=== PATIENT | male | born 1940 | race Hispanic/Latino ===

== ENCOUNTER 2016-09-23 15:17 | Inpatient (IN) | payer MEDICARE ==
[2016-09-23] MEDS ORDERED: NACL 0.9% 1000 ML 1,000 ML IV ONE (16:08)
[2016-09-23 16:47] LABS: Hematocrit 33.8 % (35.5-45.6); Hemoglobin 10.8 gm/dl (11.8-15.2); Mean Corpuscular HGB Conc 32 % (32-34); Mean Corpuscular Hemoglobin 27 pg (28-32); Mean Corpuscular Volume 84 fl (84-94); Platelet Count 339 K/mm3 (140-440); Red Blood Count 4.04 M/mm3 (3.65-5.03); Red Cell Distribution Width 16.9 % (13.2-15.2); White Blood Count 17.6 K/mm3 (4.5-11.0)
[2016-09-23 16:56] LABS: INR 1.29 (0.87-1.13)
[2016-09-23 16:57] LABS: Partial Thromboplastin Time 31.3 Sec. (24.2-36.6)
[2016-09-23 17:03] LABS: Alanine Aminotransferase 11 units/L (7-56); Albumin 3.1 g/dL (3.9-5); Alkaline Phosphatase 68 units/L (35-129); Anion Gap 20 mmol/L; BUN/Creatinine Ratio 18.18; Bilirubin,Total 0.3 mg/dL (0.1-1.2); Blood Urea Nitrogen 20 mg/dL (9-20); Calcium 8.5 mg/dL (8.4-10.2); Carbon Dioxide 21 mmol/L (22-30); Chloride 93.2 mmol/L (98-107); Glucose 118 mg/dL (75-100); Lipase 26 units/L (13-60); Potassium 3.4 mmol/L (3.6-5.0); Sodium 131 mmol/L (137-145); Total Protein 6.3 g/dL (6.3-8.2)
[2016-09-23] MEDS ORDERED: NACL ONE (17:34)
[2016-09-23 17:36] LABS: Anisocytosis 1+; Basophils % (Manual) 0 % (0.0-1.8); Blastocytes % (Manual) 0 %; Diff Status Complete; Eosinophils % (Manual) 0 % (0.0-4.3); Platelet Estimate Consistent w Auto; Poikilocytosis 1+
[2016-09-23] MEDS ORDERED: ZOFRAN IV ONE (19:00)
--- NOTE | 2016-09-23 19:03 | Cat Scan Report ---
FINAL REPORT PROCEDURE: CT ABDOMEN PELVIS W CON TECHNIQUE: Computerized axial tomography of the abdomen and pelvis was performed after the IV injection of iodinated nonionic contrast. HISTORY: abdominal pain COMPARISON: No prior studies are available for comparison. FINDINGS: Visualized lower thorax: Layering left pleural effusion. Left lung base atelectasis or infiltrate. Liver: Normal size and attenuation. Spleen: Normal size and attenuation. Gallbladder and biliary system: Possible cholelithiasis. Pancreas: Normal. Adrenals: Mild left adrenal hyperplasia. Kidneys: There are numerous bilateral rounded renal lesions, likely cysts. Largest in the right kidney measures up to 3.8 centimeters. Largest in the left kidney measures up to 5.2 centimeters. There is layering high density within 1 of the left kidney midpole cysts. No hydronephrosis bilaterally. Within the left kidney upper pole there is a nonobstructing 16 millimeter calculus. There is a punctate 1-2 millimeter calculus in the right kidney midpole. GI tract: There is acute inflammation involving the junction of the sigmoid colon and distal left colon, compatible with acute diverticulitis. There is also diffuse abnormal wall thickening of the entire colon, concerning for underlying diffuse colitis. The appendix is visualized and does not appear inflamed. No abscess is seen. Sutures are noted in the transverse colon. Lymph nodes and mesentery: No significant abnormality. Vasculature: Atherosclerotic calcification. Bladder: Diffuse urinary bladder wall thickening. Reproductive organs: Normal. Peritoneum: Small amount of free intraperitoneal air is seen in the anterior abdomen. Musculoskeletal structures: There has been posterior fusion from L3 through S1. Diffuse multilevel degenerative changes of the thoracolumbar spine. Spinal stimulating device is in place. There has been right hip arthroplasty Other: None. IMPRESSION: Small amount of free intraperitoneal air suggests bowel perforation. There is acute inflammation of the distal left colon/proximal sigmoid colon, which may be related to acute diverticulitis. There is also diffuse underlying colitis, with significant abnormal wall thickening of the entire colon, uncertain etiology. Findings were discussed with Dr. Leonard at 5:55 p.m. central standard time on 09/23/2016.
--- NOTE | 2016-09-23 19:06 | Emergency Department Report ---
HPI - General Chief Complaint: GI Bleed Time Seen by Provider: 09/23/16 19:04 - HPI HPI: The patient is a 76-year-old male with a history of CABG 2 months ago, segmental colectomy 2 months ago for repair of perforated transverse colon injured during mediastinal chest tube placement, and whom presents for evaluation of abdominal pain and diarrhea. The patient reports constant abdominal pain for the past 2 days, cramping in quality, generalized, moderate in severity, exacerbated with vomiting and defecation. He also reports 2 days of recurrent loose foul-smelling dark stools, and constant nausea and nonbilious , nonbloody emesis. The patient denies fever, chest pain, dyspnea, hemoptysis, hematemesis, bright blood in the stool, dysuria, hematuria, flank pain, inability to pass flatus. ED Past Medical Hx - Past Medical History Previous Medical History?: Yes Hx Hypertension: Yes (30yrs ago) Hx Heart Attack/AMI: No Hx Congestive Heart Failure: No Hx Diabetes: Yes (pill control) Hx GERD: Yes - Surgical History Past Surgical History?: Yes Hx Coronary Stent: No Additional Surgical History: CABG 08/2016 [facility], [place]. Bowel surgery 2017 - Social History Smoking Status: Former Smoker Substance Use Type: None - Medications Home Medications: Home Medications Medication Instructions Recorded Confirmed Last Taken Type Aspirin [Adult Low Dose Aspirin EC] 81 mg PO DAILY 07/20/16 07/20/16 07/20/16 History Carvedilol [Coreg] 25 mg PO BID 07/20/16 07/20/16 07/20/16 History FLUoxetine HCL [FLUoxetine] 40 mg PO DAILY 07/20/16 07/20/16 07/20/16 History Fenofibrate [Lofibra] 160 mg PO QDAY 07/20/16 07/20/16 07/20/16 History Lisinopril [Zestril TAB] 2.5 mg PO QDAY 07/20/16 07/20/16 07/20/16 06:30 History Nitroglycerin [Nitrostat] 0.4 mg SL Q5M PRN 07/20/16 07/20/16 07/18/16 History amLODIPine [Norvasc] 10 mg PO DAILY 07/20/16 07/20/16 07/20/16 History glipiZIDE [glipiZIDE ER] 5 mg PO QAM 07/20/16 07/20/16 07/19/16 History ED Review of Systems ROS: Stated complaint: SEPSIS Other details as noted in HPI Constitutional: denies: fever ENT: denies: throat or neck pain Respiratory: denies: cough, shortness of breath Cardiovascular: denies: chest pain Endocrine: denies unexplained weight loss or gain Gastrointestinal: reports abdominal pain, nausea Genitourinary: denies: dysuria Musculoskeletal: denies: leg swelling Skin: denies: rash Neurological: denies: headache Hematological/Lymphatic: denies: easy bleeding or easy bruising Psych: denies sadness or hopelessness Physical Exam - Physical Exam Vital Signs: Vital Signs 09/23/16 09/23/16 09/23/16 15:40 15:46 16:00 Temperature 98.4 F Pulse Rate 94 H 94 H 92 H Respiratory 24 21 19 Rate Blood Pressure 116/59 116/59 Blood Pressure 116/59 [Right] O2 Sat by Pulse 100 100 Oximetry 09/23/16 09/23/16 09/23/16 16:11 16:30 17:00 Temperature Pulse Rate 94 H 96 H Respiratory 24 25 H 25 H Rate Blood Pressure 106/65 106/65 Blood Pressure [Right] O2 Sat by Pulse 100 95 94 Oximetry 09/23/16 17:44 Temperature Pulse Rate 93 H Respiratory 22 Rate Blood Pressure Blood Pressure [Right] O2 Sat by Pulse 95 Oximetry Physical Exam: General: well-nourished, well-developed, no acute distress Head: Normocephalic, atraumatic Eyes: normal sclera ENT: Mucous membranes are pink and moist Neck: trachea midline, neck supple, No neck stiffness, no cervical adenopathy Respiratory: Breath sounds equal bilaterally, no wheezing, rales, or rhonchi Cardio: S1 and S2 present, no murmurs, rubs, gallops, capillary refill is brisk Abdomen: Normoactive bowel sounds, soft abdomen, generalized tenderness to palpation present, no rigidity, no guarding or rebound tenderness Musc: No pitting edema Skin: No rash Neuro: no facial drooping, normal speech Psych: Normal affect ED Course Vital Signs 09/23/16 09/23/16 09/23/16 15:40 15:46 16:00 Temperature 98.4 F Pulse Rate 94 H 94 H 92 H Respiratory 24 21 19 Rate Blood Pressure 116/59 116/59 Blood Pressure 116/59 [Right] O2 Sat by Pulse 100 100 Oximetry 09/23/16 09/23/16 09/23/16 16:11 16:30 17:00 Temperature Pulse Rate 94 H 96 H Respiratory 24 25 H 25 H Rate Blood Pressure 106/65 106/65 Blood Pressure [Right] O2 Sat by Pulse 100 95 94 Oximetry 09/23/16 17:44 Temperature Pulse Rate 93 H Respiratory 22 Rate Blood Pressure Blood Pressure [Right] O2 Sat by Pulse 95 Oximetry ED Medical Decision Making - Lab Data Result diagrams: 09/23/16 16:21 09/23/16 16:21 - Medical Decision Making The patient was seen and examined by myself. The patient is placed on a cardiac/vascular sonographer and continuous pulse ox. On initial evaluation, the patient was found to be in no distress. Medical records of outlying lab tests revealed positive Clostridium difficile stool test, resulting earlier today. Evaluation orders were placed. The patient is given IV fentanyl for his pain, IV Zofran for nausea, and 1 L normal saline fluid bolus. The patient is given rectal Tylenol for his elevated temperature. Lab results revealed leukocytosis, WBC 17 , and otherwise labs were grossly not concerning, including normal lactic acid level of 1.6. CAT scan the abdomen and pelvis with IV contrast reveals acute inflammation of the distal left: Just proximal sigmoid colon suggestive of acute diverticulitis , and diffuse underlying colitis with significant wall thickening of the entire colon. There is also a small amount of free intraperitoneal air suggestive of bowel perforation. The patient is administered Flagyl and levofloxacin. Medical records from [facility] are obtained and reviewed. Medical records revealed previous surgical history [address] Silva, the general surgeon catalytic converter operator helper was contacted. CAT scan and lab findings were discussed with the general surgeon and he agreed to evaluate the patient. The on -call hospitalist service was contacted. They agreed to admit the patient for further treatment and close monitoring. The ED admit order was placed. The patient was admitted in guarded condition. Critical care attestation.: If time is entered above; I have spent that time in minutes in the direct care of this critically ill patient, excluding procedure time. ED Disposition Clinical Impression: Bowel perforation, C. difficile colitis, Abdominal pain, acute, generalized Sepsis Qualifiers: Sepsis type: sepsis due to unspecified organism Qualified Code(s): A41.9 - Sepsis, unspecified organism Disposition: OP ADMITTED IP TO THIS HOSP Is pt being admited?: Yes Does the pt Need Aspirin: Yes Condition: Serious Time of Disposition: 19:06
--- NOTE | 2016-09-23 19:18 | Admit Criteria Form ---
Admission Criteria Documentation: SEPSIS and OTHER FEBRILE ILLNESS, W/O FOCAL INFECTION Clinical Indications for Admission to Inpatient Care ( Place 'X' for any and all applicable criteria): Admission is indicated for ANY ONE of the following (1)(2)(3)(4): [ ] I. Bacteremia [X ]II. Suspected or identified specific infection requiring hospitalization (eg, meningitis, endocarditis) [ ]III. Hemodynamic instability [ ]IV. Altered mental status [ ]V. Failure or unavailability of outpatient antimicrobial treatment [ ]. Hypoxemia [ ]VII. Seizures [ ]VIII. High-risk febrile neutropenia [ ]IX. Need for parenteral antibiotic in patient who is likely to abuse vascular access device (eg, injection drug user) [A](7) [ ]X. Temperature greater than 104.9 degrees F (40.5 degrees C) (oral) [X ]XI. Inpatient admission required rather than observation care because of ANY ONE of the following: [ X]1) Specific infection identified that is too severe for outpatient treatment or observation care trial [ ]2) Metabolic disorder (eg, hypoglycemia, hyperglycemia, metabolic acidosis) that is severe or persistent [ ]3) Temperature greater than 103.1 degrees F (39.5 degrees C) ( oral) that is not responsive to observation care treatment [ ]4) IV fluid to replace significant ongoing (eg, for over 24 hours) losses (> 3 L/m2 per day) [ ]5) Supplemental oxygen or respiratory treatments for over 24 hours that is performable only in acute inpatient setting [ ]6) Parenteral nutrition regimen need that must be implemented on inpatient basis [ ]7) Strict or protective (eg, laminar flow) isolation [X ]8) Other condition, treatment or monitoring requiring inpatient admission Extended stay beyond goal length of stay may be needed for(1)(3) [ ]a) Sepsis or septic shock(22) [ ]b) Positive blood cultures [ ]c) Insufficient oral intake [ ]d) High-risk febrile neutropenia(29)(30) [ ]e) Continued fever and clinical instability [ ]f) Clinically active comorbid illness (e.g,heart failure, renal failure , diabetes) The original [facility] [employer] content created by Randi Strickland has been revised. The portions of the content which have been revised are identified through the use of italic text or in bold, and Randi Stroudines has neither reviewed nor approved the modified material. All other unmodified content is copyright [facility]. Please see references footnoted in the original [facility] edition 2016 Admission Criteria Met: Yes
[2016-09-23] MEDS ORDERED: FLAGYL 500 MG/100 ML 500 MG/100 ML BAG IV SCH (20:00)
[2016-09-23] MEDS ORDERED: LEVAQUIN 750MG/150ML 750 MG/150 ML BAG IV ONE (20:02)
--- NOTE | 2016-09-23 22:18 | History and Physical Report ---
History of Present Illness Date of examination: 09/23/16 Date of admission: 09/23/16 Chief complaint: Positive for C. difficile History of present illness: This is a 76 y/o male from [facility] with h/o CAD s/p CABG on July 2016, partial colectomy following CABG on July 2016 presented with diarrhea for about a week and positive C. difficile. Patient states that he was admitted to [facility] for cardiac bypass surgery on July last year. Following the bypass surgery he required chest tube placement for mediastinitis, his hospitalization also got complicated with intra-abdominal infection and bowel obstruction which required partial colectomy. He was then sent to [facility] for subacute rehabilitation. For last few days he developed diarrhea and a culture for C. difficile was sent out which came back positive. Patient was sent to ER today for further evaluation and management. He had a CT scan of abdomen and pelvis in the ER which showed diffuse colitis and possible bowel perforation with free intra-abdominal air. General surgeon was consulted from the ER and he is getting admitted for further evaluation and management. He received a dose of Levaquin and Flagyl in the ER and also getting hydrated with IV fluid. Patient had a bowel movement with loose watery stool in the ER, he has been placed on contact isolation. Past medical History: h/o coronary artery disease status post CABG, hypertension , diabetes mellitus type 2 and hyperlipidemia. Past surgical History: s/p status post CABG in 2015, partial colectomy in 2016, chest tube placement, right hip replacement. Social History: Lives with family, denies any smoking, drinking and elicit drug abuse. Family History: Significant for heart disease in father and brother. Review of System: Constitutional: no fever, + chills, no weight loss Ears, eyes, nose, mouth and throat: no nasal congestion, no nasal discharge, no sinus pressure, no vision change, no red eye. Neck: No neck pain or rigidity. Cardiovascular: No chest pain, no orthopnea, no palpitations, no leg swelling Respiratory: No shortness of breath, no cough, no congestion, no wheezing Gastrointestinal: Diffuse dull abdominal pain, positive for diarrhea no nausea, no vomiting Genitourinary : no dysuria, no hematuria Musculoskeletal: no joint swelling or muscle ache Integumentary: no rash, no pruritis Neurological: no parathesias, no numbness, no tingling Endocrine: no cold or heat intolerance, no polyuria or polydipsia Hematologic/Lymphatic: no easy bruising, no easy bleeding, no gland swelling Allergic/Immunologic: no urticaria, no angioedema. Medications and Allergies Allergies Allergy/AdvReac Type Severity Reaction Status Date / Time Penicillins Allergy Mild REDNESS, Verified 07/20/16 08:16 WARM FEELING,SWELLING morphine AdvReac Intermediate VERY Verified 07/20/16 08:16 JITTERY, TWITCHING, JUMPING Home Medications Medication Instructions Recorded Confirmed Last Taken Type Aspirin [Adult Low Dose Aspirin EC] 81 mg PO DAILY 07/20/16 09/24/16 1 Day Ago History Carvedilol [Coreg] 25 mg PO BID 07/20/16 09/24/16 1 Day Ago History FLUoxetine HCL [FLUoxetine] 40 mg PO DAILY 07/20/16 09/24/16 1 Day Ago History Fenofibrate [Lofibra] 160 mg PO QDAY 07/20/16 09/24/16 1 Day Ago History Lisinopril [Zestril TAB] 2.5 mg PO QDAY 07/20/16 09/24/16 1 Day Ago History Nitroglycerin [Nitrostat] 0.4 mg SL Q5M PRN 07/20/16 09/24/16 09/15/16 08:00 History amLODIPine [Norvasc] 10 mg PO DAILY 07/20/16 09/24/16 1 Day Ago History glipiZIDE [glipiZIDE ER] 5 mg PO QAM 07/20/16 09/24/16 1 Day Ago History Active Meds: Active Medications Metronidazole (Flagyl 500 Mg/100 Ml) 500 mg in 100 mls @ 200 mls/hr IV ONCE ASUNCION Exam - Physical Exam Narrative exam: GENERAL: This is well-developed well-nourished white male lying on bed appeared to be in no discomfort. HEENT: Normocephalic. Atraumatic. Extraocular motions are intact. No conjunctival congestion or icterus. Patient has moist mucous membranes. External auditory canal and nares patent bilaterally. NECK: Supple. Trachea midline. No JVD, thyromagaly or lymphadenopathy. CHEST/LUNGS: Clear to auscultated bilaterally. There is no respiratory distress noted, breathing nonlabored. No wheezes crackles or rhonchi. Well- healed Surgical sternal wound with dressing without any discharge or erythema. HEART/CARDIOVASCULAR: Regular in rate and rhythm. PMI at the apex. There is no gallop rub or murmur. ABDOMEN: Abdomen is soft, nontender. Patient has bowel sounds. There is no abdominal distention. No organomagaly or rigidity. Midline unhealed surgical wound with significant needed 3 mind for recurrent discharge covered with dressing. SKIN: There is no rash, no erythrema. There is no diaphoresis. Warm and dry. NEUROLOGY: The patient is awake, alert, and oriented. The patient is cooperative. The patient has normal speech. No focal motor deficit. MUSCULOSKELETAL: No joint effusion or tenderness. Muscle strength equal bilaterally. No muscle wasting. EXTRIMITY: No edema, cyanosis or clubbing. PSYCH: No depression or anxiety noted. Cooperative. - Constitutional Vitals: Temp Pulse Resp BP Pulse Ox 98.5 F 98 H 22 102/58 94 09/23/16 22:00 09/23/16 22:00 09/23/16 22:00 09/23/16 22:00 09/23/16 22:00 Results - Labs CBC & Chem 7: 09/24/16 02:32 09/24/16 02:32 Labs: Laboratory Last Values WBC 17.6 K/mm3 (4.5-11.0) H 09/23/16 16:21 RBC 4.04 M/mm3 (3.65-5.03) 09/23/16 16:21 Hgb 10.8 gm/dl (11.8-15.2) L 09/23/16 16:21 Hct 33.8 % (35.5-45.6) L 09/23/16 16:21 MCV 84 fl (84-94) 09/23/16 16:21 MCH 27 pg (28-32) L 09/23/16 16:21 MCHC 32 % (32-34) 09/23/16 16:21 RDW 16.9 % (13.2-15.2) H 09/23/16 16:21 Plt Count 339 K/mm3 (140-440) 09/23/16 16:21 Add Manual Diff Complete 09/23/16 16:21 Total Counted 100 09/23/16 16:21 Seg Neuts % (Manual) 81.0 % (40.0-70.0) H 09/23/16 16:21 Band Neutrophils % 3.0 % 09/23/16 16:21 Lymphocytes % (Manual) 5.0 % (13.4-35.0) L 09/23/16 16:21 Reactive Lymphs % (Man) 0 % 09/23/16 16:21 Monocytes % (Manual) 11.0 % (0.0-7.3) H 09/23/16 16:21 Eosinophils % (Manual) 0 % (0.0-4.3) 09/23/16 16:21 Basophils % (Manual) 0 % (0.0-1.8) 09/23/16 16:21 Metamyelocytes % 0 % 09/23/16 16:21 Myelocytes % 0 % 09/23/16 16:21 Promyelocytes % 0 % 09/23/16 16:21 Blast Cells % 0 % 09/23/16 16:21 Nucleated RBC % Not Reportable 09/23/16 16:21 Seg Neutrophils # Man 14.3 K/mm3 (1.8-7.7) H 09/23/16 16:21 Band Neutrophils # 0.5 K/mm3 09/23/16 16:21 Lymphocytes # (Manual) 0.9 K/mm3 (1.2-5.4) L 09/23/16 16:21 Abs React Lymphs (Man) 0.0 K/mm3 09/23/16 16:21 Monocytes # (Manual) 1.9 K/mm3 (0.0-0.8) H 09/23/16 16:21 Eosinophils # (Manual) 0.0 K/mm3 (0.0-0.4) 09/23/16 16:21 Basophils # (Manual) 0.0 K/mm3 (0.0-0.1) 09/23/16 16:21 Metamyelocytes # 0.0 K/mm3 09/23/16 16:21 Myelocytes # 0.0 K/mm3 09/23/16 16:21 Promyelocytes # 0.0 K/mm3 09/23/16 16:21 Blast Cells # 0.0 K/mm3 09/23/16 16:21 WBC Morphology Not Reportable 09/23/16 16:21 Hypersegmented Neuts Not Reportable 09/23/16 16:21 Hyposegmented Neuts Not Reportable 09/23/16 16:21 Hypogranular Neuts Not Reportable 09/23/16 16:21 Smudge Cells Not Reportable 09/23/16 16:21 Toxic Granulation Not Reportable 09/23/16 16:21 Toxic Vacuolation Not Reportable 09/23/16 16:21 Dohle Bodies Not Reportable 09/23/16 16:21 Pelger-Huet Anomaly Not Reportable 09/23/16 16:21 Haleigh Rods Not Reportable 09/23/16 16:21 Platelet Estimate Consistent w auto 09/23/16 16:21 Clumped Platelets Not Reportable 09/23/16 16:21 Plt Clumps, EDTA Not Reportable 09/23/16 16:21 Large Platelets Not Reportable 09/23/16 16:21 Giant Platelets Not Reportable 09/23/16 16:21 Platelet Satelliting Not Reportable 09/23/16 16:21 Plt Morphology Comment Not Reportable 09/23/16 16:21 RBC Morphology Not Reportable 09/23/16 16:21 Dimorphic RBCs Not Reportable 09/23/16 16:21 Polychromasia Not Reportable 09/23/16 16:21 Hypochromasia Not Reportable 09/23/16 16:21 Poikilocytosis 1+ 09/23/16 16:21 Anisocytosis 1+ 09/23/16 16:21 Microcytosis Not Reportable 09/23/16 16:21 Macrocytosis Not Reportable 09/23/16 16:21 Spherocytes Not Reportable 09/23/16 16:21 Pappenheimer Bodies Not Reportable 09/23/16 16:21 Sickle Cells Not Reportable 09/23/16 16:21 Target Cells Not Reportable 09/23/16 16:21 Tear Drop Cells Not Reportable 09/23/16 16:21 Ovalocytes Not Reportable 09/23/16 16:21 Helmet Cells Not Reportable 09/23/16 16:21 Basurto[place] Bodies Not Reportable 09/23/16 16:21 [place] Rings Not Reportable 09/23/16 16:21 Pedro Cells Not Reportable 09/23/16 16:21 Bite Cells Not Reportable 09/23/16 16:21 Crenated Cell Not Reportable 09/23/16 16:21 Elliptocytes Not Reportable 09/23/16 16:21 Acanthocytes (Spur) Not Reportable 09/23/16 16:21 Rouleaux Not Reportable 09/23/16 16:21 Hemoglobin C Crystals Not Reportable 09/23/16 16:21 Schistocytes Not Reportable 09/23/16 16:21 Malaria parasites Not Reportable 09/23/16 16:21 Tk Bodies Not Reportable 09/23/16 16:21 Hem Pathologist Commnt No 09/23/16 16:21 PT 16.0 Sec. (12.2-14.9) H 09/23/16 16:21 INR 1.29 (0.87-1.13) H 09/23/16 16:21 APTT 31.3 Sec. (24.2-36.6) 09/23/16 16:21 Sodium 131 mmol/L (137-145) L 09/23/16 16:21 Potassium 3.4 mmol/L (3.6-5.0) L 09/23/16 16:21 Chloride 93.2 mmol/L (98-107) L 09/23/16 16:21 Carbon Dioxide 21 mmol/L (22-30) L 09/23/16 16:21 Anion Gap 20 mmol/L 09/23/16 16:21 BUN 20 mg/dL (9-20) 09/23/16 16:21 Creatinine 1.1 mg/dL (0.8-1.5) 09/23/16 16:21 Estimated GFR > 60 ml/min 09/23/16 16:21 BUN/Creatinine Ratio 18.18 % 09/23/16 16:21 Glucose 118 mg/dL (75-100) H 09/23/16 16:21 Lactic Acid 1.6 mmol/L (0.7-2.0) 09/23/16 19:44 Calcium 8.5 mg/dL (8.4-10.2) 09/23/16 16:21 Total Bilirubin 0.3 mg/dL (0.1-1.2) 09/23/16 16:21 AST 19 units/L (5-40) 09/23/16 16:21 ALT 11 units/L (7-56) 09/23/16 16:21 Alkaline Phosphatase 68 units/L (35-129) 09/23/16 16:21 Total Protein 6.3 g/dL (6.3-8.2) 09/23/16 16:21 Albumin 3.1 g/dL (3.9-5) L 09/23/16 16:21 Albumin/Globulin Ratio 1.0 % 09/23/16 16:21 Lipase 26 units/L (13-60) 09/23/16 16:21 Blood Type O POSITIVE 09/23/16 16:21 Antibody Screen Negative 09/23/16 16:21 - Imaging and Cardiology CT scan - abdomen: report reviewed (Small amount of free intraperitoneal air suggesting bowel perforation, acute inflammation of the distal left colon/ proximal sigmoid colon, with diffuse underlying colitis with significant abnormal wall thickening of the entire colon.) Assessment and Plan Assessment and plan: Sepsis with C. difficile colitis C. difficile colitis Possible bowel perforation Infected abdominal wound Coronary artery disease status post CABG Recent history of partial colectomy Recent history of chest tube placement Hypertension, benign essential Diabetes mellitus type II on oral hypoglycemic medications Hyperlipidemia Mild hyponatremia and hypokalemia Plan: Admit to telemetry Place on IV Flagyl and IV fluid hydration Obtain blood culture stool culture Keep nothing by mouth for now Gen. surgery consulted from the ER follow up their recommendation Protonix IV, IV morphine and Zofran Continue supportive care, Consult wound care for abdominal wound Place on Accu-Chek and Sliding scale of insulin coverage Abdomen x-ray tomorrow morning Replace electrolytes as needed DVT prophylaxis Consider consulting GI if no improvement of symptom It took me about 47 minutes for initial care of this patient including history and physical, reviewing initial lab results and ER documents, placing admission orders, bedside counseling and coordination of care. Advance Directives: Yes VTE prophylaxis?: Mechanical Plan of care discussed with patient/family: Yes
[2016-09-23] MEDS ORDERED: TYLENOL PR ONE (22:20)
[2016-09-23] MEDS ORDERED: ZOFRAN IV PRN (22:22)
[2016-09-23] MEDS ORDERED: MILK OF MAGNESIA PO PRN (22:22)
[2016-09-23] MEDS ORDERED: D50W (25GM) IV PRN (22:22)
[2016-09-23] MEDS ORDERED: DULCOLAX PR PRN (22:22)
[2016-09-23] MEDS ORDERED: APRESOLINE IV PRN (22:38)
[2016-09-23] MEDS ORDERED: NITROSTAT SL PRN (22:39)
[2016-09-24] MEDS: NACL 0.9% 1000 ML 1,000 ML IV SCH (01:15)
[2016-09-24] MEDS ORDERED: SUBLIMAZE IV ONE (01:16)
[2016-09-24] MEDS ORDERED: NACL 0.9% 1000 ML 1,000 ML IV ONE (01:22)
[2016-09-24] MEDS: KCL 10MEQ/100ML 10 MEQ/100 ML BAG IV SCH ×2 (02:22→03:18)
[2016-09-24 02:56] LABS: Basophils % (Auto) 0.2 % (0.0-1.8); Eosinophils % (Auto) 0.1 % (0.0-4.3); Hematocrit 33.1 % (35.5-45.6); Hemoglobin 10.5 gm/dl (11.8-15.2); Mean Corpuscular HGB Conc 32 % (32-34); Mean Corpuscular Hemoglobin 27 pg (28-32); Mean Corpuscular Volume 84 fl (84-94); Platelet Count 340 K/mm3 (140-440); Red Blood Count 3.96 M/mm3 (3.65-5.03); Red Cell Distribution Width 16.5 % (13.2-15.2); White Blood Count 17.9 K/mm3 (4.5-11.0)
[2016-09-24 03:06] LABS: INR 1.45 (0.87-1.13)
[2016-09-24 03:15] LABS: Anion Gap 21 mmol/L; Blood Urea Nitrogen 19 mg/dL (9-20); Carbon Dioxide 18 mmol/L (22-30); Chloride 95.2 mmol/L (98-107); Glucose 88 mg/dL (75-100); Potassium 3.5 mmol/L (3.6-5.0); Sodium 131 mmol/L (137-145)
[2016-09-24 03:18] LABS: Partial Thromboplastin Time 32.9 Sec. (24.2-36.6)
[2016-09-24] MEDS: FLAGYL 500 MG/100 ML 500 MG/100 ML BAG IV SCH ×3 (06:22→23:08)
[2016-09-24] MEDS ORDERED: NON-FORMULARY (Fluoxetine Hcl [Fluoxetine] 40 MG) PO SCH (10:00)
[2016-09-24] MEDS: PROzac PO SCH (12:24)
[2016-09-24] MEDS: HALFPRIN EC PO SCH (12:24)
--- NOTE | 2016-09-24 19:52 | Progress Note ---
Assessment and Plan Assessment and plan: This is a 76 y/o male from [facility] with h/o CAD s/p CABG on July 2016, partial colectomy following CABG on July 2016 presented with diarrhea for about a week and positive C. difficile. Patient states that he was admitted to [facility] for cardiac bypass surgery on July last year. Following the bypass surgery he required chest tube placement for mediastinitis, his hospitalization also got complicated with intra-abdominal infection and bowel obstruction which required partial colectomy. He was then sent to [facility] for subacute rehabilitation. For last few days he developed diarrhea and a culture for C. difficile was sent out which came back positive. Patient was sent to ER today for further evaluation and management. He had a CT scan of abdomen and pelvis in the ER which showed diffuse colitis and possible bowel perforation with free intra-abdominal air. General surgeon was consulted from the ER and he is getting admitted for further evaluation and management. He received a dose of Levaquin and Flagyl in the ER and also getting hydrated with IV fluid. Patient had a bowel movement with loose watery stool in the ER, he has been placed on contact isolation. Sepsis with C. difficile colitis C. difficile colitis Possible bowel perforation Infected abdominal wound Coronary artery disease status post CABG Recent history of partial colectomy Recent history of chest tube placement S/P partial colectomy S/P Retension sutures Hypertension, benign essential Diabetes mellitus type II on oral hypoglycemic medications Hyperlipidemia Mild hyponatremia and hypokalemia Plan: Discussed with Surgery- May need total colectomy if no improvement Conuslt GI Place on IV Flagyl , IV Vancomycin and IV fluid hydration Obtain blood culture stool culture Keep nothing by mouth for now-Ok For ice Gen. surgery Discussed with son in detail Protonix IV, IV morphine and Zofran Continue supportive care, Consult wound care for abdominal wound Place on Accu-Chek and Sliding scale of insulin coverage Abdomen x-ray tomorrow morning Replace electrolytes as needed DVT prophylaxis Consider consulting ID in am if no improvement The high probability of a clinically significant, sudden or life threatening deterioration of the [gi] system(s) required my full and direct attention, intervention and personal management. The aggregate critical care time was [45] minutes. This time is in addition to time spent performing reported procedures but includes the following: [x] Data Review and interpretation [x] Patient assessment and monitoring of vital signs [x] Documentation [x] Medication orders and management History Interval history: Follow-up colitis, sepsis Patient seen and examined this morning in no acute distress continues with diarrhea. No fever. Mild abdominal pain. Thristy Denies any chest pain, nausea, vomiting No fever noted blood pressure controlled No adverse events reported to me by nursing staff Hospitalist Physical - Physical exam Narrative exam: VITAL SIGNS: Reviewed. GENERAL: The patient appeared well nourished and normally developed. Vital signs as documented. HEAD: No signs of head trauma. EYES: Pupils are equal. Extraocular motions intact. EARS: Hearing grossly intact. MOUTH: Oropharynx is normal. NECK: No adenopathy, no JVD. CHEST: Chest with clear breath sounds bilaterally. No wheezes, rales, or rhonchi. CARDIAC: Regular rate and rhythm. S1 and S2, without murmurs, gallops, or rubs. VASCULAR: No Edema. Peripheral pulses normal and equal in all extremities. ABDOMEN: Soft, non tender except for surgical site. Rentention sutures still in place. No sign of distention. No rebound or guarding, and no masses palpated. Bowel Sounds hypoactive MUSCULOSKELETAL: Good range of motion of all major joints. Extremities without clubbing, cyanosis or edema. NEUROLOGIC EXAM: Alert and oriented x 3. No focal sensory or strength deficits. Speech normal. Follows commands. PSYCHIATRIC: Mood normal. SKIN: Large retension sutures, abdomen and chest . - Constitutional Vitals: Temp Pulse Resp BP Pulse Ox 98.5 F 97 H 20 106/56 93 09/24/16 16:30 09/24/16 16:30 09/24/16 16:30 09/24/16 16:30 09/24/16 16:30 Results - Labs CBC & Chem 7: 09/24/16 02:32 09/24/16 02:32 Labs: Laboratory Last Values WBC 17.9 K/mm3 (4.5-11.0) H 09/24/16 02:32 RBC 3.96 M/mm3 (3.65-5.03) 09/24/16 02:32 Hgb 10.5 gm/dl (11.8-15.2) L 09/24/16 02:32 Hct 33.1 % (35.5-45.6) L 09/24/16 02:32 MCV 84 fl (84-94) 09/24/16 02:32 MCH 27 pg (28-32) L 09/24/16 02:32 MCHC 32 % (32-34) 09/24/16 02:32 RDW 16.5 % (13.2-15.2) H 09/24/16 02:32 Plt Count 340 K/mm3 (140-440) 09/24/16 02:32 Lymph % (Auto) 6.2 % (13.4-35.0) L 09/24/16 02:32 [place] % (Auto) 11.0 % (0.0-7.3) H 09/24/16 02:32 Eos % (Auto) 0.1 % (0.0-4.3) 09/24/16 02:32 Baso % (Auto) 0.2 % (0.0-1.8) 09/24/16 02:32 Lymph # 1.1 K/mm3 (1.2-5.4) L 09/24/16 02:32 [place] # 2.0 K/mm3 (0.0-0.8) H 09/24/16 02:32 Eos # 0.0 K/mm3 (0.0-0.4) 09/24/16 02:32 Baso # 0.0 K/mm3 (0.0-0.1) 09/24/16 02:32 Add Manual Diff Complete 09/23/16 16:21 Total Counted 100 09/23/16 16:21 Seg Neutrophils % 82.5 % (40.0-70.0) H 09/24/16 02:32 Seg Neuts % (Manual) 81.0 % (40.0-70.0) H 09/23/16 16:21 Band Neutrophils % 3.0 % 09/23/16 16:21 Lymphocytes % (Manual) 5.0 % (13.4-35.0) L 09/23/16 16:21 Reactive Lymphs % (Man) 0 % 09/23/16 16:21 Monocytes % (Manual) 11.0 % (0.0-7.3) H 09/23/16 16:21 Eosinophils % (Manual) 0 % (0.0-4.3) 09/23/16 16:21 Basophils % (Manual) 0 % (0.0-1.8) 09/23/16 16:21 Metamyelocytes % 0 % 09/23/16 16:21 Myelocytes % 0 % 09/23/16 16:21 Promyelocytes % 0 % 09/23/16 16:21 Blast Cells % 0 % 09/23/16 16:21 Nucleated RBC % Not Reportable 09/23/16 16:21 Seg Neutrophils # 14.8 K/mm3 (1.8-7.7) H 09/24/16 02:32 Seg Neutrophils # Man 14.3 K/mm3 (1.8-7.7) H 09/23/16 16:21 Band Neutrophils # 0.5 K/mm3 09/23/16 16:21 Lymphocytes # (Manual) 0.9 K/mm3 (1.2-5.4) L 09/23/16 16:21 Abs React Lymphs (Man) 0.0 K/mm3 09/23/16 16:21 Monocytes # (Manual) 1.9 K/mm3 (0.0-0.8) H 09/23/16 16:21 Eosinophils # (Manual) 0.0 K/mm3 (0.0-0.4) 09/23/16 16:21 Basophils # (Manual) 0.0 K/mm3 (0.0-0.1) 09/23/16 16:21 Metamyelocytes # 0.0 K/mm3 09/23/16 16:21 Myelocytes # 0.0 K/mm3 09/23/16 16:21 Promyelocytes # 0.0 K/mm3 09/23/16 16:21 Blast Cells # 0.0 K/mm3 09/23/16 16:21 WBC Morphology Not Reportable 09/23/16 16:21 Hypersegmented Neuts Not Reportable 09/23/16 16:21 Hyposegmented Neuts Not Reportable 09/23/16 16:21 Hypogranular Neuts Not Reportable 09/23/16 16:21 Smudge Cells Not Reportable 09/23/16 16:21 Toxic Granulation Not Reportable 09/23/16 16:21 Toxic Vacuolation Not Reportable 09/23/16 16:21 Dohle Bodies Not Reportable 09/23/16 16:21 Pelger-Huet Anomaly Not Reportable 09/23/16 16:21 Haleigh Rods Not Reportable 09/23/16 16:21 Platelet Estimate Consistent w auto 09/23/16 16:21 Clumped Platelets Not Reportable 09/23/16 16:21 Plt Clumps, EDTA Not Reportable 09/23/16 16:21 Large Platelets Not Reportable 09/23/16 16:21 Giant Platelets Not Reportable 09/23/16 16:21 Platelet Satelliting Not Reportable 09/23/16 16:21 Plt Morphology Comment Not Reportable 09/23/16 16:21 RBC Morphology Not Reportable 09/23/16 16:21 Dimorphic RBCs Not Reportable 09/23/16 16:21 Polychromasia Not Reportable 09/23/16 16:21 Hypochromasia Not Reportable 09/23/16 16:21 Poikilocytosis 1+ 09/23/16 16:21 Anisocytosis 1+ 09/23/16 16:21 Microcytosis Not Reportable 09/23/16 16:21 Macrocytosis Not Reportable 09/23/16 16:21 Spherocytes Not Reportable 09/23/16 16:21 Pappenheimer Bodies Not Reportable 09/23/16 16:21 Sickle Cells Not Reportable 09/23/16 16:21 Target Cells Not Reportable 09/23/16 16:21 Tear Drop Cells Not Reportable 09/23/16 16:21 Ovalocytes Not Reportable 09/23/16 16:21 Helmet Cells Not Reportable 09/23/16 16:21 Basurto-De Witt Bodies Not Reportable 09/23/16 16:21 [place] Rings Not Reportable 09/23/16 16:21 Pedro Cells Not Reportable 09/23/16 16:21 Bite Cells Not Reportable 09/23/16 16:21 Crenated Cell Not Reportable 09/23/16 16:21 Elliptocytes Not Reportable 09/23/16 16:21 Acanthocytes (Spur) Not Reportable 09/23/16 16:21 Rouleaux Not Reportable 09/23/16 16:21 Hemoglobin C Crystals Not Reportable 09/23/16 16:21 Schistocytes Not Reportable 09/23/16 16:21 Malaria parasites Not Reportable 09/23/16 16:21 Tk Bodies Not Reportable 09/23/16 16:21 Hem Pathologist Commnt No 09/23/16 16:21 PT 17.6 Sec. (12.2-14.9) H 09/24/16 02:32 INR 1.45 (0.87-1.13) H 09/24/16 02:32 APTT 32.9 Sec. (24.2-36.6) 09/24/16 02:32 Sodium 131 mmol/L (137-145) L 09/24/16 02:32 Potassium 3.5 mmol/L (3.6-5.0) L 09/24/16 02:32 Chloride 95.2 mmol/L (98-107) L 09/24/16 02:32 Carbon Dioxide 18 mmol/L (22-30) L 09/24/16 02:32 Anion Gap 21 mmol/L 09/24/16 02:32 BUN 19 mg/dL (9-20) 09/24/16 02:32 Creatinine 1.0 mg/dL (0.8-1.5) 09/24/16 02:32 Estimated GFR > 60 ml/min 09/24/16 02:32 BUN/Creatinine Ratio 19.00 % 09/24/16 02:32 Glucose 88 mg/dL (75-100) 09/24/16 02:32 Lactic Acid 1.6 mmol/L (0.7-2.0) 09/23/16 19:44 Calcium 8.0 mg/dL (8.4-10.2) L 09/24/16 02:32 Total Bilirubin 0.3 mg/dL (0.1-1.2) 09/23/16 16:21 AST 19 units/L (5-40) 09/23/16 16:21 ALT 11 units/L (7-56) 09/23/16 16:21 Alkaline Phosphatase 68 units/L (35-129) 09/23/16 16:21 NT-Pro-B Natriuret Pep 1718 pg/mL (0-900) H 09/24/16 02:32 Total Protein 6.3 g/dL (6.3-8.2) 09/23/16 16:21 Albumin 3.1 g/dL (3.9-5) L 09/23/16 16:21 Albumin/Globulin Ratio 1.0 % 09/23/16 16:21 Lipase 26 units/L (13-60) 09/23/16 16:21 Blood Type O POSITIVE 09/23/16 16:21 Antibody Screen Negative 09/23/16 16:21 - Imaging and Cardiology CT scan - abdomen: image reviewed (Diffused colitis)
[2016-09-24] MEDS ORDERED: VANCOMYCIN VIAL IV ONE (20:05)
[2016-09-24] MEDS ORDERED: VANCOMYCIN PHARMACY TO DOSE IV SCH (21:00)
[2016-09-24] MEDS: VANCOMYCIN VIAL 1,250 MG in NACL 0.9% 250ML 250 ML IV SCH (21:34)
--- NOTE | 2016-09-25 04:35 | Consultation ---
HISTORY OF PRESENT ILLNESS: This man was seen last night. He is a 76-year-old man. He is a known case of diabetes mellitus and hypertension. Apparently, he had aortocoronary bypass done about 6 weeks ago, where he had a quadruple bypass according to son, from whom I took almost all the history and physical most of the history. Apparently, he had a complication during the operation where there was perforation of the transverse colon while putting the chest tube and this from what he told me this required exploratory laparotomy and they took a segment of his colon. He told me it is about 1 inch. The patient did well until about 6 days ago, and he started to have some abdominal pain, right over the area of his wound and he started having severe diarrhea. He denied any bleeding per rectum at one point. So because of the above, the patient was thus admitted for further evaluation. He was found to have a 17,000 white count. PAST SURGICAL HISTORY: Other than the above, he has a history of right femur and right hip surgery about 20-year ago. ALLERGIES: Allergic reactions to PENICILLIN and to MORPHINE apparently. He was evaluated by our ER physician and CBC at that point showed a white count of 17.6, hemoglobin was 10.8, the platelets were 339,000. The INR is 1.29 and this morning it was 1.45. The potassium was 3.4, 3.5 and sodium was 131. The creatinine is 1.1 and today is 1.0, total bilirubin is normal. Albumin is 3.1. PHYSICAL EXAMINATION: GENERAL: Showed a thin, slim, elderly man who is in no distress. He told me I have pain in the wound area. He had a mid sternotomy and he had upper mid abdominal incision with retention sutures. The patient's examination did not show anything specific, he is an elderly man. HEAD AND NECK: Negative. Neck is supple. CHEST: Showed some decreased breath sounds on the left side. HEART: Sounds normal to me. ABDOMEN: Moderately protuberant and soft; however, with diffuse tenderness mainly around the midline incision with retention sutures there. There is some evidence of a leak of some purulent material from the upper aspect of his wound. There was a bandage there. GENITALIA: Showed normal male genitalia. EXTREMITIES: Showed no significant edema. IMPRESSION AND PLAN: Abdominal pain status post 4 aortocoronary bypass, status post perforation of the transverse colon requiring ? partial resection, this is about 6 weeks ago. His white count of 17,000. I read his CT scan with our doctor, Dr. Casas ____ and showed diffuse severe edema involving the entire colon from the sigmoid down to the cecal area. There is 2 or 3 blebs of free air, just by the wall, each is about 5 to 8 mm. I do not know if this is from the operating room or the operation or not. The patient does not look that sick to me and we will try to get hold of his surgeon and call for Dr. Puga. I took most of the history from his son. He is going to try to call Dr. Puga and see what we need to do and see if we would accept transferring the patient to his ____ [facility] in [facility]. I talked to Dr. Peterson, his experimental physicist, and going to have his Gastroenterology involved. I do not believe at the present time, this needs any surgical intervention. Of course, we need to keep him under observation. JOB# [id number] JESICA/RAMESH
--- NOTE | 2016-09-25 04:54 | Consultation ---
REFERRING PHYSICIAN: Ruiz Peterson MD INDICATION: 1. C. diff. 2. Abdominal pain. HISTORY OF PRESENT ILLNESS: The patient is a 76-year-old white male with history of coronary artery disease, status post CABG and history of status post partial colectomy now being seen for diarrhea. The patient reports that he was at [place] and status post cardiac bypass in end of July. The patient reportedly had complications and subsequently had to have a partial colectomy and now has ostomy. The patient was at [facility]. The patient developed diarrhea and was sent to the Emergency Room when he was found to be C. diff positive. The patient subsequently had a CT scan which shows some diffuse colitis and possible bowel perforation with some free intraperitoneal air. The patient subsequently was admitted to Internal Medicine Service and GI consulted. The patient reports that he is moving his bowels. He reports actually since he has been admitted and put on IV antibiotics, his bowel movements have improved from just being liquid to now pasty and less frequent. Denies any rectal bleeding. Denies any other specific complaints. PAST MEDICAL HISTORY: 1. Coronary artery disease, status post CABG. 2. Hypertension. 3. Diabetes. 4. High cholesterol. PAST SURGICAL HISTORY: 1. Status post CABG. 2. Status post partial colectomy with ostomy. 3. Chest tube. 4. Right hip replacement. MEDICATIONS: See chart. ALLERGIES: No known drug allergies. SOCIAL HISTORY: Denies alcohol or tobacco. FAMILY HISTORY: Negative for colon cancer. REVIEW OF SYSTEMS: GENERAL: Reports mild weakness. HEENT: No visual complaints or tinnitus. PULMONARY: Denies shortness of breath. CARDIOVASCULAR: No chest pain. GASTROINTESTINAL: Reports loose stools. All points of 13-point review of systems otherwise negative. PHYSICAL EXAMINATION: VITAL SIGNS: Temperature of 98.2, pulse 97, respirations 20, blood pressure 130/70. GENERAL: Fairly nourished white male in no acute distress. HEENT: Pupils equal, round, reactive to light and accommodation. Extraocular movements intact. PULMONARY: Clear. CARDIOVASCULAR: Regular rate and rhythm. Normal S1, S2. ABDOMEN: Bandage intact. No guarding, no rebound. SKIN: No obvious rashes. LABORATORY DATA: Pertinent for white count of 17.9, hemoglobin and hematocrit of 10.5 and 33.1, platelet count of 340. Chem-7: Sodium of 131, potassium 3.5, chloride 95, CO2 18, BUN and creatinine of 19 and 1. LFTs within normal limits. INR of 1.45 with a PT of 17.6 and PTT of 32.9. CT scan shows small amount of free intraperitoneal air suggestive of bowel perforation. There was acute inflammation of the distal left colon, proximal sigmoid colon related to possible diverticulitis. ASSESSMENT AND PLAN: A 76-year-old male with multiple medical problems, status post coronary artery bypass graft, who reported subsequently developed bowel complications requiring an ostomy, now presents after having multiple rounds of antibiotics, now with C. diff and loose stool which seems to be improving. The patient's CT scan showed a small amount of free intraperitoneal air raising a possibility of bowel perforation. The patient's exam overall from an abdomen standpoint is benign. He himself reports that his bowel movements are actually started to improve since he has been admitted. Management is noted below. PLAN: 1. Continue Flagyl and Levaquin as ordered. 2. We will review CT scan. 3. Consider vancomycin if necessary based on progress. 4. Follow labs. 5. Await Surgery input regarding free air seen on CT scan. 6. No plans for endoscopic evaluation at this time. 7. Further recommendation based on progress. We will follow. JOB# [id number] [facility]/RAMESH PNATOJA
[2016-09-25] MEDS: FLAGYL 500 MG/100 ML 500 MG/100 ML BAG IV SCH ×3 (06:19→21:55)
[2016-09-25] MEDS: NACL 0.9% 1000 ML 1,000 ML IV SCH (06:20)
[2016-09-25 07:25] LABS: Hematocrit 33.1 % (35.5-45.6); Hemoglobin 10.6 gm/dl (11.8-15.2); Mean Corpuscular HGB Conc 32 % (32-34); Mean Corpuscular Hemoglobin 27 pg (28-32); Mean Corpuscular Volume 84 fl (84-94); Platelet Count 400 K/mm3 (140-440); Red Blood Count 3.96 M/mm3 (3.65-5.03); Red Cell Distribution Width 16.9 % (13.2-15.2)
[2016-09-25 07:33] LABS: White Blood Count 23.5 K/mm3 (4.5-11.0)
[2016-09-25 07:34] LABS: INR 1.4 (0.87-1.13)
[2016-09-25 07:50] LABS: Alanine Aminotransferase 11 units/L (7-56); Albumin 2.5 g/dL (3.9-5); Albumin/Globulin Ratio 0.9 %; Alkaline Phosphatase 74 units/L (35-129); Anion Gap 24 mmol/L; Bilirubin,Total 0.4 mg/dL (0.1-1.2); Blood Urea Nitrogen 18 mg/dL (9-20); Calcium 8.2 mg/dL (8.4-10.2); Carbon Dioxide 16 mmol/L (22-30); Chloride 101.2 mmol/L (98-107); Glucose 82 mg/dL (75-100); Potassium 3.3 mmol/L (3.6-5.0); Sodium 138 mmol/L (137-145); Total Protein 5.4 g/dL (6.3-8.2)
--- NOTE | 2016-09-25 09:13 | XRay Report ---
Single view abdomen: History: Postop. Findings: 2 cm radiopaque density overlying left kidney probably a calculus. No significant bowel distention. Suspected wall thickening . Impression: No significant bowel distention.
--- NOTE | 2016-09-25 09:48 | Gastroenterology Progress Note ---
Assessment and Plan 1. C diff Colitis 2. S/p CABG and partial colectomy with ostomy 2/2 perforation? at [place] 6 weeks ago -Patient is currently on Flagyl. Levaquin has been discontinued. -WBC trending up, need to consider adding PO vancomycin for Cdiff ( currently on IV Vancomycin) -Patient reports he is having less BM today -Will defer to surgery for management of abnormal CT scan with small amount of extraluminal air per CT. KUB this AM shows wall thickening of the colon. -Defer to surgery for diet. Subjective Date of service: 09/25/16 Interval history: Patient reports he is having less stool, consistency remains pasty. He is having some nausea. Objective - Constitutional Vitals: Temp Pulse Resp BP Pulse Ox 97.8 F 106 H 18 110/57 97 09/25/16 08:29 09/25/16 08:29 09/25/16 08:29 09/25/16 08:29 09/25/16 08:29 General appearance: no acute distress - EENT Eyes: EOM intact ENT: hearing intact - Cardiovascular Rhythm: regular - Gastrointestinal General gastrointestinal: Present: soft, non-tender, non-distended, normal bowel sounds - Integumentary Integumentary: Present: pale - Neurologic Neurological: alert and oriented x3 - Psychiatric Psychiatric: cooperative - Labs CBC & Chem 7: 09/25/16 06:46 09/25/16 06:46 Labs: Laboratory Results - last 24 hr 09/25/16 09/25/16 09/25/16 06:46 06:46 06:46 WBC 23.5 H RBC 3.96 Hgb 10.6 L Hct 33.1 L MCV 84 MCH 27 L MCHC 32 RDW 16.9 H Plt Count 400 PT 17.1 H INR 1.40 H Sodium 138 D Carbon Dioxide 16 L BUN 18 Creatinine 0.9 Estimated GFR > 60 BUN/Creatinine Ratio 20.00 Glucose 82 Calcium 8.2 L Total Bilirubin 0.4 AST 18 ALT 11 Alkaline Phosphatase 74 Total Protein 5.4 L Albumin 2.5 L Albumin/Globulin Ratio 0.9
--- NOTE | 2016-09-25 11:24 | Consultation ---
History of Present Illness Consult date: 09/25/16 History of present illness: 76 year old male presenting with diarrhea for about a week and positive C.diff. Patient is s/p CABG 07/2016 at [place] complicated by bowel perforation secondary to chest tube placement. He underwent an exlap and colectomy 2 days after his bypass. Post op course was also complicated by wound dehiscence requiring another exlap. Surgery is entertaining another possible GI surgery. Patient denies chest pain or shortness of breath. Past History Past Medical History: CAD, hypertension Past Surgical History: CABG, Other (colectomy) Social history: no significant social history Medications and Allergies Allergies Allergy/AdvReac Type Severity Reaction Status Date / Time Penicillins Allergy Mild REDNESS, Verified 07/20/16 08:16 WARM FEELING,SWELLING morphine AdvReac Intermediate VERY Verified 07/20/16 08:16 JITTERY, TWITCHING, JUMPING Home Medications Medication Instructions Recorded Confirmed Last Taken Type Aspirin [Adult Low Dose Aspirin EC] 81 mg PO DAILY 07/20/16 09/24/16 1 Day Ago History Carvedilol [Coreg] 25 mg PO BID 07/20/16 09/24/16 1 Day Ago History FLUoxetine HCL [FLUoxetine] 40 mg PO DAILY 07/20/16 09/24/16 1 Day Ago History Fenofibrate [Lofibra] 160 mg PO QDAY 07/20/16 09/24/16 1 Day Ago History Lisinopril [Zestril TAB] 2.5 mg PO QDAY 07/20/16 09/24/16 1 Day Ago History Nitroglycerin [Nitrostat] 0.4 mg SL Q5M PRN 07/20/16 09/24/16 09/15/16 08:00 History amLODIPine [Norvasc] 10 mg PO DAILY 07/20/16 09/24/16 1 Day Ago History glipiZIDE [glipiZIDE ER] 5 mg PO QAM 07/20/16 09/24/16 1 Day Ago History Active Meds: Active Medications Acetaminophen (Tylenol) 650 mg PO Q4H PRN PRN Reason: Pain MILD(1-3)/Fever >100.5/WONG Aspirin (Halfprin Ec) 81 mg PO DAILY ASUNCION Last Admin: 09/24/16 12:24 Dose: Not Given Bisacodyl (Dulcolax) 10 mg DE QDAY PRN PRN Reason: Constipation unrelieved by MOM Dextrose (D50w (25gm)) 50 ml IV PRN PRN PRN Reason: Hypoglycemia Fluoxetine HCl (Prozac) 40 mg PO QDAY [facility] Last Admin: 09/24/16 12:24 Dose: Not Given Hydralazine HCl (Apresoline) 5 mg IV Q30MIN PRN PRN Reason: Hypertension Metronidazole (Flagyl 500 Mg/100 Ml) 500 mg in 100 mls @ 200 mls/hr IV Q8HR [facility] Last Admin: 09/25/16 06:19 Dose: 200 mls/hr Sodium Chloride (Nacl 0.9% 1000 Ml) 1,000 mls @ 75 mls/hr IV DIRECT [facility] Last Admin: 09/25/16 06:20 Dose: 75 mls/hr Vancomycin HCl 1,250 mg/ (Sodium Chloride) 250 mls @ 166.667 mls/hr IV Q12H [facility] Last Admin: 09/24/16 21:34 Dose: 166.667 mls/hr Magnesium Hydroxide (Milk Of Magnesia) 30 ml PO Q4H PRN PRN Reason: Constipation Nitroglycerin (Nitrostat) 0.4 mg SL Q5M PRN PRN Reason: Chest Pain Ondansetron HCl (Zofran) 4 mg IV Q8H PRN PRN Reason: N/V unrelieved by Reglan Vancomycin HCl (Vancomycin Pharmacy To Dose) 1 each IV PKCONSULT [facility] PRN Reason: Protocol Review of Systems All systems: negative Physical Examination Vital Signs Temp Pulse Resp BP Pulse Ox 98.4 F 94 H 24 116/59 100 09/23/16 15:40 09/23/16 15:40 09/23/16 15:40 09/23/16 15:40 09/23/16 15:40 General appearance: no acute distress HEENT: Positive: Pallor Neck: Positive: neck supple Cardiac: Positive: Reg Rate and Rhythm Lungs: Positive: Normal Exam Neuro: Positive: Grossly Intact Abdomen: Positive: Decreased Bowel Sounds Extremities: Absent: edema Results 09/25/16 06:46 09/25/16 06:46 Cardiac Enzymes 09/25/16 Range/Units 06:46 AST 18 (5-40) units/L Coagulation 09/25/16 Range/Units 06:46 PT 17.1 H (12.2-14.9) Sec. INR 1.40 H (0.87-1.13) CBC 09/25/16 Range/Units 06:46 WBC 23.5 H (4.5-11.0) K/mm3 RBC 3.96 (3.65-5.03) M/mm3 Hgb 10.6 L (11.8-15.2) gm/dl Hct 33.1 L (35.5-45.6) % Plt Count 400 (140-440) K/mm3 Comprehensive Metabolic Panel 09/25/16 Range/Units 06:46 Sodium 138 D (137-145) mmol/L Carbon Dioxide 16 L (22-30) mmol/L BUN 18 (9-20) mg/dL Creatinine 0.9 (0.8-1.5) mg/dL Glucose 82 (75-100) mg/dL Calcium 8.2 L (8.4-10.2) mg/dL AST 18 (5-40) units/L ALT 11 (7-56) units/L Alkaline Phosphatase 74 (35-129) units/L Total Protein 5.4 L (6.3-8.2) g/dL Albumin 2.5 L (3.9-5) g/dL Assessment and Plan CAD s/p CABG x 4 07/2016 Post op LVEF is normal Post-operative afib s/p cardioversion Colon perforation due to chest tube placement s/p colectomy, mediastinal washing and redo exlap for wound dehiscence Clostridium difficile colitis with diarrhea and leukocytosis Systemic Hypertension Recommendations: Stable cardiac pike May proceed with ex-lap if needed from a cardiac standpoint Start scheduled IV lopressor 2.5 mg every 6 hours for arrhythmia prevention Monitor and correct electrolytes Consider TPN or PPN No further cardiac intervention
[2016-09-25] MEDS: HALFPRIN EC PO SCH (11:38)
[2016-09-25] MEDS: PROzac PO SCH (11:38)
[2016-09-25] MEDS: VANCOMYCIN VIAL 1,250 MG in NACL 0.9% 250ML 250 ML IV SCH (12:00)
[2016-09-25] MEDS: LOPRESSOR IV SCH ×2 (12:39→19:36)
--- NOTE | 2016-09-25 15:10 | Consultation ---
History of Present Illness - Reason for Consult Consult date: 09/25/16 Severe C. difficile infection Requesting physician: MARZENA HOGAN - History of Present Illness Willian Layne is a 76-year-old male with type 2 diabetes mellitus, hypertension, hyperlipidemia and coronary artery disease who had a CABG done at [facility] on 07/22/2016 was complicated by colon perforation with the chest tube insertion with resultant intra-abdominal sepsis and subsequent exploratory laparotomies X 2 who ultimately was discharged to [facility] on 08/28/16. He was doing reasonably well until 09/19/16 when he developed nausea, vomiting and severe , watery diarrhea and a C. difficile toxin assay was positive. He was admitted to [facility] on 09/23 with persistent diarrhea and crampy abdominal pain. Currently he is feeling "much better" with decreased in the number of bowel movements as well as some "thickening" of them. He has not had any subjective fever or chills. He has had no further nausea nor vomiting. Other than global weakness he is feeling better and has no other specific complaints. Past medical history is as stated above. Approximately a year ago he had a right hip replacement that was complicated by a femur fracture that required surgery and then subsequently he fell at home and fractured his right leg. [facility] records are reviewed in detail. Review of systems General: See HPI HEENT: no odynophagia, no dysphagia, no oral lesions, no vision changes CV: no chest pain, no palpitations Chest: no dyspnea, no cough GI: See HPI : no change in urinary frequency, no dysuria, no hematuria Skin: no rashes; Ext: No muscle or joint pain , No edema Neuro: no headaches, no numbness/tingling, no tremors. Generalized weakness but no focal weaknesses. Endocrine: No history of diabetes. Psych: no anxiety, no depression Infectious diseases: No HIV risk factors, No history of STDs, No significant travel or animal contact history. Past History Past Medical History: CAD, hypertension Past Surgical History: CABG, Other (colectomy) Social history: no significant social history Medications and Allergies Allergies Allergy/AdvReac Type Severity Reaction Status Date / Time Penicillins Allergy Mild REDNESS, Verified 07/20/16 08:16 WARM FEELING,SWELLING morphine AdvReac Intermediate VERY Verified 07/20/16 08:16 JITTERY, TWITCHING, JUMPING Home Medications Medication Instructions Recorded Confirmed Last Taken Type Aspirin [Adult Low Dose Aspirin EC] 81 mg PO DAILY 07/20/16 09/24/16 1 Day Ago History Carvedilol [Coreg] 25 mg PO BID 07/20/16 09/24/16 1 Day Ago History FLUoxetine HCL [FLUoxetine] 40 mg PO DAILY 07/20/16 09/24/16 1 Day Ago History Fenofibrate [Lofibra] 160 mg PO QDAY 07/20/16 09/24/16 1 Day Ago History Lisinopril [Zestril TAB] 2.5 mg PO QDAY 07/20/16 09/24/16 1 Day Ago History Nitroglycerin [Nitrostat] 0.4 mg SL Q5M PRN 07/20/16 09/24/16 09/15/16 08:00 History amLODIPine [Norvasc] 10 mg PO DAILY 07/20/16 09/24/16 1 Day Ago History glipiZIDE [glipiZIDE ER] 5 mg PO QAM 07/20/16 09/24/16 1 Day Ago History Active Meds: Active Medications Acetaminophen (Tylenol) 650 mg PO Q4H PRN PRN Reason: Pain MILD(1-3)/Fever >100.5/WONG Aspirin (Halfprin Ec) 81 mg PO DAILY [facility] Last Admin: 09/25/16 11:38 Dose: Not Given Bisacodyl (Dulcolax) 10 mg SD QDAY PRN PRN Reason: Constipation unrelieved by MOM Dextrose (D50w (25gm)) 50 ml IV PRN PRN PRN Reason: Hypoglycemia Fluoxetine HCl (Prozac) 40 mg PO QDAY [facility] Last Admin: 09/25/16 11:38 Dose: Not Given Hydralazine HCl (Apresoline) 5 mg IV Q30MIN PRN PRN Reason: Hypertension Metronidazole (Flagyl 500 Mg/100 Ml) 500 mg in 100 mls @ 200 mls/hr IV Q8HR [facility] Last Admin: 09/25/16 06:19 Dose: 200 mls/hr Sodium Chloride (Nacl 0.9% 1000 Ml) 1,000 mls @ 75 mls/hr IV DIRECT [facility] Last Admin: 09/25/16 06:20 Dose: 75 mls/hr Vancomycin HCl 1,250 mg/ (Sodium Chloride) 250 mls @ 166.667 mls/hr IV Q12H [facility] Last Admin: 09/25/16 12:00 Dose: 166.667 mls/hr Magnesium Hydroxide (Milk Of Magnesia) 30 ml PO Q4H PRN PRN Reason: Constipation Metoprolol Tartrate (Lopressor) 2.5 mg IV Q6HR [facility] Last Admin: 09/25/16 12:39 Dose: 2.5 mg Nitroglycerin (Nitrostat) 0.4 mg SL Q5M PRN PRN Reason: Chest Pain Ondansetron HCl (Zofran) 4 mg IV Q8H PRN PRN Reason: N/V unrelieved by Reglan Vancomycin HCl (Vancomycin Pharmacy To Dose) 1 each IV PKCONSULT ASUNCION PRN Reason: Protocol Physical Examination - Physical Exam Narrative exam: GENERAL: Well-developed, well-nourished appearing male who is alert and in no acute distress. He looks somewhat chronically ill but not acutely so. HEAD: Normocephalic. No lesions seen. EYES: Pupils are equal reactive to light and accommodation. There is no scleral icterus. Optic fundi are not examined. EARS: Normal external ears. THROAT: Oropharynx is normal with no evidence of oral candidiasis or pharyngitis. NECK: Supple. No enlargement of the thyroid gland. No significant cervical lymphadenopathy. No jugular venous distention at 30. LUNGS: Clear with no adventitious sounds. CHEST: Healed sternotomy scar with mild erythema but no increased warmth nor tenderness. The sternum is stable. HEART: Regular rate. S1 and S2 are normal. There are no murmurs, gallops, clicks or rubs heard. ABDOMEN: Soft, only minimally distended and nontender. Liver and spleen are not palpably enlarged or tender. No palpable masses. Bowel sounds are normoactive. Midline abdominal wound with mild erythema around the retention sutures that are still in place with some serous drainage but no signs of overt infection. EXTREMITIES: No rash, peripheral lymphadenopathy, clubbing or edema. Well- healed surgical scar over the right hip from previous replacements with no signs of infection. : Normal external male. NEUROLOGIC: No focal findings. - Constitutional Vitals: Vital Signs Temp Pulse Resp BP Pulse Ox 98.5 F 104 H 20 125/75 94 09/25/16 11:40 09/25/16 12:39 09/25/16 11:40 09/25/16 12:39 09/25/16 11:40 Temperature -Last 24 Hours Temperature 98.5 F Temperature 97.8 F Temperature 98.2 F Temperature 98.2 F Temperature 97.5 F Temperature 98.5 F Results - Labs CBC & Chem 7: 09/25/16 06:46 09/25/16 06:46 Labs: Abnormal lab results Microbiology 09/23/16 19:51 Peripheral/Venous Blood Culture - Preliminary NO GROWTH AFTER 24 HOURS 09/23/16 19:50 Peripheral/Venous Blood Culture - Preliminary NO GROWTH AFTER 24 HOURS C. difficile toxin assay sent from the rehabilitation facility was positive. Imagin/8: CT abdomen/pelvis: Small amount of free intraperitoneal air suggesting bowel perforation. Acute inflammation of the distal left colon/proximal sigmoid colon as well as diffuse underlying colitis with significant abnormal wall thickening of the entire colon. Assessment and Plan Current antibiotics: Flagyl 500 mg IV q8h 09/23 --> Vancomycin 1250 mg IV q12h 09/23 --> Previous antibiotics: Records show that he was discharged to the rehabilitation facility on ertapenem and micafungin but when they were stopped is unclear ASSESSMENT: Willian Layne is a 76-year-old male with type 2 diabetes mellitus, hypertension, hyperlipidemia and coronary artery disease who had a CABG done at [facility] on 07/22/2016 was complicated by colon perforation with the chest tube insertion with resultant intra-abdominal sepsis and subsequent exploratory laparotomies X 2 who ultimately was discharged to [facility] on 08/28/16. He was doing reasonably well until 09/19/16 when he developed nausea, vomiting and severe , watery diarrhea and a C. difficile toxin assay was positive. Problem list: 1. Severe C. diff. infection -Severe diarrhea and crampy abdominal pain -Extensive colitis seen on CT scan -Significant leukocytosis -Seems to be somewhat clinically improved 2. Coronary artery disease -Status post CABG 4 07/22/2016 3. Status post colon perforation -Status post exploratory laparotomy and subsegmental colectomy 07/27/2016 -Status post intra-abdominal sepsis 4. History of paroxysmal atrial fibrillation -Status post cardioversion at [facility] -Currently in normal sinus rhythm. 5. Leukocytosis -Secondary to #[address] scan showing small amount of free air -Rule out secondary to previous surgery -Patient clinically does not appear to have an acute bowel at this point. 7. Type 2 diabetes mellitus PLAN: 1. Continue IV Flagyl 2. Will stop IV vancomycin which is not effective versus C. difficile and start PO vancomycin 3. Continued close clinical observation 4. Follow WBC 5. Glycemic control as per the hospitalist service 6. C. difficile isolation precautions Discussed at length with patient's family and answered multiple questions. Thank you for this consultation. We will follow with you. Richard Hwang MD [facility] Office: [phone]
--- NOTE | 2016-09-25 15:40 | Progress Note ---
Subjective Narrative: lloks and feels much better today although wbc 23,abd soft and bengin still loose BMs no bleeding KUB wnl will reasses withCT and gastrograffinn ,talked to son and sister .will cont obs ,HH OK Objective Vital Signs - 12hr 09/25/16 09/25/16 09/25/16 05:51 08:29 10:00 Temperature 98.2 F 97.8 F Pulse Rate Pulse Rate [ 106 H Left Radial] Pulse Rate [ 107 H Right] Respiratory 20 18 Rate Blood Pressure Blood Pressure 110/57 [Left Arm] Blood Pressure 144/75 [Right Arm] O2 Sat by Pulse 91 97 95 Oximetry 09/25/16 09/25/16 11:40 12:39 Temperature 98.5 F Pulse Rate 104 H Pulse Rate [ 104 H Left Radial] Pulse Rate [ Right] Respiratory 20 Rate Blood Pressure 125/75 Blood Pressure 125/75 [Left Arm] Blood Pressure [Right Arm] O2 Sat by Pulse 94 Oximetry - Labs 09/25/16 06:46 09/25/16 06:46 Diabetes panel 09/25/16 Range/Units 06:46 Sodium 138 D (137-145) mmol/L Carbon Dioxide 16 L (22-30) mmol/L BUN 18 (9-20) mg/dL Creatinine 0.9 (0.8-1.5) mg/dL Glucose 82 (75-100) mg/dL Calcium 8.2 L (8.4-10.2) mg/dL AST 18 (5-40) units/L ALT 11 (7-56) units/L Alkaline Phosphatase 74 (35-129) units/L Total Protein 5.4 L (6.3-8.2) g/dL Albumin 2.5 L (3.9-5) g/dL Calcium panel 09/25/16 Range/Units 06:46 Calcium 8.2 L (8.4-10.2) mg/dL Albumin 2.5 L (3.9-5) g/dL Pituitary panel 09/25/16 Range/Units 06:46 Sodium 138 D (137-145) mmol/L Carbon Dioxide 16 L (22-30) mmol/L BUN 18 (9-20) mg/dL Creatinine 0.9 (0.8-1.5) mg/dL Glucose 82 (75-100) mg/dL Calcium 8.2 L (8.4-10.2) mg/dL Adrenal panel 09/25/16 Range/Units 06:46 Sodium 138 D (137-145) mmol/L Carbon Dioxide 16 L (22-30) mmol/L BUN 18 (9-20) mg/dL Creatinine 0.9 (0.8-1.5) mg/dL Glucose 82 (75-100) mg/dL Calcium 8.2 L (8.4-10.2) mg/dL Total Bilirubin 0.4 (0.1-1.2) mg/dL AST 18 (5-40) units/L ALT 11 (7-56) units/L Alkaline Phosphatase 74 (35-129) units/L Total Protein 5.4 L (6.3-8.2) g/dL Albumin 2.5 L (3.9-5) g/dL
--- NOTE | 2016-09-25 17:17 | Progress Note ---
Assessment and Plan Assessment and plan: This is a 76 y/o male from [facility] with h/o CAD s/p CABG on July 2016, partial colectomy following CABG on July 2016 presented with diarrhea for about a week and positive C. difficile. Patient states that he was admitted to [facility] [place] for cardiac bypass surgery on July last year. Following the bypass surgery he required chest tube placement for mediastinitis, his hospitalization also got complicated with intra-abdominal infection and bowel obstruction which required partial colectomy. He was then sent to [facility] for subacute rehabilitation. For last few days he developed diarrhea and a culture for C. difficile was sent out which came back positive. Patient was sent to ER today for further evaluation and management. He had a CT scan of abdomen and pelvis in the ER which showed diffuse colitis and possible bowel perforation with free intra-abdominal air. General surgeon was consulted from the ER and he is getting admitted for further evaluation and management. He received a dose of Levaquin and Flagyl in the ER and also getting hydrated with IV fluid. Patient had a bowel movement with loose watery stool in the ER, he has been placed on contact isolation. Sepsis with C. difficile colitis C. difficile colitis Possible bowel perforation Infected abdominal wound Coronary artery disease status post CABG Recent history of partial colectomy Recent history of chest tube placement S/P partial colectomy SECONDARY TO COLON PERFORATION 07/27/16 S/P Retension sutures Hypertension, benign essential Diabetes mellitus type II on oral hypoglycemic medications Hyperlipidemia Mild hyponatremia and hypokalemia Plan: Discussed with Surgery- May need total colectomy if no improvement as CT on admission concerning for free air ID, Cardiology and GI input appreciated Place on IV Flagyl ,change to Po Vancomycin and IV fluid hydration Obtain blood culture stool culture Keep nothing by mouth for now-Ok For ice Gen. surgery Discussed with son in detail- POSSIBLE SURGERY TODAY BASED ON CT ABDOMEN FINDING Protonix IV, IV morphine and Zofran Continue supportive care, Consult wound care for abdominal wound Place on Accu-Chek and Sliding scale of insulin coverage Replace electrolytes as needed DVT prophylaxis l History Interval history: Follow-up colitis, sepsis Patient seen and examined this morning in no acute distress continues with diarrhea. No fever. Denies any chest pain, nausea, vomiting No fever noted blood pressure controlled No adverse events reported to me by nursing staff Hospitalist Physical - Physical exam Narrative exam: VITAL SIGNS: Reviewed. GENERAL: The patient appeared well nourished and normally developed. Vital signs as documented. HEAD: No signs of head trauma. EYES: Pupils are equal. Extraocular motions intact. EARS: Hearing grossly intact. MOUTH: Oropharynx is normal. NECK: No adenopathy, no JVD. CHEST: Chest with clear breath sounds bilaterally. No wheezes, rales, or rhonchi. CARDIAC: Regular rate and rhythm. S1 and S2, without murmurs, gallops, or rubs. VASCULAR: No Edema. Peripheral pulses normal and equal in all extremities. ABDOMEN: Soft, non tender except for surgical site. Rentention sutures still in place. No sign of distention. No rebound or guarding, and no masses palpated. Bowel Sounds hypoactive MUSCULOSKELETAL: Good range of motion of all major joints. Extremities without clubbing, cyanosis or edema. NEUROLOGIC EXAM: Alert and oriented x 3. No focal sensory or strength deficits. Speech normal. Follows commands. PSYCHIATRIC: Mood normal. SKIN: Large retension sutures, abdomen and chest . - Constitutional Vitals: Temp Pulse Resp BP Pulse Ox 98.5 F 104 H 20 125/75 94 09/25/16 11:40 09/25/16 12:39 09/25/16 11:40 09/25/16 12:39 09/25/16 11:40 General appearance: Present: no acute distress Results - Labs CBC & Chem 7: 09/25/16 06:46 09/25/16 06:46 Labs: Laboratory Last Values WBC 23.5 K/mm3 (4.5-11.0) H 09/25/16 06:46 RBC 3.96 M/mm3 (3.65-5.03) 09/25/16 06:46 Hgb 10.6 gm/dl (11.8-15.2) L 09/25/16 06:46 Hct 33.1 % (35.5-45.6) L 09/25/16 06:46 MCV 84 fl (84-94) 09/25/16 06:46 MCH 27 pg (28-32) L 09/25/16 06:46 MCHC 32 % (32-34) 09/25/16 06:46 RDW 16.9 % (13.2-15.2) H 09/25/16 06:46 Plt Count 400 K/mm3 (140-440) 09/25/16 06:46 Lymph % (Auto) 6.2 % (13.4-35.0) L 09/24/16 02:32 Barnes % (Auto) 11.0 % (0.0-7.3) H 09/24/16 02:32 Eos % (Auto) 0.1 % (0.0-4.3) 09/24/16 02:32 Baso % (Auto) 0.2 % (0.0-1.8) 09/24/16 02:32 Lymph # 1.1 K/mm3 (1.2-5.4) L 09/24/16 02:32 Barnes # 2.0 K/mm3 (0.0-0.8) H 09/24/16 02:32 Eos # 0.0 K/mm3 (0.0-0.4) 09/24/16 02:32 Baso # 0.0 K/mm3 (0.0-0.1) 09/24/16 02:32 Add Manual Diff Complete 09/23/16 16:21 Total Counted 100 09/23/16 16:21 Seg Neutrophils % 82.5 % (40.0-70.0) H 09/24/16 02:32 Seg Neuts % (Manual) 81.0 % (40.0-70.0) H 09/23/16 16:21 Band Neutrophils % 3.0 % 09/23/16 16:21 Lymphocytes % (Manual) 5.0 % (13.4-35.0) L 09/23/16 16:21 Reactive Lymphs % (Man) 0 % 09/23/16 16:21 Monocytes % (Manual) 11.0 % (0.0-7.3) H 09/23/16 16:21 Eosinophils % (Manual) 0 % (0.0-4.3) 09/23/16 16:21 Basophils % (Manual) 0 % (0.0-1.8) 09/23/16 16:21 Metamyelocytes % 0 % 09/23/16 16:21 Myelocytes % 0 % 09/23/16 16:21 Promyelocytes % 0 % 09/23/16 16:21 Blast Cells % 0 % 09/23/16 16:21 Nucleated RBC % Not Reportable 09/23/16 16:21 Seg Neutrophils # 14.8 K/mm3 (1.8-7.7) H 09/24/16 02:32 Seg Neutrophils # Man 14.3 K/mm3 (1.8-7.7) H 09/23/16 16:21 Band Neutrophils # 0.5 K/mm3 09/23/16 16:21 Lymphocytes # (Manual) 0.9 K/mm3 (1.2-5.4) L 09/23/16 16:21 Abs React Lymphs (Man) 0.0 K/mm3 09/23/16 16:21 Monocytes # (Manual) 1.9 K/mm3 (0.0-0.8) H 09/23/16 16:21 Eosinophils # (Manual) 0.0 K/mm3 (0.0-0.4) 09/23/16 16:21 Basophils # (Manual) 0.0 K/mm3 (0.0-0.1) 09/23/16 16:21 Metamyelocytes # 0.0 K/mm3 09/23/16 16:21 Myelocytes # 0.0 K/mm3 09/23/16 16:21 Promyelocytes # 0.0 K/mm3 09/23/16 16:21 Blast Cells # 0.0 K/mm3 09/23/16 16:21 WBC Morphology Not Reportable 09/23/16 16:21 Hypersegmented Neuts Not Reportable 09/23/16 16:21 Hyposegmented Neuts Not Reportable 09/23/16 16:21 Hypogranular Neuts Not Reportable 09/23/16 16:21 Smudge Cells Not Reportable 09/23/16 16:21 Toxic Granulation Not Reportable 09/23/16 16:21 Toxic Vacuolation Not Reportable 09/23/16 16:21 Dohle Bodies Not Reportable 09/23/16 16:21 Pelger-Huet Anomaly Not Reportable 09/23/16 16:21 Haleigh Rods Not Reportable 09/23/16 16:21 Platelet Estimate Consistent w auto 09/23/16 16:21 Clumped Platelets Not Reportable 09/23/16 16:21 Plt Clumps, EDTA Not Reportable 09/23/16 16:21 Large Platelets Not Reportable 09/23/16 16:21 Giant Platelets Not Reportable 09/23/16 16:21 Platelet Satelliting Not Reportable 09/23/16 16:21 Plt Morphology Comment Not Reportable 09/23/16 16:21 RBC Morphology Not Reportable 09/23/16 16:21 Dimorphic RBCs Not Reportable 09/23/16 16:21 Polychromasia Not Reportable 09/23/16 16:21 Hypochromasia Not Reportable 09/23/16 16:21 Poikilocytosis 1+ 09/23/16 16:21 Anisocytosis 1+ 09/23/16 16:21 Microcytosis Not Reportable 09/23/16 16:21 Macrocytosis Not Reportable 09/23/16 16:21 Spherocytes Not Reportable 09/23/16 16:21 Pappenheimer Bodies Not Reportable 09/23/16 16:21 Sickle Cells Not Reportable 09/23/16 16:21 Target Cells Not Reportable 09/23/16 16:21 Tear Drop Cells Not Reportable 09/23/16 16:21 Ovalocytes Not Reportable 09/23/16 16:21 Helmet Cells Not Reportable 09/23/16 16:21 Basurto-Mcgovern Bodies Not Reportable 09/23/16 16:21 Widen Rings Not Reportable 09/23/16 16:21 Pedro Cells Not Reportable 09/23/16 16:21 Bite Cells Not Reportable 09/23/16 16:21 Crenated Cell Not Reportable 09/23/16 16:21 Elliptocytes Not Reportable 09/23/16 16:21 Acanthocytes (Spur) Not Reportable 09/23/16 16:21 Rouleaux Not Reportable 09/23/16 16:21 Hemoglobin C Crystals Not Reportable 09/23/16 16:21 Schistocytes Not Reportable 09/23/16 16:21 Malaria parasites Not Reportable 09/23/16 16:21 Tk Bodies Not Reportable 09/23/16 16:21 Hem Pathologist Commnt No 09/23/16 16:21 PT 17.1 Sec. (12.2-14.9) H 09/25/16 06:46 INR 1.40 (0.87-1.13) H 09/25/16 06:46 APTT 32.9 Sec. (24.2-36.6) 09/24/16 02:32 Sodium 138 mmol/L (137-145) D 09/25/16 06:46 Potassium 3.5 mmol/L (3.6-5.0) L 09/24/16 02:32 Chloride 95.2 mmol/L (98-107) L 09/24/16 02:32 Carbon Dioxide 16 mmol/L (22-30) L 09/25/16 06:46 Anion Gap 21 mmol/L 09/24/16 02:32 BUN 18 mg/dL (9-20) 09/25/16 06:46 Creatinine 0.9 mg/dL (0.8-1.5) 09/25/16 06:46 Estimated GFR > 60 ml/min 09/25/16 06:46 BUN/Creatinine Ratio 20.00 % 09/25/16 06:46 Glucose 82 mg/dL (75-100) 09/25/16 06:46 Lactic Acid 1.6 mmol/L (0.7-2.0) 09/23/16 19:44 Calcium 8.2 mg/dL (8.4-10.2) L 09/25/16 06:46 Total Bilirubin 0.4 mg/dL (0.1-1.2) 09/25/16 06:46 AST 18 units/L (5-40) 09/25/16 06:46 ALT 11 units/L (7-56) 09/25/16 06:46 Alkaline Phosphatase 74 units/L (35-129) 09/25/16 06:46 NT-Pro-B Natriuret Pep 1718 pg/mL (0-900) H 09/24/16 02:32 Total Protein 5.4 g/dL (6.3-8.2) L 09/25/16 06:46 Albumin 2.5 g/dL (3.9-5) L 09/25/16 06:46 Albumin/Globulin Ratio 0.9 % 09/25/16 06:46 Lipase 26 units/L (13-60) 09/23/16 16:21 Blood Type O POSITIVE 09/23/16 16:21 Antibody Screen Negative 09/23/16 16:21 - Imaging and Cardiology CT scan - abdomen: pending
--- NOTE | 2016-09-25 17:30 | Cat Scan Report ---
FINAL REPORT EXAM: CT ABDOMEN PELVIS WO CON HISTORY: colitis? TECHNIQUE: CT of the abdomen and pelvis without contrast PRIORS: None. FINDINGS: Atelectasis and small bilateral pleural effusions are noted in the visualized portion of the lung bases there is now small amount of ascites present throughout the abdomen and pelvis increased since the prior study. No focal abnormality seen within the liver parenchyma on nonenhanced images Spleen is normal in size Adrenal glands are unremarkable Low-density foci of both kidneys again noted compatible with cysts. One of these within the left kidney demonstrates a layered appearance unchanged prior exam could reflect small amount of blood or [id number] within the cyst. There is increasing colonic bowel wall thickening and edema since prior exam. Again noted is more focal pericolonic inflammatory change at the junction the sigmoid and distal colon which could reflect superimposed acute diverticulitis No free air observed on the current study. No evidence for small bowel distention. IMPRESSION: Marked colonic bowel wall thickening consistent with colitis increasing prior study. Findings suspicious for superimposed acute diverticulitis at the distal descending proximal sigmoid colon Increasing amount of ascites throughout the abdomen Small bilateral pleural effusions with left lower lobe subsegmental atelectasis increasing prior study. Additional incidental findings as noted above
[2016-09-26] MEDS: LOPRESSOR IV SCH ×4 (01:26→17:43)
[2016-09-26] MEDS: VANCOMYCIN PO SCH ×5 (01:47→17:42)
[2016-09-26] MEDS: FLAGYL 500 MG/100 ML 500 MG/100 ML BAG IV SCH ×3 (05:50→22:57)
--- NOTE | 2016-09-26 09:00 | Progress Note ---
Subjective Date of service: 09/26/16 Interval history: CAD s/p CABG x 4 07/2016 Post op LVEF is normal Post-operative afib s/p cardioversion Colon perforation due to chest tube placement s/p colectomy, mediastinal washing and redo exlap for wound dehiscence Clostridium difficile colitis with diarrhea and leukocytosis Systemic Hypertension Stable cardiac issues, no changes Objective Vital Signs Temp Pulse Pulse Resp BP BP Pulse Ox 09/26/16 06:42 102 H 09/26/16 04:00 98.1 F 99 H 18 120/58 97 09/26/16 01:26 101 H 09/26/16 00:00 98.4 F 107 H 18 140/79 97 09/25/16 22:56 93 09/25/16 20:40 103 H 09/25/16 20:00 98.2 F 102 H 18 110/55 93 09/25/16 19:36 103 H 09/25/16 16:30 98.5 F 104 H 18 112/68 09/25/16 12:39 104 H 125/75 09/25/16 12:00 107 H 09/25/16 11:40 98.5 F 104 H 20 125/75 94 09/25/16 10:00 96 - Physical Examination General: No Apparent Distress HEENT: Positive: Pallor Neck: Positive: neck supple Cardiac: Positive: Reg Rate and Rhythm. Negative: S3 Lungs: Positive: Normal Exam Neuro: Positive: Grossly Intact Abdomen: Positive: Decreased Bowel Sounds Extremities: Absent: edema
[2016-09-26] MEDS: PROzac PO SCH (10:00)
[2016-09-26] MEDS: HALFPRIN EC PO SCH (10:00)
--- NOTE | 2016-09-26 12:02 | Progress Note ---
Assessment and Plan Current antibiotics: Flagyl 500 mg IV q8h 09/23 --> Vancomycin 1250 mg IV q12h 09/23 --> Previous antibiotics: Records show that he was discharged to the rehabilitation facility on ertapenem and micafungin but when they were stopped is unclear ASSESSMENT: Willian Layne is a 76-year-old male with type 2 diabetes mellitus, hypertension, hyperlipidemia and coronary artery disease who had a CABG done at [facility] on 07/22/2016 was complicated by colon perforation with the chest tube insertion with resultant intra-abdominal sepsis and subsequent exploratory laparotomies X 2 who ultimately was discharged to [facility] on 08/28/16. He was doing reasonably well until 09/19/16 when he developed nausea, vomiting and severe , watery diarrhea and a C. difficile toxin assay was positive. Problem list: 1. Severe C. diff. infection -Severe diarrhea and crampy abdominal pain -Extensive colitis seen on CT scan -Significant leukocytosis -Seems to be somewhat clinically improved 2. Coronary artery disease -Status post CABG 4 07/22/2016 3. Status post colon perforation -Status post exploratory laparotomy and subsegmental colectomy 07/27/2016 -Status post intra-abdominal sepsis 4. History of paroxysmal atrial fibrillation -Status post cardioversion at [facility] -Currently in normal sinus rhythm. 5. Leukocytosis -Secondary to #[address] scan without air noted and conclusion by radiologist -Rule out secondary to previous surgery -Patient clinically does not appear to have an acute bowel at this point. - Repeat CT scan-marked colonic bowel thickening consistent with colitis; no air noted on dictation 7. Type 2 diabetes mellitus PLAN: 1. Continue IV Flagyl 2. Continue by mouth vancomycin versus C. difficile 3. Continued close clinical observation 4. Follow WBC 5. Glycemic control as per the hospitalist service 6. C. difficile isolation precautions Discussed at length with patient's family and answered multiple questions. Subjective Date of service: 09/26/16 Principal diagnosis: Severe C. diff. infection Interval history: Patient lying in bed in no distress. Family called on the phone and lengthy discussion held about ongoing care and "pseudomembranous colitis". Family report Dr. Silva called and discussed with the family that surgery would be needed to gastroenterology will be called to assist in care. Patient did give me permission to discuss with the family the findings on the chart. Patient's initial distress Objective - Exam Narrative Exam: GENERAL: Well-developed, well-nourished appearing male who is alert and in no acute distress. He looks somewhat chronically ill but not acutely so. HEAD: Normocephalic. No lesions seen. EYES: Pupils are equal reactive to light and accommodation. There is no scleral icterus. Optic fundi are not examined. EARS: Normal external ears without any drainage THROAT: Oropharynx is normal with no evidence of oral candidiasis or pharyngitis. NECK: Supple. No enlargement of the thyroid gland. No significant cervical lymphadenopathy. No jugular venous distention at 30. LUNGS: Clear with no adventitious sounds. CHEST: Healed sternotomy scar with mild erythema but no increased warmth nor tenderness. HEART: Regular rate. S1 and S2 are normal. There are no murmurs, gallops, clicks or rubs heard. ABDOMEN: Soft, only minimally distended and nontender. Liver and spleen are not palpably enlarged or tender. No palpable masses. Bowel sounds are normoactive. Midline abdominal wound with mild erythema around the retention sutures that are still in place with some serous drainage but no signs of overt infection. EXTREMITIES: No rash, peripheral lymphadenopathy, clubbing or edema. Well- healed surgical scar over the right hip from previous replacements with no signs of infection. NEUROLOGIC: No focal findings. - Constitutional Vitals: Vital Signs Temp Pulse Resp BP Pulse Ox 98.0 F 101 H 20 114/72 91 09/26/16 08:00 09/26/16 08:00 09/26/16 08:00 09/26/16 08:00 09/26/16 08:00 Temperature -Last 24 Hours Temperature 98.0 F Temperature 98.1 F Temperature 98.4 F Temperature 98.2 F Temperature 98.5 F - Labs CBC & Chem 7: 09/25/16 06:46 09/25/16 06:46
--- NOTE | 2016-09-26 14:06 | Progress Note ---
Subjective Narrative: Alert responsive , abd soft benign with fluid wave had a fluidy BM will start with Cl liquids today ,confered With Dr Hutchinson . Objective Vital Signs - 12hr 09/26/16 09/26/16 09/26/16 04:00 06:42 08:00 Temperature 98.1 F 98.0 F Pulse Rate 102 H 100 H Pulse Rate [ 99 H 101 H Left Radial] Respiratory 18 20 Rate Respiratory Rate [denies] Blood Pressure 120/58 114/72 [Left Arm] O2 Sat by Pulse 97 91 Oximetry 09/26/16 10:00 Temperature Pulse Rate Pulse Rate [ Left Radial] Respiratory Rate Respiratory 20 Rate [denies] Blood Pressure [Left Arm] O2 Sat by Pulse 93 Oximetry - Labs 09/25/16 06:46 09/25/16 06:46
--- NOTE | 2016-09-26 14:12 | Progress Note ---
Assessment and Plan 1. C diff colitis - clinically stable. Continue abx. 2. Free air in abd - repeat CT shows no extravasation of contrast. Pt clinically doing well. Per Surgery. 3. Ascites - likely effusion due to infection. If worsens, may need diagnostic paracentesis. Subjective Date of service: 09/26/16 Principal diagnosis: Severe C. diff. infection Interval history: Pt feels well. No abd pain. Thirsty. Objective - Constitutional Vitals: Vital Signs - 12hr 09/26/16 09/26/16 09/26/16 04:00 06:42 08:00 Temperature 98.1 F 98.0 F Pulse Rate 102 H 100 H Pulse Rate [ 99 H 101 H Left Radial] Respiratory 18 20 Rate Respiratory Rate [denies] Blood Pressure 120/58 114/72 [Left Arm] O2 Sat by Pulse 97 91 Oximetry 09/26/16 10:00 Temperature Pulse Rate Pulse Rate [ Left Radial] Respiratory Rate Respiratory 20 Rate [denies] Blood Pressure [Left Arm] O2 Sat by Pulse 93 Oximetry General appearance: Present: no acute distress - EENT Eyes: PERRL, EOM intact ENT: hearing intact - Respiratory Respiratory effort: normal - Gastrointestinal General gastrointestinal: Present: soft, non-tender, normal bowel sounds, other (Midline incision, healing, with small area, approx 1 cm, with small amt purulent drainage) - Labs CBC & Chem 7: 09/25/16 06:46 09/25/16 06:46
--- NOTE | 2016-09-26 16:39 | Progress Note ---
Assessment and Plan Assessment and plan: This is a 76 y/o male from [facility] with h/o CAD s/p CABG on July 2016, partial colectomy following CABG on July 2016 presented with diarrhea for about a week and positive C. difficile. Patient states that he was admitted to [facility] for cardiac bypass surgery on July last year. Following the bypass surgery he required chest tube placement for mediastinitis, his hospitalization also got complicated with intra-abdominal infection and bowel obstruction which required partial colectomy. He was then sent to [facility] for subacute rehabilitation. For last few days he developed diarrhea and a culture for C. difficile was sent out which came back positive. Patient was sent to ER today for further evaluation and management. He had a CT scan of abdomen and pelvis in the ER which showed diffuse colitis and possible bowel perforation with free intra-abdominal air. General surgeon was consulted from the ER and he is getting admitted for further evaluation and management. He received a dose of Levaquin and Flagyl in the ER and also getting hydrated with IV fluid. Patient had a bowel movement with loose watery stool in the ER, he has been placed on contact isolation. Sepsis with C. difficile colitis C. difficile colitis Possible bowel perforation Leukocytosis- secondary to C.diff colitis Infected abdominal wound Coronary artery disease status post CABG Recent history of partial colectomy Recent history of chest tube placement S/P partial colectomy SECONDARY TO COLON PERFORATION 07/27/16 S/P Retension sutures Hypertension, benign essential Diabetes mellitus type II on oral hypoglycemic medications Hyperlipidemia Mild hyponatremia and hypokalemia Plan: patient improving clinically, no indication for surgery at this time. Repeat CT abdomen does not redemonstrate any free air ID, Cardiology and GI input appreciated Place on IV Flagyl ,change to Po Vancomycin and IV fluid hydration Obtain blood culture stool culture Clear liquids today Repeat abdomenal study prior to discharge to ensure no need for paracentesis Gen. surgery Discussed with son in detail- POSSIBLE SURGERY TODAY BASED ON CT ABDOMEN FINDING Protonix IV, IV morphine and Zofran Continue supportive care, Consult wound care for abdominal wound Place on Accu-Chek and Sliding scale of insulin coverage Replace electrolytes as needed Discussed with GI and Surgery DVT prophylaxis History Interval history: Follow-up colitis, sepsis Patient seen and examined this morning in no acute distress continues with diarrhea. No fever. NO Abdominal pain. Denies any chest pain, nausea, vomiting No fever noted blood pressure controlled No adverse events reported to me by nursing staff Hospitalist Physical - Physical exam Narrative exam: VITAL SIGNS: Reviewed. GENERAL: The patient appeared well nourished and normally developed. Vital signs as documented. HEAD: No signs of head trauma. EYES: Pupils are equal. Extraocular motions intact. EARS: Hearing grossly intact. MOUTH: Oropharynx is normal. NECK: No adenopathy, no JVD. CHEST: Chest with clear breath sounds bilaterally. No wheezes, rales, or rhonchi. CARDIAC: Regular rate and rhythm. S1 and S2, without murmurs, gallops, or rubs. VASCULAR: No Edema. Peripheral pulses normal and equal in all extremities. ABDOMEN: Soft, non tender except for surgical site. Retention sutures still in place. positive fluid wave. and no masses palpated. Bowel Sounds hypoactive MUSCULOSKELETAL: Good range of motion of all major joints. Extremities without clubbing, cyanosis or edema. NEUROLOGIC EXAM: Alert and oriented x 3. No focal sensory or strength deficits. Speech normal. Follows commands. PSYCHIATRIC: Mood normal. SKIN: Large retention sutures, abdomen and chest . - Constitutional Vitals: Temp Pulse Resp BP Pulse Ox 98.0 F 100 H 20 112/70 93 09/26/16 08:00 09/26/16 15:04 09/26/16 10:00 09/26/16 15:04 09/26/16 10:00 General appearance: Present: no acute distress Results - Labs CBC & Chem 7: 09/25/16 06:46 09/25/16 06:46 Labs: Laboratory Last Values WBC 23.5 K/mm3 (4.5-11.0) H 09/25/16 06:46 RBC 3.96 M/mm3 (3.65-5.03) 09/25/16 06:46 Hgb 10.6 gm/dl (11.8-15.2) L 09/25/16 06:46 Hct 33.1 % (35.5-45.6) L 09/25/16 06:46 MCV 84 fl (84-94) 09/25/16 06:46 MCH 27 pg (28-32) L 09/25/16 06:46 MCHC 32 % (32-34) 09/25/16 06:46 RDW 16.9 % (13.2-15.2) H 09/25/16 06:46 Plt Count 400 K/mm3 (140-440) 09/25/16 06:46 Lymph % (Auto) 6.2 % (13.4-35.0) L 09/24/16 02:32 [place] % (Auto) 11.0 % (0.0-7.3) H 09/24/16 02:32 Eos % (Auto) 0.1 % (0.0-4.3) 09/24/16 02:32 Baso % (Auto) 0.2 % (0.0-1.8) 09/24/16 02:32 Lymph # 1.1 K/mm3 (1.2-5.4) L 09/24/16 02:32 [place] # 2.0 K/mm3 (0.0-0.8) H 09/24/16 02:32 Eos # 0.0 K/mm3 (0.0-0.4) 09/24/16 02:32 Baso # 0.0 K/mm3 (0.0-0.1) 09/24/16 02:32 Add Manual Diff Complete 09/23/16 16:21 Total Counted 100 09/23/16 16:21 Seg Neutrophils % 82.5 % (40.0-70.0) H 09/24/16 02:32 Seg Neuts % (Manual) 81.0 % (40.0-70.0) H 09/23/16 16:21 Band Neutrophils % 3.0 % 09/23/16 16:21 Lymphocytes % (Manual) 5.0 % (13.4-35.0) L 09/23/16 16:21 Reactive Lymphs % (Man) 0 % 09/23/16 16:21 Monocytes % (Manual) 11.0 % (0.0-7.3) H 09/23/16 16:21 Eosinophils % (Manual) 0 % (0.0-4.3) 09/23/16 16:21 Basophils % (Manual) 0 % (0.0-1.8) 09/23/16 16:21 Metamyelocytes % 0 % 09/23/16 16:21 Myelocytes % 0 % 09/23/16 16:21 Promyelocytes % 0 % 09/23/16 16:21 Blast Cells % 0 % 09/23/16 16:21 Nucleated RBC % Not Reportable 09/23/16 16:21 Seg Neutrophils # 14.8 K/mm3 (1.8-7.7) H 09/24/16 02:32 Seg Neutrophils # Man 14.3 K/mm3 (1.8-7.7) H 09/23/16 16:21 Band Neutrophils # 0.5 K/mm3 09/23/16 16:21 Lymphocytes # (Manual) 0.9 K/mm3 (1.2-5.4) L 09/23/16 16:21 Abs React Lymphs (Man) 0.0 K/mm3 09/23/16 16:21 Monocytes # (Manual) 1.9 K/mm3 (0.0-0.8) H 09/23/16 16:21 Eosinophils # (Manual) 0.0 K/mm3 (0.0-0.4) 09/23/16 16:21 Basophils # (Manual) 0.0 K/mm3 (0.0-0.1) 09/23/16 16:21 Metamyelocytes # 0.0 K/mm3 09/23/16 16:21 Myelocytes # 0.0 K/mm3 09/23/16 16:21 Promyelocytes # 0.0 K/mm3 09/23/16 16:21 Blast Cells # 0.0 K/mm3 09/23/16 16:21 WBC Morphology Not Reportable 09/23/16 16:21 Hypersegmented Neuts Not Reportable 09/23/16 16:21 Hyposegmented Neuts Not Reportable 09/23/16 16:21 Hypogranular Neuts Not Reportable 09/23/16 16:21 Smudge Cells Not Reportable 09/23/16 16:21 Toxic Granulation Not Reportable 09/23/16 16:21 Toxic Vacuolation Not Reportable 09/23/16 16:21 Dohle Bodies Not Reportable 09/23/16 16:21 Pelger-Huet Anomaly Not Reportable 09/23/16 16:21 Haleigh Rods Not Reportable 09/23/16 16:21 Platelet Estimate Consistent w auto 09/23/16 16:21 Clumped Platelets Not Reportable 09/23/16 16:21 Plt Clumps, EDTA Not Reportable 09/23/16 16:21 Large Platelets Not Reportable 09/23/16 16:21 Giant Platelets Not Reportable 09/23/16 16:21 Platelet Satelliting Not Reportable 09/23/16 16:21 Plt Morphology Comment Not Reportable 09/23/16 16:21 RBC Morphology Not Reportable 09/23/16 16:21 Dimorphic RBCs Not Reportable 09/23/16 16:21 Polychromasia Not Reportable 09/23/16 16:21 Hypochromasia Not Reportable 09/23/16 16:21 Poikilocytosis 1+ 09/23/16 16:21 Anisocytosis 1+ 09/23/16 16:21 Microcytosis Not Reportable 09/23/16 16:21 Macrocytosis Not Reportable 09/23/16 16:21 Spherocytes Not Reportable 09/23/16 16:21 Pappenheimer Bodies Not Reportable 09/23/16 16:21 Sickle Cells Not Reportable 09/23/16 16:21 Target Cells Not Reportable 09/23/16 16:21 Tear Drop Cells Not Reportable 09/23/16 16:21 Ovalocytes Not Reportable 09/23/16 16:21 Helmet Cells Not Reportable 09/23/16 16:21 [place] Bodies Not Reportable 09/23/16 16:21 [place] Rings Not Reportable 09/23/16 16:21 [place] Cells Not Reportable 09/23/16 16:21 Bite Cells Not Reportable 09/23/16 16:21 Crenated Cell Not Reportable 09/23/16 16:21 Elliptocytes Not Reportable 09/23/16 16:21 Acanthocytes (Spur) Not Reportable 09/23/16 16:21 Rouleaux Not Reportable 09/23/16 16:21 Hemoglobin C Crystals Not Reportable 09/23/16 16:21 Schistocytes Not Reportable 09/23/16 16:21 Malaria parasites Not Reportable 09/23/16 16:21 Tk Bodies Not Reportable 09/23/16 16:21 Hem Pathologist Commnt No 09/23/16 16:21 PT 17.1 Sec. (12.2-14.9) H 09/25/16 06:46 INR 1.40 (0.87-1.13) H 09/25/16 06:46 APTT 32.9 Sec. (24.2-36.6) 09/24/16 02:32 Sodium 138 mmol/L (137-145) D 09/25/16 06:46 Potassium 3.5 mmol/L (3.6-5.0) L 09/24/16 02:32 Chloride 95.2 mmol/L (98-107) L 09/24/16 02:32 Carbon Dioxide 16 mmol/L (22-30) L 09/25/16 06:46 Anion Gap 21 mmol/L 09/24/16 02:32 BUN 18 mg/dL (9-20) 09/25/16 06:46 Creatinine 0.9 mg/dL (0.8-1.5) 09/25/16 06:46 Estimated GFR > 60 ml/min 09/25/16 06:46 BUN/Creatinine Ratio 20.00 % 09/25/16 06:46 Glucose 82 mg/dL (75-100) 09/25/16 06:46 Lactic Acid 1.6 mmol/L (0.7-2.0) 09/23/16 19:44 Calcium 8.2 mg/dL (8.4-10.2) L 09/25/16 06:46 Total Bilirubin 0.4 mg/dL (0.1-1.2) 09/25/16 06:46 AST 18 units/L (5-40) 09/25/16 06:46 ALT 11 units/L (7-56) 09/25/16 06:46 Alkaline Phosphatase 74 units/L (35-129) 09/25/16 06:46 NT-Pro-B Natriuret Pep 1718 pg/mL (0-900) H 09/24/16 02:32 Total Protein 5.4 g/dL (6.3-8.2) L 09/25/16 06:46 Albumin 2.5 g/dL (3.9-5) L 09/25/16 06:46 Albumin/Globulin Ratio 0.9 % 09/25/16 06:46 Lipase 26 units/L (13-60) 09/23/16 16:21 Blood Type O POSITIVE 09/23/16 16:21 Antibody Screen Negative 09/23/16 16:21 - Imaging and Cardiology Abdominal x-ray: image reviewed (no free air)
[2016-09-26] MEDS: LASIX IV SCH (17:42)
[2016-09-27] MEDS: LOPRESSOR IV SCH ×4 (01:09→22:32)
[2016-09-27] MEDS: VANCOMYCIN PO SCH ×5 (01:11→22:32)
[2016-09-27] MEDS: NACL 0.9% 1000 ML 1,000 ML with SODIUM BICARBONATE 50 MEQ IV SCH ×2 (04:35→18:02)
[2016-09-27] MEDS: FLAGYL 500 MG/100 ML 500 MG/100 ML BAG IV SCH ×3 (06:19→22:30)
[2016-09-27] MEDS: LASIX IV SCH ×2 (06:20→17:52)
[2016-09-27 07:05] LABS: Hematocrit 33.7 % (35.5-45.6); Hemoglobin 10.8 gm/dl (11.8-15.2); Mean Corpuscular HGB Conc 32 % (32-34); Mean Corpuscular Hemoglobin 27 pg (28-32); Mean Corpuscular Volume 83 fl (84-94); Platelet Count 417 K/mm3 (140-440); Red Blood Count 4.04 M/mm3 (3.65-5.03); Red Cell Distribution Width 17.4 % (13.2-15.2); White Blood Count 14.6 K/mm3 (4.5-11.0)
[2016-09-27 07:15] LABS: Anion Gap 19 mmol/L; Blood Urea Nitrogen 12 mg/dL (9-20); Calcium 7.9 mg/dL (8.4-10.2); Carbon Dioxide 21 mmol/L (22-30); Chloride 99.7 mmol/L (98-107); Glucose 114 mg/dL (75-100); Sodium 137 mmol/L (137-145)
[2016-09-27 07:19] LABS: Potassium 2.7 mmol/L (3.6-5.0)
--- NOTE | 2016-09-27 09:18 | Progress Note ---
Subjective Date of service: 09/27/16 Principal diagnosis: Severe C. diff. infection Interval history: No orthopnea, no chest pain CAD s/p CABG x 4 07/2016 Post op LVEF is normal Post-operative afib s/p cardioversion Colon perforation due to chest tube placement s/p colectomy, mediastinal washing and redo exlap for wound dehiscence Clostridium difficile colitis with diarrhea and leukocytosis Systemic Hypertension Stable cardiac issues, no changes Objective Vital Signs Temp Pulse Pulse Resp Resp BP BP 09/27/16 06:20 103 H 129/78 09/27/16 05:29 98.3 F 103 H 20 129/78 09/27/16 01:34 97.3 F L 98 H 20 128/68 09/27/16 01:09 98 H 128/68 09/26/16 22:00 18 09/26/16 20:29 98.3 F 105 H 18 121/76 09/26/16 19:38 09/26/16 17:43 98 H 110/78 09/26/16 16:15 97.3 F L 103 H 20 125/74 09/26/16 13:00 100 H 112/70 09/26/16 10:00 20 20 Pulse Ox 09/27/16 06:20 09/27/16 05:29 94 09/27/16 01:34 94 09/27/16 01:09 09/26/16 22:00 09/26/16 20:29 92 09/26/16 19:38 93 09/26/16 17:43 09/26/16 16:15 94 09/26/16 13:00 09/26/16 10:00 98 - Physical Examination General: No Apparent Distress HEENT: Positive: Pallor Neck: Positive: neck supple Cardiac: Positive: Reg Rate and Rhythm, S1/S2. Negative: S3 Lungs: Negative: Rhonchi Neuro: Positive: Grossly Intact Abdomen: Positive: Decreased Bowel Sounds Extremities: Absent: edema - Labs and Meds CBC 09/27/16 Range/Units 06:00 WBC 14.6 H (4.5-11.0) K/mm3 RBC 4.04 (3.65-5.03) M/mm3 Hgb 10.8 L (11.8-15.2) gm/dl Hct 33.7 L (35.5-45.6) % Plt Count 417 (140-440) K/mm3 Comprehensive Metabolic Panel 09/27/16 Range/Units 06:00 Sodium 137 (137-145) mmol/L Potassium 2.7 L* (3.6-5.0) mmol/L Chloride 99.7 (98-107) mmol/L Carbon Dioxide 21 L (22-30) mmol/L BUN 12 (9-20) mg/dL Creatinine 0.6 L (0.8-1.5) mg/dL Glucose 114 H (75-100) mg/dL Calcium 7.9 L (8.4-10.2) mg/dL
--- NOTE | 2016-09-27 10:14 | Progress Note ---
Assessment and Plan Assessment and plan: This is a 76 y/o male from [facility] with h/o CAD s/p CABG on July 2016, partial colectomy following CABG on July 2016 presented with diarrhea for about a week and positive C. difficile. Patient states that he was admitted to [facility], [place] for cardiac bypass surgery on July last year. Following the bypass surgery he required chest tube placement for mediastinitis, his hospitalization also got complicated with intra-abdominal infection and bowel obstruction which required partial colectomy. He was then sent to [facility] for subacute rehabilitation. For last few days he developed diarrhea and a culture for C. difficile was sent out which came back positive. Patient was sent to ER today for further evaluation and management. He had a CT scan of abdomen and pelvis in the ER which showed diffuse colitis and possible bowel perforation with free intra-abdominal air. General surgeon was consulted from the ER and he is getting admitted for further evaluation and management. He received a dose of Levaquin and Flagyl in the ER and also getting hydrated with IV fluid. Patient had a bowel movement with loose watery stool in the ER, he has been placed on contact isolation. Sepsis with C. difficile colitis Hypokalemia C. difficile colitis Possible bowel perforation Leukocytosis- secondary to C.diff colitis Infected abdominal wound Coronary artery disease status post CABG Recent history of partial colectomy Recent history of chest tube placement S/P partial colectomy SECONDARY TO COLON PERFORATION 07/27/16 S/P Retension sutures Hypertension, benign essential Diabetes mellitus type II on oral hypoglycemic medications Hyperlipidemia Mild hyponatremia and hypokalemia Plan: patient improving clinically, no indication for surgery at this time. Repeat CT abdomen does not redemonstrate any free air Replace K ID, Cardiology and GI input appreciated Place on IV Flagyl ,change to Po Vancomycin and IV fluid hydration Obtain blood culture stool culture Patient tolerates and diet were advanced as tolerated gently. Anticipate discharge in 24-48 hours if continues to improve stool becomes formed. Repeat abdomenal study prior to discharge to ensure no need for paracentesis Gen. surgery Discussed with son in detail- POSSIBLE SURGERY TODAY BASED ON CT ABDOMEN FINDING Protonix IV, IV morphine and Zofran Continue supportive care, Consult wound care for abdominal wound Place on Accu-Chek and Sliding scale of insulin coverage Replace electrolytes as needed Discussed with GI and Surgery DVT prophylaxis History Interval history: Follow-up colitis, sepsis Patient seen and examined this morning in no acute distress continues with diarrhea although not as watery "like mashed potatoes". No fever. NO Abdominal pain. Denies any chest pain, nausea, vomiting No fever noted blood pressure controlled No adverse events reported to me by nursing staff Hospitalist Physical - Physical exam Narrative exam: VITAL SIGNS: Reviewed. GENERAL: The patient appeared well nourished and normally developed. Vital signs as documented. HEAD: No signs of head trauma. EYES: Pupils are equal. Extraocular motions intact. EARS: Hearing grossly intact. MOUTH: Oropharynx is normal. NECK: No adenopathy, no JVD. CHEST: Chest with clear breath sounds bilaterally. No wheezes, rales, or rhonchi. CARDIAC: Regular rate and rhythm. S1 and S2, without murmurs, gallops, or rubs. VASCULAR: No Edema. Peripheral pulses normal and equal in all extremities. ABDOMEN: Soft, non tender except for surgical site. Retention sutures still in place. positive fluid wave. and no masses palpated. Bowel Sounds hypoactive MUSCULOSKELETAL: Good range of motion of all major joints. Extremities without clubbing, cyanosis or edema. NEUROLOGIC EXAM: Alert and oriented x 3. No focal sensory or strength deficits. Speech normal. Follows commands. PSYCHIATRIC: Mood normal. SKIN: Large retention sutures, abdomen and chest . - Constitutional Vitals: Temp Pulse Resp BP Pulse Ox 98.3 F 103 H 20 129/78 94 09/27/16 05:29 09/27/16 06:20 09/27/16 05:29 09/27/16 06:20 09/27/16 05:29 General appearance: Present: no acute distress Results - Labs CBC & Chem 7: 09/27/16 06:00 09/27/16 06:00 Labs: Laboratory Last Values WBC 14.6 K/mm3 (4.5-11.0) H 09/27/16 06:00 RBC 4.04 M/mm3 (3.65-5.03) 09/27/16 06:00 Hgb 10.8 gm/dl (11.8-15.2) L 09/27/16 06:00 Hct 33.7 % (35.5-45.6) L 09/27/16 06:00 MCV 83 fl (84-94) L 09/27/16 06:00 MCH 27 pg (28-32) L 09/27/16 06:00 MCHC 32 % (32-34) 09/27/16 06:00 RDW 17.4 % (13.2-15.2) H 09/27/16 06:00 Plt Count 417 K/mm3 (140-440) 09/27/16 06:00 Lymph % (Auto) 6.2 % (13.4-35.0) L 09/24/16 02:32 [place] % (Auto) 11.0 % (0.0-7.3) H 09/24/16 02:32 Eos % (Auto) 0.1 % (0.0-4.3) 09/24/16 02:32 Baso % (Auto) 0.2 % (0.0-1.8) 09/24/16 02:32 Lymph # 1.1 K/mm3 (1.2-5.4) L 09/24/16 02:32 [place] # 2.0 K/mm3 (0.0-0.8) H 09/24/16 02:32 Eos # 0.0 K/mm3 (0.0-0.4) 09/24/16 02:32 Baso # 0.0 K/mm3 (0.0-0.1) 09/24/16 02:32 Add Manual Diff Complete 09/23/16 16:21 Total Counted 100 09/23/16 16:21 Seg Neutrophils % 82.5 % (40.0-70.0) H 09/24/16 02:32 Seg Neuts % (Manual) 81.0 % (40.0-70.0) H 09/23/16 16:21 Band Neutrophils % 3.0 % 09/23/16 16:21 Lymphocytes % (Manual) 5.0 % (13.4-35.0) L 09/23/16 16:21 Reactive Lymphs % (Man) 0 % 09/23/16 16:21 Monocytes % (Manual) 11.0 % (0.0-7.3) H 09/23/16 16:21 Eosinophils % (Manual) 0 % (0.0-4.3) 09/23/16 16:21 Basophils % (Manual) 0 % (0.0-1.8) 09/23/16 16:21 Metamyelocytes % 0 % 09/23/16 16:21 Myelocytes % 0 % 09/23/16 16:21 Promyelocytes % 0 % 09/23/16 16:21 Blast Cells % 0 % 09/23/16 16:21 Nucleated RBC % Not Reportable 09/23/16 16:21 Seg Neutrophils # 14.8 K/mm3 (1.8-7.7) H 09/24/16 02:32 Seg Neutrophils # Man 14.3 K/mm3 (1.8-7.7) H 09/23/16 16:21 Band Neutrophils # 0.5 K/mm3 09/23/16 16:21 Lymphocytes # (Manual) 0.9 K/mm3 (1.2-5.4) L 09/23/16 16:21 Abs React Lymphs (Man) 0.0 K/mm3 09/23/16 16:21 Monocytes # (Manual) 1.9 K/mm3 (0.0-0.8) H 09/23/16 16:21 Eosinophils # (Manual) 0.0 K/mm3 (0.0-0.4) 09/23/16 16:21 Basophils # (Manual) 0.0 K/mm3 (0.0-0.1) 09/23/16 16:21 Metamyelocytes # 0.0 K/mm3 09/23/16 16:21 Myelocytes # 0.0 K/mm3 09/23/16 16:21 Promyelocytes # 0.0 K/mm3 09/23/16 16:21 Blast Cells # 0.0 K/mm3 09/23/16 16:21 WBC Morphology Not Reportable 09/23/16 16:21 Hypersegmented Neuts Not Reportable 09/23/16 16:21 Hyposegmented Neuts Not Reportable 09/23/16 16:21 Hypogranular Neuts Not Reportable 09/23/16 16:21 Smudge Cells Not Reportable 09/23/16 16:21 Toxic Granulation Not Reportable 09/23/16 16:21 Toxic Vacuolation Not Reportable 09/23/16 16:21 Dohle Bodies Not Reportable 09/23/16 16:21 Pelger-Huet Anomaly Not Reportable 09/23/16 16:21 Haleigh Rods Not Reportable 09/23/16 16:21 Platelet Estimate Consistent w auto 09/23/16 16:21 Clumped Platelets Not Reportable 09/23/16 16:21 Plt Clumps, EDTA Not Reportable 09/23/16 16:21 Large Platelets Not Reportable 09/23/16 16:21 Giant Platelets Not Reportable 09/23/16 16:21 Platelet Satelliting Not Reportable 09/23/16 16:21 Plt Morphology Comment Not Reportable 09/23/16 16:21 RBC Morphology Not Reportable 09/23/16 16:21 Dimorphic RBCs Not Reportable 09/23/16 16:21 Polychromasia Not Reportable 09/23/16 16:21 Hypochromasia Not Reportable 09/23/16 16:21 Poikilocytosis 1+ 09/23/16 16:21 Anisocytosis 1+ 09/23/16 16:21 Microcytosis Not Reportable 09/23/16 16:21 Macrocytosis Not Reportable 09/23/16 16:21 Spherocytes Not Reportable 09/23/16 16:21 Pappenheimer Bodies Not Reportable 09/23/16 16:21 Sickle Cells Not Reportable 09/23/16 16:21 Target Cells Not Reportable 09/23/16 16:21 Tear Drop Cells Not Reportable 09/23/16 16:21 Ovalocytes Not Reportable 09/23/16 16:21 Helmet Cells Not Reportable 09/23/16 16:21 Basurto-Landen Bodies Not Reportable 09/23/16 16:21 [place] Rings Not Reportable 09/23/16 16:21 Pedro Cells Not Reportable 09/23/16 16:21 Bite Cells Not Reportable 09/23/16 16:21 Crenated Cell Not Reportable 09/23/16 16:21 Elliptocytes Not Reportable 09/23/16 16:21 Acanthocytes (Spur) Not Reportable 09/23/16 16:21 Rouleaux Not Reportable 09/23/16 16:21 Hemoglobin C Crystals Not Reportable 09/23/16 16:21 Schistocytes Not Reportable 09/23/16 16:21 Malaria parasites Not Reportable 09/23/16 16:21 Tk Bodies Not Reportable 09/23/16 16:21 Hem Pathologist Commnt No 09/23/16 16:21 PT 17.1 Sec. (12.2-14.9) H 09/25/16 06:46 INR 1.40 (0.87-1.13) H 09/25/16 06:46 APTT 32.9 Sec. (24.2-36.6) 09/24/16 02:32 Sodium 137 mmol/L (137-145) 09/27/16 06:00 Potassium 2.7 mmol/L (3.6-5.0) L* 09/27/16 06:00 Chloride 99.7 mmol/L (98-107) 09/27/16 06:00 Carbon Dioxide 21 mmol/L (22-30) L 09/27/16 06:00 Anion Gap 19 mmol/L 09/27/16 06:00 BUN 12 mg/dL (9-20) 09/27/16 06:00 Creatinine 0.6 mg/dL (0.8-1.5) L 09/27/16 06:00 Estimated GFR > 60 ml/min 09/27/16 06:00 BUN/Creatinine Ratio 20.00 % 09/27/16 06:00 Glucose 114 mg/dL (75-100) H 09/27/16 06:00 POC Glucose 125 (70-105) H 09/27/16 07:03 Lactic Acid 1.6 mmol/L (0.7-2.0) 09/23/16 19:44 Calcium 7.9 mg/dL (8.4-10.2) L 09/27/16 06:00 Total Bilirubin 0.4 mg/dL (0.1-1.2) 09/25/16 06:46 AST 18 units/L (5-40) 09/25/16 06:46 ALT 11 units/L (7-56) 09/25/16 06:46 Alkaline Phosphatase 74 units/L (35-129) 09/25/16 06:46 NT-Pro-B Natriuret Pep 1718 pg/mL (0-900) H 09/24/16 02:32 Total Protein 5.4 g/dL (6.3-8.2) L 09/25/16 06:46 Albumin 2.5 g/dL (3.9-5) L 09/25/16 06:46 Albumin/Globulin Ratio 0.9 % 09/25/16 06:46 Lipase 26 units/L (13-60) 02/08/17 16:21 Blood Type O POSITIVE 09/23/16 16:21 Antibody Screen Negative 09/23/16 16:21
[2016-09-27] MEDS: HALFPRIN EC PO SCH (10:37)
[2016-09-27] MEDS: TYLENOL PO PRN (10:37)
[2016-09-27] MEDS: PROzac PO SCH (10:38)
[2016-09-27] MEDS: KCL 10MEQ/100ML 10 MEQ/100 ML BAG IV SCH ×4 (11:49→17:40)
--- NOTE | 2016-09-27 12:38 | Progress Note ---
Assessment and Plan Current antibiotics: Flagyl 500 mg IV q8h 09/23 --> Vancomycin 1250 mg IV q12h 09/23 --> Previous antibiotics: Records show that he was discharged to the rehabilitation facility on ertapenem and micafungin but when they were stopped is unclear ASSESSMENT: Willian Layne is a 76-year-old male with type 2 diabetes mellitus, hypertension, hyperlipidemia and coronary artery disease who had a CABG done at [facility] on 07/22/2016 was complicated by colon perforation with the chest tube insertion with resultant intra-abdominal sepsis and subsequent exploratory laparotomies X 2 who ultimately was discharged to [facility] on 08/28/16. He was doing reasonably well until 09/19/16 when he developed nausea, vomiting and severe , watery diarrhea and a C. difficile toxin assay was positive. Problem list: 1. Severe C. diff. infection -Severe diarrhea and crampy abdominal pain -Extensive colitis seen on CT scan -Significant leukocytosis -Seems to be somewhat clinically improved 2. Coronary artery disease -Status post CABG 4 07/22/2016 3. Status post colon perforation -Status post exploratory laparotomy and subsegmental colectomy 07/27/2016 -Status post intra-abdominal sepsis 4. History of paroxysmal atrial fibrillation -Status post cardioversion at [facility] -Currently in normal sinus rhythm. 5. Leukocytosis -Secondary to #[address] scan without air noted and conclusion by radiologist -Rule out secondary to previous surgery -Patient clinically does not appear to have an acute bowel at this point. - Repeat CT scan-marked colonic bowel thickening consistent with colitis; no air noted on dictation 7. Type 2 diabetes mellitus PLAN: 1. Continue IV Flagyl 2. Continue by mouth vancomycin versus C. difficile 3. Continued close clinical observation 4. Follow WBC 5. Glycemic control as per the hospitalist service 6. C. difficile isolation precautions Subjective Date of service: 09/27/16 Principal diagnosis: Severe C. diff. infection Interval history: Denies abdominal pain, nausea or vomiting. Stools "mushy" but better formed and less frequent. Objective - Exam Narrative Exam: GENERAL: Well-developed, well-nourished appearing male who is alert and in no acute distress. He looks somewhat chronically ill but not acutely so. HEAD: Normocephalic. No lesions seen. EYES: Pupils are equal reactive to light and accommodation. There is no scleral icterus. Optic fundi are not examined. EARS: Normal external ears without any drainage THROAT: Oropharynx is normal with no evidence of oral candidiasis or pharyngitis. NECK: Supple. No enlargement of the thyroid gland. No significant cervical lymphadenopathy. No jugular venous distention at 30. LUNGS: Clear with no adventitious sounds. CHEST: Healed sternotomy scar with mild erythema but no increased warmth nor tenderness. HEART: Regular rate. S1 and S2 are normal. There are no murmurs, gallops, clicks or rubs heard. ABDOMEN: Soft, only minimally distended and nontender. Liver and spleen are not palpably enlarged or tender. No palpable masses. Bowel sounds are normoactive. Midline abdominal wound without redness or discharge. EXTREMITIES: No rash, peripheral lymphadenopathy, clubbing or edema. Well- healed surgical scar over the right hip from previous replacements with no signs of infection. NEUROLOGIC: No focal findings. - Constitutional Vitals: Vital Signs Temp Pulse Resp BP Pulse Ox 97.6 F 100 H 20 145/79 93 09/27/16 08:35 09/27/16 08:35 09/27/16 08:35 09/27/16 08:35 09/27/16 08:35 Temperature -Last 24 Hours Temperature 97.6 F Temperature 98.3 F Temperature 97.3 F Temperature 98.3 F Temperature 97.3 F - Labs CBC & Chem 7: 09/27/16 06:00 09/27/16 06:00 Labs: Abnormal lab results 09/26/16 09/27/16 09/27/16 Range/Units 20:57 06:00 06:00 WBC 14.6 H (4.5-11.0) K/mm3 Hgb 10.8 L (11.8-15.2) gm/dl Hct 33.7 L (35.5-45.6) % MCV 83 L (84-94) fl MCH 27 L (28-32) pg RDW 17.4 H (13.2-15.2) % Potassium 2.7 L* (3.6-5.0) mmol/L Carbon Dioxide 21 L (22-30) mmol/L Creatinine 0.6 L (0.8-1.5) mg/dL Glucose 114 H (75-100) mg/dL POC Glucose 156 H (70-105) Calcium 7.9 L (8.4-10.2) mg/dL 09/27/16 Range/Units 07:03 WBC (4.5-11.0) K/mm3 Hgb (11.8-15.2) gm/dl Hct (35.5-45.6) % MCV (84-94) fl MCH (28-32) pg RDW (13.2-15.2) % Potassium (3.6-5.0) mmol/L Carbon Dioxide (22-30) mmol/L Creatinine (0.8-1.5) mg/dL Glucose (75-100) mg/dL POC Glucose 125 H (70-105) Calcium (8.4-10.2) mg/dL
--- NOTE | 2016-09-27 14:41 | Progress Note ---
Assessment and Plan 1. C diff colitis - Improving. Continue abx. 2. Free air in abd - repeat CT shows no extravasation of contrast. Pt clinically doing well. Ashley diet. WBC much improved. Advance diet as per Surgery. 3. Ascites - likely effusion due to infection. If pt clinically worsens, may need diagnostic paracentesis. Subjective Date of service: 09/27/16 Principal diagnosis: Severe C. diff. infection Interval history: Pt feels well. No abd pain. Ashley clears. Had 3 mushy BMs today, much improved. Objective - Constitutional Vitals: Vital Signs - 12hr 09/27/16 09/27/16 09/27/16 05:29 06:20 08:35 Temperature 98.3 F 97.6 F Pulse Rate 103 H Pulse Rate [ 103 H 100 H Left Radial] Respiratory 20 20 Rate Blood Pressure 129/78 Blood Pressure 129/78 145/79 [Left Arm] O2 Sat by Pulse 94 93 Oximetry General appearance: Present: no acute distress - EENT Eyes: PERRL, EOM intact ENT: hearing intact - Respiratory Respiratory effort: normal - Gastrointestinal General gastrointestinal: Present: soft, non-tender - Labs CBC & Chem 7: 09/27/16 06:00 09/27/16 06:00 Labs: Abnormal lab results 09/26/16 09/27/16 09/27/16 Range/Units 20:57 06:00 06:00 WBC 14.6 H (4.5-11.0) K/mm3 Hgb 10.8 L (11.8-15.2) gm/dl Hct 33.7 L (35.5-45.6) % MCV 83 L (84-94) fl MCH 27 L (28-32) pg RDW 17.4 H (13.2-15.2) % Potassium 2.7 L* (3.6-5.0) mmol/L Carbon Dioxide 21 L (22-30) mmol/L Creatinine 0.6 L (0.8-1.5) mg/dL Glucose 114 H (75-100) mg/dL POC Glucose 156 H (70-105) Calcium 7.9 L (8.4-10.2) mg/dL 09/27/16 09/27/16 Range/Units 07:03 12:17 WBC (4.5-11.0) K/mm3 Hgb (11.8-15.2) gm/dl Hct (35.5-45.6) % MCV (84-94) fl MCH (28-32) pg RDW (13.2-15.2) % Potassium (3.6-5.0) mmol/L Carbon Dioxide (22-30) mmol/L Creatinine (0.8-1.5) mg/dL Glucose (75-100) mg/dL POC Glucose 125 H 164 H (70-105) Calcium (8.4-10.2) mg/dL
--- NOTE | 2016-09-27 15:27 | Progress Note ---
Subjective Patient Reports: Positive: feels better, pain is less, flatus, bowel movement Narrative: looks and feels much better abd soft still loose stool WBC 14 noted Low K , replenished , will check Km in AM , Objective Vital Signs - 12hr 09/27/16 09/27/16 09/27/16 05:29 06:20 08:35 Temperature 98.3 F 97.6 F Pulse Rate 103 H Pulse Rate [ 103 H 100 H Left Radial] Respiratory 20 20 Rate Blood Pressure 129/78 Blood Pressure 129/78 145/79 [Left Arm] O2 Sat by Pulse 94 93 Oximetry - Labs 09/27/16 06:00 09/27/16 06:00 Diabetes panel 09/27/16 Range/Units 06:00 Sodium 137 (137-145) mmol/L Potassium 2.7 L* (3.6-5.0) mmol/L Chloride 99.7 (98-107) mmol/L Carbon Dioxide 21 L (22-30) mmol/L BUN 12 (9-20) mg/dL Creatinine 0.6 L (0.8-1.5) mg/dL Glucose 114 H (75-100) mg/dL Calcium 7.9 L (8.4-10.2) mg/dL Calcium panel 09/27/16 Range/Units 06:00 Calcium 7.9 L (8.4-10.2) mg/dL Pituitary panel 09/27/16 Range/Units 06:00 Sodium 137 (137-145) mmol/L Potassium 2.7 L* (3.6-5.0) mmol/L Chloride 99.7 (98-107) mmol/L Carbon Dioxide 21 L (22-30) mmol/L BUN 12 (9-20) mg/dL Creatinine 0.6 L (0.8-1.5) mg/dL Glucose 114 H (75-100) mg/dL Calcium 7.9 L (8.4-10.2) mg/dL Adrenal panel 09/27/16 Range/Units 06:00 Sodium 137 (137-145) mmol/L Potassium 2.7 L* (3.6-5.0) mmol/L Chloride 99.7 (98-107) mmol/L Carbon Dioxide 21 L (22-30) mmol/L BUN 12 (9-20) mg/dL Creatinine 0.6 L (0.8-1.5) mg/dL Glucose 114 H (75-100) mg/dL Calcium 7.9 L (8.4-10.2) mg/dL
[2016-09-28] MEDS: VANCOMYCIN PO SCH ×5 (00:52→23:56)
[2016-09-28] MEDS: LOPRESSOR IV SCH ×5 (00:53→23:55)
[2016-09-28] MEDS: FLAGYL 500 MG/100 ML 500 MG/100 ML BAG IV SCH ×3 (02:08→19:59)
[2016-09-28] MEDS: LASIX IV SCH ×2 (06:21→17:31)
--- NOTE | 2016-09-28 10:38 | Gastroenterology Progress Note ---
Assessment and Plan 1) C. diff colitis-improving -Cont abx as per ID 2) Hx of colon perf s/p partial colectomy -Would healing well -Advance diet as per surgery No further inpatient GI w/u needed at this time. Please re-call with any questions. Thank you! Subjective Date of service: 09/28/16 Principal diagnosis: Severe C. diff. infection Interval history: Pt seen/examined. Stools still soft and becoming more formed. No abdominal pain, vomiting,. Tolerating diet. No fevers/chills. Objective - Constitutional Vitals: Temp Pulse Resp BP Pulse Ox 98.1 F 92 H 18 123/81 96 09/28/16 08:09 09/28/16 08:09 09/28/16 08:09 09/28/16 08:09 09/28/16 08:09 General appearance: no acute distress - Neck Neck: supple - Respiratory Respiratory: bilateral: CTA - Cardiovascular Rhythm: regular Heart Sounds: Present: S1 & S2 - Extremities Extremities: No edema - Gastrointestinal General gastrointestinal: Present: soft, non-tender, non-distended, other ( midline scar, still healing but appears w/o signs of infection) - Neurologic Neurological: alert and oriented x3 - Psychiatric Psychiatric: appropriate mood/affect - Labs CBC & Chem 7: 09/27/16 06:00 09/27/16 06:00 Labs: Laboratory Results - last 24 hr 09/27/16 09/27/16 09/28/16 12:17 16:08 00:19 POC Glucose 164 H 149 H 139 H 09/28/16 06:42 POC Glucose 113 H
--- NOTE | 2016-09-28 11:31 | Progress Note ---
Assessment and Plan Clostridium difficile colitis with diarrhea and leukocytosis CAD s/p CABG x 4 07/2016 Post op LVEF is normal Post-operative afib s/p cardioversion Colon perforation due to chest tube placement s/p colectomy, mediastinal washing and redo exlap for wound dehiscence Systemic Hypertension Conservative cardiac management. Subjective Date of service: 09/28/16 Principal diagnosis: Severe C. diff. infection Interval history: No cardiac events overnight. Objective Vital Signs Temp Pulse Pulse Resp BP BP Pulse Ox 09/28/16 08:09 98.1 F 92 H 18 123/81 96 09/28/16 06:21 94 H 141/85 09/28/16 05:00 97.8 F 94 H 20 141/85 100 09/28/16 01:00 97.8 F 99 H 21 146/85 97 09/28/16 00:53 99 H 146/85 09/27/16 22:00 20 09/27/16 21:00 98.4 F 94 H 20 127/78 97 09/27/16 20:00 97 H 09/27/16 17:50 76 09/27/16 16:40 98.2 F 94 H 20 133/78 96 - Physical Examination General: No Apparent Distress HEENT: Positive: Pallor Neck: Positive: neck supple Cardiac: Positive: Reg Rate and Rhythm Neuro: Positive: Grossly Intact Abdomen: Positive: Decreased Bowel Sounds Extremities: Absent: edema
--- NOTE | 2016-09-28 13:01 | Progress Note ---
Assessment and Plan Current antibiotics: Flagyl 500 mg IV q8h 09/23 --> Vancomycin 1250 mg IV q12h 09/23 --> Previous antibiotics: Records show that he was discharged to the rehabilitation facility on ertapenem and micafungin but when they were stopped is unclear ASSESSMENT: Willian Layne is a 76-year-old male with type 2 diabetes mellitus, hypertension, hyperlipidemia and coronary artery disease who had a CABG done at [facility] on 07/22/2016 was complicated by colon perforation with the chest tube insertion with resultant intra-abdominal sepsis and subsequent exploratory laparotomies X 2 who ultimately was discharged to [facility] on 08/28/16. He was doing reasonably well until 09/19/16 when he developed nausea, vomiting and severe , watery diarrhea and a C. difficile toxin assay was positive. Problem list: 1. Severe C. diff. infection -Severe diarrhea and crampy abdominal pain -Extensive colitis seen on CT scan -Significant leukocytosis -Clinically improved 2. Coronary artery disease -Status post CABG 4 07/22/2016 3. Status post colon perforation -Status post exploratory laparotomy and subsegmental colectomy 07/27/2016 -Status post intra-abdominal sepsis 4. History of paroxysmal atrial fibrillation -Status post cardioversion at [facility] -Currently in normal sinus rhythm. 5. Leukocytosis -Secondary to #1 -Improving 6. CT scan showing small amount of free air -Rule out secondary to previous surgery -Patient clinically does not appear to have an acute bowel at this point. 7. Type 2 diabetes mellitus PLAN: 1. Continue IV Flagyl and PO vancomycin 2. Continued close clinical observation 3. Consider PT evaluation 4. Follow WBC 5. Glycemic control as per the hospitalist service 6. C. difficile isolation precautions Richard Hwang MD [facility] Office: [phone] Subjective Date of service: 09/28/16 Principal diagnosis: Severe C. diff. infection Interval history: Continues to feel better. Less bowel movements and consistency of "mush" persists. No cramping. No subjective fevers, nausea or vomiting. Still weak. Objective - Exam Narrative Exam: GENERAL: Well-developed, well-nourished appearing male who is alert and in no acute distress. He looks somewhat chronically ill but not acutely so. HEAD: Normocephalic. No lesions seen. EYES: Pupils are equal reactive to light and accommodation. There is no scleral icterus. Optic fundi are not examined. EARS: Normal external ears. THROAT: Oropharynx is normal with no evidence of oral candidiasis or pharyngitis. NECK: Supple. No enlargement of the thyroid gland. No significant cervical lymphadenopathy. No jugular venous distention at 30. LUNGS: Clear with no adventitious sounds. CHEST: Healed sternotomy scar with mild erythema but no increased warmth nor tenderness. The sternum is stable. HEART: Regular rate. S1 and S2 are normal. There are no murmurs, gallops, clicks or rubs heard. ABDOMEN: Soft, only minimally distended and nontender. Liver and spleen are not palpably enlarged or tender. No palpable masses. Bowel sounds are normoactive. Midline abdominal wound with mild erythema around the retention sutures that are still in place with some serous drainage but no signs of overt infection. EXTREMITIES: No rash, peripheral lymphadenopathy, clubbing or edema. Well- healed surgical scar over the right hip from previous replacements with no signs of infection. : Not examined today NEUROLOGIC: No focal findings. - Constitutional Vitals: Vital Signs Temp Pulse Resp BP Pulse Ox 97.9 F 93 H 18 120/75 96 09/28/16 12:03 09/28/16 12:03 09/28/16 12:03 09/28/16 12:03 09/28/16 12:03 Temperature -Last 24 Hours Temperature 97.9 F Temperature 98.1 F Temperature 97.8 F Temperature 97.8 F Temperature 98.4 F Temperature 98.2 F - Labs CBC & Chem 7: 09/27/16 06:00 09/27/16 06:00 Labs: Abnormal lab results Microbiology 09/23/16 19:51 Peripheral/Venous Blood Culture - Preliminary NO GROWTH AFTER 24 HOURS 09/23/16 19:50 Peripheral/Venous Blood Culture - Preliminary NO GROWTH AFTER 24 HOURS C. difficile toxin assay sent from the rehabilitation facility was positive. Imagin/8: CT abdomen/pelvis: Small amount of free intraperitoneal air suggesting bowel perforation. Acute inflammation of the distal left colon/proximal sigmoid colon as well as diffuse underlying colitis with significant abnormal wall thickening of the entire colon.
[2016-09-28] MEDS: PROzac PO SCH (13:49)
[2016-09-28] MEDS: HALFPRIN EC PO SCH (13:49)
[2016-09-28] MEDS ORDERED: FLUSH HEPARIN IV ONE (14:18)
--- NOTE | 2016-09-28 14:28 | Progress Note ---
Subjective Patient Reports: Positive: feels better, pain is less, flatus, diarrhea Narrative: doing OK still loose stool , to have TPN ,abd soft , will keep on cl liq in the meean time . Objective Vital Signs - 12hr 09/28/16 09/28/16 09/28/16 05:00 06:21 08:09 Temperature 97.8 F 98.1 F Pulse Rate 94 H Pulse Rate [ 94 H 92 H Left Radial] Respiratory 20 18 Rate Blood Pressure 141/85 Blood Pressure 141/85 123/81 [Left Arm] O2 Sat by Pulse 100 96 Oximetry 09/28/16 09/28/16 12:03 13:48 Temperature 97.9 F Pulse Rate 78 Pulse Rate [ 93 H Left Radial] Respiratory 18 Rate Blood Pressure Blood Pressure 120/75 [Left Arm] O2 Sat by Pulse 96 Oximetry - Labs 09/27/16 06:00 09/27/16 06:00
--- NOTE | 2016-09-28 16:31 | Progress Note ---
Assessment and Plan Assessment and plan: This is a 76 y/o male from [facility] with h/o CAD s/p CABG on July 2016, partial colectomy following CABG on July 2016 presented with diarrhea for about a week and positive C. difficile. Patient states that he was admitted to [facility] for cardiac bypass surgery on July last year. Following the bypass surgery he required chest tube placement for mediastinitis, his hospitalization also got complicated with intra-abdominal infection and bowel obstruction which required partial colectomy. He was then sent to [facility] for subacute rehabilitation. For last few days he developed diarrhea and a culture for C. difficile was sent out which came back positive. Patient was sent to ER today for further evaluation and management. He had a CT scan of abdomen and pelvis in the ER which showed diffuse colitis and possible bowel perforation with free intra-abdominal air. General surgeon was consulted from the ER and he is getting admitted for further evaluation and management. He received a dose of Levaquin and Flagyl in the ER and also getting hydrated with IV fluid. Patient had a bowel movement with loose watery stool in the ER, he has been placed on contact isolation. Records show that he was discharged to the rehabilitation facility on ertapenem and micafungin but when they were stopped is unclear Sepsis with C. difficile colitis Hypokalemia C. difficile colitis Possible bowel perforation Leukocytosis- secondary to C.diff colitis Infected abdominal wound Coronary artery disease status post CABG Recent history of partial colectomy Recent history of chest tube placement S/P partial colectomy SECONDARY TO COLON PERFORATION 07/27/16 S/P Retension sutures Hypertension, benign essential Diabetes mellitus type II on oral hypoglycemic medications Hyperlipidemia Mild hyponatremia and hypokalemia Plan: patient improving clinically, no indication for surgery at this time. Repeat CT abdomen does not redemonstrate any free air Replace K-awaiting repeat lab ID, Cardiology and GI input appreciated Place on IV Flagyl ,change to Po Vancomycin and IV fluid hydration Patient tolerates and diet were advanced as tolerated gently. Repeat abdomenal study prior to discharge to ensure no need for paracentesis Still at risk for ischemic colitis Protonix IV, IV morphine and Zofran Continue supportive care, wound care for abdominal wound Replace electrolytes as needed Discussed with GI and Surgery DVT prophylaxis History Interval history: Follow-up colitis, sepsis Patient seen and examined this morning in no acute distress resting comfortably still with loose stool . No fever. NO Abdominal pain. Denies any chest pain, nausea, vomiting No fever noted blood pressure controlled No adverse events reported to me by nursing staff Hospitalist Physical - Physical exam Narrative exam: VITAL SIGNS: Reviewed. GENERAL: The patient appeared well nourished and normally developed. Vital signs as documented. HEAD: No signs of head trauma. EYES: Pupils are equal. Extraocular motions intact. EARS: Hearing grossly intact. MOUTH: Oropharynx is normal. NECK: No adenopathy, no JVD. CHEST: Chest with clear breath sounds bilaterally. No wheezes, rales, or rhonchi. CARDIAC: Regular rate and rhythm. S1 and S2, without murmurs, gallops, or rubs. VASCULAR: No Edema. Peripheral pulses normal and equal in all extremities. ABDOMEN: Soft, non tender except for surgical site. Retention sutures still in place. positive fluid wave. and no masses palpated. Bowel Sounds hypoactive MUSCULOSKELETAL: Good range of motion of all major joints. Extremities without clubbing, cyanosis or edema. NEUROLOGIC EXAM: Alert and oriented x 3. No focal sensory or strength deficits. Speech normal. Follows commands. PSYCHIATRIC: Mood normal. SKIN: Large retention sutures, abdomen and chest . - Constitutional Vitals: Temp Pulse Resp BP Pulse Ox 98.1 F 92 H 18 124/73 93 09/28/16 16:17 09/28/16 16:17 09/28/16 16:17 09/28/16 16:17 09/28/16 16:17 General appearance: Present: no acute distress Results - Labs CBC & Chem 7: 09/27/16 06:00 09/27/16 06:00 Labs: Laboratory Last Values WBC 14.6 K/mm3 (4.5-11.0) H 09/27/16 06:00 RBC 4.04 M/mm3 (3.65-5.03) 09/27/16 06:00 Hgb 10.8 gm/dl (11.8-15.2) L 09/27/16 06:00 Hct 33.7 % (35.5-45.6) L 09/27/16 06:00 MCV 83 fl (84-94) L 09/27/16 06:00 MCH 27 pg (28-32) L 09/27/16 06:00 MCHC 32 % (32-34) 09/27/16 06:00 RDW 17.4 % (13.2-15.2) H 09/27/16 06:00 Plt Count 417 K/mm3 (140-440) 09/27/16 06:00 Lymph % (Auto) 6.2 % (13.4-35.0) L 09/24/16 02:32 [place] % (Auto) 11.0 % (0.0-7.3) H 09/24/16 02:32 Eos % (Auto) 0.1 % (0.0-4.3) 09/24/16 02:32 Baso % (Auto) 0.2 % (0.0-1.8) 09/24/16 02:32 Lymph # 1.1 K/mm3 (1.2-5.4) L 09/24/16 02:32 [place] # 2.0 K/mm3 (0.0-0.8) H 09/24/16 02:32 Eos # 0.0 K/mm3 (0.0-0.4) 09/24/16 02:32 Baso # 0.0 K/mm3 (0.0-0.1) 09/24/16 02:32 Add Manual Diff Complete 09/23/16 16:21 Total Counted 100 09/23/16 16:21 Seg Neutrophils % 82.5 % (40.0-70.0) H 09/24/16 02:32 Seg Neuts % (Manual) 81.0 % (40.0-70.0) H 09/23/16 16:21 Band Neutrophils % 3.0 % 09/23/16 16:21 Lymphocytes % (Manual) 5.0 % (13.4-35.0) L 09/23/16 16:21 Reactive Lymphs % (Man) 0 % 09/23/16 16:21 Monocytes % (Manual) 11.0 % (0.0-7.3) H 09/23/16 16:21 Eosinophils % (Manual) 0 % (0.0-4.3) 09/23/16 16:21 Basophils % (Manual) 0 % (0.0-1.8) 09/23/16 16:21 Metamyelocytes % 0 % 09/23/16 16:21 Myelocytes % 0 % 09/23/16 16:21 Promyelocytes % 0 % 09/23/16 16:21 Blast Cells % 0 % 09/23/16 16:21 Nucleated RBC % Not Reportable 09/23/16 16:21 Seg Neutrophils # 14.8 K/mm3 (1.8-7.7) H 09/24/16 02:32 Seg Neutrophils # Man 14.3 K/mm3 (1.8-7.7) H 09/23/16 16:21 Band Neutrophils # 0.5 K/mm3 09/23/16 16:21 Lymphocytes # (Manual) 0.9 K/mm3 (1.2-5.4) L 09/23/16 16:21 Abs React Lymphs (Man) 0.0 K/mm3 09/23/16 16:21 Monocytes # (Manual) 1.9 K/mm3 (0.0-0.8) H 09/23/16 16:21 Eosinophils # (Manual) 0.0 K/mm3 (0.0-0.4) 09/23/16 16:21 Basophils # (Manual) 0.0 K/mm3 (0.0-0.1) 09/23/16 16:21 Metamyelocytes # 0.0 K/mm3 09/23/16 16:21 Myelocytes # 0.0 K/mm3 09/23/16 16:21 Promyelocytes # 0.0 K/mm3 09/23/16 16:21 Blast Cells # 0.0 K/mm3 09/23/16 16:21 WBC Morphology Not Reportable 09/23/16 16:21 Hypersegmented Neuts Not Reportable 09/23/16 16:21 Hyposegmented Neuts Not Reportable 09/23/16 16:21 Hypogranular Neuts Not Reportable 09/23/16 16:21 Smudge Cells Not Reportable 09/23/16 16:21 Toxic Granulation Not Reportable 09/23/16 16:21 Toxic Vacuolation Not Reportable 09/23/16 16:21 Dohle Bodies Not Reportable 09/23/16 16:21 Pelger-Huet Anomaly Not Reportable 09/23/16 16:21 Haleigh Rods Not Reportable 09/23/16 16:21 Platelet Estimate Consistent w auto 09/23/16 16:21 Clumped Platelets Not Reportable 09/23/16 16:21 Plt Clumps, EDTA Not Reportable 09/23/16 16:21 Large Platelets Not Reportable 09/23/16 16:21 Giant Platelets Not Reportable 09/23/16 16:21 Platelet Satelliting Not Reportable 09/23/16 16:21 Plt Morphology Comment Not Reportable 09/23/16 16:21 RBC Morphology Not Reportable 09/23/16 16:21 Dimorphic RBCs Not Reportable 09/23/16 16:21 Polychromasia Not Reportable 09/23/16 16:21 Hypochromasia Not Reportable 09/23/16 16:21 Poikilocytosis 1+ 09/23/16 16:21 Anisocytosis 1+ 09/23/16 16:21 Microcytosis Not Reportable 09/23/16 16:21 Macrocytosis Not Reportable 09/23/16 16:21 Spherocytes Not Reportable 09/23/16 16:21 Pappenheimer Bodies Not Reportable 09/23/16 16:21 Sickle Cells Not Reportable 09/23/16 16:21 Target Cells Not Reportable 09/23/16 16:21 Tear Drop Cells Not Reportable 09/23/16 16:21 Ovalocytes Not Reportable 09/23/16 16:21 Helmet Cells Not Reportable 09/23/16 16:21 Basurto-Clark'S Point Bodies Not Reportable 09/23/16 16:21 [place] Rings Not Reportable 09/23/16 16:21 Pedro Cells Not Reportable 09/23/16 16:21 Bite Cells Not Reportable 09/23/16 16:21 Crenated Cell Not Reportable 09/23/16 16:21 Elliptocytes Not Reportable 09/23/16 16:21 Acanthocytes (Spur) Not Reportable 09/23/16 16:21 Rouleaux Not Reportable 09/23/16 16:21 Hemoglobin C Crystals Not Reportable 09/23/16 16:21 Schistocytes Not Reportable 09/23/16 16:21 Malaria parasites Not Reportable 09/23/16 16:21 Tk Bodies Not Reportable 09/23/16 16:21 Hem Pathologist Commnt No 09/23/16 16:21 PT 17.1 Sec. (12.2-14.9) H 09/25/16 06:46 INR 1.40 (0.87-1.13) H 09/25/16 06:46 APTT 32.9 Sec. (24.2-36.6) 09/24/16 02:32 Sodium 137 mmol/L (137-145) 09/27/16 06:00 Potassium 2.7 mmol/L (3.6-5.0) L* 09/27/16 06:00 Chloride 99.7 mmol/L (98-107) 09/27/16 06:00 Carbon Dioxide 21 mmol/L (22-30) L 09/27/16 06:00 Anion Gap 19 mmol/L 09/27/16 06:00 BUN 12 mg/dL (9-20) 09/27/16 06:00 Creatinine 0.6 mg/dL (0.8-1.5) L 09/27/16 06:00 Estimated GFR > 60 ml/min 09/27/16 06:00 BUN/Creatinine Ratio 20.00 % 09/27/16 06:00 Glucose 114 mg/dL (75-100) H 09/27/16 06:00 POC Glucose 113 (70-105) H 09/28/16 06:42 Lactic Acid 1.6 mmol/L (0.7-2.0) 09/23/16 19:44 Calcium 7.9 mg/dL (8.4-10.2) L 09/27/16 06:00 Total Bilirubin 0.4 mg/dL (0.1-1.2) 09/25/16 06:46 AST 18 units/L (5-40) 09/25/16 06:46 ALT 11 units/L (7-56) 09/25/16 06:46 Alkaline Phosphatase 74 units/L (35-129) 09/25/16 06:46 NT-Pro-B Natriuret Pep 1718 pg/mL (0-900) H 09/24/16 02:32 Total Protein 5.4 g/dL (6.3-8.2) L 09/25/16 06:46 Albumin 2.5 g/dL (3.9-5) L 09/25/16 06:46 Albumin/Globulin Ratio 0.9 % 09/25/16 06:46 Lipase 26 units/L (13-60) 09/23/16 16:21 Blood Type O POSITIVE 09/23/16 16:21 Antibody Screen Negative 09/23/16 16:21
[2016-09-28 16:57] LABS: Blood Urea Nitrogen 7 mg/dL (9-20); Calcium 7.3 mg/dL (8.4-10.2); Carbon Dioxide 28 mmol/L (22-30); Chloride 97.1 mmol/L (98-107); Glucose 158 mg/dL (75-100); Sodium 137 mmol/L (137-145)
[2016-09-28 17:01] LABS: Anion Gap 15 mmol/L
[2016-09-28] MEDS ORDERED: CLINIMIX IV SCH (20:00)
[2016-09-29] MEDS: FLAGYL 500 MG/100 ML 500 MG/100 ML BAG IV SCH ×3 (02:33→18:37)
[2016-09-29] MEDS: VANCOMYCIN PO SCH ×3 (06:45→18:28)
[2016-09-29] MEDS: LASIX IV SCH ×2 (06:46→18:26)
[2016-09-29] MEDS: LOPRESSOR IV SCH ×3 (06:46→18:31)
[2016-09-29 06:48] LABS: Hematocrit 38.4 % (35.5-45.6); Hemoglobin 12.3 gm/dl (11.8-15.2); Mean Corpuscular HGB Conc 32 % (32-34); Mean Corpuscular Hemoglobin 27 pg (28-32); Mean Corpuscular Volume 83 fl (84-94); Platelet Count 428 K/mm3 (140-440); Red Blood Count 4.63 M/mm3 (3.65-5.03); Red Cell Distribution Width 17.5 % (13.2-15.2); White Blood Count 11.7 K/mm3 (4.5-11.0)
[2016-09-29 07:00] LABS: BUN/Creatinine Ratio 8.75; Blood Urea Nitrogen 7 mg/dL (9-20); Calcium 7.4 mg/dL (8.4-10.2); Carbon Dioxide 29 mmol/L (22-30); Glucose 156 mg/dL (75-100); Magnesium 1.2 mg/dL (1.7-2.3); Phosphorous 2.5 mg/dL (2.5-4.5)
[2016-09-29 07:01] LABS: Anion Gap 16 mmol/L; Chloride 94.1 mmol/L (98-107); Sodium 136 mmol/L (137-145)
[2016-09-29 07:04] LABS: Potassium 2.8 mmol/L (3.6-5.0)
--- NOTE | 2016-09-29 10:40 | Progress Note ---
Assessment and Plan Current antibiotics: Flagyl 500 mg IV q8h 09/23 --> Vancomycin 1250 mg IV q12h 09/23 --> Previous antibiotics: Records show that he was discharged to the rehabilitation facility on ertapenem and micafungin but when they were stopped is unclear ASSESSMENT: Willian Layne is a 76-year-old male with type 2 diabetes mellitus, hypertension, hyperlipidemia and coronary artery disease who had a CABG done at [facility] on 07/22/2016 was complicated by colon perforation with the chest tube insertion with resultant intra-abdominal sepsis and subsequent exploratory laparotomies X 2 who ultimately was discharged to [facility] on 08/28/16. He was doing reasonably well until 09/19/16 when he developed nausea, vomiting and severe , watery diarrhea and a C. difficile toxin assay was positive. Problem list: 1. Severe C. diff. infection -Severe diarrhea and crampy abdominal pain -Extensive colitis seen on CT scan -Significant leukocytosis -Clinically improved 2. Coronary artery disease -Status post CABG 4 07/22/2016 3. Status post colon perforation -Status post exploratory laparotomy and subsegmental colectomy 07/27/2016 -Status post intra-abdominal sepsis 4. History of paroxysmal atrial fibrillation -Status post cardioversion at [facility] -Currently in normal sinus rhythm. 5. Leukocytosis -Secondary to #1 -Improving 6. CT scan showing small amount of free air -Rule out secondary to previous surgery -Patient clinically does not appear to have an acute bowel at this point. 7. Type 2 diabetes mellitus 8. Hypokalemia PLAN: 1. Continue IV Flagyl and PO vancomycin 2. Continued close clinical observation 3. Consider PT evaluation 4. Follow WBC 5. Glycemic control as per the hospitalist service 6. C. difficile isolation precautions 7. Correction of hypokalemia as per the hospitalist service Richard Hwang MD [facility] Office: [phone] Subjective Date of service: 09/29/16 Principal diagnosis: Severe C. diff. infection Interval history: Continues to feel better. Less bowel movements and consistency of "mush" persists. No cramping. No subjective fevers, nausea or vomiting. Still weak. Has had 2 episodes of "heaving while having a bowel movement follow by a sneeze. " Objective - Exam Narrative Exam: GENERAL: Well-developed, well-nourished appearing male who is alert and in no acute distress. He looks somewhat chronically ill but not acutely so. HEAD: Normocephalic. No lesions seen. EYES: Pupils are equal reactive to light and accommodation. There is no scleral icterus. Optic fundi are not examined. EARS: Normal external ears. THROAT: Oropharynx is normal with no evidence of oral candidiasis or pharyngitis. NECK: Supple. No enlargement of the thyroid gland. No significant cervical lymphadenopathy. No jugular venous distention at 30. LUNGS: Clear with no adventitious sounds. CHEST: Healed sternotomy scar with mild erythema but no increased warmth nor tenderness. The sternum is stable. HEART: Regular rate. S1 and S2 are normal. There are no murmurs, gallops, clicks or rubs heard. ABDOMEN: Soft, only moderately distended and remains nontender. Liver and spleen are not palpably enlarged or tender. No palpable masses. Bowel sounds are normoactive. Midline abdominal wound with mild erythema around the retention sutures that are still in place with some serous drainage but no signs of overt infection. EXTREMITIES: No rash, peripheral lymphadenopathy, clubbing or edema. Well- healed surgical scar over the right hip from previous replacements with no signs of infection. : Not examined today NEUROLOGIC: No focal findings. - Constitutional Vitals: Vital Signs Temp Pulse Resp BP Pulse Ox 97.3 F L 98 H 18 125/79 95 09/29/16 09:27 09/29/16 09:27 09/29/16 09:27 09/29/16 09:27 09/29/16 09:27 Temperature -Last 24 Hours Temperature 97.3 F Temperature 98.1 F Temperature 98.1 F Temperature 98.3 F Temperature 98.1 F Temperature 97.9 F - Labs CBC & Chem 7: 09/29/16 06:15 09/29/16 06:15 Labs: Abnormal lab results Microbiology 09/23/16 19:51 Peripheral/Venous Blood Culture - Preliminary NO GROWTH AFTER 24 HOURS 09/23/16 19:50 Peripheral/Venous Blood Culture - Preliminary NO GROWTH AFTER 24 HOURS C. difficile toxin assay sent from the rehabilitation facility was positive. Imagin/8: CT abdomen/pelvis: Small amount of free intraperitoneal air suggesting bowel perforation. Acute inflammation of the distal left colon/proximal sigmoid colon as well as diffuse underlying colitis with significant abnormal wall thickening of the entire colon.
[2016-09-29] MEDS ORDERED: MAGNESIUM SULFATE IV ONE (10:45)
[2016-09-29] MEDS: PROTONIX PO SCH (11:00)
[2016-09-29] MEDS: HALFPRIN EC PO SCH (11:00)
[2016-09-29] MEDS: PROzac PO SCH (11:00)
[2016-09-29] MEDS ORDERED: K-DUR PO NR (11:30)
[2016-09-29] MEDS ORDERED: MAGNESIUM SULFATE 1 GM in NACL 0.9% 50 ML IV ONE (12:00)
--- NOTE | 2016-09-29 12:06 | Progress Note ---
Assessment and Plan Clostridium difficile colitis with diarrhea and leukocytosis CAD s/p CABG x 4 07/2016 Post op LVEF is normal Post-surgical bypass afib s/p cardioversion Post-surgical bypass Colon perforation due to chest tube placement s/p colectomy , mediastinal washing and redo exlap for wound dehiscence Systemic Hypertension Conservative cardiac management. Subjective Date of service: 09/29/16 Principal diagnosis: Severe C. diff. infection Interval history: No cardiac events overnight. Objective Vital Signs Temp Pulse Pulse Pulse Resp BP BP 09/29/16 09:27 97.3 F L 98 H 18 125/79 09/29/16 06:46 96 H 126/79 09/29/16 04:00 98.1 F 91 H 18 119/81 09/29/16 00:00 98.1 F 92 H 18 138/79 09/28/16 23:55 92 H 138/79 09/28/16 22:00 88 09/28/16 20:00 98.3 F 88 90 18 108/64 09/28/16 17:29 92 H 124/73 09/28/16 16:17 98.1 F 92 H 18 09/28/16 13:48 78 BP Pulse Ox 09/29/16 09:27 95 09/29/16 06:46 09/29/16 04:00 97 09/29/16 00:00 98 09/28/16 23:55 09/28/16 22:00 09/28/16 20:00 97 09/28/16 17:29 09/28/16 16:17 124/73 93 09/28/16 13:48 - Physical Examination General: No Apparent Distress HEENT: Positive: Pallor Neck: Positive: neck supple Cardiac: Positive: Reg Rate and Rhythm Extremities: Absent: edema - Labs and Meds CBC 09/29/16 Range/Units 06:15 WBC 11.7 H (4.5-11.0) K/mm3 RBC 4.63 (3.65-5.03) M/mm3 Hgb 12.3 (11.8-15.2) gm/dl Hct 38.4 (35.5-45.6) % Plt Count 428 (140-440) K/mm3 Comprehensive Metabolic Panel 09/28/16 09/29/16 Range/Units 16:24 06:15 Sodium 137 136 L (137-145) mmol/L Potassium 3.0 L 2.8 L* (3.6-5.0) mmol/L Chloride 97.1 L 94.1 L (98-107) mmol/L Carbon Dioxide 28 D 29 (22-30) mmol/L BUN 7 L 7 L (9-20) mg/dL Creatinine 0.7 L 0.8 (0.8-1.5) mg/dL Glucose 158 H 156 H (75-100) mg/dL Calcium 7.3 L 7.4 L (8.4-10.2) mg/dL
[2016-09-29] MEDS: KCL 10MEQ/100ML 10 MEQ/100 ML BAG IV SCH ×4 (13:55→17:10)
--- NOTE | 2016-09-29 15:00 | Progress Note ---
Subjective Narrative: progressive improvement diarrhea less , talked to RN . TPN today K still low , Objective Vital Signs - 12hr 09/29/16 09/29/16 09/29/16 04:00 06:46 09:27 Temperature 98.1 F 97.3 F L Pulse Rate 96 H Pulse Rate [ 91 H Left Radial] Pulse Rate [ 98 H Right] Respiratory 18 18 Rate Blood Pressure 126/79 Blood Pressure 119/81 125/79 [Left Arm] O2 Sat by Pulse 97 95 Oximetry 09/29/16 09/29/16 13:22 14:02 Temperature 98.2 F Pulse Rate 94 H Pulse Rate [ Left Radial] Pulse Rate [ 94 H Right] Respiratory 18 Rate Blood Pressure 130/77 Blood Pressure 130/77 [Left Arm] O2 Sat by Pulse 97 Oximetry - Labs 09/29/16 06:15 09/29/16 06:15 Diabetes panel 09/28/16 09/29/16 Range/Units 16:24 06:15 Sodium 137 136 L (137-145) mmol/L Potassium 3.0 L 2.8 L* (3.6-5.0) mmol/L Chloride 97.1 L 94.1 L (98-107) mmol/L Carbon Dioxide 28 D 29 (22-30) mmol/L BUN 7 L 7 L (9-20) mg/dL Creatinine 0.7 L 0.8 (0.8-1.5) mg/dL Glucose 158 H 156 H (75-100) mg/dL Calcium 7.3 L 7.4 L (8.4-10.2) mg/dL Calcium panel 09/28/16 09/29/16 Range/Units 16:24 06:15 Calcium 7.3 L 7.4 L (8.4-10.2) mg/dL Phosphorus 2.5 (2.5-4.5) mg/dL Pituitary panel 09/28/16 09/29/16 Range/Units 16:24 06:15 Sodium 137 136 L (137-145) mmol/L Potassium 3.0 L 2.8 L* (3.6-5.0) mmol/L Chloride 97.1 L 94.1 L (98-107) mmol/L Carbon Dioxide 28 D 29 (22-30) mmol/L BUN 7 L 7 L (9-20) mg/dL Creatinine 0.7 L 0.8 (0.8-1.5) mg/dL Glucose 158 H 156 H (75-100) mg/dL Calcium 7.3 L 7.4 L (8.4-10.2) mg/dL Adrenal panel 09/28/16 09/29/16 Range/Units 16:24 06:15 Sodium 137 136 L (137-145) mmol/L Potassium 3.0 L 2.8 L* (3.6-5.0) mmol/L Chloride 97.1 L 94.1 L (98-107) mmol/L Carbon Dioxide 28 D 29 (22-30) mmol/L BUN 7 L 7 L (9-20) mg/dL Creatinine 0.7 L 0.8 (0.8-1.5) mg/dL Glucose 158 H 156 H (75-100) mg/dL Calcium 7.3 L 7.4 L (8.4-10.2) mg/dL
[2016-09-29] MEDS ORDERED: KCL 50 MEQ in NACL 0.45% 500 ML IV ONE (17:30)
[2016-09-29] MEDS ORDERED: TPN ADULT IV SCH (20:00)
[2016-09-29] MEDS ORDERED: INTRALIPID 20% 250 ML IV SCH (20:00)
--- NOTE | 2016-09-29 22:02 | Progress Note ---
Assessment and Plan Assessment and plan: This is a 76 y/o male from [facility] with h/o CAD s/p CABG on July 2016, partial colectomy following CABG on July 2016 presented with diarrhea for about a week and positive C. difficile. Patient states that he was admitted to [facility] for cardiac bypass surgery on July last year. Following the bypass surgery he required chest tube placement for mediastinitis, his hospitalization also got complicated with intra-abdominal infection and bowel obstruction which required partial colectomy. He was then sent to [facility] for subacute rehabilitation. For last few days he developed diarrhea and a culture for C. difficile was sent out which came back positive. Patient was sent to ER today for further evaluation and management. He had a CT scan of abdomen and pelvis in the ER which showed diffuse colitis and possible bowel perforation with free intra-abdominal air. General surgeon was consulted from the ER and he is getting admitted for further evaluation and management. He received a dose of Levaquin and Flagyl in the ER and also getting hydrated with IV fluid. Patient had a bowel movement with loose watery stool in the ER, he has been placed on contact isolation. Records show that he was discharged to the rehabilitation facility on ertapenem and micafungin but when they were stopped is unclear Sepsis with C. difficile colitis Hypokalemia Hypomagnesemia C. difficile colitis Possible bowel perforation Leukocytosis- secondary to C.diff colitis Infected abdominal wound Coronary artery disease status post CABG Recent history of partial colectomy Recent history of chest tube placement S/P partial colectomy SECONDARY TO COLON PERFORATION 07/27/16 S/P Retension sutures Hypertension, benign essential Diabetes mellitus type II on oral hypoglycemic medications Hyperlipidemia Mild hyponatremia and hypokalemia Plan: patient improving clinically, no indication for surgery at this time. Repeat CT abdomen does not redemonstrate any free air Replace K-awaiting repeat lab Also replace magnesium TPN started ID, Cardiology and GI input appreciated Place on IV Flagyl ,change to Po Vancomycin and IV fluid hydration Patient tolerates and diet were advanced as tolerated gently. Repeat abdominal study prior to discharge to ensure no need for paracentesis Still at risk for ischemic colitis Protonix IV, IV morphine and Zofran Continue supportive care, wound care for abdominal wound Replace electrolytes as needed DVT prophylaxis History Interval history: Follow-up colitis, sepsis Patient seen and examined this morning in no acute distress resting comfortably but still with loose stool although reports decreased frequency . No fever. NO Abdominal pain. Denies any chest pain, nausea, vomiting No fever noted blood pressure controlled No adverse events reported to me by nursing staff Hospitalist Physical - Physical exam Narrative exam: VITAL SIGNS: Reviewed. GENERAL: The patient appeared well nourished and normally developed. Vital signs as documented. HEAD: No signs of head trauma. EYES: Pupils are equal. Extraocular motions intact. EARS: Hearing grossly intact. MOUTH: Oropharynx is normal. NECK: No adenopathy, no JVD. CHEST: Chest with clear breath sounds bilaterally. No wheezes, rales, or rhonchi. CARDIAC: Regular rate and rhythm. S1 and S2, without murmurs, gallops, or rubs. VASCULAR: No Edema. Peripheral pulses normal and equal in all extremities. ABDOMEN: Soft, non tender except for surgical site. Retention sutures still in place. positive fluid wave. and no masses palpated. Bowel Sounds hypoactive MUSCULOSKELETAL: Good range of motion of all major joints. Extremities without clubbing, cyanosis or edema. NEUROLOGIC EXAM: Alert and oriented x 3. No focal sensory or strength deficits. Speech normal. Follows commands. PSYCHIATRIC: Mood normal. SKIN: Large retention sutures, abdomen and chest . - Constitutional Vitals: Temp Pulse Resp BP Pulse Ox 98.1 F 87 18 123/78 95 09/29/16 17:36 09/29/16 18:31 09/29/16 17:36 09/29/16 18:31 09/29/16 17:36 General appearance: Present: no acute distress Results - Labs CBC & Chem 7: 09/29/16 06:15 09/30/16 07:43 Labs: Laboratory Last Values WBC 11.7 K/mm3 (4.5-11.0) H 09/29/16 06:15 RBC 4.63 M/mm3 (3.65-5.03) 09/29/16 06:15 Hgb 12.3 gm/dl (11.8-15.2) 09/29/16 06:15 Hct 38.4 % (35.5-45.6) 09/29/16 06:15 MCV 83 fl (84-94) L 09/29/16 06:15 MCH 27 pg (28-32) L 09/29/16 06:15 MCHC 32 % (32-34) 09/29/16 06:15 RDW 17.5 % (13.2-15.2) H 09/29/16 06:15 Plt Count 428 K/mm3 (140-440) 09/29/16 06:15 Lymph % (Auto) 6.2 % (13.4-35.0) L 09/24/16 02:32 [place] % (Auto) 11.0 % (0.0-7.3) H 09/24/16 02:32 Eos % (Auto) 0.1 % (0.0-4.3) 09/24/16 02:32 Baso % (Auto) 0.2 % (0.0-1.8) 09/24/16 02:32 Lymph # 1.1 K/mm3 (1.2-5.4) L 09/24/16 02:32 [place] # 2.0 K/mm3 (0.0-0.8) H 09/24/16 02:32 Eos # 0.0 K/mm3 (0.0-0.4) 09/24/16 02:32 Baso # 0.0 K/mm3 (0.0-0.1) 09/24/16 02:32 Add Manual Diff Complete 09/23/16 16:21 Total Counted 100 09/23/16 16:21 Seg Neutrophils % 82.5 % (40.0-70.0) H 09/24/16 02:32 Seg Neuts % (Manual) 81.0 % (40.0-70.0) H 09/23/16 16:21 Band Neutrophils % 3.0 % 09/23/16 16:21 Lymphocytes % (Manual) 5.0 % (13.4-35.0) L 09/23/16 16:21 Reactive Lymphs % (Man) 0 % 09/23/16 16:21 Monocytes % (Manual) 11.0 % (0.0-7.3) H 09/23/16 16:21 Eosinophils % (Manual) 0 % (0.0-4.3) 09/23/16 16:21 Basophils % (Manual) 0 % (0.0-1.8) 09/23/16 16:21 Metamyelocytes % 0 % 09/23/16 16:21 Myelocytes % 0 % 09/23/16 16:21 Promyelocytes % 0 % 09/23/16 16:21 Blast Cells % 0 % 09/23/16 16:21 Nucleated RBC % Not Reportable 09/23/16 16:21 Seg Neutrophils # 14.8 K/mm3 (1.8-7.7) H 09/24/16 02:32 Seg Neutrophils # Man 14.3 K/mm3 (1.8-7.7) H 09/23/16 16:21 Band Neutrophils # 0.5 K/mm3 09/23/16 16:21 Lymphocytes # (Manual) 0.9 K/mm3 (1.2-5.4) L 09/23/16 16:21 Abs React Lymphs (Man) 0.0 K/mm3 09/23/16 16:21 Monocytes # (Manual) 1.9 K/mm3 (0.0-0.8) H 09/23/16 16:21 Eosinophils # (Manual) 0.0 K/mm3 (0.0-0.4) 09/23/16 16:21 Basophils # (Manual) 0.0 K/mm3 (0.0-0.1) 09/23/16 16:21 Metamyelocytes # 0.0 K/mm3 09/23/16 16:21 Myelocytes # 0.0 K/mm3 09/23/16 16:21 Promyelocytes # 0.0 K/mm3 09/23/16 16:21 Blast Cells # 0.0 K/mm3 09/23/16 16:21 WBC Morphology Not Reportable 09/23/16 16:21 Hypersegmented Neuts Not Reportable 09/23/16 16:21 Hyposegmented Neuts Not Reportable 09/23/16 16:21 Hypogranular Neuts Not Reportable 09/23/16 16:21 Smudge Cells Not Reportable 09/23/16 16:21 Toxic Granulation Not Reportable 09/23/16 16:21 Toxic Vacuolation Not Reportable 09/23/16 16:21 Dohle Bodies Not Reportable 09/23/16 16:21 Pelger-Huet Anomaly Not Reportable 09/23/16 16:21 Haleigh Rods Not Reportable 09/23/16 16:21 Platelet Estimate Consistent w auto 09/23/16 16:21 Clumped Platelets Not Reportable 09/23/16 16:21 Plt Clumps, EDTA Not Reportable 09/23/16 16:21 Large Platelets Not Reportable 09/23/16 16:21 Giant Platelets Not Reportable 09/23/16 16:21 Platelet Satelliting Not Reportable 09/23/16 16:21 Plt Morphology Comment Not Reportable 09/23/16 16:21 RBC Morphology Not Reportable 09/23/16 16:21 Dimorphic RBCs Not Reportable 09/23/16 16:21 Polychromasia Not Reportable 09/23/16 16:21 Hypochromasia Not Reportable 09/23/16 16:21 Poikilocytosis 1+ 09/23/16 16:21 Anisocytosis 1+ 09/23/16 16:21 Microcytosis Not Reportable 09/23/16 16:21 Macrocytosis Not Reportable 09/23/16 16:21 Spherocytes Not Reportable 09/23/16 16:21 Pappenheimer Bodies Not Reportable 09/23/16 16:21 Sickle Cells Not Reportable 09/23/16 16:21 Target Cells Not Reportable 09/23/16 16:21 Tear Drop Cells Not Reportable 09/23/16 16:21 Ovalocytes Not Reportable 09/23/16 16:21 Helmet Cells Not Reportable 09/23/16 16:21 Basurto-[employer] [place] Bodies Not Reportable 09/23/16 16:21 [place] Rings Not Reportable 09/23/16 16:21 [place] Cells Not Reportable 09/23/16 16:21 Bite Cells Not Reportable 09/23/16 16:21 Crenated Cell Not Reportable 09/23/16 16:21 Elliptocytes Not Reportable 09/23/16 16:21 Acanthocytes (Spur) Not Reportable 09/23/16 16:21 Rouleaux Not Reportable 09/23/16 16:21 Hemoglobin C Crystals Not Reportable 09/23/16 16:21 Schistocytes Not Reportable 09/23/16 16:21 Malaria parasites Not Reportable 09/23/16 16:21 Tk Bodies Not Reportable 09/23/16 16:21 Hem Pathologist Commnt No 09/23/16 16:21 PT 17.1 Sec. (12.2-14.9) H 09/25/16 06:46 INR 1.40 (0.87-1.13) H 09/25/16 06:46 APTT 32.9 Sec. (24.2-36.6) 09/24/16 02:32 Sodium 136 mmol/L (137-145) L 09/29/16 06:15 Potassium 2.8 mmol/L (3.6-5.0) L* 09/29/16 06:15 Chloride 94.1 mmol/L (98-107) L 09/29/16 06:15 Carbon Dioxide 29 mmol/L (22-30) 09/29/16 06:15 Anion Gap 16 mmol/L 09/29/16 06:15 BUN 7 mg/dL (9-20) L 09/29/16 06:15 Creatinine 0.8 mg/dL (0.8-1.5) 09/29/16 06:15 Estimated GFR > 60 ml/min 09/29/16 06:15 BUN/Creatinine Ratio 8.75 % 09/29/16 06:15 Glucose 156 mg/dL (75-100) H 09/29/16 06:15 POC Glucose 162 (70-105) H 09/29/16 07:45 Lactic Acid 1.6 mmol/L (0.7-2.0) 09/23/16 19:44 Calcium 7.4 mg/dL (8.4-10.2) L 09/29/16 06:15 Phosphorus 2.5 mg/dL (2.5-4.5) 09/29/16 06:15 Magnesium 1.2 mg/dL (1.7-2.3) L 09/29/16 06:15 Total Bilirubin 0.4 mg/dL (0.1-1.2) 09/25/16 06:46 AST 18 units/L (5-40) 09/25/16 06:46 ALT 11 units/L (7-56) 09/25/16 06:46 Alkaline Phosphatase 74 units/L (35-129) 09/25/16 06:46 NT-Pro-B Natriuret Pep 1718 pg/mL (0-900) H 09/24/16 02:32 Total Protein 5.4 g/dL (6.3-8.2) L 09/25/16 06:46 Albumin 2.5 g/dL (3.9-5) L 02/10/17 06:46 Albumin/Globulin Ratio 0.9 % 09/25/16 06:46 Lipase 26 units/L (13-60) 09/23/16 16:21 Blood Type O POSITIVE 09/23/16 16:21 Antibody Screen Negative 09/23/16 16:21
[2016-09-30] MEDS: LOPRESSOR IV SCH ×4 (00:02→17:31)
[2016-09-30] MEDS: VANCOMYCIN PO SCH ×5 (00:07→23:59)
[2016-09-30] MEDS: FLAGYL 500 MG/100 ML 500 MG/100 ML BAG IV SCH ×3 (01:39→17:32)
[2016-09-30] MEDS: LASIX IV SCH ×2 (05:51→17:33)
[2016-09-30 08:39] LABS: Anion Gap 15 mmol/L; BUN/Creatinine Ratio 18.33; Blood Urea Nitrogen 11 mg/dL (9-20); Calcium 7.5 mg/dL (8.4-10.2); Carbon Dioxide 29 mmol/L (22-30); Chloride 94.3 mmol/L (98-107); Glucose 159 mg/dL (75-100); Magnesium 1.5 mg/dL (1.7-2.3); Phosphorous 2.2 mg/dL (2.5-4.5); Sodium 135 mmol/L (137-145); Triglycerides 562 mg/dL (2-149)
[2016-09-30 08:51] LABS: Potassium 2.7 mmol/L (3.6-5.0)
[2016-09-30] MEDS ORDERED: MAGNESIUM SULFATE IV ONE (10:16)
--- NOTE | 2016-09-30 10:20 | Progress Note ---
Assessment and Plan Assessment and plan: This is a 76 y/o male from [facility] with h/o CAD s/p CABG on July 2016, partial colectomy following CABG on July 2016 presented with diarrhea for about a week and positive C. difficile. Patient states that he was admitted to [facility] for cardiac bypass surgery on July last year. Following the bypass surgery he required chest tube placement for mediastinitis, his hospitalization also got complicated with intra-abdominal infection and bowel obstruction which required partial colectomy. He was then sent to [facility] for subacute rehabilitation. For last few days he developed diarrhea and a culture for C. difficile was sent out which came back positive. Patient was sent to ER today for further evaluation and management. He had a CT scan of abdomen and pelvis in the ER which showed diffuse colitis and possible bowel perforation with free intra-abdominal air. General surgeon was consulted from the ER and he is getting admitted for further evaluation and management. He received a dose of Levaquin and Flagyl in the ER and also getting hydrated with IV fluid. Patient had a bowel movement with loose watery stool in the ER, he has been placed on contact isolation. Records show that he was discharged to the rehabilitation facility on ertapenem and micafungin but when they were stopped is unclear Sepsis with C. difficile colitis Refractory Hypokalemia Hypomagnesemia C. difficile colitis Possible bowel perforation Leukocytosis- secondary to C.diff colitis Infected abdominal wound Coronary artery disease status post CABG Recent history of partial colectomy Recent history of chest tube placement S/P partial colectomy SECONDARY TO COLON PERFORATION 07/27/16 S/P Retension sutures Hypertension, benign essential Diabetes mellitus type II on oral hypoglycemic medications Hyperlipidemia Mild hyponatremia and hypokalemia Plan: patient improving clinically, no indication for surgery at this time. Repeat CT abdomen does not redemonstrate any free air We'll give 40 mEq of potassium chloride IV and 40 by mouth and will give 2 g of magnesium replacement Continue TPN ID, Cardiology and GI input appreciated Place on IV Flagyl ,change to Po Vancomycin and IV fluid hydration Patient tolerates and diet were advanced as tolerated gently. Repeat abdominal study prior to discharge to ensure no need for paracentesis Still at risk for ischemic colitis Protonix IV, IV morphine and Zofran Continue supportive care, wound care for abdominal wound Replace electrolytes as needed DVT prophylaxis History Interval history: Follow-up colitis, sepsis Patient seen and examined this morning in no acute distress resting comfortably but still with loose stool although reports decreased frequency . No fever. NO Abdominal pain. Denies any chest pain, nausea, vomiting No fever noted blood pressure controlled Per Nursing staff 2 bowel movements last night otherwise no adverse events reported to me by nursing staff Hospitalist Physical - Physical exam Narrative exam: VITAL SIGNS: Reviewed. GENERAL: The patient appeared well nourished and normally developed. Vital signs as documented. HEAD: No signs of head trauma. EYES: Pupils are equal. Extraocular motions intact. EARS: Hearing grossly intact. MOUTH: Oropharynx is normal. NECK: No adenopathy, no JVD. CHEST: Chest with clear breath sounds bilaterally. No wheezes, rales, or rhonchi. CARDIAC: Regular rate and rhythm. S1 and S2, without murmurs, gallops, or rubs. VASCULAR: No Edema. Peripheral pulses normal and equal in all extremities. ABDOMEN: Soft, non tender except for surgical site. Retention sutures still in place. positive fluid wave. and no masses palpated. Bowel Sounds hypoactive MUSCULOSKELETAL: Good range of motion of all major joints. Extremities without clubbing, cyanosis or edema. NEUROLOGIC EXAM: Alert and oriented x 3. No focal sensory or strength deficits. Speech normal. Follows commands. PSYCHIATRIC: Mood normal. SKIN: Large retention sutures, abdomen and chest . - Constitutional Vitals: Temp Pulse Resp BP Pulse Ox 97.6 F 92 H 18 128/80 96 09/30/16 08:00 09/30/16 08:00 09/30/16 08:00 09/30/16 08:00 09/30/16 08:00 General appearance: Present: no acute distress Results - Labs CBC & Chem 7: 09/29/16 06:15 09/30/16 07:43 Labs: Laboratory Last Values WBC 11.7 K/mm3 (4.5-11.0) H 09/29/16 06:15 RBC 4.63 M/mm3 (3.65-5.03) 09/29/16 06:15 Hgb 12.3 gm/dl (11.8-15.2) 09/29/16 06:15 Hct 38.4 % (35.5-45.6) 09/29/16 06:15 MCV 83 fl (84-94) L 09/29/16 06:15 MCH 27 pg (28-32) L 09/29/16 06:15 MCHC 32 % (32-34) 09/29/16 06:15 RDW 17.5 % (13.2-15.2) H 09/29/16 06:15 Plt Count 428 K/mm3 (140-440) 09/29/16 06:15 Lymph % (Auto) 6.2 % (13.4-35.0) L 09/24/16 02:32 [place] % (Auto) 11.0 % (0.0-7.3) H 09/24/16 02:32 Eos % (Auto) 0.1 % (0.0-4.3) 09/24/16 02:32 Baso % (Auto) 0.2 % (0.0-1.8) 09/24/16 02:32 Lymph # 1.1 K/mm3 (1.2-5.4) L 09/24/16 02:32 [place] # 2.0 K/mm3 (0.0-0.8) H 09/24/16 02:32 Eos # 0.0 K/mm3 (0.0-0.4) 09/24/16 02:32 Baso # 0.0 K/mm3 (0.0-0.1) 09/24/16 02:32 Add Manual Diff Complete 09/23/16 16:21 Total Counted 100 09/23/16 16:21 Seg Neutrophils % 82.5 % (40.0-70.0) H 09/24/16 02:32 Seg Neuts % (Manual) 81.0 % (40.0-70.0) H 09/23/16 16:21 Band Neutrophils % 3.0 % 09/23/16 16:21 Lymphocytes % (Manual) 5.0 % (13.4-35.0) L 09/23/16 16:21 Reactive Lymphs % (Man) 0 % 09/23/16 16:21 Monocytes % (Manual) 11.0 % (0.0-7.3) H 09/23/16 16:21 Eosinophils % (Manual) 0 % (0.0-4.3) 09/23/16 16:21 Basophils % (Manual) 0 % (0.0-1.8) 09/23/16 16:21 Metamyelocytes % 0 % 09/23/16 16:21 Myelocytes % 0 % 09/23/16 16:21 Promyelocytes % 0 % 09/23/16 16:21 Blast Cells % 0 % 09/23/16 16:21 Nucleated RBC % Not Reportable 09/23/16 16:21 Seg Neutrophils # 14.8 K/mm3 (1.8-7.7) H 09/24/16 02:32 Seg Neutrophils # Man 14.3 K/mm3 (1.8-7.7) H 09/23/16 16:21 Band Neutrophils # 0.5 K/mm3 09/23/16 16:21 Lymphocytes # (Manual) 0.9 K/mm3 (1.2-5.4) L 09/23/16 16:21 Abs React Lymphs (Man) 0.0 K/mm3 09/23/16 16:21 Monocytes # (Manual) 1.9 K/mm3 (0.0-0.8) H 09/23/16 16:21 Eosinophils # (Manual) 0.0 K/mm3 (0.0-0.4) 09/23/16 16:21 Basophils # (Manual) 0.0 K/mm3 (0.0-0.1) 09/23/16 16:21 Metamyelocytes # 0.0 K/mm3 09/23/16 16:21 Myelocytes # 0.0 K/mm3 09/23/16 16:21 Promyelocytes # 0.0 K/mm3 09/23/16 16:21 Blast Cells # 0.0 K/mm3 09/23/16 16:21 WBC Morphology Not Reportable 09/23/16 16:21 Hypersegmented Neuts Not Reportable 09/23/16 16:21 Hyposegmented Neuts Not Reportable 09/23/16 16:21 Hypogranular Neuts Not Reportable 09/23/16 16:21 Smudge Cells Not Reportable 09/23/16 16:21 Toxic Granulation Not Reportable 09/23/16 16:21 Toxic Vacuolation Not Reportable 09/23/16 16:21 Dohle Bodies Not Reportable 09/23/16 16:21 Pelger-Huet Anomaly Not Reportable 09/23/16 16:21 Haleigh Rods Not Reportable 09/23/16 16:21 Platelet Estimate Consistent w auto 09/23/16 16:21 Clumped Platelets Not Reportable 09/23/16 16:21 Plt Clumps, EDTA Not Reportable 09/23/16 16:21 Large Platelets Not Reportable 09/23/16 16:21 Giant Platelets Not Reportable 09/23/16 16:21 Platelet Satelliting Not Reportable 09/23/16 16:21 Plt Morphology Comment Not Reportable 09/23/16 16:21 RBC Morphology Not Reportable 09/23/16 16:21 Dimorphic RBCs Not Reportable 09/23/16 16:21 Polychromasia Not Reportable 09/23/16 16:21 Hypochromasia Not Reportable 09/23/16 16:21 Poikilocytosis 1+ 09/23/16 16:21 Anisocytosis 1+ 09/23/16 16:21 Microcytosis Not Reportable 09/23/16 16:21 Macrocytosis Not Reportable 09/23/16 16:21 Spherocytes Not Reportable 09/23/16 16:21 Pappenheimer Bodies Not Reportable 09/23/16 16:21 Sickle Cells Not Reportable 09/23/16 16:21 Target Cells Not Reportable 09/23/16 16:21 Tear Drop Cells Not Reportable 09/23/16 16:21 Ovalocytes Not Reportable 09/23/16 16:21 Helmet Cells Not Reportable 09/23/16 16:21 Basurto-[place] Bodies Not Reportable 09/23/16 16:21 [place] Rings Not Reportable 09/23/16 16:21 [place] Cells Not Reportable 09/23/16 16:21 Bite Cells Not Reportable 09/23/16 16:21 Crenated Cell Not Reportable 09/23/16 16:21 Elliptocytes Not Reportable 09/23/16 16:21 Acanthocytes (Spur) Not Reportable 09/23/16 16:21 Rouleaux Not Reportable 09/23/16 16:21 Hemoglobin C Crystals Not Reportable 09/23/16 16:21 Schistocytes Not Reportable 09/23/16 16:21 Malaria parasites Not Reportable 09/23/16 16:21 Tk Bodies Not Reportable 09/23/16 16:21 Hem Pathologist Commnt No 09/23/16 16:21 PT 17.1 Sec. (12.2-14.9) H 09/25/16 06:46 INR 1.40 (0.87-1.13) H 09/25/16 06:46 APTT 32.9 Sec. (24.2-36.6) 09/24/16 02:32 Sodium 135 mmol/L (137-145) L 09/30/16 07:43 Potassium 2.7 mmol/L (3.6-5.0) L* 09/30/16 07:43 Chloride 94.3 mmol/L (98-107) L 09/30/16 07:43 Carbon Dioxide 29 mmol/L (22-30) 09/30/16 07:43 Anion Gap 15 mmol/L 09/30/16 07:43 BUN 11 mg/dL (9-20) 09/30/16 07:43 Creatinine 0.6 mg/dL (0.8-1.5) L 09/30/16 07:43 Estimated GFR > 60 ml/min 09/30/16 07:43 BUN/Creatinine Ratio 18.33 % 09/30/16 07:43 Glucose 159 mg/dL (75-100) H 09/30/16 07:43 POC Glucose 170 (70-105) H 09/30/16 00:19 Lactic Acid 1.6 mmol/L (0.7-2.0) 09/23/16 19:44 Calcium 7.5 mg/dL (8.4-10.2) L 09/30/16 07:43 Phosphorus 2.2 mg/dL (2.5-4.5) L 09/30/16 07:43 Magnesium 1.5 mg/dL (1.7-2.3) L 09/30/16 07:43 Total Bilirubin 0.4 mg/dL (0.1-1.2) 09/25/16 06:46 AST 18 units/L (5-40) 09/25/16 06:46 ALT 11 units/L (7-56) 09/25/16 06:46 Alkaline Phosphatase 74 units/L (35-129) 09/25/16 06:46 NT-Pro-B Natriuret Pep 1718 pg/mL (0-900) H 09/24/16 02:32 Total Protein 5.4 g/dL (6.3-8.2) L 09/25/16 06:46 Albumin 2.5 g/dL (3.9-5) L 09/25/16 06:46 Albumin/Globulin Ratio 0.9 % 09/25/16 06:46 Triglycerides 562 mg/dL (2-149) H 09/30/16 07:43 Lipase 26 units/L (13-60) 09/23/16 16:21 Blood Type O POSITIVE 09/23/16 16:21 Antibody Screen Negative 09/23/16 16:21
[2016-09-30] MEDS: HALFPRIN EC PO SCH (10:35)
[2016-09-30] MEDS: PROTONIX PO SCH (10:35)
[2016-09-30] MEDS: PROzac PO SCH (10:36)
[2016-09-30] MEDS ORDERED: MAGNESIUM SULFATE 2GM/50ML 2 GM/50 ML BAG IV ONE (11:00)
[2016-09-30] MEDS ORDERED: K-DUR PO ONE (11:00)
--- NOTE | 2016-09-30 11:25 | Progress Note ---
Assessment and Plan Clostridium difficile colitis with diarrhea and leukocytosis CAD s/p CABG x 4 07/2016 Post op LVEF is normal Post-surgical bypass afib s/p cardioversion Post-surgical bypass Colon perforation due to chest tube placement s/p colectomy , mediastinal washing and redo exlap for wound dehiscence Systemic Hypertension Conservative cardiac management. Subjective Date of service: 09/30/16 Principal diagnosis: Severe C. diff. infection Interval history: No cardiac events overnight. Objective Vital Signs Temp Pulse Pulse Pulse Pulse Resp BP 09/30/16 08:00 97.6 F 92 H 18 09/30/16 05:51 87 123/80 09/30/16 04:45 98.2 F 94 H 20 09/30/16 00:10 97.7 F 85 20 09/30/16 00:02 89 126/59 09/29/16 22:14 97.9 F 88 20 09/29/16 20:00 70 09/29/16 18:31 87 123/78 09/29/16 17:36 98.1 F 87 18 09/29/16 14:02 94 H 130/77 09/29/16 13:22 98.2 F 94 H 18 BP Pulse Ox 09/30/16 08:00 128/80 96 09/30/16 05:51 09/30/16 04:45 123/80 93 09/30/16 00:10 123/76 95 09/30/16 00:02 09/29/16 22:14 123/59 98 09/29/16 20:00 09/29/16 18:31 09/29/16 17:36 123/78 95 09/29/16 14:02 09/29/16 13:22 130/77 97 - Physical Examination General: No Apparent Distress HEENT: Positive: Pallor Neck: Positive: neck supple Cardiac: Positive: Reg Rate and Rhythm Neuro: Positive: Grossly Intact Extremities: Absent: edema - Labs and Meds Lipids 09/30/16 Range/Units 07:43 Triglycerides 562 H (2-149) mg/dL Comprehensive Metabolic Panel 09/30/16 Range/Units 07:43 Sodium 135 L (137-145) mmol/L Potassium 2.7 L* (3.6-5.0) mmol/L Chloride 94.3 L (98-107) mmol/L Carbon Dioxide 29 (22-30) mmol/L BUN 11 (9-20) mg/dL Creatinine 0.6 L (0.8-1.5) mg/dL Glucose 159 H (75-100) mg/dL Calcium 7.5 L (8.4-10.2) mg/dL
[2016-09-30] MEDS ORDERED: KCL 10MEQ/100ML 10 MEQ/100 ML BAG IV SCH (11:30)
[2016-09-30] MEDS ORDERED: KCL IV ONE (13:00)
[2016-09-30] MEDS ORDERED: D5 IV ONE (13:00)
[2016-09-30] MEDS ORDERED: [UNRECOGNIZED DRUG - OTHER] IV ONE (13:00)
--- NOTE | 2016-09-30 13:23 | Progress Note ---
Assessment and Plan Current antibiotics: Flagyl 500 mg IV q8h 09/23 --> Vancomycin 1250 mg IV q12h 09/23 --> Previous antibiotics: Records show that he was discharged to the rehabilitation facility on ertapenem and micafungin but when they were stopped is unclear ASSESSMENT: Willian Layne is a 76-year-old male with type 2 diabetes mellitus, hypertension, hyperlipidemia and coronary artery disease who had a CABG done at [facility] on 07/22/2016 was complicated by colon perforation with the chest tube insertion with resultant intra-abdominal sepsis and subsequent exploratory laparotomies X 2 who ultimately was discharged to [facility] on 08/28/16. He was doing reasonably well until 09/19/16 when he developed nausea, vomiting and severe , watery diarrhea and a C. difficile toxin assay was positive. Problem list: 1. Severe C. diff. infection -Severe diarrhea and crampy abdominal pain -Extensive colitis seen on CT scan -Significant leukocytosis -Clinically improved 2. Coronary artery disease -Status post CABG 4 07/22/2016 3. Status post colon perforation -Status post exploratory laparotomy and subsegmental colectomy 07/27/2016 -Status post intra-abdominal sepsis 4. History of paroxysmal atrial fibrillation -Status post cardioversion at [facility] -Currently in normal sinus rhythm. 5. Leukocytosis -Secondary to #1 -Improving 6. CT scan showing small amount of free air -Rule out secondary to previous surgery -Patient clinically does not appear to have an acute bowel at this point. 7. Type 2 diabetes mellitus 8. Hypokalemia PLAN: 1. Continue IV Flagyl and PO vancomycin. If he continues to improved should be able to stop the IV flagyl soon. 2. Continued close clinical observation 3. Consider PT evaluation 4. Follow WBC 5. Glycemic control as per the hospitalist service 6. C. difficile isolation precautions 7. Correction of hypokalemia as per the hospitalist service Richard Hwang MD [facility] Office: [phone] Subjective Date of service: 09/30/16 Principal diagnosis: Severe C. diff. infection Interval history: No new complaints except "hungry" and would like diet advanced. Still with small bowel movements that he describes as "mushy." Has not been out of bed. Objective - Exam Narrative Exam: GENERAL: Well-developed, well-nourished appearing male who is alert and in no acute distress. He looks somewhat chronically ill but not acutely so. HEAD: Normocephalic. No lesions seen. EYES: Pupils are equal reactive to light and accommodation. There is no scleral icterus. Optic fundi are not examined. EARS: Normal external ears. THROAT: Oropharynx is normal with no evidence of oral candidiasis or pharyngitis. NECK: Supple. No enlargement of the thyroid gland. No significant cervical lymphadenopathy. No jugular venous distention at 30. LUNGS: Clear with no adventitious sounds. CHEST: Healed sternotomy scar with mild erythema but no increased warmth nor tenderness. The sternum is stable. HEART: Regular rate. S1 and S2 are normal. There are no murmurs, gallops, clicks or rubs heard. ABDOMEN: Soft, nondistended and nontender. Liver and spleen are not palpably enlarged or tender. No palpable masses. Bowel sounds are normoactive. Midline abdominal wound with mild erythema around the retention sutures that are still in place with some serous drainage but no signs of overt infection. EXTREMITIES: No rash, peripheral lymphadenopathy, clubbing or edema. Well- healed surgical scar over the right hip from previous replacements with no signs of infection. : Not examined today NEUROLOGIC: No focal findings. - Constitutional Vitals: Vital Signs Temp Pulse Resp BP Pulse Ox 97.6 F 92 H 18 128/80 96 09/30/16 08:00 09/30/16 08:00 09/30/16 08:00 09/30/16 08:00 09/30/16 08:00 Temperature -Last 24 Hours Temperature 97.6 F Temperature 98.2 F Temperature 97.7 F Temperature 97.9 F Temperature 98.1 F Temperature 98.2 F - Labs CBC & Chem 7: 09/29/16 06:15 09/30/16 07:43 Labs: Abnormal lab results Microbiology 09/23/16 19:51 Peripheral/Venous Blood Culture - Preliminary NO GROWTH AFTER 24 HOURS 09/23/16 19:50 Peripheral/Venous Blood Culture - Preliminary NO GROWTH AFTER 24 HOURS C. difficile toxin assay sent from the rehabilitation facility was positive. Imagin/8: CT abdomen/pelvis: Small amount of free intraperitoneal air suggesting bowel perforation. Acute inflammation of the distal left colon/proximal sigmoid colon as well as diffuse underlying colitis with significant abnormal wall thickening of the entire colon.
--- NOTE | 2016-09-30 15:44 | Progress Note ---
Subjective Patient Reports: Positive: feels better, bowel movement Narrative: Feels much better hungry m BMs more formed cbc OK still Low K replenished IV and via TPN , will start PO in AM ? Objective Vital Signs - 12hr 09/30/16 09/30/16 09/30/16 04:45 05:51 08:00 Temperature 98.2 F 97.6 F Pulse Rate 87 Pulse Rate [ 92 H Apical] Pulse Rate [ 94 H Left Radial] Respiratory 20 18 Rate Blood Pressure 123/80 Blood Pressure 123/80 128/80 [Left Arm] O2 Sat by Pulse 93 96 Oximetry 09/30/16 12:00 Temperature 98.0 F Pulse Rate Pulse Rate [ 75 Apical] Pulse Rate [ Left Radial] Respiratory 18 Rate Blood Pressure Blood Pressure 124/84 [Left Arm] O2 Sat by Pulse 95 Oximetry - Labs 09/29/16 06:15 09/30/16 07:43 Diabetes panel 09/30/16 Range/Units 07:43 Sodium 135 L (137-145) mmol/L Potassium 2.7 L* (3.6-5.0) mmol/L Chloride 94.3 L (98-107) mmol/L Carbon Dioxide 29 (22-30) mmol/L BUN 11 (9-20) mg/dL Creatinine 0.6 L (0.8-1.5) mg/dL Glucose 159 H (75-100) mg/dL Calcium 7.5 L (8.4-10.2) mg/dL Triglycerides 562 H (2-149) mg/dL Calcium panel 09/30/16 Range/Units 07:43 Calcium 7.5 L (8.4-10.2) mg/dL Phosphorus 2.2 L (2.5-4.5) mg/dL Pituitary panel 09/30/16 Range/Units 07:43 Sodium 135 L (137-145) mmol/L Potassium 2.7 L* (3.6-5.0) mmol/L Chloride 94.3 L (98-107) mmol/L Carbon Dioxide 29 (22-30) mmol/L BUN 11 (9-20) mg/dL Creatinine 0.6 L (0.8-1.5) mg/dL Glucose 159 H (75-100) mg/dL Calcium 7.5 L (8.4-10.2) mg/dL Adrenal panel 02/15/17 Range/Units 07:43 Sodium 135 L (137-145) mmol/L Potassium 2.7 L* (3.6-5.0) mmol/L Chloride 94.3 L (98-107) mmol/L Carbon Dioxide 29 (22-30) mmol/L BUN 11 (9-20) mg/dL Creatinine 0.6 L (0.8-1.5) mg/dL Glucose 159 H (75-100) mg/dL Calcium 7.5 L (8.4-10.2) mg/dL
[2016-09-30] MEDS ORDERED: TPN ADULT IV SCH (20:00)
[2016-10-01] MEDS: FLAGYL 500 MG/100 ML 500 MG/100 ML BAG IV SCH ×3 (01:26→17:19)
[2016-10-01] MEDS: VANCOMYCIN PO SCH ×4 (05:26→23:36)
[2016-10-01] MEDS: LASIX IV SCH ×2 (05:26→17:19)
[2016-10-01] MEDS: LOPRESSOR IV SCH ×5 (05:36→23:35)
[2016-10-01 06:13] LABS: Hematocrit 34.8 % (35.5-45.6); Hemoglobin 11.3 gm/dl (11.8-15.2); Mean Corpuscular HGB Conc 32 % (32-34); Mean Corpuscular Hemoglobin 27 pg (28-32); Mean Corpuscular Volume 83 fl (84-94); Platelet Count 349 K/mm3 (140-440); Red Blood Count 4.18 M/mm3 (3.65-5.03); Red Cell Distribution Width 17.1 % (13.2-15.2); White Blood Count 9.6 K/mm3 (4.5-11.0)
[2016-10-01 06:35] LABS: Anion Gap 17 mmol/L; BUN/Creatinine Ratio 23.33; Blood Urea Nitrogen 14 mg/dL (9-20); Calcium 7.7 mg/dL (8.4-10.2); Carbon Dioxide 28 mmol/L (22-30); Chloride 97.1 mmol/L (98-107); Glucose 159 mg/dL (75-100); Magnesium 2.1 mg/dL (1.7-2.3); Phosphorous 3.1 mg/dL (2.5-4.5); Potassium 3.8 mmol/L (3.6-5.0); Sodium 138 mmol/L (137-145)
--- NOTE | 2016-10-01 08:34 | Progress Note ---
Assessment and Plan - Patient Problems (1) Hypertension Current Visit: Yes Status: Acute Qualifiers: Hypertension type: H Plan to address problem: Blood pressure well controlled today. Continue IV hydralazine and metoprolol (2) Diabetes mellitus Current Visit: Yes Status: Acute Qualifiers: Diabetes mellitus type: D Diabetes mellitus complication status: D Diabetes mellitus complication detail: D Diabetic retinopathy severity: D Proliferative retinopathy type: P Diabetes mellitus macular edema: D Diabetes mellitus skilled nursing insulin use: D Laterality: L Chronic kidney disease stage: C Plan to address problem: Continue current management per dietary (3) Hyperlipidemia Current Visit: Yes Status: Acute Qualifiers: Hyperlipidemia type: H (4) Bowel perforation Current Visit: Yes Status: Acute Plan to address problem: Patient is status post partial colectomy after colon perforation. Management per surgery (5) C. difficile colitis Current Visit: Yes Status: Acute Plan to address problem: Continue IV antibiotics per infectious disease. Continue to follow cultures. Continue to follow fever curve. Patient would like to advance his diet but spoke to him at length that that decision will be made by the surgeon (6) CAD (coronary artery disease) Current Visit: No Status: Acute Qualifiers: Coronary Disease-Associated Artery/Lesion type: C [place] vs. transplanted heart: N Associated angina: A Plan to address problem: No chest pain at this time. Continue to monitor History Interval history: Patient lying in bed denied any complaints this morning. Patient asking if his diet can be advanced Hospitalist Physical - Constitutional Vitals: Temp Pulse Resp BP Pulse Ox 97.6 F 83 20 130/79 97 10/01/16 04:35 10/01/16 05:36 10/01/16 04:35 10/01/16 05:36 10/01/16 04:35 General appearance: Present: no acute distress - EENT Eyes: Present: PERRL, EOM intact ENT: hearing intact, clear oral mucosa - Neck Neck: Present: supple, normal ROM - Respiratory Respiratory effort: normal Respiratory: bilateral: CTA - Cardiovascular Rhythm: regular Heart Sounds: Present: S1 & S2 - Abdominal General gastrointestinal: soft, tender, non-distended, normal bowel sounds Localized gastrointestinal: tender: diffuse - Psychiatric Psychiatric: appropriate mood/affect, intact judgment & insight - Neurologic Neurologic: CNII-XII intact, moves all extremities Results - Labs CBC & Chem 7: 10/01/16 05:50 10/01/16 05:50 Labs: Laboratory Last Values WBC 9.6 K/mm3 (4.5-11.0) 10/01/16 05:50 RBC 4.18 M/mm3 (3.65-5.03) 10/01/16 05:50 Hgb 11.3 gm/dl (11.8-15.2) L 10/01/16 05:50 Hct 34.8 % (35.5-45.6) L 10/01/16 05:50 MCV 83 fl (84-94) L 10/01/16 05:50 MCH 27 pg (28-32) L 10/01/16 05:50 MCHC 32 % (32-34) 10/01/16 05:50 RDW 17.1 % (13.2-15.2) H 10/01/16 05:50 Plt Count 349 K/mm3 (140-440) 10/01/16 05:50 Lymph % (Auto) 6.2 % (13.4-35.0) L 09/24/16 02:32 [place] % (Auto) 11.0 % (0.0-7.3) H 09/24/16 02:32 Eos % (Auto) 0.1 % (0.0-4.3) 09/24/16 02:32 Baso % (Auto) 0.2 % (0.0-1.8) 09/24/16 02:32 Lymph # 1.1 K/mm3 (1.2-5.4) L 09/24/16 02:32 [place] # 2.0 K/mm3 (0.0-0.8) H 09/24/16 02:32 Eos # 0.0 K/mm3 (0.0-0.4) 09/24/16 02:32 Baso # 0.0 K/mm3 (0.0-0.1) 09/24/16 02:32 Add Manual Diff Complete 09/23/16 16:21 Total Counted 100 09/23/16 16:21 Seg Neutrophils % 82.5 % (40.0-70.0) H 09/24/16 02:32 Seg Neuts % (Manual) 81.0 % (40.0-70.0) H 09/23/16 16:21 Band Neutrophils % 3.0 % 09/23/16 16:21 Lymphocytes % (Manual) 5.0 % (13.4-35.0) L 09/23/16 16:21 Reactive Lymphs % (Man) 0 % 09/23/16 16:21 Monocytes % (Manual) 11.0 % (0.0-7.3) H 09/23/16 16:21 Eosinophils % (Manual) 0 % (0.0-4.3) 09/23/16 16:21 Basophils % (Manual) 0 % (0.0-1.8) 09/23/16 16:21 Metamyelocytes % 0 % 09/23/16 16:21 Myelocytes % 0 % 09/23/16 16:21 Promyelocytes % 0 % 09/23/16 16:21 Blast Cells % 0 % 09/23/16 16:21 Nucleated RBC % Not Reportable 09/23/16 16:21 Seg Neutrophils # 14.8 K/mm3 (1.8-7.7) H 09/24/16 02:32 Seg Neutrophils # Man 14.3 K/mm3 (1.8-7.7) H 09/23/16 16:21 Band Neutrophils # 0.5 K/mm3 09/23/16 16:21 Lymphocytes # (Manual) 0.9 K/mm3 (1.2-5.4) L 09/23/16 16:21 Abs React Lymphs (Man) 0.0 K/mm3 09/23/16 16:21 Monocytes # (Manual) 1.9 K/mm3 (0.0-0.8) H 09/23/16 16:21 Eosinophils # (Manual) 0.0 K/mm3 (0.0-0.4) 09/23/16 16:21 Basophils # (Manual) 0.0 K/mm3 (0.0-0.1) 09/23/16 16:21 Metamyelocytes # 0.0 K/mm3 09/23/16 16:21 Myelocytes # 0.0 K/mm3 09/23/16 16:21 Promyelocytes # 0.0 K/mm3 09/23/16 16:21 Blast Cells # 0.0 K/mm3 09/23/16 16:21 WBC Morphology Not Reportable 09/23/16 16:21 Hypersegmented Neuts Not Reportable 09/23/16 16:21 Hyposegmented Neuts Not Reportable 09/23/16 16:21 Hypogranular Neuts Not Reportable 09/23/16 16:21 Smudge Cells Not Reportable 09/23/16 16:21 Toxic Granulation Not Reportable 09/23/16 16:21 Toxic Vacuolation Not Reportable 09/23/16 16:21 Dohle Bodies Not Reportable 09/23/16 16:21 Pelger-Huet Anomaly Not Reportable 09/23/16 16:21 Haleigh Rods Not Reportable 09/23/16 16:21 Platelet Estimate Consistent w auto 09/23/16 16:21 Clumped Platelets Not Reportable 09/23/16 16:21 Plt Clumps, EDTA Not Reportable 09/23/16 16:21 Large Platelets Not Reportable 09/23/16 16:21 Giant Platelets Not Reportable 09/23/16 16:21 Platelet Satelliting Not Reportable 09/23/16 16:21 Plt Morphology Comment Not Reportable 09/23/16 16:21 RBC Morphology Not Reportable 09/23/16 16:21 Dimorphic RBCs Not Reportable 09/23/16 16:21 Polychromasia Not Reportable 09/23/16 16:21 Hypochromasia Not Reportable 09/23/16 16:21 Poikilocytosis 1+ 09/23/16 16:21 Anisocytosis 1+ 09/23/16 16:21 Microcytosis Not Reportable 09/23/16 16:21 Macrocytosis Not Reportable 09/23/16 16:21 Spherocytes Not Reportable 09/23/16 16:21 Pappenheimer Bodies Not Reportable 09/23/16 16:21 Sickle Cells Not Reportable 09/23/16 16:21 Target Cells Not Reportable 09/23/16 16:21 Tear Drop Cells Not Reportable 09/23/16 16:21 Ovalocytes Not Reportable 09/23/16 16:21 Helmet Cells Not Reportable 09/23/16 16:21 Basurto-Spade Bodies Not Reportable 09/23/16 16:21 [place] Rings Not Reportable 09/23/16 16:21 Pedro Cells Not Reportable 09/23/16 16:21 Bite Cells Not Reportable 09/23/16 16:21 Crenated Cell Not Reportable 09/23/16 16:21 Elliptocytes Not Reportable 09/23/16 16:21 Acanthocytes (Spur) Not Reportable 09/23/16 16:21 Rouleaux Not Reportable 09/23/16 16:21 Hemoglobin C Crystals Not Reportable 09/23/16 16:21 Schistocytes Not Reportable 09/23/16 16:21 Malaria parasites Not Reportable 09/23/16 16:21 Tk Bodies Not Reportable 09/23/16 16:21 Hem Pathologist Commnt No 09/23/16 16:21 PT 17.1 Sec. (12.2-14.9) H 09/25/16 06:46 INR 1.40 (0.87-1.13) H 09/25/16 06:46 APTT 32.9 Sec. (24.2-36.6) 09/24/16 02:32 Sodium 138 mmol/L (137-145) 10/01/16 05:50 Potassium 3.8 mmol/L (3.6-5.0) D 10/01/16 05:50 Chloride 97.1 mmol/L (98-107) L 10/01/16 05:50 Carbon Dioxide 28 mmol/L (22-30) 10/01/16 05:50 Anion Gap 17 mmol/L 10/01/16 05:50 BUN 14 mg/dL (9-20) 10/01/16 05:50 Creatinine 0.6 mg/dL (0.8-1.5) L 10/01/16 05:50 Estimated GFR > 60 ml/min 10/01/16 05:50 BUN/Creatinine Ratio 23.33 % 10/01/16 05:50 Glucose 159 mg/dL (75-100) H 10/01/16 05:50 POC Glucose 174 (70-105) H 10/01/16 05:51 Lactic Acid 1.6 mmol/L (0.7-2.0) 09/23/16 19:44 Calcium 7.7 mg/dL (8.4-10.2) L 10/01/16 05:50 Phosphorus 3.1 mg/dL (2.5-4.5) D 10/01/16 05:50 Magnesium 2.1 mg/dL (1.7-2.3) 10/01/16 05:50 Total Bilirubin 0.4 mg/dL (0.1-1.2) 09/25/16 06:46 AST 18 units/L (5-40) 09/25/16 06:46 ALT 11 units/L (7-56) 09/25/16 06:46 Alkaline Phosphatase 74 units/L (35-129) 09/25/16 06:46 NT-Pro-B Natriuret Pep 1718 pg/mL (0-900) H 09/24/16 02:32 Total Protein 5.4 g/dL (6.3-8.2) L 09/25/16 06:46 Albumin 2.5 g/dL (3.9-5) L 09/25/16 06:46 Albumin/Globulin Ratio 0.9 % 09/25/16 06:46 Triglycerides 562 mg/dL (2-149) H 09/30/16 07:43 Lipase 26 units/L (13-60) 09/23/16 16:21 Blood Type O POSITIVE 09/23/16 16:21 Antibody Screen Negative 09/23/16 16:21
[2016-10-01] MEDS: HALFPRIN EC PO SCH (09:56)
[2016-10-01] MEDS: PROzac PO SCH (09:56)
[2016-10-01] MEDS: PROTONIX PO SCH (09:56)
--- NOTE | 2016-10-01 12:28 | Progress Note ---
Assessment and Plan Current antibiotics: Flagyl 500 mg IV q8h 09/23 --> Vancomycin 1250 mg IV q12h 09/23 --> Previous antibiotics: Records show that he was discharged to the rehabilitation facility on ertapenem and micafungin but when they were stopped is unclear ASSESSMENT: Willian Layne is a 76-year-old male with type 2 diabetes mellitus, hypertension, hyperlipidemia and coronary artery disease who had a CABG done at [facility] on 07/22/2016 was complicated by colon perforation with the chest tube insertion with resultant intra-abdominal sepsis and subsequent exploratory laparotomies X 2 who ultimately was discharged to [facility] on 08/28/16. He was doing reasonably well until 09/19/16 when he developed nausea, vomiting and severe , watery diarrhea and a C. difficile toxin assay was positive. Problem list: 1. Severe C. diff. infection -Severe diarrhea and crampy abdominal pain -Extensive colitis seen on CT scan -Significant leukocytosis -Clinically improved 2. Coronary artery disease -Status post CABG 4 07/22/2016 3. Status post colon perforation -Status post exploratory laparotomy and subsegmental colectomy 07/27/2016 -Status post intra-abdominal sepsis 4. History of paroxysmal atrial fibrillation -Status post cardioversion at [facility] -Currently in normal sinus rhythm. 5. Leukocytosis -Secondary to #1 -Resolved 6. CT scan showing small amount of free air -Rule out secondary to previous surgery -Patient clinically does not appear to have an acute bowel at this point. 7. Type 2 diabetes mellitus 8. Hypokalemia PLAN: 1. Continue IV Flagyl and PO vancomycin. If he continues to improved should be able to stop the IV flagyl soon. 2. Continued close clinical observation 3. Consider PT evaluation 4. Follow WBC 5. Glycemic control as per the hospitalist service 6. C. difficile isolation precautions 7. Correction of hypokalemia as per the hospitalist service Richard Hwang MD [facility] Office: [phone] Subjective Date of service: 10/01/16 Principal diagnosis: Severe C. diff. infection Interval history: No new complaints except "hungry" and would like diet advanced. Still with small bowel movements that he describes as "mushy." Has not been out of bed. Objective - Exam Narrative Exam: GENERAL: Well-developed, well-nourished appearing male who is alert and in no acute distress. He looks somewhat chronically ill but not acutely so. HEAD: Normocephalic. No lesions seen. EYES: Pupils are equal reactive to light and accommodation. There is no scleral icterus. Optic fundi are not examined. EARS: Normal external ears. THROAT: Oropharynx is normal with no evidence of oral candidiasis or pharyngitis. NECK: Supple. No enlargement of the thyroid gland. No significant cervical lymphadenopathy. No jugular venous distention at 30. LUNGS: Clear with no adventitious sounds. CHEST: Healed sternotomy scar with mild erythema but no increased warmth nor tenderness. The sternum is stable. HEART: Regular rate. S1 and S2 are normal. There are no murmurs, gallops, clicks or rubs heard. ABDOMEN: Soft, nondistended and nontender. Liver and spleen are not palpably enlarged or tender. No palpable masses. Bowel sounds are normoactive. Midline abdominal wound with mild erythema around the retention sutures that are still in place with some serous drainage but no signs of overt infection. EXTREMITIES: No rash, peripheral lymphadenopathy, clubbing or edema. Well- healed surgical scar over the right hip from previous replacements with no signs of infection. : Not examined today NEUROLOGIC: No focal findings. - Constitutional Vitals: Vital Signs Temp Pulse Resp BP Pulse Ox 98.2 F 75 22 138/78 96 10/01/16 09:40 10/01/16 10:27 10/01/16 09:40 10/01/16 09:40 10/01/16 09:40 Temperature -Last 24 Hours Temperature 98.2 F Temperature 97.6 F Temperature 98.3 F Temperature 98.1 F Temperature 98 F - Labs CBC & Chem 7: 10/01/16 05:50 10/01/16 05:50 Labs: Abnormal lab results Microbiology 09/23/16 19:51 Peripheral/Venous Blood Culture - Preliminary NO GROWTH AFTER 24 HOURS 09/23/16 19:50 Peripheral/Venous Blood Culture - Preliminary NO GROWTH AFTER 24 HOURS C. difficile toxin assay sent from the rehabilitation facility was positive. Imagin/8: CT abdomen/pelvis: Small amount of free intraperitoneal air suggesting bowel perforation. Acute inflammation of the distal left colon/proximal sigmoid colon as well as diffuse underlying colitis with significant abnormal wall thickening of the entire colon.
--- NOTE | 2016-10-01 12:53 | Progress Note ---
Subjective Patient Reports: Positive: feels better, flatus, bowel movement Narrative: Doing much better tolerating PO well . abd flat and soft , will remove ret sutures , home any time from a surgical point view . Objective Vital Signs - 12hr 10/01/16 10/01/16 10/01/16 01:12 04:35 05:36 Temperature 98.3 F 97.6 F Pulse Rate 83 Pulse Rate [ 73 Apical] Pulse Rate [ 83 Left Radial] Respiratory 20 20 Rate Blood Pressure 130/79 Blood Pressure 116/72 130/79 [Left Arm] O2 Sat by Pulse 92 97 Oximetry 10/01/16 10/01/16 09:40 10:27 Temperature 98.2 F Pulse Rate 75 Pulse Rate [ Apical] Pulse Rate [ 83 Left Radial] Respiratory 22 Rate Blood Pressure Blood Pressure 138/78 [Left Arm] O2 Sat by Pulse 96 Oximetry - Labs 10/01/16 05:50 10/01/16 05:50 Diabetes panel 10/01/16 Range/Units 05:50 Sodium 138 (137-145) mmol/L Potassium 3.8 D (3.6-5.0) mmol/L Chloride 97.1 L (98-107) mmol/L Carbon Dioxide 28 (22-30) mmol/L BUN 14 (9-20) mg/dL Creatinine 0.6 L (0.8-1.5) mg/dL Glucose 159 H (75-100) mg/dL Calcium 7.7 L (8.4-10.2) mg/dL Calcium panel 10/01/16 Range/Units 05:50 Calcium 7.7 L (8.4-10.2) mg/dL Phosphorus 3.1 D (2.5-4.5) mg/dL Pituitary panel 10/01/16 Range/Units 05:50 Sodium 138 (137-145) mmol/L Potassium 3.8 D (3.6-5.0) mmol/L Chloride 97.1 L (98-107) mmol/L Carbon Dioxide 28 (22-30) mmol/L BUN 14 (9-20) mg/dL Creatinine 0.6 L (0.8-1.5) mg/dL Glucose 159 H (75-100) mg/dL Calcium 7.7 L (8.4-10.2) mg/dL Adrenal panel 10/01/16 Range/Units 05:50 Sodium 138 (137-145) mmol/L Potassium 3.8 D (3.6-5.0) mmol/L Chloride 97.1 L (98-107) mmol/L Carbon Dioxide 28 (22-30) mmol/L BUN 14 (9-20) mg/dL Creatinine 0.6 L (0.8-1.5) mg/dL Glucose 159 H (75-100) mg/dL Calcium 7.7 L (8.4-10.2) mg/dL
[2016-10-01] MEDS: TYLENOL PO PRN (23:36)
[2016-10-02] MEDS: FLAGYL 500 MG/100 ML 500 MG/100 ML BAG IV SCH ×2 (01:12→11:59)
[2016-10-02] MEDS: ALUM-MAG HYDROX-SIMETH 200-200-20MG/5ML PO PRN ×2 (01:13→05:12)
[2016-10-02] MEDS: VANCOMYCIN PO SCH ×3 (05:12→19:42)
[2016-10-02] MEDS: LASIX IV SCH ×2 (05:12→19:40)
[2016-10-02] MEDS: LOPRESSOR IV SCH ×3 (05:13→19:46)
[2016-10-02 07:49] LABS: Basophils % (Auto) 0.2 % (0.0-1.8); Eosinophils % (Auto) 0.2 % (0.0-4.3); Hematocrit 39.4 % (35.5-45.6); Hemoglobin 12.5 gm/dl (11.8-15.2); Mean Corpuscular HGB Conc 32 % (32-34); Mean Corpuscular Hemoglobin 26 pg (28-32); Mean Corpuscular Volume 83 fl (84-94); Platelet Count 423 K/mm3 (140-440); Red Blood Count 4.75 M/mm3 (3.65-5.03); Red Cell Distribution Width 17.7 % (13.2-15.2); White Blood Count 17.4 K/mm3 (4.5-11.0)
[2016-10-02 08:05] LABS: Alanine Aminotransferase 8 units/L (7-56); Albumin 2.7 g/dL (3.9-5); Albumin/Globulin Ratio 0.9 %; Alkaline Phosphatase 97 units/L (35-129); Anion Gap 17 mmol/L; BUN/Creatinine Ratio 27.14; Bilirubin,Total 0.4 mg/dL (0.1-1.2); Blood Urea Nitrogen 19 mg/dL (9-20); Calcium 8.2 mg/dL (8.4-10.2); Carbon Dioxide 28 mmol/L (22-30); Chloride 94.1 mmol/L (98-107); Glucose 165 mg/dL (75-100); Potassium 3.8 mmol/L (3.6-5.0); Sodium 135 mmol/L (137-145); Total Protein 5.8 g/dL (6.3-8.2)
[2016-10-02] MEDS: PROzac PO SCH (11:52)
[2016-10-02] MEDS: PROTONIX PO SCH (11:52)
[2016-10-02] MEDS: HALFPRIN EC PO SCH (11:52)
--- NOTE | 2016-10-02 13:07 | Progress Note ---
Assessment and Plan Current antibiotics: Flagyl 500 mg IV q8h 09/23 --> Vancomycin 1250 mg IV q12h 09/23 --> Previous antibiotics: Records show that he was discharged to the rehabilitation facility on ertapenem and micafungin but when they were stopped is unclear ASSESSMENT: Willian Layne is a 76-year-old male with type 2 diabetes mellitus, hypertension, hyperlipidemia and coronary artery disease who had a CABG done at [facility] on 07/22/2016 was complicated by colon perforation with the chest tube insertion with resultant intra-abdominal sepsis and subsequent exploratory laparotomies X 2 who ultimately was discharged to [facility] on 08/28/16. He was doing reasonably well until 09/19/16 when he developed nausea, vomiting and severe , watery diarrhea and a C. difficile toxin assay was positive. Problem list: 1. Severe C. diff. infection -Severe diarrhea and crampy abdominal pain -Extensive colitis seen on CT scan -Significant leukocytosis -Clinically improved 2. Coronary artery disease -Status post CABG 4 07/22/2016 3. Status post colon perforation -Status post exploratory laparotomy and subsegmental colectomy 07/27/2016 -Status post intra-abdominal sepsis 4. History of paroxysmal atrial fibrillation -Status post cardioversion at [facility] -Currently in normal sinus rhythm. 5. Leukocytosis -Secondary to #1 -Slightly back up again today 6. CT scan showing small amount of free air -Rule out secondary to previous surgery -Patient clinically does not appear to have an acute bowel at this point. 7. Type 2 diabetes mellitus 8. Hypokalemia -Corrected PLAN: 1. Continue PO vancomycin. 2. Stop the IV Flagyl soon. 3. Would make sure he is tolerating a diet well before transferring back to rehab 4. Consider PT evaluation 5. Continue to follow WBC 6. Glycemic control as per the hospitalist service 7. C. difficile isolation precautions Richard Hwang MD [facility] Office: [phone] Subjective Date of service: 10/02/16 Principal diagnosis: Severe C. diff. infection Interval history: Had "bad day" yetserrday after "eating too much dinner" which was followed by "severe" epigastric abdominal pain which "wasn't relieved by anything." Is better now but really hasn't tries to eat much today. Otherwise still with some "mushy" bowel movements but diarrhea has not recurred. Still has not been out of bed. Objective - Exam Narrative Exam: GENERAL: Well-developed, well-nourished appearing male who is alert and in no acute distress. He looks somewhat chronically ill but not acutely so. HEAD: Normocephalic. No lesions seen. EYES: Pupils are equal reactive to light and accommodation. There is no scleral icterus. Optic fundi are not examined. EARS: Normal external ears. THROAT: Oropharynx is normal with no evidence of oral candidiasis or pharyngitis. NECK: Supple. No enlargement of the thyroid gland. No significant cervical lymphadenopathy. No jugular venous distention at 30. LUNGS: Clear with no adventitious sounds. CHEST: Healed sternotomy scar with mild erythema but no increased warmth nor tenderness. The sternum is stable. HEART: Regular rate. S1 and S2 are normal. There are no murmurs, gallops, clicks or rubs heard. ABDOMEN: Soft, nondistended and nontender. Liver and spleen are not palpably enlarged or tender. No palpable masses. Bowel sounds are normoactive. Midline abdominal wound with mild erythema around the retention sutures that are still in place with some serous drainage but no signs of overt infection. EXTREMITIES: No rash, peripheral lymphadenopathy, clubbing or edema. Well- healed surgical scar over the right hip from previous replacements with no signs of infection. : Not examined today NEUROLOGIC: No focal findings. - Constitutional Vitals: Vital Signs Temp Pulse Resp BP Pulse Ox 97.6 F 98 H 20 130/76 98 10/02/16 08:15 10/02/16 11:53 10/02/16 08:15 10/02/16 11:53 10/02/16 08:15 Temperature -Last 24 Hours Temperature 97.6 F Temperature 97.6 F Temperature 97.8 F Temperature 97.2 F Temperature 98.1 F - Labs CBC & Chem 7: 10/02/16 06:37 10/02/16 06:37 Labs: Abnormal lab results Microbiology 09/23/16 19:51 Peripheral/Venous Blood Culture - Preliminary NO GROWTH 09/23/16 19:50 Peripheral/Venous Blood Culture - Preliminary NO GROWTH C. difficile toxin assay sent from the rehabilitation facility was positive. Imagin/8: CT abdomen/pelvis: Small amount of free intraperitoneal air suggesting bowel perforation. Acute inflammation of the distal left colon/proximal sigmoid colon as well as diffuse underlying colitis with significant abnormal wall thickening of the entire colon.
--- NOTE | 2016-10-02 15:38 | Progress Note ---
Subjective Patient Reports: Positive: feels better, tolerating a regular diet, flatus, bowel movement Narrative: doing OK still soft stool will cont same . will check KUB un AM .K OK Objective Vital Signs - 12hr 10/02/16 10/02/16 10/02/16 05:13 05:55 08:15 Temperature 97.6 F 97.6 F Pulse Rate 98 H Pulse Rate [ 99 H 98 H Apical] Respiratory 20 20 Rate Blood Pressure 164/92 Blood Pressure 164/93 130/76 [Left Arm] O2 Sat by Pulse 95 98 Oximetry 10/02/16 11:53 Temperature Pulse Rate 98 H Pulse Rate [ Apical] Respiratory Rate Blood Pressure 130/76 Blood Pressure [Left Arm] O2 Sat by Pulse Oximetry - Labs 10/02/16 06:37 10/02/16 06:37 Diabetes panel 10/02/16 Range/Units 06:37 Sodium 135 L (137-145) mmol/L Potassium 3.8 (3.6-5.0) mmol/L Chloride 94.1 L (98-107) mmol/L Carbon Dioxide 28 (22-30) mmol/L BUN 19 (9-20) mg/dL Creatinine 0.7 L (0.8-1.5) mg/dL Glucose 165 H (75-100) mg/dL Calcium 8.2 L (8.4-10.2) mg/dL AST 23 (5-40) units/L ALT 8 (7-56) units/L Alkaline Phosphatase 97 (35-129) units/L Total Protein 5.8 L (6.3-8.2) g/dL Albumin 2.7 L (3.9-5) g/dL Calcium panel 10/02/16 Range/Units 06:37 Calcium 8.2 L (8.4-10.2) mg/dL Albumin 2.7 L (3.9-5) g/dL Pituitary panel 10/02/16 Range/Units 06:37 Sodium 135 L (137-145) mmol/L Potassium 3.8 (3.6-5.0) mmol/L Chloride 94.1 L (98-107) mmol/L Carbon Dioxide 28 (22-30) mmol/L BUN 19 (9-20) mg/dL Creatinine 0.7 L (0.8-1.5) mg/dL Glucose 165 H (75-100) mg/dL Calcium 8.2 L (8.4-10.2) mg/dL Adrenal panel 10/02/16 Range/Units 06:37 Sodium 135 L (137-145) mmol/L Potassium 3.8 (3.6-5.0) mmol/L Chloride 94.1 L (98-107) mmol/L Carbon Dioxide 28 (22-30) mmol/L BUN 19 (9-20) mg/dL Creatinine 0.7 L (0.8-1.5) mg/dL Glucose 165 H (75-100) mg/dL Calcium 8.2 L (8.4-10.2) mg/dL Total Bilirubin 0.4 (0.1-1.2) mg/dL AST 23 (5-40) units/L ALT 8 (7-56) units/L Alkaline Phosphatase 97 (35-129) units/L Total Protein 5.8 L (6.3-8.2) g/dL Albumin 2.7 L (3.9-5) g/dL
--- NOTE | 2016-10-02 23:53 | Progress Note ---
Assessment and Plan 1. Sepsis with C. difficile colitis: Resolving. Patient has no more diarrhea. No fever. ID following 2. Possible bowel perforation: Stable. Patient had regular bowel movements. Tolerating his meals. 3. Infected abdominal wound: We'll continue local wound care. 4. Coronary artery disease status post CABG : Controlled aspirin and beta linda statins 5. Recent history of partial colectomy: Synthroid resolved. 6. S/P partial colectomy secondary to colon perforation on 07/27/16 7. S/P Retension sutures: Monitor closely 8.Hypertension: benign essential. Controlled. 9. Diabetes mellitus: Sliding-scale insulin. Consistent carbohydrates diet when patient, commence his consistent, hydrated diet. 11. DVT prophylaxis: Lovenox and GI with Protonix. Spent 25 minutes in direct patient care. Medical records and discussing management plan with the patient Subjective Date of service: 10/02/16 Principal diagnosis: colitis with sepsis Interval history: No new complaints, no overnight events. Objective - Constitutional Vitals: Vital Signs - 12hr 10/02/16 10/02/16 10/02/16 11:53 13:00 17:45 Temperature 97.6 F Pulse Rate 98 H Pulse Rate [ 94 H Apical] Pulse Rate [ From Monitor] Respiratory 18 20 Rate Blood Pressure 130/76 Blood Pressure 139/74 [Left Arm] O2 Sat by Pulse 96 95 Oximetry 10/02/16 10/02/16 19:46 20:10 Temperature 98.6 F Pulse Rate 97 H Pulse Rate [ Apical] Pulse Rate [ 71 From Monitor] Respiratory 22 Rate Blood Pressure 122/76 Blood Pressure 104/67 [Left Arm] O2 Sat by Pulse 94 Oximetry General appearance: Present: no acute distress, well-nourished - EENT Eyes: PERRL, EOM intact ENT: hearing intact, clear oral mucosa Ears: bilateral: normal - Neck Neck: supple, normal ROM - Respiratory Respiratory effort: normal Respiratory: bilateral: CTA - Cardiovascular Rhythm: regular Heart Sounds: Present: S1 & S2. Absent: gallop, rub Extremities: pulses intact, No edema, normal color, Full ROM - Gastrointestinal General gastrointestinal: Present: soft, non-tender, non-distended, normal bowel sounds - Integumentary Integumentary: clear, warm, dry - Musculoskeletal Musculoskeletal: 1, strength equal bilaterally - Neurologic Neurologic: moves all extremities - Psychiatric Psychiatric: memory intact, appropriate mood/affect, intact judgment & insight - Labs CBC & Chem 7: 10/02/16 06:37 10/02/16 06:37 Labs: Abnormal lab results 10/01/16 10/02/16 10/02/16 Range/Units 23:48 00:05 05:32 WBC (4.5-11.0) K/mm3 MCV (84-94) fl MCH (28-32) pg RDW (13.2-15.2) % Lymph % (Auto) (13.4-35.0) % Gallia % (Auto) (0.0-7.3) % Gallia # (0.0-0.8) K/mm3 Seg Neutrophils % (40.0-70.0) % Seg Neutrophils # (1.8-7.7) K/mm3 Sodium (137-145) mmol/L Chloride (98-107) mmol/L Creatinine (0.8-1.5) mg/dL Glucose (75-100) mg/dL POC Glucose 162 H 171 H 148 H (70-105) Calcium (8.4-10.2) mg/dL Total Protein (6.3-8.2) g/dL Albumin (3.9-5) g/dL 10/02/16 10/02/16 10/02/16 Range/Units 06:37 06:37 16:11 WBC 17.4 H (4.5-11.0) K/mm3 MCV 83 L (84-94) fl MCH 26 L (28-32) pg RDW 17.7 H (13.2-15.2) % Lymph % (Auto) 7.6 L (13.4-35.0) % Gallia % (Auto) 7.6 H (0.0-7.3) % Gallia # 1.3 H (0.0-0.8) K/mm3 Seg Neutrophils % 84.4 H (40.0-70.0) % Seg Neutrophils # 14.7 H (1.8-7.7) K/mm3 Sodium 135 L (137-145) mmol/L Chloride 94.1 L (98-107) mmol/L Creatinine 0.7 L (0.8-1.5) mg/dL Glucose 165 H (75-100) mg/dL POC Glucose 142 H (70-105) Calcium 8.2 L (8.4-10.2) mg/dL Total Protein 5.8 L (6.3-8.2) g/dL Albumin 2.7 L (3.9-5) g/dL 10/02/16 10/02/16 Range/Units 19:39 21:22 WBC (4.5-11.0) K/mm3 MCV (84-94) fl MCH (28-32) pg RDW (13.2-15.2) % Lymph % (Auto) (13.4-35.0) % Gallia % (Auto) (0.0-7.3) % Gallia # (0.0-0.8) K/mm3 Seg Neutrophils % (40.0-70.0) % Seg Neutrophils # (1.8-7.7) K/mm3 Sodium (137-145) mmol/L Chloride (98-107) mmol/L Creatinine (0.8-1.5) mg/dL Glucose (75-100) mg/dL POC Glucose 117 H 128 H (70-105) Calcium (8.4-10.2) mg/dL Total Protein (6.3-8.2) g/dL Albumin (3.9-5) g/dL
[2016-10-03] MEDS: LOPRESSOR IV SCH ×5 (01:02→22:17)
[2016-10-03] MEDS: VANCOMYCIN PO SCH ×5 (01:02→22:18)
[2016-10-03] MEDS: LASIX IV SCH ×2 (06:14→17:50)
--- NOTE | 2016-10-03 09:48 | XRay Report ---
Single view abdomen: Findings: No bowel distention or wall thickening. Minimal air in small bowel and large bowel. No radiopaque calculus or abnormal calcification. Impression: No acute abdominal findings.
[2016-10-03] MEDS: HALFPRIN EC PO SCH (11:30)
[2016-10-03] MEDS: PROTONIX PO SCH (11:30)
[2016-10-03] MEDS: PROzac PO SCH (11:31)
--- NOTE | 2016-10-03 12:07 | Progress Note ---
Assessment and Plan Current antibiotics: Flagyl 500 mg IV q8h 09/23 --> Vancomycin 1250 mg IV q12h 09/23 --> Previous antibiotics: Records show that he was discharged to the rehabilitation facility on ertapenem and micafungin but when they were stopped is unclear ASSESSMENT: Willian Layne is a 76-year-old male with type 2 diabetes mellitus, hypertension, hyperlipidemia and coronary artery disease who had a CABG done at [facility] on 07/22/2016 was complicated by colon perforation with the chest tube insertion with resultant intra-abdominal sepsis and subsequent exploratory laparotomies X 2 who ultimately was discharged to [facility] on 08/28/16. He was doing reasonably well until 09/19/16 when he developed nausea, vomiting and severe , watery diarrhea and a C. difficile toxin assay was positive. Problem list: 1. Severe C. diff. infection -Severe diarrhea and crampy abdominal pain -Extensive colitis seen on CT scan -Significant leukocytosis -Clinically improved 2. Coronary artery disease -Status post CABG 4 07/22/2016 3. Status post colon perforation -Status post exploratory laparotomy and subsegmental colectomy 07/27/2016 -Status post intra-abdominal sepsis 4. History of paroxysmal atrial fibrillation -Status post cardioversion at [facility] -Currently in normal sinus rhythm. 5. Leukocytosis -Secondary to #1 -Slightly back up again today 6. CT scan showing small amount of free air -Rule out secondary to previous surgery -Patient clinically does not appear to have an acute bowel at this point. 7. Type 2 diabetes mellitus 8. Hypokalemia -Corrected PLAN: 1. Continue PO vancomycin. 2. Stop the IV Flagyl soon. 3. Would make sure he is tolerating a diet well before transferring back to rehab 4. Consider PT evaluation 5. Continue to follow WBC 6. Glycemic control as per the hospitalist service 7. C. difficile isolation precautions Richard Hwang MD [facility] Office: [phone] Subjective Date of service: 10/03/16 Principal diagnosis: colitis with sepsis Interval history: Patient is awake and interactive patient is in no apparent distress. Patient reports still having issues with bowel movements and epigastric pain when he is eating. Otherwise patient states he is feeling much better. Patient states he has not seen PT or been out of bed and is concerned about discharge to a rehabilitation center with him being immobile during this hospitalization. On 10/02/2015: Had "bad day" yetserrday after "eating too much dinner" which was followed by "severe" epigastric abdominal pain which "wasn't relieved by anything." Is better now but really hasn't tries to eat much today. Otherwise still with some "mushy" bowel movements but diarrhea has not recurred. Still has not been out of bed. Review of systems: Patient denies chest pain chest pressure. Patient denies nausea or vomiting. Ongoing GI discomfort and constipation and diarrhea continues Objective - Exam Narrative Exam: GENERAL: Well-developed, well-nourished appearing male who is alert and in no acute distress. He looks somewhat chronically ill but not acutely so. HEAD: Normocephalic. No lesions seen. EYES: Pupils are equal reactive to light and accommodation. There is no scleral icterus. Optic fundi are not examined. EARS: Normal external ears without external drainage. THROAT: Oropharynx is normal with no evidence of oral candidiasis or pharyngitis. NECK: Supple. No enlargement of the thyroid gland. No significant cervical lymphadenopathy. No jugular venous distention at 30. LUNGS: Clear with no adventitious sounds. CHEST: Healed sternotomy scar with mild erythema but no increased warmth nor tenderness. The sternum is stable. HEART: Regular rate. S1 and S2 are normal. There are no murmurs, gallops, clicks or rubs heard. ABDOMEN: Soft, nondistended and nontender. Liver and spleen are not palpably enlarged or tender. No palpable masses. Bowel sounds are normoactive. Midline abdominal wound with mild erythema all sutures are now out. There is no evidence of any drainage from the incision line EXTREMITIES: No rash, peripheral lymphadenopathy, clubbing or edema. Well- healed surgical scar over the right hip from previous replacements with no signs of infection. : Not examined today NEUROLOGIC: No focal findings. - Constitutional Vitals: Vital Signs Temp Pulse Resp BP Pulse Ox 97.5 F L 90 18 111/76 97 10/03/16 09:30 10/03/16 11:31 10/03/16 09:30 10/03/16 11:31 10/03/16 09:30 Temperature -Last 24 Hours Temperature 97.5 F Temperature 97.8 F Temperature 97.9 F Temperature 98.6 F Temperature 97.6 F - Labs CBC & Chem 7: 10/02/16 06:37 10/02/16 06:37 Labs: Abnormal lab results Microbiology 09/23/16 19:51 Peripheral/Venous Blood Culture - Preliminary NO GROWTH 09/23/16 19:50 Peripheral/Venous Blood Culture - Preliminary NO GROWTH C. difficile toxin assay sent from the rehabilitation facility was positive. Imagin/8: CT abdomen/pelvis: Small amount of free intraperitoneal air suggesting bowel perforation. Acute inflammation of the distal left colon/proximal sigmoid colon as well as diffuse underlying colitis with significant abnormal wall thickening of the entire colon.
--- NOTE | 2016-10-03 16:16 | Progress Note ---
Assessment and Plan 1. s/p Sepsis with C. difficile colitis: Resolving. Patient has no more diarrhea. No fever. ID following 2. Possible bowel perforation: Stable. Patient had regular bowel movements. Tolerating his meals. 3. Infected abdominal wound: We'll continue local wound care. 4. Coronary artery disease status post CABG : Controlled aspirin and beta linda statins 5. Recent history of partial colectomy: Synthroid resolved. 6. S/P partial colectomy secondary to colon perforation on 07/27/16 7. S/P Retension sutures: Monitor closely 8. Hypertension: benign essential. Controlled. 9. Diabetes mellitus: Sliding-scale insulin. Consistent carbohydrates diet when patient, commence his consistent, hydrated diet. 11. DVT prophylaxis: Lovenox and GI with Protonix. 12. Discussed with Surgeon, Dr. Silva. Advised and continue with antidiarrhea Spent 25 minutes in direct patient care. Medical records and discussing management plan with the patient Subjective Date of service: 10/03/16 Principal diagnosis: colitis with sepsis Interval history: No new complaint. No fever. Diarrhea is improved Objective - Constitutional Vitals: Vital Signs - 12hr 10/03/16 10/03/16 10/03/16 04:25 09:30 11:31 Temperature 97.8 F 97.5 F L Pulse Rate 90 Pulse Rate [ 95 H 90 Left Radial] Respiratory 20 18 Rate Blood Pressure 111/76 Blood Pressure 110/71 111/76 [Left Arm] O2 Sat by Pulse 96 97 Oximetry General appearance: Present: no acute distress, well-nourished - EENT Eyes: PERRL, EOM intact ENT: hearing intact, clear oral mucosa Ears: bilateral: normal - Neck Neck: supple, masses or JVD - Respiratory Respiratory effort: normal Respiratory: bilateral: CTA - Cardiovascular Rhythm: regular Heart Sounds: Present: S1 & S2. Absent: gallop, rub Extremities: pulses intact, No edema, normal color, Full ROM - Gastrointestinal General gastrointestinal: Present: soft, non-tender, non-distended, normal bowel sounds - Integumentary Integumentary: clear, warm, dry - Musculoskeletal Musculoskeletal: 1, strength equal bilaterally - Neurologic Neurologic: moves all extremities - Psychiatric Psychiatric: memory intact, appropriate mood/affect, intact judgment & insight - Labs CBC & Chem 7: 10/02/16 06:37 10/02/16 06:37 Labs: Abnormal lab results 10/02/16 10/02/16 10/02/16 Range/Units 13:05 16:11 19:39 POC Glucose 164 H 142 H 117 H (70-105) 10/02/16 Range/Units 21:22 POC Glucose 128 H (70-105)
[2016-10-03] MEDS: AMARYL PO SCH (22:18)
[2016-10-04] MEDS: LOPRESSOR IV SCH ×4 (00:48→17:35)
[2016-10-04] MEDS: VANCOMYCIN PO SCH ×4 (00:48→17:35)
[2016-10-04] MEDS: LASIX IV SCH ×2 (06:48→17:35)
[2016-10-04] MEDS: PROTONIX PO SCH (10:54)
[2016-10-04] MEDS: PROzac PO SCH (10:54)
[2016-10-04] MEDS: AMARYL PO SCH ×2 (10:54→21:30)
[2016-10-04] MEDS: HALFPRIN EC PO SCH (10:55)
--- NOTE | 2016-10-04 13:53 | Progress Note ---
Assessment and Plan 1. Sepsis with C. difficile colitis: Resolving. Patient has no more diarrhea. No fever. ID following 2. Possible bowel perforation: Stable. Patient had regular bowel movements. Tolerating his meals. 3. Infected abdominal wound: We'll continue local wound care. 4. Coronary artery disease status post CABG : Controlled aspirin and beta linda statins 5. Recent history of partial colectomy: Synthroid resolved. 6. S/P partial colectomy secondary to colon perforation on 07/27/16 7. S/P Retension sutures: Monitor closely 8.Hypertension: benign essential. Controlled. 9. Diabetes mellitus: Sliding-scale insulin. Consistent carbohydrates diet when patient, commence his consistent, hydrated diet. 11. DVT prophylaxis: Lovenox and GI with Protonix. 12. Discussed with Surgeon, Dr. Silva. Advised and continue with antidiarrhea Spent 25 minutes in direct patient care. Medical records and discussing management plan with the patient Subjective Date of service: 10/04/16 Principal diagnosis: colitis with sepsis Interval history: No new complaint. No fever. Diarrhea is improved Objective - Constitutional Vitals: Vital Signs - 12hr 10/04/16 10/04/16 10/04/16 05:51 06:47 07:50 Temperature 97.6 F 97.9 F Pulse Rate 94 H Pulse Rate [ 94 H From Monitor] Pulse Rate [ 86 Left Radial] Respiratory 19 18 Rate Blood Pressure 126/87 Blood Pressure 126/87 127/82 [Left Arm] O2 Sat by Pulse 97 97 Oximetry 10/04/16 11:02 Temperature Pulse Rate 86 Pulse Rate [ From Monitor] Pulse Rate [ Left Radial] Respiratory Rate Blood Pressure 127/82 Blood Pressure [Left Arm] O2 Sat by Pulse Oximetry General appearance: Present: no acute distress - EENT Eyes: PERRL, EOM intact ENT: hearing intact, clear oral mucosa Ears: bilateral: normal - Neck Neck: supple, normal ROM - Respiratory Respiratory effort: normal Respiratory: bilateral: CTA - Cardiovascular Rhythm: regular Heart Sounds: Present: S1 & S2. Absent: gallop, rub Extremities: pulses intact, No edema, normal color, Full ROM - Gastrointestinal General gastrointestinal: Present: soft, non-tender, non-distended, normal bowel sounds - Integumentary Integumentary: clear, warm, dry - Musculoskeletal Musculoskeletal: 1, strength equal bilaterally - Neurologic Neurologic: moves all extremities - Psychiatric Psychiatric: memory intact, appropriate mood/affect, intact judgment & insight - Labs CBC & Chem 7: 10/02/16 06:37 10/02/16 06:37 Labs: Abnormal lab results 10/03/16 10/03/16 Range/Units 11:55 16:31 POC Glucose 179 H 155 H (70-105)
--- NOTE | 2016-10-04 13:56 | Progress Note ---
Subjective Patient Reports: Positive: feels better, flatus, bowel movement Narrative: doing fine pasty BMs , wound OK abd soft K OK ,talked to Dr Velasco , will see Pt PRN , Objective Vital Signs - 12hr 10/04/16 10/04/16 10/04/16 05:51 06:47 07:50 Temperature 97.6 F 97.9 F Pulse Rate 94 H Pulse Rate [ 94 H From Monitor] Pulse Rate [ 86 Left Radial] Respiratory 19 18 Rate Blood Pressure 126/87 Blood Pressure 126/87 127/82 [Left Arm] O2 Sat by Pulse 97 97 Oximetry 10/04/16 11:02 Temperature Pulse Rate 86 Pulse Rate [ From Monitor] Pulse Rate [ Left Radial] Respiratory Rate Blood Pressure 127/82 Blood Pressure [Left Arm] O2 Sat by Pulse Oximetry - Labs 10/02/16 06:37 10/02/16 06:37
[2016-10-05] MEDS: VANCOMYCIN PO SCH ×4 (00:35→18:48)
[2016-10-05] MEDS: LOPRESSOR IV SCH ×3 (01:24→13:00)
[2016-10-05] MEDS: LASIX IV SCH ×2 (07:50→18:47)
--- NOTE | 2016-10-05 08:23 | Progress Note ---
Assessment and Plan - Patient Problems (1) Hypertension Current Visit: Yes Status: Acute Qualifiers: Hypertension type: H Plan to address problem: Blood pressure well controlled today. Continue IV hydralazine and metoprolol (2) Diabetes mellitus Current Visit: Yes Status: Acute Qualifiers: Diabetes mellitus type: D Diabetes mellitus complication status: D Diabetes mellitus complication detail: D Diabetic retinopathy severity: D Proliferative retinopathy type: P Diabetes mellitus macular edema: D Diabetes mellitus nursing home insulin use: D Laterality: L Chronic kidney disease stage: C Plan to address problem: Continue current management per dietary (3) Hyperlipidemia Current Visit: Yes Status: Acute Qualifiers: Hyperlipidemia type: H (4) Bowel perforation Current Visit: Yes Status: Acute Plan to address problem: Patient is status post partial colectomy after colon perforation. Management per surgery (5) C. difficile colitis Current Visit: Yes Status: Acute Plan to address problem: Continue IV antibiotics per infectious disease. Continue to follow cultures. Continue to follow fever curve. Patient would like to advance his diet but spoke to him at length that that decision will be made by the surgeon (6) CAD (coronary artery disease) Current Visit: No Status: Acute Qualifiers: Coronary Disease-Associated Artery/Lesion type: C [place] vs. transplanted heart: N Associated angina: A Plan to address problem: No chest pain at this time. Continue to monitor History Interval history: Patient lying in bed denied any complaints this morning. Patient asking if his diet can be advanced Hospitalist Physical - Constitutional Vitals: Temp Pulse Resp BP Pulse Ox 98.1 F 93 H 18 146/84 96 10/05/16 08:13 10/05/16 08:13 10/05/16 08:13 10/05/16 08:13 10/05/16 08:13 General appearance: Present: no acute distress - EENT Eyes: Present: PERRL, EOM intact ENT: hearing intact, clear oral mucosa - Neck Neck: Present: supple, normal ROM - Respiratory Respiratory effort: normal Respiratory: bilateral: CTA - Cardiovascular Rhythm: regular Heart Sounds: Present: S1 & S2 - Extremities Extremities: no ischemia, No edema - Abdominal General gastrointestinal: soft, non-tender, non-distended, normal bowel sounds - Psychiatric Psychiatric: appropriate mood/affect, intact judgment & insight - Neurologic Neurologic: CNII-XII intact, moves all extremities Results - Labs CBC & Chem 7: 10/02/16 06:37 10/02/16 06:37 Labs: Laboratory Last Values WBC 17.4 K/mm3 (4.5-11.0) H 10/02/16 06:37 RBC 4.75 M/mm3 (3.65-5.03) 10/02/16 06:37 Hgb 12.5 gm/dl (11.8-15.2) 10/02/16 06:37 Hct 39.4 % (35.5-45.6) 10/02/16 06:37 MCV 83 fl (84-94) L 10/02/16 06:37 MCH 26 pg (28-32) L 10/02/16 06:37 MCHC 32 % (32-34) 10/02/16 06:37 RDW 17.7 % (13.2-15.2) H 10/02/16 06:37 Plt Count 423 K/mm3 (140-440) 10/02/16 06:37 Lymph % (Auto) 7.6 % (13.4-35.0) L 10/02/16 06:37 [place] % (Auto) 7.6 % (0.0-7.3) H 10/02/16 06:37 Eos % (Auto) 0.2 % (0.0-4.3) 10/02/16 06:37 Baso % (Auto) 0.2 % (0.0-1.8) 10/02/16 06:37 Lymph # 1.3 K/mm3 (1.2-5.4) 10/02/16 06:37 [place] # 1.3 K/mm3 (0.0-0.8) H 10/02/16 06:37 Eos # 0.0 K/mm3 (0.0-0.4) 10/02/16 06:37 Baso # 0.0 K/mm3 (0.0-0.1) 10/02/16 06:37 Add Manual Diff Complete 09/23/16 16:21 Total Counted 100 09/23/16 16:21 Seg Neutrophils % 84.4 % (40.0-70.0) H 10/02/16 06:37 Seg Neuts % (Manual) 81.0 % (40.0-70.0) H 09/23/16 16:21 Band Neutrophils % 3.0 % 09/23/16 16:21 Lymphocytes % (Manual) 5.0 % (13.4-35.0) L 09/23/16 16:21 Reactive Lymphs % (Man) 0 % 09/23/16 16:21 Monocytes % (Manual) 11.0 % (0.0-7.3) H 09/23/16 16:21 Eosinophils % (Manual) 0 % (0.0-4.3) 09/23/16 16:21 Basophils % (Manual) 0 % (0.0-1.8) 09/23/16 16:21 Metamyelocytes % 0 % 09/23/16 16:21 Myelocytes % 0 % 09/23/16 16:21 Promyelocytes % 0 % 09/23/16 16:21 Blast Cells % 0 % 09/23/16 16:21 Nucleated RBC % Not Reportable 09/23/16 16:21 Seg Neutrophils # 14.7 K/mm3 (1.8-7.7) H 10/02/16 06:37 Seg Neutrophils # Man 14.3 K/mm3 (1.8-7.7) H 09/23/16 16:21 Band Neutrophils # 0.5 K/mm3 09/23/16 16:21 Lymphocytes # (Manual) 0.9 K/mm3 (1.2-5.4) L 09/23/16 16:21 Abs React Lymphs (Man) 0.0 K/mm3 09/23/16 16:21 Monocytes # (Manual) 1.9 K/mm3 (0.0-0.8) H 09/23/16 16:21 Eosinophils # (Manual) 0.0 K/mm3 (0.0-0.4) 09/23/16 16:21 Basophils # (Manual) 0.0 K/mm3 (0.0-0.1) 09/23/16 16:21 Metamyelocytes # 0.0 K/mm3 09/23/16 16:21 Myelocytes # 0.0 K/mm3 09/23/16 16:21 Promyelocytes # 0.0 K/mm3 09/23/16 16:21 Blast Cells # 0.0 K/mm3 09/23/16 16:21 WBC Morphology Not Reportable 09/23/16 16:21 Hypersegmented Neuts Not Reportable 09/23/16 16:21 Hyposegmented Neuts Not Reportable 09/23/16 16:21 Hypogranular Neuts Not Reportable 09/23/16 16:21 Smudge Cells Not Reportable 09/23/16 16:21 Toxic Granulation Not Reportable 09/23/16 16:21 Toxic Vacuolation Not Reportable 09/23/16 16:21 Dohle Bodies Not Reportable 09/23/16 16:21 Pelger-Huet Anomaly Not Reportable 09/23/16 16:21 Haleigh Rods Not Reportable 09/23/16 16:21 Platelet Estimate Consistent w auto 09/23/16 16:21 Clumped Platelets Not Reportable 09/23/16 16:21 Plt Clumps, EDTA Not Reportable 09/23/16 16:21 Large Platelets Not Reportable 09/23/16 16:21 Giant Platelets Not Reportable 09/23/16 16:21 Platelet Satelliting Not Reportable 09/23/16 16:21 Plt Morphology Comment Not Reportable 09/23/16 16:21 RBC Morphology Not Reportable 09/23/16 16:21 Dimorphic RBCs Not Reportable 09/23/16 16:21 Polychromasia Not Reportable 09/23/16 16:21 Hypochromasia Not Reportable 09/23/16 16:21 Poikilocytosis 1+ 09/23/16 16:21 Anisocytosis 1+ 09/23/16 16:21 Microcytosis Not Reportable 09/23/16 16:21 Macrocytosis Not Reportable 09/23/16 16:21 Spherocytes Not Reportable 09/23/16 16:21 Pappenheimer Bodies Not Reportable 09/23/16 16:21 Sickle Cells Not Reportable 09/23/16 16:21 Target Cells Not Reportable 09/23/16 16:21 Tear Drop Cells Not Reportable 09/23/16 16:21 Ovalocytes Not Reportable 09/23/16 16:21 Helmet Cells Not Reportable 09/23/16 16:21 Basurto-[place] Bodies Not Reportable 09/23/16 16:21 [place] Rings Not Reportable 09/23/16 16:21 [place] Cells Not Reportable 09/23/16 16:21 Bite Cells Not Reportable 09/23/16 16:21 Crenated Cell Not Reportable 09/23/16 16:21 Elliptocytes Not Reportable 09/23/16 16:21 Acanthocytes (Spur) Not Reportable 09/23/16 16:21 Rouleaux Not Reportable 09/23/16 16:21 Hemoglobin C Crystals Not Reportable 09/23/16 16:21 Schistocytes Not Reportable 09/23/16 16:21 Malaria parasites Not Reportable 09/23/16 16:21 Tk Bodies Not Reportable 09/23/16 16:21 Hem Pathologist Commnt No 09/23/16 16:21 PT 17.1 Sec. (12.2-14.9) H 09/25/16 06:46 INR 1.40 (0.87-1.13) H 09/25/16 06:46 APTT 32.9 Sec. (24.2-36.6) 09/24/16 02:32 Sodium 135 mmol/L (137-145) L 10/02/16 06:37 Potassium 3.8 mmol/L (3.6-5.0) 10/02/16 06:37 Chloride 94.1 mmol/L (98-107) L 10/02/16 06:37 Carbon Dioxide 28 mmol/L (22-30) 10/02/16 06:37 Anion Gap 17 mmol/L 10/02/16 06:37 BUN 19 mg/dL (9-20) 10/02/16 06:37 Creatinine 0.7 mg/dL (0.8-1.5) L 10/02/16 06:37 Estimated GFR > 60 ml/min 10/02/16 06:37 BUN/Creatinine Ratio 27.14 % 10/02/16 06:37 Glucose 165 mg/dL (75-100) H 10/02/16 06:37 POC Glucose 65 (70-105) L 10/05/16 05:26 Lactic Acid 1.6 mmol/L (0.7-2.0) 09/23/16 19:44 Calcium 8.2 mg/dL (8.4-10.2) L 10/02/16 06:37 Phosphorus 3.1 mg/dL (2.5-4.5) D 10/01/16 05:50 Magnesium 2.1 mg/dL (1.7-2.3) 10/01/16 05:50 Total Bilirubin 0.4 mg/dL (0.1-1.2) 10/02/16 06:37 AST 23 units/L (5-40) 10/02/16 06:37 ALT 8 units/L (7-56) 10/02/16 06:37 Alkaline Phosphatase 97 units/L (35-129) 10/02/16 06:37 NT-Pro-B Natriuret Pep 1718 pg/mL (0-900) H 09/24/16 02:32 Total Protein 5.8 g/dL (6.3-8.2) L 10/02/16 06:37 Albumin 2.7 g/dL (3.9-5) L 10/02/16 06:37 Albumin/Globulin Ratio 0.9 % 10/02/16 06:37 Triglycerides 562 mg/dL (2-149) H 09/30/16 07:43 Lipase 26 units/L (13-60) 09/23/16 16:21 Blood Type O POSITIVE 09/23/16 16:21 Antibody Screen Negative 09/23/16 16:21
[2016-10-05] MEDS: PROzac PO SCH (10:35)
[2016-10-05] MEDS: PROTONIX PO SCH (10:35)
[2016-10-05] MEDS: HALFPRIN EC PO SCH (10:36)
[2016-10-05] MEDS: AMARYL PO SCH ×2 (10:36→22:07)
--- NOTE | 2016-10-05 10:51 | Progress Note ---
Assessment and Plan Current antibiotics: Vancomycin 1250 mg IV q12h 09/23 --> Previous antibiotics: Flagyl 500 mg IV q8h 09/23-10/02 Records show that he was discharged to the rehabilitation facility on ertapenem and micafungin but when they were stopped is unclear ASSESSMENT: Willian Layne is a 76-year-old male with type 2 diabetes mellitus, hypertension, hyperlipidemia and coronary artery disease who had a CABG done at [facility] on 07/22/2016 was complicated by colon perforation with the chest tube insertion with resultant intra-abdominal sepsis and subsequent exploratory laparotomies X 2 who ultimately was discharged to [facility] on 08/28/16. He was doing reasonably well until 09/19/16 when he developed nausea, vomiting and severe , watery diarrhea and a C. difficile toxin assay was positive. Problem list: 1. Severe C. diff. infection -Severe diarrhea and crampy abdominal pain -Extensive colitis seen on CT scan -Significant leukocytosis -Clinically improved 2. Coronary artery disease -Status post CABG 4 07/22/2016 3. Status post colon perforation -Status post exploratory laparotomy and subsegmental colectomy 07/27/2016 -Status post intra-abdominal sepsis 4. History of paroxysmal atrial fibrillation -Status post cardioversion at [facility] -Currently in normal sinus rhythm. 5. Leukocytosis -Secondary to #1 -Slightly back up again 10/[address] scan showing small amount of free air -Rule out secondary to previous surgery -Patient clinically does not appear to have an acute bowel at this point. 7. Type 2 diabetes mellitus 8. Hypokalemia -Corrected 9. Severe deconditioning PLAN: 1. Continue PO vancomycin. 2. ? evaluate for acute rehab here 3. Recheck WBC 4. Glycemic control as per the hospitalist service 5. Continue C. difficile isolation precautions Richard Hwang MD [facility] Office: [phone] Subjective Date of service: 10/05/16 Principal diagnosis: colitis with sepsis Interval history: Discouraged because he is "so weak." Needed 2 people to get him to a chair. No recurrent diarrhea. Tolerating diet "much better." Review of systems: Patient denies chest pain chest pressure. Patient denies nausea or vomiting. Objective - Exam Narrative Exam: GENERAL: Well-developed, well-nourished appearing male who is alert and in no acute distress. He looks somewhat chronically ill but not acutely so. HEAD: Normocephalic. No lesions seen. EYES: Pupils are equal reactive to light and accommodation. There is no scleral icterus. Optic fundi are not examined. EARS: Normal external ears without external drainage. THROAT: Oropharynx is normal with no evidence of oral candidiasis or pharyngitis. NECK: Supple. No enlargement of the thyroid gland. No significant cervical lymphadenopathy. No jugular venous distention at 30. LUNGS: Clear with no adventitious sounds. CHEST: Healed sternotomy scar with mild erythema but no increased warmth nor tenderness. The sternum is stable. HEART: Regular rate. S1 and S2 are normal. There are no murmurs, gallops, clicks or rubs heard. ABDOMEN: Soft, nondistended and nontender. Liver and spleen are not palpably enlarged or tender. No palpable masses. Bowel sounds are normoactive. Midline abdominal wound with mild erythema all sutures are now out. There is no evidence of any drainage from the incision line EXTREMITIES: No rash, peripheral lymphadenopathy, clubbing or edema. Well- healed surgical scar over the right hip from previous replacements with no signs of infection. : Not examined today NEUROLOGIC: No focal findings. - Constitutional Vitals: Vital Signs Temp Pulse Resp BP Pulse Ox 98.1 F 93 H 18 146/84 96 10/05/16 08:13 10/05/16 08:13 10/05/16 08:13 10/05/16 08:13 10/05/16 08:13 Temperature -Last 24 Hours Temperature 98.1 F Temperature 98 F Temperature 97.9 F Temperature 98 F Temperature 98.4 F - Labs CBC & Chem 7: 10/02/16 06:37 10/02/16 06:37 Labs: Abnormal lab results Microbiology 09/23/16 19:51 Peripheral/Venous Blood Culture - Preliminary NO GROWTH 09/23/16 19:50 Peripheral/Venous Blood Culture - Preliminary NO GROWTH C. difficile toxin assay sent from the rehabilitation facility was positive. Imagin/8: CT abdomen/pelvis: Small amount of free intraperitoneal air suggesting bowel perforation. Acute inflammation of the distal left colon/proximal sigmoid colon as well as diffuse underlying colitis with significant abnormal wall thickening of the entire colon.
--- NOTE | 2016-10-05 18:40 | Progress Note ---
Subjective Patient Reports: Positive: feels better, flatus, bowel movement Narrative: seen this AM afebrile , will check with a KUB and a CBC ,abd soft wound OK , Objective Vital Signs - 12hr 10/05/16 10/05/16 10/05/16 07:47 08:13 12:00 Temperature 98.1 F 98.1 F Pulse Rate 87 Pulse Rate [ 95 H From Monitor] Pulse Rate [ 93 H Left Radial] Respiratory 18 18 Rate Blood Pressure 133/77 Blood Pressure 146/84 118/73 [Left Arm] O2 Sat by Pulse 96 97 Oximetry 10/05/16 13:00 Temperature Pulse Rate 95 H Pulse Rate [ From Monitor] Pulse Rate [ Left Radial] Respiratory Rate Blood Pressure 118/73 Blood Pressure [Left Arm] O2 Sat by Pulse Oximetry - Labs 10/02/16 06:37 10/02/16 06:37
[2016-10-06] MEDS: LOPRESSOR IV SCH ×5 (02:00→17:41)
[2016-10-06] MEDS: VANCOMYCIN PO SCH ×4 (02:01→17:43)
[2016-10-06 05:38] LABS: Basophils % (Auto) 0.6 % (0.0-1.8); Eosinophils % (Auto) 1.1 % (0.0-4.3); Hematocrit 35.3 % (35.5-45.6); Hemoglobin 11.5 gm/dl (11.8-15.2); Mean Corpuscular HGB Conc 33 % (32-34); Mean Corpuscular Hemoglobin 27 pg (28-32); Mean Corpuscular Volume 82 fl (84-94); Platelet Count 418 K/mm3 (140-440); Red Cell Distribution Width 17.4 % (13.2-15.2); White Blood Count 8.3 K/mm3 (4.5-11.0)
[2016-10-06 05:56] LABS: Alanine Aminotransferase 17 units/L (7-56); Albumin 2.9 g/dL (3.9-5); Albumin/Globulin Ratio 0.9 %; Alkaline Phosphatase 485 units/L (35-129); Anion Gap 15 mmol/L; Bilirubin,Total 0.4 mg/dL (0.1-1.2); Blood Urea Nitrogen 16 mg/dL (9-20); Calcium 8.3 mg/dL (8.4-10.2); Carbon Dioxide 29 mmol/L (22-30); Glucose 64 mg/dL (75-100); Potassium 3.4 mmol/L (3.6-5.0); Sodium 139 mmol/L (137-145)
[2016-10-06] MEDS: LASIX IV SCH ×2 (06:02→17:42)
--- NOTE | 2016-10-06 09:39 | XRay Report ---
SUPINE KUB: History: Colitis, abdominal pain. The abdominal gas pattern is unremarkable. No masses or organomegaly is identified and there is no gross evidence of free air or fluid. No significant soft tissue calcifications are noted. Lower lumbar fusion, right hip replacement and pelvic neurostimulator noted. IMPRESSION: Unremarkable abdomen.
[2016-10-06] MEDS: HALFPRIN EC PO SCH (10:21)
[2016-10-06] MEDS: PROzac PO SCH (10:21)
[2016-10-06] MEDS: PROTONIX PO SCH (10:22)
[2016-10-06] MEDS: AMARYL PO SCH ×2 (10:22→22:00)
--- NOTE | 2016-10-06 10:29 | Progress Note ---
Assessment and Plan Current antibiotics: Vancomycin 125 mg po Q6Hr 09/23 --> Previous antibiotics: Flagyl 500 mg IV q8h 09/23-10/02 Records show that he was discharged to the rehabilitation facility on ertapenem and micafungin but when they were stopped is unclear ASSESSMENT: Willian Layne is a 76-year-old male with type 2 diabetes mellitus, hypertension, hyperlipidemia and coronary artery disease who had a CABG done at [facility] on 07/22/2016 was complicated by colon perforation with the chest tube insertion with resultant intra-abdominal sepsis and subsequent exploratory laparotomies X 2 who ultimately was discharged to [facility] on 08/28/16. He was doing reasonably well until 09/19/16 when he developed nausea, vomiting and severe , watery diarrhea and a C. difficile toxin assay was positive. Problem list: 1. Severe C. diff. infection -Severe diarrhea and crampy abdominal pain -Extensive colitis seen on CT scan -Significant leukocytosis - improved. -Clinically improved 2. Coronary artery disease -Status post CABG 4 07/22/2016 3. Status post colon perforation -Status post exploratory laparotomy and subsegmental colectomy 07/27/2016 -Status post intra-abdominal sepsis 4. History of paroxysmal atrial fibrillation -Status post cardioversion at [facility] -Currently in normal sinus rhythm. 5. Leukocytosis -Secondary to #1 -Improved 6. CT scan showing small amount of free air -Rule out secondary to previous surgery -Patient clinically does not appear to have an acute bowel at this point. 7. Type 2 diabetes mellitus 8. Hypokalemia -Corrected 9. Severe deconditioning PLAN: 1. Continue PO vancomycin. Plan slow titration off therapy. 2. Await rehabilitation placement 4. Glycemic control as per the hospitalist service 5. Continue C. difficile isolation precautions Subjective Date of service: 10/06/16 Principal diagnosis: colitis with sepsis Interval history: Describes stool with more form. No abdominal pain. Objective - Exam Narrative Exam: GENERAL: Well-developed, well-nourished appearing male who is alert and in no acute distress. He looks somewhat chronically ill but not acutely so. HEAD: Normocephalic. No lesions seen. EYES: Pupils are equal reactive to light and accommodation. There is no scleral icterus. Optic fundi are not examined. EARS: Normal external ears without any drainage THROAT: Oropharynx is normal with no evidence of oral candidiasis or pharyngitis. NECK: Supple. No enlargement of the thyroid gland. No significant cervical lymphadenopathy. No jugular venous distention at 30. LUNGS: Clear with no adventitious sounds. CHEST: Healed sternotomy scar with mild erythema but no increased warmth nor tenderness. HEART: Regular rate. S1 and S2 are normal. There are no murmurs, gallops, clicks or rubs heard. ABDOMEN: Soft, only minimally distended and nontender. Liver and spleen are not palpably enlarged or tender. No palpable masses. Bowel sounds are normoactive. Midline abdominal wound without redness or discharge. EXTREMITIES: No rash, peripheral lymphadenopathy, clubbing or edema. Well- healed surgical scar over the right hip from previous replacements with no signs of infection. NEUROLOGIC: No focal findings. - Constitutional Vitals: Vital Signs Temp Pulse Resp BP Pulse Ox 98.2 F 88 18 135/79 96 10/06/16 08:05 10/06/16 08:05 10/06/16 08:05 10/06/16 08:05 10/06/16 08:05 Temperature -Last 24 Hours Temperature 98.2 F Temperature 97.9 F Temperature 97.8 F Temperature 97.5 F Temperature 97.9 F Temperature 98.1 F - Labs CBC & Chem 7: 10/06/16 05:07 10/06/16 05:07 Labs: Abnormal lab results 10/05/16 10/05/16 10/06/16 Range/Units 18:03 22:07 05:07 Hgb 11.5 L (11.8-15.2) gm/dl Hct 35.3 L (35.5-45.6) % MCV 82 L (84-94) fl MCH 27 L (28-32) pg RDW 17.4 H (13.2-15.2) % [place] % (Auto) 11.3 H (0.0-7.3) % [place] # 0.9 H (0.0-0.8) K/mm3 Potassium (3.6-5.0) mmol/L Glucose (75-100) mg/dL POC Glucose 169 H 109 H (70-105) Calcium (8.4-10.2) mg/dL Alkaline Phosphatase (35-129) units/L Total Protein (6.3-8.2) g/dL Albumin (3.9-5) g/dL 10/06/16 Range/Units 05:07 Hgb (11.8-15.2) gm/dl Hct (35.5-45.6) % MCV (84-94) fl MCH (28-32) pg RDW (13.2-15.2) % [place] % (Auto) (0.0-7.3) % [place] # (0.0-0.8) K/mm3 Potassium 3.4 L (3.6-5.0) mmol/L Glucose 64 L (75-100) mg/dL POC Glucose (70-105) Calcium 8.3 L (8.4-10.2) mg/dL Alkaline Phosphatase 485 H (35-129) units/L Total Protein 6.0 L (6.3-8.2) g/dL Albumin 2.9 L (3.9-5) g/dL
--- NOTE | 2016-10-06 14:16 | Progress Note ---
Subjective Patient Reports: Positive: no new complaints, feels better, flatus, bowel movement Narrative: seehn Pt today . BMs more formed .awaiting disposition ,N Home ? Objective Vital Signs - 12hr 10/06/16 10/06/16 10/06/16 04:40 06:05 08:05 Temperature 97.9 F 98.2 F Pulse Rate 94 H Pulse Rate [ 90 From Monitor] Pulse Rate [ 88 Left Radial] Respiratory 20 18 Rate Blood Pressure 128/74 Blood Pressure 136/76 135/79 [Left Arm] O2 Sat by Pulse 95 96 Oximetry 10/06/16 10/06/16 11:49 12:30 Temperature 98.1 F Pulse Rate 82 Pulse Rate [ From Monitor] Pulse Rate [ 87 Left Radial] Respiratory 18 Rate Blood Pressure 140/80 Blood Pressure 163/94 [Left Arm] O2 Sat by Pulse 96 Oximetry - Labs 10/06/16 05:07 10/06/16 05:07 Diabetes panel 10/06/16 Range/Units 05:07 Sodium 139 (137-145) mmol/L Potassium 3.4 L (3.6-5.0) mmol/L Chloride 98.0 (98-107) mmol/L Carbon Dioxide 29 (22-30) mmol/L BUN 16 (9-20) mg/dL Creatinine 0.8 (0.8-1.5) mg/dL Glucose 64 L (75-100) mg/dL Calcium 8.3 L (8.4-10.2) mg/dL AST 26 (5-40) units/L ALT 17 (7-56) units/L Alkaline Phosphatase 485 H (35-129) units/L Total Protein 6.0 L (6.3-8.2) g/dL Albumin 2.9 L (3.9-5) g/dL Calcium panel 10/06/16 Range/Units 05:07 Calcium 8.3 L (8.4-10.2) mg/dL Albumin 2.9 L (3.9-5) g/dL Pituitary panel 10/06/16 Range/Units 05:07 Sodium 139 (137-145) mmol/L Potassium 3.4 L (3.6-5.0) mmol/L Chloride 98.0 (98-107) mmol/L Carbon Dioxide 29 (22-30) mmol/L BUN 16 (9-20) mg/dL Creatinine 0.8 (0.8-1.5) mg/dL Glucose 64 L (75-100) mg/dL Calcium 8.3 L (8.4-10.2) mg/dL Adrenal panel 10/06/16 Range/Units 05:07 Sodium 139 (137-145) mmol/L Potassium 3.4 L (3.6-5.0) mmol/L Chloride 98.0 (98-107) mmol/L Carbon Dioxide 29 (22-30) mmol/L BUN 16 (9-20) mg/dL Creatinine 0.8 (0.8-1.5) mg/dL Glucose 64 L (75-100) mg/dL Calcium 8.3 L (8.4-10.2) mg/dL Total Bilirubin 0.4 (0.1-1.2) mg/dL AST 26 (5-40) units/L ALT 17 (7-56) units/L Alkaline Phosphatase 485 H (35-129) units/L Total Protein 6.0 L (6.3-8.2) g/dL Albumin 2.9 L (3.9-5) g/dL
--- NOTE | 2016-10-06 16:11 | Progress Note ---
Assessment and Plan - Patient Problems (1) C. difficile colitis Current Visit: Yes Status: Acute Plan to address problem: Agent is on oral vancomycin He has 1-2 semi-formed bowel movements a day unclear why the patient is still here and not transfer to long-term Staff nurse does not know either. Talked to the mental health case manager. She is unable to give me any answer as the mental health case manager who is in charge of this patient is not here . Will discharge the patient tomorrow after talking to the mental health case manager back to [facility] (2) Diabetes mellitus Current Visit: Yes Status: Acute Qualifiers: Diabetes mellitus type: D Diabetes mellitus complication status: D Diabetes mellitus complication detail: D Diabetic retinopathy severity: D Proliferative retinopathy type: P Diabetes mellitus macular edema: D Diabetes mellitus retirement insulin use: D Laterality: L Chronic kidney disease stage: C Plan to address problem: Continue sliding-scale coverage and Accu-Cheks (3) Hyperlipidemia Current Visit: Yes Status: Acute Qualifiers: Hyperlipidemia type: H Plan to address problem: Continue statin (4) Hypertension Current Visit: Yes Status: Acute Qualifiers: Hypertension type: H Plan to address problem: Well-controlled (5) CAD (coronary artery disease) Current Visit: No Status: Acute Qualifiers: Coronary Disease-Associated Artery/Lesion type: C [place] vs. transplanted heart: N Associated angina: A Plan to address problem: Status post CABG (6) Physical deconditioning Current Visit: Yes Status: Acute Plan to address problem: PT evaluation Subjective Date of service: 10/06/16 Principal diagnosis: colitis with sepsis Interval history: Patient is resting. Not in any distress. No specific complaints. [place] any abdominal pain. States he had one semi-formed stool today currently is on oral vancomycin Objective - Constitutional Vitals: Vital Signs - 12hr 10/06/16 10/06/16 10/06/16 04:40 06:05 08:05 Temperature 97.9 F 98.2 F Pulse Rate 94 H Pulse Rate [ 90 From Monitor] Pulse Rate [ 88 Left Radial] Respiratory 20 18 Rate Blood Pressure 128/74 Blood Pressure 136/76 135/79 [Left Arm] O2 Sat by Pulse 95 96 Oximetry 10/06/16 10/06/16 10/06/16 11:49 12:30 12:45 Temperature 98.1 F Pulse Rate 82 82 Pulse Rate [ From Monitor] Pulse Rate [ 87 Left Radial] Respiratory 18 Rate Blood Pressure 140/80 140/80 Blood Pressure 163/94 [Left Arm] O2 Sat by Pulse 96 Oximetry 10/06/16 15:24 Temperature 98.6 F Pulse Rate Pulse Rate [ From Monitor] Pulse Rate [ 83 Left Radial] Respiratory 18 Rate Blood Pressure Blood Pressure 143/76 [Left Arm] O2 Sat by Pulse 96 Oximetry General appearance: Present: no acute distress - EENT Eyes: PERRL, EOM intact ENT: hearing intact, clear oral mucosa - Neck Neck: supple, normal ROM, no masses or JVD - Respiratory Respiratory effort: normal Respiratory: bilateral: CTA - Cardiovascular Rhythm: regular Heart Sounds: Present: S1 & S2 Extremities: No edema - Gastrointestinal General gastrointestinal: Present: soft, non-tender. Absent: hepatomegaly, splenomegaly - Integumentary Integumentary: clear - Musculoskeletal Musculoskeletal: strength equal bilaterally - Neurologic Neurologic: moves all extremities - Psychiatric Psychiatric: appropriate mood/affect - Labs CBC & Chem 7: 10/06/16 05:07 10/06/16 05:07 Labs: Abnormal lab results 10/05/16 10/05/16 10/06/16 Range/Units 18:03 22:07 05:07 Hgb 11.5 L (11.8-15.2) gm/dl Hct 35.3 L (35.5-45.6) % MCV 82 L (84-94) fl MCH 27 L (28-32) pg RDW 17.4 H (13.2-15.2) % [place] % (Auto) 11.3 H (0.0-7.3) % [place] # 0.9 H (0.0-0.8) K/mm3 Potassium (3.6-5.0) mmol/L Glucose (75-100) mg/dL POC Glucose 169 H 109 H (70-105) Calcium (8.4-10.2) mg/dL Alkaline Phosphatase (35-129) units/L Total Protein (6.3-8.2) g/dL Albumin (3.9-5) g/dL 10/06/16 10/06/16 10/06/16 Range/Units 05:07 08:04 11:42 Hgb (11.8-15.2) gm/dl Hct (35.5-45.6) % MCV (84-94) fl MCH (28-32) pg RDW (13.2-15.2) % [place] % (Auto) (0.0-7.3) % [place] # (0.0-0.8) K/mm3 Potassium 3.4 L (3.6-5.0) mmol/L Glucose 64 L (75-100) mg/dL POC Glucose 66 L 170 H (70-105) Calcium 8.3 L (8.4-10.2) mg/dL Alkaline Phosphatase 485 H (35-129) units/L Total Protein 6.0 L (6.3-8.2) g/dL Albumin 2.9 L (3.9-5) g/dL
[2016-10-07] MEDS: LOPRESSOR IV SCH ×2 (00:48→06:30)
[2016-10-07] MEDS: VANCOMYCIN PO SCH ×2 (00:49→06:31)
[2016-10-07 06:25] VITALS: BP 149/84
[2016-10-07] MEDS: LASIX IV SCH (06:31)
--- NOTE | 2016-10-07 09:48 | Discharge Summary ---
Providers - Providers Date of Admission: 09/23/16 22:22 Date of discharge: 10/07/16 Attending physician: JOYCE BECK 09/24/16 01:59 Consult to Wound/ET Nurse [CONS] Routine Reason For Exam: wound eval 09/24/16 14:14 Consult to Physician [CONS] Routine Consulting Provider: MARCO ANTONIO GONZALEZ Reason For Exam: colitis ?ischemia Place consult to:: gi Notified:: office Phone number called:: [phone] Was contact made?: Yes If yes, spoke with:: joey Time called:: 14:52 09/25/16 08:57 Consult to Physician [CONS] Routine Consulting Provider: KAREY MORIN Reason For Exam: c.diff colitis Place consult to:: DR MORIN Notified:: DR MORIN 09/26/16 13:58 Consult to Dietitian/Nutrition [CONS] Routine Physician Instructions: manage TPN Reason For Exam: Reason for Consult: Malnutrition 10/06/16 17:27 Occupational Therapy Evaluate and Treat [CONS] Urgent Comment: Reason For Exam: ADLs Physical Therapy Evaluation and Treat [CONS] Urgent Comment: Reason For Exam: Ambulation Primary care physician: [employer]ER Hospitalization Reason for admission: C. difficile diarrhea/ colitis Condition: Stable Pertinent studies: CT of abdomen and pelvis X 2 Hospital course: 76-year-old Mr. Layne was admitted through emergency room for management of C. difficile colitis and diarrhea. He was transferred from [facility] after his stool was found to be positive for C. difficile. He has a history of CABG at [facility] ordered by complications of intestinal perforation with surgery but his bowel perforation and eventually was transferred to rehabilitation for PT/OT. During his rehabilitation he developed diarrhea and he was subsequently diagnosed as C. difficile diarrhea. ID consult was obtained and he was started on oral vancomycin. For the past 2 days patient is having semi-formed stools about one or 2 a day. Since yesterday he had 1 bowel movement. He is asymptomatic. Is eating well. His been cleared for discharge by infectious disease and he will be transferred back to [facility] tapering oral vancomycin Disposition: DC/TX SNF [facility] Time spent for discharge: 35 min - Discharge Diagnoses (1) C. difficile colitis Status: Acute Comment: improved (2) Diabetes mellitus Status: Chronic Qualifiers: Diabetes mellitus type: D Diabetes mellitus complication status: D Diabetes mellitus complication detail: D Diabetic retinopathy severity: D Proliferative retinopathy type: P Diabetes mellitus macular edema: D Diabetes mellitus production helper insulin use: D Laterality: L Chronic kidney disease stage: C Comment: Stable (3) Hyperlipidemia Status: Chronic Qualifiers: Hyperlipidemia type: H (4) Hypertension Status: Chronic Qualifiers: Hypertension type: H (5) CAD (coronary artery disease) Status: Chronic Qualifiers: Coronary Disease-Associated Artery/Lesion type: C [place] vs. transplanted heart: N Associated angina: A (6) Physical deconditioning Status: Chronic Core Measure Documentation - Palliative Care Palliative Care/ Comfort Measures: Not Applicable - Core Measures Any of the following diagnoses?: none Exam - Constitutional Vitals: Temp Pulse Resp BP Pulse Ox 97.7 F 87 18 149/84 97 10/07/16 06:24 10/07/16 06:24 10/07/16 06:24 10/07/16 06:24 10/07/16 06:24 General appearance: Present: no acute distress - EENT Eyes: Present: PERRL, EOM intact ENT: hearing intact, clear oral mucosa, no thrush - Neck Neck: Present: supple, normal ROM - Respiratory Respiratory effort: normal Respiratory: bilateral: CTA, diminished, negative: rales, rhonchi - Cardiovascular Rhythm: regular Heart Sounds: Present: S1 & S2 - Extremities Extremities: No edema - Abdominal General gastrointestinal: Present: soft, non-tender. Absent: hepatomegaly, splenomegaly - Rectal Rectal Exam: deferred - Integumentary Integumentary: Present: clear - Musculoskeletal Musculoskeletal: strength equal bilaterally - Neurologic Neurologic: CNII-XII intact, no focal deficits Plan Activity: advance as tolerated, up only with assistance Weight Bearing Status: Weight Bear as Tolerated Diet: low fat, low cholesterol, low salt, diabetic Special Instructions: physical therapy, occupational therapy Follow up with: PRIMARY CARE, [Primary Care Provider] - 3-5 Days Forms: Accompanied Note Prescriptions: Vancomycin 125 mg PO Q12H #30 [email or web address]
[2016-10-07] MEDS: AMARYL PO SCH (09:57)
[2016-10-07] MEDS: PROzac PO SCH (09:57)
[2016-10-07] MEDS: HALFPRIN EC PO SCH (09:57)
[2016-10-07] MEDS: PROTONIX PO SCH (09:57)
--- NOTE | 2016-10-07 10:07 | Progress Note ---
Assessment and Plan Current antibiotics: Vancomycin 125 mg po Q6Hr 09/23 --> Previous antibiotics: Flagyl 500 mg IV q8h 09/23-10/02 Records show that he was discharged to the rehabilitation facility on ertapenem and micafungin but when they were stopped is unclear ASSESSMENT: Willian Layne is a 76-year-old male with type 2 diabetes mellitus, hypertension, hyperlipidemia and coronary artery disease who had a CABG done at [facility] on 07/22/2016 was complicated by colon perforation with the chest tube insertion with resultant intra-abdominal sepsis and subsequent exploratory laparotomies X 2 who ultimately was discharged to [facility] on 08/28/16. He was doing reasonably well until 09/19/16 when he developed nausea, vomiting and severe , watery diarrhea and a C. difficile toxin assay was positive. Problem list: 1. Severe C. diff. infection -Severe diarrhea and crampy abdominal pain -Extensive colitis seen on CT scan -Significant leukocytosis - improved. -Clinically improved 2. Coronary artery disease -Status post CABG 4 07/22/2016 3. Status post colon perforation -Status post exploratory laparotomy and subsegmental colectomy 07/27/2016 -Status post intra-abdominal sepsis 4. History of paroxysmal atrial fibrillation -Status post cardioversion at [facility] -Currently in normal sinus rhythm. 5. Leukocytosis -Secondary to #1 -Improved 6. CT scan showing small amount of free air -Rule out secondary to previous surgery -Patient clinically does not appear to have an acute bowel at this point. 7. Type 2 diabetes mellitus 8. Hypokalemia -Corrected 9. Severe deconditioning PLAN: 1. Continue PO vancomycin. Plan slow titration off therapy as described. 2. Patient for discharge today. 3. Glycemic control as per the hospitalist service 4. Continue C. difficile isolation precautions 5. Nothing else to add. Call again if need be. Thank you. Subjective Date of service: 10/07/16 Principal diagnosis: colitis with sepsis Interval history: Continues with improved diarrhea. Discussed slow titration of oral vancomycin over the next several weeks time. Patient is concerned about his general weakness and not being able to manage at the rehabilitation center. Otherwise discussed with decreasing vancomycin by 1 dose every 2 weeks over the next 6 weeks time ( vancomycin 125 mg by mouth 3 times a day x 2 weeks ; then 125 mg twice a day 2 weeks; then 125 mg daily 2 weeks then stopping. Trying to avoid C. difficile relapse if possible. Objective - Exam Narrative Exam: GENERAL: Well-developed, well-nourished appearing male who is alert and in no acute distress. He looks somewhat chronically ill but not acutely so. HEAD: Normocephalic. No lesions seen. EYES: Pupils are equal reactive to light and accommodation. There is no scleral icterus. Optic fundi are not examined. EARS: Normal external ears without any drainage THROAT: Oropharynx is normal with no evidence of oral candidiasis or pharyngitis. NECK: Supple. No enlargement of the thyroid gland. No significant cervical lymphadenopathy. No jugular venous distention at 30. LUNGS: Clear with no adventitious sounds. CHEST: Healed sternotomy scar with mild erythema but no increased warmth nor tenderness. HEART: Regular rate. S1 and S2 are normal. There are no murmurs, gallops, clicks or rubs heard. ABDOMEN: Soft, only minimally distended and nontender. Liver and spleen are not palpably enlarged or tender. No palpable masses. Bowel sounds are normoactive. Midline abdominal wound without redness or discharge. EXTREMITIES: No rash, peripheral lymphadenopathy, clubbing or edema. Well- healed surgical scar over the right hip from previous replacements with no signs of infection. NEUROLOGIC: No focal findings. - Constitutional Vitals: Vital Signs Temp Pulse Resp BP Pulse Ox 97.7 F 87 18 149/84 97 10/07/16 06:24 10/07/16 06:24 10/07/16 06:24 10/07/16 06:24 10/07/16 06:24 Temperature -Last 24 Hours Temperature 97.7 F Temperature 98.1 F Temperature 98.6 F Temperature 98.6 F Temperature 98.1 F - Labs CBC & Chem 7: 10/06/16 05:07 10/06/16 05:07 Labs: Abnormal lab results 10/06/16 10/06/16 10/06/16 Range/Units 08:04 11:42 21:22 POC Glucose 66 L 170 H 147 H (70-105)
== END 2016-10-07 13:22 | DRG 871 ==
LOC: ED 15:17 → 4A 22:22
PROVIDERS: ADMIT Internal Medicine; ATTEND Internal Medicine
DX: A41.9 Sepsis, unspecified organism (principal); K63.1 Perforation of intestine (nontraumatic); A04.7 Enterocolitis due to Clostridium difficile; R18.8 Other ascites; E87.1 Hypo-osmolality and hyponatremia; T81.30XA Disruption of wound, unspecified, initial encounter; I10 Essential (primary) hypertension; K21.9 Gastro-esophageal reflux disease without esophagitis; I25.10 Atherosclerotic heart disease of native coronary artery without angina pectoris; E78.5 Hyperlipidemia, unspecified; E87.6 Hypokalemia; E11.65 Type 2 diabetes mellitus with hyperglycemia; Y83.9 Surgical procedure, unspecified as the cause of abnormal reaction of the patient, or of later complication, without mention of misadventure at the time of the procedure; I48.0 Paroxysmal atrial fibrillation; E83.42 Hypomagnesemia; Z87.891 Personal history of nicotine dependence; Z79.82 Long term (current) use of aspirin; Z90.49 Acquired absence of other specified parts of digestive tract; Z88.0 Allergy status to penicillin; Z88.6 Allergy status to analgesic agent; Y92.89 Other specified places as the place of occurrence of the external cause; Z95.1 Presence of aortocoronary bypass graft; Z79.4 Long term (current) use of insulin
CPT/HCPCS: 36415; 74000; 74176; 74177; 80048; 80053; 82140; 82962; 83690; 83735; 83880; 84100; 84478; 85007; 85025; 85027; 85610; 85730; 86850; 86900; 86901; 87040; 93005; 93010; 96366; 96374; 96375; G8987-GO; G8988-GO; G8989-GO; J1642; J1940; J1956; J2405; J3010; J3370; J3475; J3480; J7030; J7050; Q9967

== ENCOUNTER 2017-03-14 17:18 | Inpatient (IN) | payer MEDICARE ==
[2017-03-14] MEDS ORDERED: ZOFRAN ONE (17:29)
--- NOTE | 2017-03-14 18:45 | Emergency Department Report ---
ED Altered Mental Status HPI - General Chief Complaint: Altered Mental Status Stated Complaint: AMS Time Seen by Provider: 03/14/17 18:44 Source: EMS Mode of arrival: Stretcher Limitations: No Limitations - History of Present Illness Initial Comments: Patient is a 76-year-old male who presents with lethargy and altered mental status. Further history is unobtainable due to patient's altered mental status. EMS patient was found down by his neighbor. Patient was alert and oriented when he came to the ER yesterday due to his daughter being unresponsive. Patient lives at home by himself - Related Data Home Medications Medication Instructions Recorded Confirmed Last Taken Aspirin [Adult Low Dose Aspirin EC] 81 mg PO DAILY 07/20/16 09/24/16 1 Day Ago Carvedilol [Coreg] 25 mg PO BID 07/20/16 09/24/16 1 Day Ago FLUoxetine HCL [FLUoxetine] 40 mg PO DAILY 07/20/16 09/24/16 1 Day Ago Fenofibrate [Lofibra] 160 mg PO QDAY 07/20/16 09/24/16 1 Day Ago Lisinopril [Zestril TAB] 2.5 mg PO QDAY 07/20/16 09/24/16 1 Day Ago Nitroglycerin [Nitrostat] 0.4 mg SL Q5M PRN 07/20/16 09/24/16 09/15/16 08:00 amLODIPine [Norvasc] 10 mg PO DAILY 07/20/16 09/24/16 1 Day Ago glipiZIDE [glipiZIDE ER] 5 mg PO QAM 07/20/16 09/24/16 1 Day Ago Previous Rx's Medication Instructions Recorded Last Taken Type Pantoprazole [Protonix TAB] 20 mg PO QDAY tablet. 10/07/16 Unknown Rx Vancomycin Po 125 mg PO Q12H #30 oral.wicho 10/07/16 Unknown Rx Allergies Allergy/AdvReac Type Severity Reaction Status Date / Time Penicillins Allergy Mild REDNESS, Verified 07/20/16 08:16 WARM FEELING,SWELLING morphine AdvReac Intermediate VERY Verified 07/20/16 08:16 JITTERY, TWITCHING, JUMPING ED Review of Systems ROS: Stated complaint: AMS Other details as noted in HPI Comment: Unobtainable due to pts medical conditions (altered mental status) ED Past Medical Hx - Past Medical History Hx Hypertension: Yes (30yrs ago) Hx Heart Attack/AMI: No Hx Congestive Heart Failure: No Hx Diabetes: Yes (pill control) Hx GERD: Yes - Surgical History Hx Coronary Stent: No Hx Open Heart Surgery: Yes Additional Surgical History: 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 Bowel surgery 2016 - Social History Smoking Status: Current Some Day Smoker Substance Use Type: None - Medications Home Medications: Home Medications Medication Instructions Recorded Confirmed Last Taken Type Aspirin [Adult Low Dose Aspirin EC] 81 mg PO DAILY 07/20/16 09/24/16 1 Day Ago History Carvedilol [Coreg] 25 mg PO BID 07/20/16 09/24/16 1 Day Ago History FLUoxetine HCL [FLUoxetine] 40 mg PO DAILY 07/20/16 09/24/16 1 Day Ago History Fenofibrate [Lofibra] 160 mg PO QDAY 07/20/16 09/24/16 1 Day Ago History Lisinopril [Zestril TAB] 2.5 mg PO QDAY 07/20/16 09/24/16 1 Day Ago History Nitroglycerin [Nitrostat] 0.4 mg SL Q5M PRN 07/20/16 09/24/16 09/15/16 08:00 History amLODIPine [Norvasc] 10 mg PO DAILY 07/20/16 09/24/16 1 Day Ago History glipiZIDE [glipiZIDE ER] 5 mg PO QAM 07/20/16 09/24/16 1 Day Ago History Pantoprazole [Protonix TAB] 20 mg PO QDAY tablet. 10/07/16 Unknown Rx Vancomycin Po 125 mg PO Q12H #30 oral.liqd 10/07/16 Unknown Rx ED Physical Exam - General Limitations: Altered Mental Status - Head Head exam: Present: atraumatic, normocephalic - Eye Eye exam: Present: normal appearance - ENT ENT exam: Present: normal exam - Neck Neck exam: Present: normal inspection - Respiratory Respiratory exam: Present: normal lung sounds bilaterally - Cardiovascular Cardiovascular Exam: Present: regular rate, normal rhythm - GI/Abdominal GI/Abdominal exam: Present: soft. Absent: guarding, rebound - Extremities Exam Extremities exam: Present: normal inspection, full ROM - Back Exam Back exam: Present: normal inspection - Neurological Exam Neurological exam: Present: altered. Absent: oriented X3 - Psychiatric Psychiatric exam: Present: other (altered mental status) - Skin Skin exam: Present: warm ED Course Vital Signs 03/14/17 03/14/17 03/14/17 17:24 17:30 17:45 Temperature Pulse Rate 51 L 63 60 Respiratory 14 13 11 L Rate Blood Pressure 125/71 124/72 O2 Sat by Pulse 99 99 Oximetry 03/14/17 03/14/17 03/14/17 17:46 18:00 18:15 Temperature 98.6 F Pulse Rate 60 57 L 61 Respiratory 16 10 L 12 Rate Blood Pressure 125/71 124/72 123/82 O2 Sat by Pulse 99 97 97 Oximetry 03/14/17 03/14/17 03/14/17 18:30 18:45 19:00 Temperature Pulse Rate 67 102 H 65 Respiratory 13 19 13 Rate Blood Pressure 123/82 143/104 119/63 O2 Sat by Pulse 96 96 95 Oximetry 03/14/17 03/14/17 03/14/17 19:15 19:30 19:46 Temperature Pulse Rate 60 64 65 Respiratory 11 L 10 L 19 Rate Blood Pressure 113/58 143/104 78/44 O2 Sat by Pulse 98 95 Oximetry 03/14/17 03/14/17 03/14/17 19:52 20:00 20:16 Temperature Pulse Rate 59 L 52 L Respiratory 18 9 L 13 Rate Blood Pressure 111/63 117/66 O2 Sat by Pulse 100 99 Oximetry 03/14/17 03/14/17 03/14/17 20:30 20:46 21:00 Temperature Pulse Rate 52 L 60 63 Respiratory 9 L 12 11 L Rate Blood Pressure 117/66 107/71 107/71 O2 Sat by Pulse 100 98 99 Oximetry 03/14/17 03/14/17 03/14/17 21:15 21:30 21:46 Temperature Pulse Rate 57 L 63 86 Respiratory 11 L 10 L 14 Rate Blood Pressure 107/74 107/71 136/79 O2 Sat by Pulse 100 99 99 Oximetry 03/14/17 03/14/17 03/14/17 22:00 22:15 22:30 Temperature Pulse Rate 69 62 77 Respiratory 15 10 L 25 H Rate Blood Pressure 123/65 127/75 123/65 O2 Sat by Pulse 89 99 86 Oximetry 03/14/17 03/14/17 22:46 23:00 Temperature Pulse Rate 78 83 Respiratory 13 14 Rate Blood Pressure 142/78 151/87 O2 Sat by Pulse 95 97 Oximetry - Reevaluation(s) Reevaluation #1: 03/14/17 23:59 Patient's son in [place] he states that this is not the patient's normal state. He is usually very alert and oriented and can take care of himself. He lives by himself. Patient's son is the power of facility rehab director. - Lab Data Result diagrams: 03/14/17 18:09 03/14/17 18:09 Lab Results 03/14/17 03/14/17 03/14/17 Range/Units 17:35 18:09 18:09 WBC 7.4 (4.5-11.0) K/mm3 RBC 4.85 (3.65-5.03) M/mm3 Hgb 13.5 (11.8-15.2) gm/dl Hct 41.3 (35.5-45.6) % MCV 85 (84-94) fl MCH 28 (28-32) pg MCHC 33 (32-34) % RDW 17.5 H (13.2-15.2) % Plt Count 244 (140-440) K/mm3 Lymph % (Auto) 18.0 (13.4-35.0) % Andrews % (Auto) 7.8 H (0.0-7.3) % Eos % (Auto) 0.5 (0.0-4.3) % Baso % (Auto) 0.8 (0.0-1.8) % Lymph # 1.3 (1.2-5.4) K/mm3 Andrews # 0.6 (0.0-0.8) K/mm3 Eos # 0.0 (0.0-0.4) K/mm3 Baso # 0.1 (0.0-0.1) K/mm3 Seg Neutrophils % 72.9 H (40.0-70.0) % Seg Neutrophils # 5.4 (1.8-7.7) K/mm3 Sodium 139 (137-145) mmol/L Potassium 5.3 H (3.6-5.0) mmol/L Chloride 104.5 (98-107) mmol/L Carbon Dioxide 18 L (22-30) mmol/L Anion Gap 22 mmol/L BUN 60 H (9-20) mg/dL Creatinine 2.0 H (0.8-1.5) mg/dL Estimated GFR 33 ml/min BUN/Creatinine Ratio 30.00 % Glucose 88 (75-100) mg/dL POC Glucose 90 (70-105) Lactic Acid (0.7-2.0) mmol/L Calcium 9.3 (8.4-10.2) mg/dL Magnesium 2.50 H (1.7-2.3) mg/dL Total Bilirubin 0.20 (0.1-1.2) mg/dL AST 20 (5-40) units/L ALT 20 (7-56) units/L Alkaline Phosphatase 55 (35-129) units/L Total Creatine Kinase (55-170) units/L Troponin T (0.00-0.029) ng/mL Total Protein 7.8 (6.3-8.2) g/dL Albumin 4.1 (3.9-5) g/dL Albumin/Globulin Ratio 1.1 % Triglycerides (2-149) mg/dL Cholesterol (50-199) mg/dL LDL Cholesterol Direct (50-130) mg/dL HDL Cholesterol (40-59) mg/dL Cholesterol/HDL Ratio % TSH (0.270-4.200) mlU/mL Urine Color (Yellow) Urine Turbidity (Clear) Urine pH (5.0-7.0) Ur Specific [place] (1.003-1.030) Urine Protein (Negative) mg/dL Urine Glucose (UA) (Negative) mg/dL Urine Ketones (Negative) mg/dL Urine Blood (Negative) Urine Nitrite (Negative) Urine Bilirubin (Negative) Urine Urobilinogen (<2.0) mg/dL Ur Leukocyte Esterase (Negative) Urine WBC (Auto) (0.0-6.0) /HPF Urine RBC (Auto) (0.0-6.0) /HPF Urine Bacteria (Auto) (Negative) /HPF Granular Casts /LPF Urine Mucus /HPF Salicylates (2.8-20.0) mg/dL Urine Opiates Screen Urine Methadone Screen Acetaminophen (10.0-30.0) ug/mL Ur Barbiturates Screen Ur Phencyclidine Scrn Ur Amphetamines Screen U Benzodiazepines Scrn Urine Cocaine Screen U Marijuana (THC) Screen Drugs of Abuse Note Plasma/Serum Alcohol (0-0.07) gm% 07/30/17 07/30/17 07/30/17 Range/Units 18:09 18:09 18:09 WBC (4.5-11.0) K/mm3 RBC (3.65-5.03) M/mm3 Hgb (11.8-15.2) gm/dl Hct (35.5-45.6) % MCV (84-94) fl MCH (28-32) pg MCHC (32-34) % RDW (13.2-15.2) % Plt Count (140-440) K/mm3 Lymph % (Auto) (13.4-35.0) % Andrews % (Auto) (0.0-7.3) % Eos % (Auto) (0.0-4.3) % Baso % (Auto) (0.0-1.8) % Lymph # (1.2-5.4) K/mm3 Andrews # (0.0-0.8) K/mm3 Eos # (0.0-0.4) K/mm3 Baso # (0.0-0.1) K/mm3 Seg Neutrophils % (40.0-70.0) % Seg Neutrophils # (1.8-7.7) K/mm3 Sodium (137-145) mmol/L Potassium (3.6-5.0) mmol/L Chloride (98-107) mmol/L Carbon Dioxide (22-30) mmol/L Anion Gap mmol/L BUN (9-20) mg/dL Creatinine (0.8-1.5) mg/dL Estimated GFR ml/min BUN/Creatinine Ratio % Glucose (75-100) mg/dL POC Glucose (70-105) Lactic Acid 0.80 (0.7-2.0) mmol/L Calcium (8.4-10.2) mg/dL Magnesium (1.7-2.3) mg/dL Total Bilirubin (0.1-1.2) mg/dL AST (5-40) units/L ALT (7-56) units/L Alkaline Phosphatase (35-129) units/L Total Creatine Kinase (55-170) units/L Troponin T (0.00-0.029) ng/mL Total Protein (6.3-8.2) g/dL Albumin (3.9-5) g/dL Albumin/Globulin Ratio % Triglycerides (2-149) mg/dL Cholesterol (50-199) mg/dL LDL Cholesterol Direct (50-130) mg/dL HDL Cholesterol (40-59) mg/dL Cholesterol/HDL Ratio % TSH 1.960 (0.270-4.200) mlU/mL Urine Color (Yellow) Urine Turbidity (Clear) Urine pH (5.0-7.0) Ur Specific [place] (1.003-1.030) Urine Protein (Negative) mg/dL Urine Glucose (UA) (Negative) mg/dL Urine Ketones (Negative) mg/dL Urine Blood (Negative) Urine Nitrite (Negative) Urine Bilirubin (Negative) Urine Urobilinogen (<2.0) mg/dL Ur Leukocyte Esterase (Negative) Urine WBC (Auto) (0.0-6.0) /HPF Urine RBC (Auto) (0.0-6.0) /HPF Urine Bacteria (Auto) (Negative) /HPF Granular Casts /LPF Urine Mucus /HPF Salicylates < 0.3 L (2.8-20.0) mg/dL Urine Opiates Screen Urine Methadone Screen Acetaminophen (10.0-30.0) ug/mL Ur Barbiturates Screen Ur Phencyclidine Scrn Ur Amphetamines Screen U Benzodiazepines Scrn Urine Cocaine Screen U Marijuana (THC) Screen Drugs of Abuse Note Plasma/Serum Alcohol (0-0.07) gm% 03/14/17 03/14/17 03/14/17 Range/Units 18:09 18:09 20:00 WBC (4.5-11.0) K/mm3 RBC (3.65-5.03) M/mm3 Hgb (11.8-15.2) gm/dl Hct (35.5-45.6) % MCV (84-94) fl MCH (28-32) pg MCHC (32-34) % RDW (13.2-15.2) % Plt Count (140-440) K/mm3 Lymph % (Auto) (13.4-35.0) % Andrews % (Auto) (0.0-7.3) % Eos % (Auto) (0.0-4.3) % Baso % (Auto) (0.0-1.8) % Lymph # (1.2-5.4) K/mm3 Andrews # (0.0-0.8) K/mm3 Eos # (0.0-0.4) K/mm3 Baso # (0.0-0.1) K/mm3 Seg Neutrophils % (40.0-70.0) % Seg Neutrophils # (1.8-7.7) K/mm3 Sodium (137-145) mmol/L Potassium (3.6-5.0) mmol/L Chloride (98-107) mmol/L Carbon Dioxide (22-30) mmol/L Anion Gap mmol/L BUN (9-20) mg/dL Creatinine (0.8-1.5) mg/dL Estimated GFR ml/min BUN/Creatinine Ratio % Glucose (75-100) mg/dL POC Glucose (70-105) Lactic Acid (0.7-2.0) mmol/L Calcium (8.4-10.2) mg/dL Magnesium (1.7-2.3) mg/dL Total Bilirubin (0.1-1.2) mg/dL AST (5-40) units/L ALT (7-56) units/L Alkaline Phosphatase (35-129) units/L Total Creatine Kinase (55-170) units/L Troponin T (0.00-0.029) ng/mL Total Protein (6.3-8.2) g/dL Albumin (3.9-5) g/dL Albumin/Globulin Ratio % Triglycerides (2-149) mg/dL Cholesterol (50-199) mg/dL LDL Cholesterol Direct (50-130) mg/dL HDL Cholesterol (40-59) mg/dL Cholesterol/HDL Ratio % TSH (0.270-4.200) mlU/mL Urine Color Yellow (Yellow) Urine Turbidity Clear (Clear) Urine pH 5.0 (5.0-7.0) Ur Specific [place] 1.018 (1.003-1.030) Urine Protein 100 mg/dl (Negative) mg/dL Urine Glucose (UA) Neg (Negative) mg/dL Urine Ketones Neg (Negative) mg/dL Urine Blood Mod (Negative) Urine Nitrite Neg (Negative) Urine Bilirubin Neg (Negative) Urine Urobilinogen < 2.0 (<2.0) mg/dL Ur Leukocyte Esterase Tr (Negative) Urine WBC (Auto) 2.0 (0.0-6.0) /HPF Urine RBC (Auto) 25.0 (0.0-6.0) /HPF Urine Bacteria (Auto) 1+ (Negative) /HPF Granular Casts 84 /LPF Urine Mucus Few /HPF Salicylates (2.8-20.0) mg/dL Urine Opiates Screen Urine Methadone Screen Acetaminophen < 15.0 (10.0-30.0) ug/mL Ur Barbiturates Screen Ur Phencyclidine Scrn Ur Amphetamines Screen U Benzodiazepines Scrn Urine Cocaine Screen U Marijuana (THC) Screen Drugs of Abuse Note Plasma/Serum Alcohol < 0.01 (0-0.07) gm% 03/14/17 03/14/17 03/14/17 Range/Units 20:00 20:43 20:43 WBC (4.5-11.0) K/mm3 RBC (3.65-5.03) M/mm3 Hgb (11.8-15.2) gm/dl Hct (35.5-45.6) % MCV (84-94) fl MCH (28-32) pg MCHC (32-34) % RDW (13.2-15.2) % Plt Count (140-440) K/mm3 Lymph % (Auto) (13.4-35.0) % Andrews % (Auto) (0.0-7.3) % Eos % (Auto) (0.0-4.3) % Baso % (Auto) (0.0-1.8) % Lymph # (1.2-5.4) K/mm3 Andrews # (0.0-0.8) K/mm3 Eos # (0.0-0.4) K/mm3 Baso # (0.0-0.1) K/mm3 Seg Neutrophils % (40.0-70.0) % Seg Neutrophils # (1.8-7.7) K/mm3 Sodium (137-145) mmol/L Potassium (3.6-5.0) mmol/L Chloride (98-107) mmol/L Carbon Dioxide (22-30) mmol/L Anion Gap mmol/L BUN (9-20) mg/dL Creatinine (0.8-1.5) mg/dL Estimated GFR ml/min BUN/Creatinine Ratio % Glucose (75-100) mg/dL POC Glucose (70-105) Lactic Acid 1.20 (0.7-2.0) mmol/L Calcium (8.4-10.2) mg/dL Magnesium (1.7-2.3) mg/dL Total Bilirubin (0.1-1.2) mg/dL AST (5-40) units/L ALT (7-56) units/L Alkaline Phosphatase (35-129) units/L Total Creatine Kinase 102 (55-170) units/L Troponin T (0.00-0.029) ng/mL Total Protein (6.3-8.2) g/dL Albumin (3.9-5) g/dL Albumin/Globulin Ratio % Triglycerides (2-149) mg/dL Cholesterol (50-199) mg/dL LDL Cholesterol Direct (50-130) mg/dL HDL Cholesterol (40-59) mg/dL Cholesterol/HDL Ratio % TSH (0.270-4.200) mlU/mL Urine Color (Yellow) Urine Turbidity (Clear) Urine pH (5.0-7.0) Ur Specific [place] (1.003-1.030) Urine Protein (Negative) mg/dL Urine Glucose (UA) (Negative) mg/dL Urine Ketones (Negative) mg/dL Urine Blood (Negative) Urine Nitrite (Negative) Urine Bilirubin (Negative) Urine Urobilinogen (<2.0) mg/dL Ur Leukocyte Esterase (Negative) Urine WBC (Auto) (0.0-6.0) /HPF Urine RBC (Auto) (0.0-6.0) /HPF Urine Bacteria (Auto) (Negative) /HPF Granular Casts /LPF Urine Mucus /HPF Salicylates (2.8-20.0) mg/dL Urine Opiates Screen Presumptive negative Urine Methadone Screen Presumptive negative Acetaminophen (10.0-30.0) ug/mL Ur Barbiturates Screen Presumptive negative Ur Phencyclidine Scrn Presumptive negative Ur Amphetamines Screen Presumptive negative U Benzodiazepines Scrn Presumptive negative Urine Cocaine Screen Presumptive negative U Marijuana (THC) Screen Presumptive negative Drugs of Abuse Note Disclamer Plasma/Serum Alcohol (0-0.07) gm% 03/14/17 Range/Units 20:43 WBC (4.5-11.0) K/mm3 RBC (3.65-5.03) M/mm3 Hgb (11.8-15.2) gm/dl Hct (35.5-45.6) % MCV (84-94) fl MCH (28-32) pg MCHC (32-34) % RDW (13.2-15.2) % Plt Count (140-440) K/mm3 Lymph % (Auto) (13.4-35.0) % Andrews % (Auto) (0.0-7.3) % Eos % (Auto) (0.0-4.3) % Baso % (Auto) (0.0-1.8) % Lymph # (1.2-5.4) K/mm3 Andrews # (0.0-0.8) K/mm3 Eos # (0.0-0.4) K/mm3 Baso # (0.0-0.1) K/mm3 Seg Neutrophils % (40.0-70.0) % Seg Neutrophils # (1.8-7.7) K/mm3 Sodium (137-145) mmol/L Potassium (3.6-5.0) mmol/L Chloride (98-107) mmol/L Carbon Dioxide (22-30) mmol/L Anion Gap mmol/L BUN (9-20) mg/dL Creatinine (0.8-1.5) mg/dL Estimated GFR ml/min BUN/Creatinine Ratio % Glucose (75-100) mg/dL POC Glucose (70-105) Lactic Acid (0.7-2.0) mmol/L Calcium (8.4-10.2) mg/dL Magnesium (1.7-2.3) mg/dL Total Bilirubin (0.1-1.2) mg/dL AST (5-40) units/L ALT (7-56) units/L Alkaline Phosphatase (35-129) units/L Total Creatine Kinase (55-170) units/L Troponin T 0.062 H (0.00-0.029) ng/mL Total Protein (6.3-8.2) g/dL Albumin (3.9-5) g/dL Albumin/Globulin Ratio % Triglycerides 256 H (2-149) mg/dL Cholesterol 137 (50-199) mg/dL LDL Cholesterol Direct 52 (50-130) mg/dL HDL Cholesterol 34 L (40-59) mg/dL Cholesterol/HDL Ratio 4.02 % TSH (0.270-4.200) mlU/mL Urine Color (Yellow) Urine Turbidity (Clear) Urine pH (5.0-7.0) Ur Specific [place] (1.003-1.030) Urine Protein (Negative) mg/dL Urine Glucose (UA) (Negative) mg/dL Urine Ketones (Negative) mg/dL Urine Blood (Negative) Urine Nitrite (Negative) Urine Bilirubin (Negative) Urine Urobilinogen (<2.0) mg/dL Ur Leukocyte Esterase (Negative) Urine WBC (Auto) (0.0-6.0) /HPF Urine RBC (Auto) (0.0-6.0) /HPF Urine Bacteria (Auto) (Negative) /HPF Granular Casts /LPF Urine Mucus /HPF Salicylates (2.8-20.0) mg/dL Urine Opiates Screen Urine Methadone Screen Acetaminophen (10.0-30.0) ug/mL Ur Barbiturates Screen Ur Phencyclidine Scrn Ur Amphetamines Screen U Benzodiazepines Scrn Urine Cocaine Screen U Marijuana (THC) Screen Drugs of Abuse Note Plasma/Serum Alcohol (0-0.07) gm% 03/15/17 00:02 EKG shows sinus bradycardia with sinus arrhythmia with first-degree AV block left axis deviation and nonspecific interfaith trickle or block and no ST segment elevations or T-wave inversions. - Radiology Data Radiology results: report reviewed, image reviewed Patient's CT head shows no acute intracranial abnormality. Patient's chest x-ray shows no acute cardiopulmonary abnormality. - Medical Decision Making Chief medical diagnosis: altered mental status secondary to CHINTAN Differential medical diagnosis: Non-STEMI, pneumonia, UTI, sepsis, medication effect We'll get CBC, CMP, troponin, EKG, CT head, chest x-ray, UA, acetaminophen level , Patient's labs show acute kidney injury we'll give fluids patient also has elevated troponin will give patient aspirin will admit patient for altered mental status discussed on the patient's son he agrees the plan. Critical care attestation.: If time is entered above; I have spent that time in minutes in the direct care of this critically ill patient, excluding procedure time. ED Disposition Clinical Impression: Elevated troponin, Acute kidney injury Altered mental status Qualifiers: Altered mental status type: unspecified Qualified Code(s): R41.82 - Altered mental status, unspecified Disposition: DC-09 OP ADMIT IP TO THIS HOSP Is pt being admited?: Yes Does the pt Need Aspirin: No (patient received aspirin) Condition: Stable Referrals: PRIMARY CARE, [Primary Care Provider] - 3-5 Days Time of Disposition: 00:08
[2017-03-14 18:47] LABS: Basophils % (Auto) 0.8 % (0.0-1.8); Eosinophils % (Auto) 0.5 % (0.0-4.3); Hematocrit 41.3 % (35.5-45.6); Hemoglobin 13.5 gm/dl (11.8-15.2); Mean Corpuscular HGB Conc 33 % (32-34); Mean Corpuscular Hemoglobin 28 pg (28-32); Mean Corpuscular Volume 85 fl (84-94); Platelet Count 244 K/mm3 (140-440); Red Blood Count 4.85 M/mm3 (3.65-5.03); Red Cell Distribution Width 17.5 % (13.2-15.2); White Blood Count 7.4 K/mm3 (4.5-11.0)
[2017-03-14 18:49] LABS: Albumin 4.1 g/dL (3.9-5); Albumin/Globulin Ratio 1.1 %; Bilirubin,Total 0.2 mg/dL (0.1-1.2); Calcium 9.3 mg/dL (8.4-10.2); Chloride 104.5 mmol/L (98-107); Magnesium 2.5 mg/dL (1.7-2.3); Potassium 5.3 mmol/L (3.6-5.0); Total Protein 7.8 g/dL (6.3-8.2)
[2017-03-14] MEDS ORDERED: ZOFRAN IV ONE (19:15)
--- NOTE | 2017-03-14 19:44 | Cat Scan Report ---
FINAL REPORT PROCEDURE: CT HEAD/BRAIN WO CON TECHNIQUE: Computerized tomography of the head was performed without contrast material. HISTORY: altered mental status COMPARISON: No prior studies are available for comparison. FINDINGS: There are mild age-appropriate involutional changes. The intracranial arteries are symmetric in density. No CT evidence of intracranial mass, hemorrhage, acute territorial infarction, or hydrocephalus. Calvarium is intact. Visualized paranasal sinuses and mastoids are aerated. IMPRESSION: No CT evidence of acute intracranial abnormality
--- NOTE | 2017-03-14 19:45 | XRay Report ---
FINAL REPORT PROCEDURE: XR CHEST 1V AP TECHNIQUE: Chest radiograph anteroposterior view. CPT 41222 HISTORY: altered mental status COMPARISON: No prior studies are available for comparison. FINDINGS: Heart: Normal. Mediastinum/Vessels: Normal contour. Lungs/Pleural space: No infiltrate, effusion, or pneumothorax is seen. Lucency beneath the left hemidiaphragm is likely related to air within the stomach. Bony thorax: No acute osseous abnormality. Life support devices: None. IMPRESSION: No radiographic evidence of acute cardiopulmonary abnormality.
[2017-03-14 20:09] LABS: Urine Drugs of Abuse Note Disclamer
[2017-03-14] MEDS ORDERED: NACL 0.9% 500 ML 500 ML IV ONE (20:11)
[2017-03-14 20:43] LABS: Bacteria,Urine 1+ /HPF (Negative); Bilirubin,Urine NEG (Negative); Blood,Urine MOD (Negative); Granular Casts,Urine 84 /LPF; Ketones,Urine NEG (Negative); Leukocyte Esterase,Urine TR (Negative); Mucus,Urine FEW /HPF; Nitrite,Urine NEG (Negative); Urobilinogen,Urine < 2.0 mg/dL (<2.0)
[2017-03-14] MEDS ORDERED: BABY ASPIRIN PO ONE (21:07)
--- NOTE | 2017-03-14 23:56 | History and Physical Report ---
History of Present Illness Chief complaint: Im sick History of present illness: 76 YO Male with HTN, DM, CAD S/P CABG, Nicotine Dependence presents to ED for evaluation. Pt unable to provide history, but history is taken from ED staff and EMS. Pt lives alone, and was found by his daughter at his home, confused, dishevelled, and smelling of urine. No reports of fever, chills, CP, Palpitations, NVD, Trauma, Falls, productive cough, skin rashes, or recent ill contacts. Pt seen and evaluated in ED and found to have sepsis. Past History Past Medical History: CAD, diabetes, hypertension Past Surgical History: CABG, bowel surgery Social history: , smoking. denies: alcohol abuse, prescription drug abuse, IV drug use Family history: hypertension Medications and Allergies Allergies Allergy/AdvReac Type Severity Reaction Status Date / Time Penicillins Allergy Mild REDNESS, Verified 07/20/16 08:16 WARM FEELING,SWELLING morphine AdvReac Intermediate VERY Verified 07/20/16 08:16 JITTERY, TWITCHING, JUMPING Home Medications Medication Instructions Recorded Confirmed Last Taken Type Aspirin [Adult Low Dose Aspirin EC] 81 mg PO DAILY 07/20/16 03/15/17 03/14/17 History Carvedilol [Coreg] 25 mg PO BID 07/20/16 03/15/17 03/14/17 History FLUoxetine HCL [FLUoxetine] 40 mg PO DAILY 07/20/16 03/15/17 03/14/17 History Fenofibrate [Lofibra] 160 mg PO QDAY 07/20/16 03/15/17 03/14/17 History Lisinopril [Zestril TAB] 2.5 mg PO QDAY 07/20/16 03/15/17 03/14/17 History Nitroglycerin [Nitrostat] 0.4 mg SL Q5M PRN 07/20/16 03/15/17 09/15/16 08:00 History amLODIPine [Norvasc] 10 mg PO DAILY 07/20/16 03/15/17 03/14/17 History glipiZIDE [glipiZIDE ER] 5 mg PO QAM 07/20/16 03/15/17 03/14/17 History Pantoprazole [Protonix TAB] 20 mg PO QDAY tablet. 10/07/16 03/15/17 03/14/17 Rx Review of Systems ROS unobtainable: due to mental status Exam - Constitutional Vitals: Temp Pulse Resp BP Pulse Ox 98.6 F 83 14 151/87 97 03/14/17 17:46 03/14/17 23:00 03/14/17 23:00 03/14/17 23:00 03/14/17 23:00 General appearance: Present: mild distress, disheveled, malodorous - EENT Eyes: Present: PERRL ENT: hearing intact, clear oral mucosa - Neck Neck: Present: supple, normal ROM - Respiratory Respiratory effort: normal Respiratory: bilateral: diminished - Cardiovascular Heart Sounds: Present: S1 & S2. Absent: rub, click - Extremities Extremities: pulses symmetrical, No edema Peripheral Pulses: abnormal (Capillary Refill: 3.5 seconds) - Abdominal General gastrointestinal: Present: soft, non-tender, non-distended, normal bowel sounds, other (3x3 cm lesion mid abdomen with suture protruding from wound ) Male genitourinary: Present: normal - Integumentary Integumentary: Present: clear, dry, clammy, decreased turgor - Musculoskeletal Musculoskeletal: generalized weakness - Psychiatric Psychiatric: no intact judgment & insight, no memory intact - Neurologic Neurologic: no focal deficits, no gait normal Results - Labs CBC & Chem 7: 03/15/17 01:54 03/15/17 01:54 Labs: Abnormal lab results 03/14/17 03/14/17 03/14/17 Range/Units 18:09 18:09 18:09 RDW 17.5 H (13.2-15.2) % [place] % (Auto) 7.8 H (0.0-7.3) % Seg Neutrophils % 72.9 H (40.0-70.0) % Potassium 5.3 H (3.6-5.0) mmol/L Carbon Dioxide 18 L (22-30) mmol/L BUN 60 H (9-20) mg/dL Creatinine 2.0 H (0.8-1.5) mg/dL Magnesium 2.50 H (1.7-2.3) mg/dL Troponin T (0.00-0.029) ng/mL Triglycerides (2-149) mg/dL HDL Cholesterol (40-59) mg/dL Salicylates < 0.3 L (2.8-20.0) mg/dL 03/14/17 Range/Units 20:43 RDW (13.2-15.2) % [place] % (Auto) (0.0-7.3) % Seg Neutrophils % (40.0-70.0) % Potassium (3.6-5.0) mmol/L Carbon Dioxide (22-30) mmol/L BUN (9-20) mg/dL Creatinine (0.8-1.5) mg/dL Magnesium (1.7-2.3) mg/dL Troponin T 0.062 H (0.00-0.029) ng/mL Triglycerides 256 H (2-149) mg/dL HDL Cholesterol 34 L (40-59) mg/dL Salicylates (2.8-20.0) mg/dL Assessment and Plan - Patient Problems (1) Sepsis Current Visit: Yes Status: Acute Qualifiers: Sepsis type: S Plan to address problem: Sepsis protocol: IV abx, ivf, supportive care, blood culture, serial lactate, repeat bmp, supportive care. (2) UTI (urinary tract infection) Current Visit: Yes Status: Acute Qualifiers: Urinary tract infection type: U Hematuria presence: H Indwelling urinary catheter type: I Encounter type: E Plan to address problem: IV abx, supportive care, (3) ARF (acute renal failure) Current Visit: Yes Status: Acute Qualifiers: Acute renal failure type: A Plan to address problem: IVF, monitor uop q shift, (4) Metabolic acidosis Current Visit: Yes Status: Acute Plan to address problem: treat sepsis, ivf, supportive care, repeat bmp (5) Cellulitis of abdominal wall Current Visit: Yes Status: Acute Plan to address problem: IV abx, supportive care, wound consult (6) Encephalopathy Current Visit: Yes Status: Acute Plan to address problem: Toxic encephalopathy: Treat sepsis, ivf, supportive care, fall precautions, (7) DVT prophylaxis Current Visit: Yes Status: Acute
[2017-03-15] MEDS ORDERED: NACL 0.9% 1000 ML IV ONE (01:16)
[2017-03-15] MEDS ORDERED: SODIUM CHLORIDE FLUSH SYRINGE 10 ML IV PRN (01:16)
[2017-03-15] MEDS ORDERED: ZOFRAN IV PRN (01:16)
[2017-03-15] MEDS ORDERED: TYLENOL PO PRN (01:16)
[2017-03-15] MEDS ORDERED: VANCOMYCIN VIAL IV ONE (01:16)
[2017-03-15] MEDS ORDERED: PROVENTIL IH PRN (01:16)
[2017-03-15] MEDS ORDERED: VANCOMYCIN PHARMACY TO DOSE IV SCH (02:00)
[2017-03-15] MEDS ORDERED: VANCOMYCIN 1,750 MG in NACL 0.9% 500 ML 500 ML IV ONE (02:00)
[2017-03-15 02:12] LABS: Basophils % (Auto) 0.7 % (0.0-1.8); Eosinophils % (Auto) 0.4 % (0.0-4.3); Hematocrit 41.5 % (35.5-45.6); Hemoglobin 13.5 gm/dl (11.8-15.2); Mean Corpuscular HGB Conc 33 % (32-34); Mean Corpuscular Hemoglobin 28 pg (28-32); Mean Corpuscular Volume 84 fl (84-94); Platelet Count 213 K/mm3 (140-440); Red Blood Count 4.92 M/mm3 (3.65-5.03); Red Cell Distribution Width 16.9 % (13.2-15.2); White Blood Count 8.6 K/mm3 (4.5-11.0)
[2017-03-15 02:29] LABS: BUN/Creatinine Ratio 34.37; Calcium 9.9 mg/dL (8.4-10.2); Chloride 106.5 mmol/L (98-107); Potassium 5.6 mmol/L (3.6-5.0)
--- NOTE | 2017-03-15 04:18 | Admit Criteria Form ---
Admission Criteria Documentation: MENTAL STATUS CHANGE Clinical Indications for Inpatient Care (Place 'X' for any and all applicable criteria): Ongoing inpatient care may be needed for 1 or more of the following(1)(2)(3)(5)( 6): [ ]I. Suspected serious etiology (eg, medical disorder, [employer]IST event) of altered mental status [ ]II. Danger to self or others not manageable at lower level of care [ ]III. Grave disability (eg, inability to perform self care necessary at lower level of care) [ ]IV. Agitation or inappropriate behavior interfering with care for primary condition (eg, attempting to discontinue lines or drains prematurely, unable to cooperate with respiratory care) [ ]V. Delirium [A] [D][E] as described by 1 or more of the following(26): [ ]a) Delirium due to alcohol or sedative [F] withdrawal [ ]b) Delirium of uncertain etiology that has not responded to appropriate empiric treatment [ ]c) Delirium that prevents performance of a life-sustaining function (eg, feeding or hydrating oneself) [X ]. General contraindications and/or Inappropriate clinical situations for Observational Care in patients with Mental Status Change, when ANY ONE of the following is required: [ X]a) Prediction of prolongation of LOS based on ANY ONE of the following may be considered as a contraindication for observational care 2, 3, 4, 5, 6, 7, 8, 9, 10, 11 [X ]i) Age > 65 yrs. [ ]ii) Patient arriving by ambulance [ ]iii) Patient with high acuity [ ]iv) Patient requiring vital sign monitoring [ ]v) Patient on IV medication [ ]b) Systolic blood pressures greater than or equal to 180mmHg 3, 12 [ X]c) Patient with altered mental status including delirium and other alteration of consciousness, (3) [ ]d) Patient whose discharge disposition will be to a group home home or rehabilitation home should not be managed in Emergency Department Observation Unit. CMS rule requires 3 days hospital stay before such placement.3,13 [ ]e) Patient with failure to thrive due to broad array of etiologies 3,16,17 [ ]f) Inability to ambulate 3,14 Extended stay beyond goal length of stay for the primary condition may be needed until ALL of the following are present(3)(5): [ ]a) Underlying medical etiology of mental status change is absent, or has been established and adequately treated [ ]b) Danger to self or others is absent or manageable at lower level of care. [ ]c) Behavior crisis management, including physical or chemical restraints, is not required or available at lower level of car [ ]d) Substance or alcohol withdrawal is absent or manageable at lower level of care. [ ]e) Behavioral symptoms (eg, agitation, somnolence, inappropriate behavior) are absent, or are manageable at lower level of care. The original [facility] content created by [facility] has been revised. The portions of the content which have been revised are identified through the use of italic text or in bold, and [facility] has neither reviewed nor approved the modified material. All other unmodified content is copyright [facility]. Please see references footnoted in the original [facility] edition 2016 Admission Criteria Met: Yes
[2017-03-15] MEDS ORDERED: NACL 0.9% 1000 ML 1,000 ML IV SCH (10:00)
[2017-03-15] MEDS ORDERED: D5NS 1,000 ML IV SCH (11:00)
--- NOTE | 2017-03-15 11:03 | Progress Note ---
Subjective Date of service: 03/15/17 Interval history: Assessment and plan: Altered mental status: Resolved. Unclear etiology. Likely metabolic secondary to dehydration Patient is awake alert and oriented and he offers no specific complaints Acute kidney injury: Likely prerenal. ATN cannot be ruled out. Slow improvement. hold ACEI. Patient denies any history of renal disease .Continue IV fluids and monitor electrolytes and renal function Apparently CT scan of the abdomen with contrast was ordered. Abdomen looks benign. I would reschedule it for tomorrow as the patient's serum creatinine is elevated Hyperkalemia: R/O ACEI induced versus secondary to acute kidney injury. Continue IV fluids and monitor serum electrolytes. It's borderline high and we will hold administration of Kayexalate at this time. Elevated troponin: This is trending down. Likely secondary to acute kidney injury. Cardiology consult has been requested as the patient has history of CAD and CABG. Patient denies any chest pain or shortness of breath Hypertension: Fair CAD: Status post CABG. Cardiology consult requested as the troponin levels are abnormal although patient denies any chest pain Nonhealing wound in the mid abdomen since CABG in July 2016. Wound care consult on board. Continue Vanco Type 2 diabetes: Well-controlled. Monitor blood sugars with sliding scale coverage Objective - Constitutional Vitals: Vital Signs - 12hr 03/14/17 03/14/17 03/15/17 23:30 23:46 00:26 Temperature Pulse Rate 83 114 H 84 Pulse Rate [ Right Radial] Respiratory 10 L 30 H 12 Rate Blood Pressure 152/74 152/74 152/74 O2 Sat by Pulse 97 95 Oximetry 03/15/17 03/15/17 03/15/17 00:30 00:46 01:00 Temperature Pulse Rate 91 H 74 64 Pulse Rate [ Right Radial] Respiratory 17 13 13 Rate Blood Pressure 133/70 133/70 129/71 O2 Sat by Pulse 97 94 99 Oximetry 03/15/17 03/15/17 03/15/17 01:16 01:30 01:46 Temperature Pulse Rate 59 L 83 77 Pulse Rate [ Right Radial] Respiratory 11 L 16 11 L Rate Blood Pressure 129/71 129/71 133/70 O2 Sat by Pulse 94 99 96 Oximetry 03/15/17 03/15/17 03/15/17 02:25 02:48 03:55 Temperature 98.0 F Pulse Rate 74 72 Pulse Rate [ 68 Right Radial] Respiratory 18 Rate Blood Pressure 121/76 O2 Sat by Pulse 97 97 Oximetry 03/15/17 08:00 Temperature 98.0 F Pulse Rate 94 H Pulse Rate [ Right Radial] Respiratory 18 Rate Blood Pressure 116/72 O2 Sat by Pulse 97 Oximetry General appearance: Present: no acute distress, well-nourished - EENT Eyes: PERRL, EOM intact ENT: hearing intact, clear oral mucosa, no thrush - Neck Neck: supple, normal ROM, no masses or JVD - Respiratory Respiratory: bilateral: CTA - Cardiovascular Rhythm: regular Heart Sounds: Present: S1 & S2 Extremities: No edema - Gastrointestinal General gastrointestinal: Present: soft, non-tender, non-distended, other ( dressing in the mid abdomen. Wound inspected. Open wound with serous discharge. No signs of infection). Absent: hepatomegaly, splenomegaly Rectal Exam: deferred - Integumentary Integumentary: clear - Musculoskeletal Musculoskeletal: strength equal bilaterally - Neurologic Neurologic: CNII-XII intact, no focal deficits - Psychiatric Psychiatric: appropriate mood/affect - Labs CBC & Chem 7: 03/15/17 01:54 03/15/17 01:54 Labs: Abnormal lab results 03/15/17 03/15/17 03/15/17 Range/Units 01:54 01:54 05:20 RDW 16.9 H (13.2-15.2) % [place] % (Auto) 8.0 H (0.0-7.3) % Seg Neutrophils % 77.5 H (40.0-70.0) % Sodium 146 H D (137-145) mmol/L Potassium 5.6 H (3.6-5.0) mmol/L BUN 55 H (9-20) mg/dL Creatinine 1.6 H (0.8-1.5) mg/dL Troponin T 0.038 H D (0.00-0.029) ng/mL 03/15/17 Range/Units 09:01 RDW (13.2-15.2) % [place] % (Auto) (0.0-7.3) % Seg Neutrophils % (40.0-70.0) % Sodium (137-145) mmol/L Potassium (3.6-5.0) mmol/L BUN (9-20) mg/dL Creatinine (0.8-1.5) mg/dL Troponin T 0.035 H (0.00-0.029) ng/mL
--- NOTE | 2017-03-15 13:41 | Consultation ---
History of Present Illness Consult date: 03/15/17 Consult reason: elevated troponin History of present illness: The patient is a 76-year-old man with a history of coronary artery disease, who underwent 4 way coronary artery bypass a year and a half ago. He follows with his day care home provider on a regular basis, has had no recurrent symptoms since his bypass he is admitted to the hospital at this time with altered mental status. The patient lives alone, and is said to have been found by his daughter at home confused and incontinent of urine. The patient states that he was sitting in the chair at home and thought he fell asleep, and came to when the ambulance drivers arrived at his home. Since his arrival to the hospital, he has been awake, alert and oriented 3, no chest pain, no shortness of breath and no palpitations. He denies a history of seizure or prior syncope. Laboratory values in the hospital show elevated BUN of 60 and creatinine of 2.0 , consistent with prerenal azotemia or dehydration. Cardiac enzymes are negative. ECG is normal sinus rhythm with incomplete left bundle branch block. Past History Past Medical History: CAD, diabetes, hypertension Past Surgical History: CABG, bowel surgery Social history: , smoking. denies: alcohol abuse, prescription drug abuse, IV drug use Family history: hypertension Medications and Allergies Allergies Allergy/AdvReac Type Severity Reaction Status Date / Time Penicillins Allergy Mild REDNESS, Verified 07/20/16 08:16 WARM FEELING,SWELLING morphine AdvReac Intermediate VERY Verified 07/20/16 08:16 JITTERY, TWITCHING, JUMPING Home Medications Medication Instructions Recorded Confirmed Last Taken Type Aspirin [Adult Low Dose Aspirin EC] 81 mg PO DAILY 07/20/16 03/15/17 03/14/17 History Carvedilol [Coreg] 25 mg PO BID 07/20/16 03/15/17 03/14/17 History FLUoxetine HCL [FLUoxetine] 40 mg PO DAILY 07/20/16 03/15/17 03/14/17 History Fenofibrate [Lofibra] 160 mg PO QDAY 07/20/16 03/15/17 03/14/17 History Lisinopril [Zestril TAB] 2.5 mg PO QDAY 07/20/16 03/15/17 03/14/17 History Nitroglycerin [Nitrostat] 0.4 mg SL Q5M PRN 07/20/16 03/15/17 09/15/16 08:00 History amLODIPine [Norvasc] 10 mg PO DAILY 07/20/16 03/15/17 03/14/17 History glipiZIDE [glipiZIDE ER] 5 mg PO QAM 07/20/16 03/15/17 03/14/17 History Pantoprazole [Protonix TAB] 20 mg PO QDAY tablet. 10/07/16 03/15/17 03/14/17 Rx Active Meds: Active Medications Acetaminophen (Tylenol) 650 mg PO Q4H PRN PRN Reason: Pain MILD(1-3)/Fever >100.5/WONG Albuterol (Proventil) 2.5 mg IH Q4HRT PRN PRN Reason: Shortness Of Breath Amlodipine Besylate (Norvasc) 5 mg PO DAILY [facility] Aspirin (Halfprin Ec) 81 mg PO DAILY [facility] Carvedilol (Coreg) 25 mg PO BID [facility] Fluoxetine HCl (Prozac) 40 mg PO QDAY [facility] Vancomycin HCl 1,250 mg/ (Sodium Chloride) 275 mls @ 166.667 mls/hr IV Q24H [facility] Dextrose/Sodium Chloride (D5ns) 1,000 mls @ 125 mls/hr IV DIRECT [facility] Miscellaneous Medication (Fenofibrate [Lofibra]) 160 mg PO QDAY [facility] Ondansetron HCl (Zofran) 4 mg IV Q8H PRN PRN Reason: N/V unrelieved by Reglan Sodium Chloride (Sodium Chloride Flush Syringe 10 Ml) 10 ml IV PRN PRN PRN Reason: LINE FLUSH Vancomycin HCl (Vancomycin Pharmacy To Dose) 1 each IV PKCONSULT [facility] PRN Reason: Protocol Review of Systems Cardiovascular: syncope, shortness of breath, no chest pain, no orthopnea, no palpitations, no rapid/irregular heart beat, no edema, no lightheadedness Physical Examination Vital Signs Pulse Resp 51 L 14 03/14/17 17:24 03/14/17 17:24 General appearance: no acute distress HEENT: Positive: PERRL Neck: Positive: neck supple Cardiac: Positive: Reg Rate and Rhythm Lungs: Positive: Decreased Breath Sounds Neuro: Positive: Grossly Intact Abdomen: Positive: Soft Male genitourinary: Positive: deferred Skin: Positive: Clear Extremities: Absent: edema Results 03/15/17 01:54 03/16/17 05:35 CBC 03/15/17 Range/Units 01:54 WBC 8.6 (4.5-11.0) K/mm3 RBC 4.92 (3.65-5.03) M/mm3 Hgb 13.5 (11.8-15.2) gm/dl Hct 41.5 (35.5-45.6) % Plt Count 213 (140-440) K/mm3 Lymph # 1.2 (1.2-5.4) K/mm3 [place] # 0.7 (0.0-0.8) K/mm3 Eos # 0.0 (0.0-0.4) K/mm3 Baso # 0.1 (0.0-0.1) K/mm3 Comprehensive Metabolic Panel 03/15/17 Range/Units 01:54 Sodium 146 H D (137-145) mmol/L Potassium 5.6 H (3.6-5.0) mmol/L Chloride 106.5 (98-107) mmol/L Carbon Dioxide 24 (22-30) mmol/L BUN 55 H (9-20) mg/dL Creatinine 1.6 H (0.8-1.5) mg/dL Glucose 97 (75-100) mg/dL Calcium 9.9 (8.4-10.2) mg/dL EKG interpretations - Telemetry EKG Rhythm: Sinus Rhythm (with incomplete left bundle branch block) Assessment and Plan - Patient Problems (1) Altered mental status Current Visit: Yes Status: Acute Qualifiers: Altered mental status type: unspecified Coma depth: C Coma timing: C Qualified Code(s): R41.82 - Altered mental status, unspecified Plan to address problem: Etiology of the patient's altered mental status is uncertain. Medical service workup is in progress. I recommend neurological assessment of his presenting complaints. (2) CAD (coronary artery disease) Current Visit: No Status: Chronic Qualifiers: Coronary Disease-Associated Artery/Lesion type: C [place] vs. transplanted heart: N Associated angina: A Plan to address problem: Patient has history of coronary disease, 4 way coronary artery bypass surgery year and a half ago. His coronary status is currently asymptomatic. We will get an echocardiogram for left ventricle left function assessment, further cardiac evaluation and recommendations will depend on clinical course.
[2017-03-15] MEDS: COREG PO SCH (21:48)
[2017-03-15] MEDS ORDERED: VANCOMYCIN 1,250 MG in NACL 0.9% 250ML 250 ML IV SCH (22:00)
[2017-03-16] MEDS: VANCOMYCIN 1,250 MG in NACL 0.9% 250ML 250 ML IV SCH (05:52)
[2017-03-16 06:41] LABS: BUN/Creatinine Ratio 35.83; Calcium 8.8 mg/dL (8.4-10.2); Chloride 106.1 mmol/L (98-107); Potassium 4.6 mmol/L (3.6-5.0)
[2017-03-16] MEDS ORDERED: NON-FORMULARY (Fenofibrate [Lofibra] 160 MG) PO SCH (10:00)
[2017-03-16] MEDS: COREG PO SCH ×2 (10:10→21:08)
[2017-03-16] MEDS: HALFPRIN EC PO SCH (10:10)
[2017-03-16] MEDS: NORVASC PO SCH (10:11)
[2017-03-16] MEDS: TRICOR PO SCH (10:12)
[2017-03-16] MEDS: PROzac PO SCH (10:12)
--- NOTE | 2017-03-16 10:56 | Cat Scan Report ---
CT SCAN OF THE ABDOMEN AND PELVIS WITH CONTRAST: HISTORY: Abdominal pain. TECHNIQUE: Helical CT in 1.25mm intervals following IV contrast. Sagittal and coronal reconstructions. FINDINGS: Mild CHF and nonspecific colitis seen on 09/25/16 have resolved. The liver, biliary system, pancreas, spleen and adrenal glands are unremarkable. Multiple bilateral renal cysts and bilateral nonobstructing nephrolithiasis are unchanged. The ureters and bladder are unremarkable. Normal prostate gland. There are numerous diverticula in the distal colon but no acute inflammatory changes are appreciated. The remaining bowel loops are within normal limits. The appendix is not confidently identified. The lung bases are clear. Mild cardiomegaly. The bony structures are demineralized with degenerative changes. Surgical changes in the lumbosacral spine are noted. Right hip replacement. IMPRESSION: No acute abdominal process is appreciated. Bilateral renal cysts and bilateral nonobstructing nephrolithiasis. Diverticulosis of the colon. Mild cardiomegaly.
--- NOTE | 2017-03-16 11:38 | Progress Note ---
Assessment and Plan Altered mental status Hx of coronary artery disease s/p 4v CABG 07/2016 Acute renal failure Dehydration Hypertension EF 55-60% on echocardiogram. Subjective Date of service: 03/16/17 Interval history: Patient alert and oriented; Reports he is feeling better. Objective Vital Signs Temp Pulse Resp BP Pulse Ox 03/16/17 07:50 97.5 F L 60 18 152/79 99 03/16/17 05:42 97.5 F L 70 20 128/77 98 03/16/17 01:01 97.9 F 74 20 106/67 96 03/15/17 21:48 80 121/72 03/15/17 20:31 97.8 F 80 20 121/72 97 03/15/17 15:30 98.3 F 80 20 98/68 - Physical Examination General: No Apparent Distress HEENT: Positive: PERRL Cardiac: Positive: Reg Rate and Rhythm Lungs: Positive: Decreased Breath Sounds - Labs and Meds Comprehensive Metabolic Panel 03/16/17 Range/Units 05:35 Sodium 140 (137-145) mmol/L Potassium 4.6 (3.6-5.0) mmol/L Chloride 106.1 (98-107) mmol/L Carbon Dioxide 19 L (22-30) mmol/L BUN 43 H (9-20) mg/dL Creatinine 1.2 (0.8-1.5) mg/dL Glucose 103 H (75-100) mg/dL Calcium 8.8 (8.4-10.2) mg/dL
--- NOTE | 2017-03-16 18:31 | Progress Note ---
Assessment and Plan Assessment and plan: --Metabolic encephalopathy; it is more alert and awake today --Acute kidney injury; secondary to vasomotor nephropathy resolved --Hyperkalemia; corrected --History of coronary artery disease status post CABG in 2016 Stable on cardiac medications --Chronic surgical wound infection since 2016, local wound care and empiric antibiotics --Nonspecific elevation of troponins; cardiology evaluated the patient, unlikely cardiac Advised medical management, no further workup is indicated --Hypertension; moderate control, continue current antihypertensives and when necessary medications --DVT prophylaxis with Lovenox Closely monitor the patient, possible discharge tomorrow if stable History Interval history: Patient seen and evaluated medical records reviewed A new events reported by the nursing staff Patient denies chest pain or shortness Alert awake oriented 3 not in acute distress vital signs reviewed Hospitalist Physical - Constitutional Vitals: Temp Pulse Resp BP Pulse Ox 97.9 F 78 18 108/69 94 03/16/17 11:35 03/16/17 14:00 03/16/17 11:35 03/16/17 11:35 03/16/17 11:35 General appearance: Present: no acute distress, well-nourished, obese (morbidly obese ) - EENT Eyes: Present: PERRL, EOM intact - Neck Neck: Present: supple, normal ROM - Respiratory Respiratory effort: normal Respiratory: negative: rales, rhonchi, wheezing - Cardiovascular Rhythm: regular Heart Sounds: Present: S1 & S2 - Extremities Extremities: no ischemia, No edema - Abdominal General gastrointestinal: soft, non-tender, non-distended, normal bowel sounds - Integumentary Integumentary: Present: clear, warm - Psychiatric Psychiatric: appropriate mood/affect, cooperative - Neurologic Neurologic: CNII-XII intact, moves all extremities Results - Labs CBC & Chem 7: 03/15/17 01:54 03/16/17 05:35 Labs: Laboratory Last Values WBC 8.6 K/mm3 (4.5-11.0) 03/15/17 01:54 RBC 4.92 M/mm3 (3.65-5.03) 03/15/17 01:54 Hgb 13.5 gm/dl (11.8-15.2) 03/15/17 01:54 Hct 41.5 % (35.5-45.6) 03/15/17 01:54 MCV 84 fl (84-94) 03/15/17 01:54 MCH 28 pg (28-32) 03/15/17 01:54 MCHC 33 % (32-34) 03/15/17 01:54 RDW 16.9 % (13.2-15.2) H 03/15/17 01:54 Plt Count 213 K/mm3 (140-440) 03/15/17 01:54 Lymph % (Auto) 13.4 % (13.4-35.0) 03/15/17 01:54 [place] % (Auto) 8.0 % (0.0-7.3) H 03/15/17 01:54 Eos % (Auto) 0.4 % (0.0-4.3) 03/15/17 01:54 Baso % (Auto) 0.7 % (0.0-1.8) 03/15/17 01:54 Lymph # 1.2 K/mm3 (1.2-5.4) 03/15/17 01:54 [place] # 0.7 K/mm3 (0.0-0.8) 03/15/17 01:54 Eos # 0.0 K/mm3 (0.0-0.4) 03/15/17 01:54 Baso # 0.1 K/mm3 (0.0-0.1) 03/15/17 01:54 Seg Neutrophils % 77.5 % (40.0-70.0) H 03/15/17 01:54 Seg Neutrophils # 6.6 K/mm3 (1.8-7.7) 03/15/17 01:54 Sodium 140 mmol/L (137-145) 03/16/17 05:35 Potassium 4.6 mmol/L (3.6-5.0) 03/16/17 05:35 Chloride 106.1 mmol/L (98-107) 03/16/17 05:35 Carbon Dioxide 19 mmol/L (22-30) L 03/16/17 05:35 Anion Gap 20 mmol/L 03/16/17 05:35 BUN 43 mg/dL (9-20) H 03/16/17 05:35 Creatinine 1.2 mg/dL (0.8-1.5) 03/16/17 05:35 Estimated GFR 59 ml/min 03/16/17 05:35 BUN/Creatinine Ratio 35.83 % 03/16/17 05:35 Glucose 103 mg/dL (75-100) H 03/16/17 05:35 POC Glucose 154 (70-105) H 03/16/17 17:19 Lactic Acid 1.00 mmol/L (0.7-2.0) 03/15/17 09:01 Calcium 8.8 mg/dL (8.4-10.2) 03/16/17 05:35 Magnesium 2.50 mg/dL (1.7-2.3) H 03/14/17 18:09 Total Bilirubin 0.20 mg/dL (0.1-1.2) 03/14/17 18:09 AST 20 units/L (5-40) 03/14/17 18:09 ALT 20 units/L (7-56) 03/14/17 18:09 Alkaline Phosphatase 55 units/L (35-129) 03/14/17 18:09 Total Creatine Kinase 102 units/L (55-170) 03/14/17 20:43 Troponin T 0.035 ng/mL (0.00-0.029) H 03/15/17 09:01 Total Protein 7.8 g/dL (6.3-8.2) 03/14/17 18:09 Albumin 4.1 g/dL (3.9-5) 03/14/17 18:09 Albumin/Globulin Ratio 1.1 % 03/14/17 18:09 Triglycerides 256 mg/dL (2-149) H 03/14/17 20:43 Cholesterol 137 mg/dL (50-199) 03/14/17 20:43 LDL Cholesterol Direct 52 mg/dL (50-130) 03/14/17 20:43 HDL Cholesterol 34 mg/dL (40-59) L 03/14/17 20:43 Cholesterol/HDL Ratio 4.02 % 03/14/17 20:43 TSH 1.960 mlU/mL (0.270-4.200) 03/14/17 18:09 Urine Color Yellow (Yellow) 03/14/17 20:00 Urine Turbidity Clear (Clear) 03/14/17 20:00 Urine pH 5.0 (5.0-7.0) 03/14/17 20:00 Ur Specific [place] 1.018 (1.003-1.030) 03/14/17 20:00 Urine Protein 100 mg/dl mg/dL (Negative) 03/14/17 20:00 Urine Glucose (UA) Neg mg/dL (Negative) 03/14/17 20:00 Urine Ketones Neg mg/dL (Negative) 03/14/17 20:00 Urine Blood Mod (Negative) 03/14/17 20:00 Urine Nitrite Neg (Negative) 03/14/17 20:00 Urine Bilirubin Neg (Negative) 03/14/17 20:00 Urine Urobilinogen < 2.0 mg/dL (<2.0) 03/14/17 20:00 Ur Leukocyte Esterase Tr (Negative) 03/14/17 20:00 Urine WBC (Auto) 2.0 /HPF (0.0-6.0) 03/14/17 20:00 Urine RBC (Auto) 25.0 /HPF (0.0-6.0) 03/14/17 20:00 Urine Bacteria (Auto) 1+ /HPF (Negative) 03/14/17 20:00 Granular Casts 84 /LPF 03/14/17 20:00 Urine Mucus Few /HPF 03/14/17 20:00 Salicylates < 0.3 mg/dL (2.8-20.0) L 03/14/17 18:09 Urine Opiates Screen Presumptive negative 03/14/17 20:00 Urine Methadone Screen Presumptive negative 03/14/17 20:00 Acetaminophen < 15.0 ug/mL (10.0-30.0) 03/14/17 18:09 Ur Barbiturates Screen Presumptive negative 03/14/17 20:00 Ur Phencyclidine Scrn Presumptive negative 03/14/17 20:00 Ur Amphetamines Screen Presumptive negative 03/14/17 20:00 U Benzodiazepines Scrn Presumptive negative 03/14/17 20:00 Urine Cocaine Screen Presumptive negative 03/14/17 20:00 U Marijuana (THC) Screen Presumptive negative 03/14/17 20:00 Drugs of Abuse Note Disclamer 03/14/17 20:00 Plasma/Serum Alcohol < 0.01 gm% (0-0.07) 03/14/17 18:09 Blood Type O POSITIVE 03/15/17 01:54 DAREK Antibody Screen Negative 03/15/17 01:54
[2017-03-17] MEDS: VANCOMYCIN 1,250 MG in NACL 0.9% 250ML 250 ML IV SCH (05:14)
[2017-03-17] MEDS: PROzac PO SCH (10:02)
[2017-03-17] MEDS: COREG PO SCH (10:02)
[2017-03-17] MEDS: HALFPRIN EC PO SCH (10:02)
[2017-03-17] MEDS: TRICOR PO SCH (10:03)
[2017-03-17] MEDS: NORVASC PO SCH (10:03)
--- NOTE | 2017-03-17 10:56 | Progress Note ---
Assessment and Plan Altered mental status -resolved Hx of coronary artery disease s/p 4v CABG 07/2016 Acute renal failure Dehydration Hypertension EF 55-60% on echocardiogram. No further cardiac workup is indicated. Stable cardiac pike. F/U with his primary information systems security analyst, Dr Mcgowan, within 1 week of discharge for an outpatient, 30 day event monitor. Subjective Date of service: 03/17/17 Interval history: Patient reports he is feeling better. He denies chest pain and shortness of breath. Wants to go home. No events on telemetry overnight. Objective Vital Signs Temp Pulse Resp Resp BP Pulse Ox 03/17/17 08:20 97.6 F 64 20 137/75 97 03/17/17 05:50 97.6 F 56 L 20 159/86 99 03/17/17 02:59 61 03/17/17 00:11 97.9 F 68 20 106/63 97 03/16/17 21:08 67 100/56 03/16/17 20:30 20 97 03/16/17 20:29 20 03/16/17 19:40 98.1 F 67 20 100/56 96 03/16/17 19:36 97.4 F L 66 18 104/65 95 03/16/17 19:19 66 03/16/17 14:00 78 03/16/17 11:35 97.9 F 60 18 108/69 94 - Physical Examination General: No Apparent Distress HEENT: Positive: PERRL Neck: Positive: trachea midline Cardiac: Positive: Reg Rate and Rhythm Neuro: Positive: Grossly Intact
--- NOTE | 2017-03-17 12:24 | Discharge Summary ---
Providers - Providers Date of Admission: 03/14/17 23:19 Date of discharge: 03/17/17 Attending physician: SHOBHA FLOR 03/15/17 Consult to Cardiac Rehabilitation [CONS] Routine Reason For Exam: Phase I 03/15/17 07:10 Consult to Wound/ET Nurse [CONS] Routine Reason For Exam: wound eval Primary care physician: QUALITY ASSURANCE SUPERVISOR TRIM Hospitalization Reason for admission: Found on the floor with altered level of consciousness Condition: Stable Pertinent studies: Chest x-ray; normal study CT head; no abnormality noted CT abdomen and pelvis; bilateral renal cyst bilateral nonobstructing nephrolithiasis diverticulosis of colon mild cardiomegaly, no acute abdominal process noted Echocardiogram; EF 55-60% Hospital course: Discharge diagnoses; Metabolic encephalopathy Acute kidney injury/vasomotor nephropathy/resolved Hyperkalemia; corrected History of coronary artery disease status post CABG Chronic surgical wound infection since 2016 Nonspecific elevation of troponins/noncardiac Hypertension Brief history and hospital course; Very pleasant 76-year-old male patient with multiple medical problems was admitted through emergency room with a history of metabolic encephalopathy found on the floor confused Admitted to the hospital symptomatically managed, had mild elevation of troponins, evaluated by cardiology, noncardiac cause, medical management. Patient's symptoms significantly improved, back to base line mental status, acute renal failure resolved, hyperkalemia corrected ,today is comfortable in bed no new complaints Vital signs are stable, [id number] evaluation physical examination done by me prior to discharge did not show any new changes Case management set up home health, patient is hemodynamically and clinically stable at discharge Disposition: [place]-06 HOME UNDER HOME [facility] Time spent for discharge: 32 min Core Measure Documentation - Palliative Care Palliative Care/ Comfort Measures: Not Applicable - Core Measures Any of the following diagnoses?: none Exam - Constitutional Vitals: Temp Pulse Resp BP Pulse Ox 97.6 F 64 20 137/75 97 03/17/17 08:20 03/17/17 08:20 03/17/17 08:20 03/17/17 08:20 03/17/17 08:20 General appearance: Present: no acute distress, well-nourished - EENT Eyes: Present: PERRL, EOM intact - Neck Neck: Present: supple, normal ROM - Respiratory Respiratory effort: normal Respiratory: negative: rales, rhonchi, wheezing - Cardiovascular Rhythm: regular Heart Sounds: Present: S1 & S2 - Extremities Extremities: no ischemia, No edema - Abdominal General gastrointestinal: Present: soft, non-tender, non-distended, normal bowel sounds - Integumentary Integumentary: Present: clear, warm - Musculoskeletal Musculoskeletal: strength equal bilaterally - Psychiatric Psychiatric: appropriate mood/affect, cooperative - Neurologic Neurologic: CNII-XII intact, moves all extremities Plan Activity: no restrictions Diet: diabetic, other (cardiac diet) Additional Instructions: If you have Chest pain or shortness of breath, contact M.D. or go to emergency room Follow up with: PRIMARY CAREMD [Primary Care Provider] - 3-5 Days MODESTA MARY MD [Staff Physician] - 7 Days
[2017-03-17 13:54] VITALS: BP 126/69
== END 2017-03-17 14:15 | disposition home health service (06) | DRG 871 ==
LOC: ED 17:18 → 4A 23:19
PROVIDERS: ADMIT Internal Medicine; ATTEND Internal Medicine
DX: A41.9 Sepsis, unspecified organism (principal); N17.0 Acute kidney failure with tubular necrosis; G92 Toxic encephalopathy; N39.0 Urinary tract infection, site not specified; L03.311 Cellulitis of abdominal wall; E11.9 Type 2 diabetes mellitus without complications; F17.210 Nicotine dependence, cigarettes, uncomplicated; K21.9 Gastro-esophageal reflux disease without esophagitis; T81.89XA Other complications of procedures, not elsewhere classified, initial encounter; Y83.8 Other surgical procedures as the cause of abnormal reaction of the patient, or of later complication, without mention of misadventure at the time of the procedure; E86.0 Dehydration; Z79.82 Long term (current) use of aspirin; Z79.899 Other long term (current) drug therapy; Z95.1 Presence of aortocoronary bypass graft; Y92.89 Other specified places as the place of occurrence of the external cause; Z88.0 Allergy status to penicillin; Z82.49 Family history of ischemic heart disease and other diseases of the circulatory system; Z88.5 Allergy status to narcotic agent
CPT/HCPCS: 36415; 70450; 71010; 74177; 80048; 80053; 80061; 80307; 80320; 81001; 82140; 82550; 82962; 83735; 84443; 84484; 85025; 86850; 86900; 86901; 93005; 93010; 93306; 96361; 96374; G0480; J2405; J3370; J7040; J7050; Q9967

== ENCOUNTER 2019-02-22 10:46 | Outpatient (CLI) | payer MEDICARE ==
--- NOTE | 2019-02-22 12:21 | Cat Scan Report ---
CT cervical spine without contrast Clinical history: Cervical radiculopathy, neck pain FINDINGS: No previous exams available for comparison. There is a transverse fracture involving the ba se of the odontoid with proximally at 2 mm of distraction of the superior component cranially at. The re is no reported history of trauma and there is somewhat sclerotic a component and correlation would be needed regarding age of this finding. The soft tissue hypertrophic changes along the posterior ma rgin of the odontoid effaces the ventral subarachnoid space. There is milder rotation at the C1-2 lev el. There is mild curvature of the cervical spine, convex toward the right with multilevel degenerative c hanges at. However, there is no further CT evidence of fracture involving the cervical spine. The rig ht facet joint hypertrophy at C2-3 results in mild to moderate right foraminal narrowing at. There is notable left facet joint hypertrophy at C3-4 with marked left foraminal narrowing. Milder narrowing is seen on the right. There is slight reversal the cervical lordosis with significant disc space narrowing from C4-5 to C7- T1. The facet joint hypertrophy at C4-5 results in moderate to marked neural foraminal narrowing, gre ater on the right. The spondylosis at C5-6 effaces the ventral subarachnoid space and lateral recesse s. There is marked foraminal narrowing bilaterally. There is marked right neural foraminal narrowing at C6-7. There is moderate to marked right foraminal narrowing at C7-T1 at. There is notable endplate sclerosis on the right at this segment. No preverte bral soft tissue fluid collections are identified. All CT scans at this location are performed using the CT dose reduction for ALARA by means of automated exposure control. IMPRESSION: There is a type II odontoid fracture as detailed above. There is no given history of trauma and there is sclerotic component and correlation would be needed regarding the age of this finding.. There is mild curvature of the cervical spine with multilevel degenerative changes, also described ab ove. Signer Name: Augusto Murrieta MD Signed: 02/22/2019 12:16 PM Workstation Name: [id number]
== END 2019-02-22 10:47 | disposition home or self-care (01) ==
LOC: CT 10:46
PROVIDERS: ATTEND Internal Medicine
DX: S12.112A Nondisplaced Type II dens fracture, initial encounter for closed fracture (principal); M43.8X2 Other specified deforming dorsopathies, cervical region; M47.812 Spondylosis without myelopathy or radiculopathy, cervical region; E78.00 Pure hypercholesterolemia, unspecified; I10 Essential (primary) hypertension; K21.9 Gastro-esophageal reflux disease without esophagitis; X58.XXXA Exposure to other specified factors, initial encounter; Y93.89 Activity, other specified; Y92.89 Other specified places as the place of occurrence of the external cause; Y99.8 Other external cause status
CPT/HCPCS: 72125

== ENCOUNTER 2019-07-15 19:30 | Inpatient (IN) | payer MEDICARE ==
[2019-07-15] MEDS ORDERED: ATROPINE 0.4 MG/1 ML INJ IV ONE (19:44)
[2019-07-15] MEDS ORDERED: ATROPINE 0.1% (1 MG/10 ML) CARDIAC SYRINGE ONE (19:47)
[2019-07-15] MEDS ORDERED: ATROPINE 0.1% (1 MG/10 ML) CARDIAC SYRINGE IV ONE (19:48)
[2019-07-15] MEDS ORDERED: SODIUM CHLORIDE 0.9% 500 ML 500 ML IV ONE (20:15)
--- NOTE | 2019-07-15 20:21 | Emergency Department Report ---
ED General Adult HPI - General Chief complaint: Arrhythmia/Palpitations Stated complaint: CHEST PAIN Time Seen by Provider: 07/15/19 20:10 Source: patient, EMS Mode of arrival: Stretcher Limitations: No Limitations - Related Data Home Medications Medication Instructions Recorded Confirmed Last Taken Aspirin [Adult Low Dose Aspirin EC] 81 mg PO DAILY 07/20/16 03/15/17 03/14/17 FLUoxetine HCL [FLUoxetine] 40 mg PO DAILY 07/20/16 03/15/17 03/14/17 Fenofibrate [Lofibra] 160 mg PO QDAY 07/20/16 03/15/17 03/14/17 Lisinopril [Zestril TAB] 2.5 mg PO QDAY 07/20/16 03/15/17 03/14/17 Nitroglycerin [Nitrostat] 0.4 mg SL Q5M PRN 07/20/16 03/15/17 09/15/16 08:00 amLODIPine 10 mg PO DAILY 07/20/16 03/15/17 03/14/17 carvediloL [Coreg] 25 mg PO BID 07/20/16 03/15/17 03/14/17 glipiZIDE [glipiZIDE ER] 5 mg PO QAM 07/20/16 03/15/17 03/14/17 Previous Rx's Medication Instructions Recorded Last Taken Type Pantoprazole [Protonix TAB] 20 mg PO QDAY tablet. 10/07/16 03/14/17 Rx Allergies Allergy/AdvReac Type Severity Reaction Status Date / Time Penicillins Allergy Mild REDNESS, Verified 07/20/16 08:16 WARM FEELING,SWELLING morphine AdvReac Intermediate VERY Verified 07/20/16 08:16 JITTERY, TWITCHING, JUMPING ED Review of Systems ROS: Stated complaint: CHEST PAIN Other details as noted in HPI ED Past Medical Hx - Past Medical History Hx Hypertension: Yes Hx Heart Attack/AMI: No Hx Congestive Heart Failure: No Hx Diabetes: Yes (pill control) Hx GERD: Yes Hx Arthritis: Yes (total rt hip relacement) Hx Seizures: No - Surgical History Hx Coronary Stent: No Hx Open Heart Surgery: Yes Additional Surgical History: CABG 08/2016 [facility]. Bowel surgery 2016 - Social History Smoking Status: Current Every Day Smoker Substance Use Type: None - Medications Home Medications: Home Medications Medication Instructions Recorded Confirmed Last Taken Type Aspirin [Adult Low Dose Aspirin EC] 81 mg PO DAILY 07/20/16 03/15/17 03/14/17 History FLUoxetine HCL [FLUoxetine] 40 mg PO DAILY 07/20/16 03/15/17 03/14/17 History Fenofibrate [Lofibra] 160 mg PO QDAY 07/20/16 03/15/17 03/14/17 History Lisinopril [Zestril TAB] 2.5 mg PO QDAY 07/20/16 03/15/17 03/14/17 History Nitroglycerin [Nitrostat] 0.4 mg SL Q5M PRN 07/20/16 03/15/17 09/15/16 08:00 History amLODIPine 10 mg PO DAILY 07/20/16 03/15/17 03/14/17 History carvediloL [Coreg] 25 mg PO BID 07/20/16 03/15/17 03/14/17 History glipiZIDE [glipiZIDE ER] 5 mg PO QAM 07/20/16 03/15/17 03/14/17 History Pantoprazole [Protonix TAB] 20 mg PO QDAY tablet. 10/07/16 03/15/17 03/14/17 Rx ED Physical Exam - General Limitations: No Limitations ED Course Vital Signs 07/15/19 19:30 Temperature 98.2 F Pulse Rate 28 L Respiratory 22 Rate Blood Pressure 78/38 O2 Sat by Pulse 96 Oximetry Critical care attestation.: If time is entered above; I have spent that time in minutes in the direct care of this critically ill patient, excluding procedure time. ED Disposition Clinical Impression: ESRD needing dialysis, Hyperkalemia Disposition: OP ADMIT IP TO THIS HOSP Is pt being admited?: Yes Condition: Stable Time of Disposition: 20:21
[2019-07-15 20:32] LABS: Basophils # (Auto) 0.1 K/mm3 (0.0-0.1); Basophils % (Auto) 0.8 % (0.0-1.8); Eosinophils # (Auto) 0.1 K/mm3 (0.0-0.4); Eosinophils % (Auto) 1.4 % (0.0-4.3); Hematocrit 39.4 % (35.5-45.6); Lymphocytes # (Auto) 1.4 K/mm3 (1.2-5.4); Lymphocytes % (Auto) 19.7 % (13.4-35.0); Mean Corpuscular HGB Conc 33 % (32-34); Mean Corpuscular Volume 94 fl (84-94); Monocytes # (Auto) 0.8 K/mm3 (0.0-0.8); Platelet Count 188 K/mm3 (140-440); Red Blood Count 4.18 M/mm3 (3.65-5.03); Red Cell Distribution Width 14.6 % (13.2-15.2)
--- NOTE | 2019-07-15 20:42 | XRay Report ---
CHEST 1 VIEW 07/15/2019 8:20 PM INDICATION / CLINICAL INFORMATION: chest pain. COMPARISON: 03/14/2017 FINDINGS: SUPPORT DEVICES: None. HEART / MEDIASTINUM: No significant abnormality. LUNGS / PLEURA: Stable elevation of the left hemidiaphragm. No pneumothorax. ADDITIONAL FINDINGS: No significant additional findings. IMPRESSION: 1. No acute findings. Signer Name: Garrick Bocanegra MD Signed: 07/15/2019 8:38 PM Workstation Name: [email or web address]
[2019-07-15 20:45] LABS: INR 1.19 (0.87-1.13)
[2019-07-15 20:46] LABS: Partial Thromboplastin Time 28.6 Sec. (24.2-36.6)
[2019-07-15 20:55] LABS: Calcium 8.6 mg/dL (8.4-10.2)
[2019-07-15 21:13] LABS: Chol/HDL Ratio 5.48 %
--- NOTE | 2019-07-15 21:14 | Emergency Department Report ---
ED Shortness of Breath HPI - General Chief Complaint: Arrhythmia/Palpitations Stated Complaint: CHEST PAIN Time Seen by Provider: 07/15/19 20:10 Source: patient, EMS Mode of arrival: Stretcher Limitations: No Limitations - History of Present Illness Initial Comments: 79-year-old male presents to ED with complaint of shortness of breath and nausea, onset this evening. EMS was called, patient was found to have heart rate in the 20s, and were unable to get a blood pressure. Patient was diaphoretic. Atropine 1 mg was given, without any improvement in his vital signs should transport to the ED. He denies any chest pain at this time. He reports history of CABG a few years ago at an outside facility. Director Of Career Resources: Dr Mcgowan ([facility]) Complaint: shortness of breath -: This evening Severity: moderate Consistency: constant Improves With: nothing Worsens With: nothing Treatments Prior to Arrival: other (atropine) - Related Data Home Oxygen Therapy: No Home Medications Medication Instructions Recorded Confirmed Last Taken Aspirin [Adult Low Dose Aspirin EC] 81 mg PO DAILY 07/20/16 03/15/17 03/14/17 FLUoxetine HCL [FLUoxetine] 40 mg PO DAILY 07/20/16 03/15/17 03/14/17 Fenofibrate [Lofibra] 160 mg PO QDAY 07/20/16 03/15/17 03/14/17 Lisinopril [Zestril TAB] 2.5 mg PO QDAY 07/20/16 03/15/17 03/14/17 Nitroglycerin [Nitrostat] 0.4 mg SL Q5M PRN 07/20/16 03/15/17 09/15/16 08:00 amLODIPine 10 mg PO DAILY 07/20/16 03/15/17 03/14/17 carvediloL [Coreg] 25 mg PO BID 07/20/16 03/15/17 03/14/17 glipiZIDE [glipiZIDE ER] 5 mg PO QAM 07/20/16 03/15/17 03/14/17 Previous Rx's Medication Instructions Recorded Last Taken Type Pantoprazole [Protonix TAB] 20 mg PO QDAY tablet. 10/07/16 03/14/17 Rx Allergies Allergy/AdvReac Type Severity Reaction Status Date / Time Penicillins Allergy Mild REDNESS, Verified 07/20/16 08:16 WARM FEELING,SWELLING morphine AdvReac Intermediate VERY Verified 07/20/16 08:16 JITTERY, TWITCHING, JUMPING ED Review of Systems ROS: Stated complaint: CHEST PAIN Other details as noted in HPI Comment: All other systems reviewed and negative Constitutional: denies: chills, fever Respiratory: shortness of breath Cardiovascular: denies: chest pain Gastrointestinal: nausea. denies: abdominal pain, vomiting ED Past Medical Hx - Past Medical History Hx Hypertension: Yes Hx Heart Attack/AMI: No Hx Congestive Heart Failure: No Hx Diabetes: Yes (pill control) Hx GERD: Yes Hx Arthritis: Yes (total rt hip relacement) Hx Seizures: No - Surgical History Hx Coronary Stent: No Hx Open Heart Surgery: Yes Additional Surgical History: CABG 08/2016 [facility]. Bowel surgery 2017 - Social History Smoking Status: Current Every Day Smoker Substance Use Type: None - Medications Home Medications: Home Medications Medication Instructions Recorded Confirmed Last Taken Type Aspirin [Adult Low Dose Aspirin EC] 81 mg PO DAILY 07/20/16 03/15/17 03/14/17 History FLUoxetine HCL [FLUoxetine] 40 mg PO DAILY 07/20/16 03/15/17 03/14/17 History Fenofibrate [Lofibra] 160 mg PO QDAY 07/20/16 03/15/17 03/14/17 History Lisinopril [Zestril TAB] 2.5 mg PO QDAY 07/20/16 03/15/17 03/14/17 History Nitroglycerin [Nitrostat] 0.4 mg SL Q5M PRN 07/20/16 03/15/17 09/15/16 08:00 History amLODIPine 10 mg PO DAILY 07/20/16 03/15/17 03/14/17 History carvediloL [Coreg] 25 mg PO BID 07/20/16 03/15/17 03/14/17 History glipiZIDE [glipiZIDE ER] 5 mg PO QAM 07/20/16 03/15/17 03/14/17 History Pantoprazole [Protonix TAB] 20 mg PO QDAY tablet. 10/07/16 03/15/17 03/14/17 Rx ED Physical Exam - General Limitations: No Limitations General appearance: alert - Head Head exam: Present: atraumatic, normocephalic - Eye Eye exam: Present: normal appearance - ENT ENT exam: Present: mucous membranes moist - Neck Neck exam: Present: normal inspection - Respiratory Respiratory exam: Present: normal lung sounds bilaterally. Absent: respiratory distress - Cardiovascular Cardiovascular Exam: Present: bradycardia, irregular rhythm - GI/Abdominal GI/Abdominal exam: Present: soft. Absent: distended, tenderness - Extremities Exam Extremities exam: Present: normal inspection. Absent: pedal edema - Neurological Exam Neurological exam: Present: alert, oriented X3 - Psychiatric Psychiatric exam: Present: normal affect, normal mood - Skin Skin exam: Present: diaphoretic ED Course Vital Signs 07/15/19 07/15/19 07/15/19 19:30 19:39 19:40 Temperature 98.2 F Pulse Rate 28 L 27 L Respiratory 22 10 L 15 Rate Blood Pressure 78/38 O2 Sat by Pulse 96 97 Oximetry 07/15/19 07/15/19 07/15/19 19:45 19:50 19:55 Temperature Pulse Rate 82 86 86 Respiratory 18 12 14 Rate Blood Pressure 110/56 94/55 104/53 O2 Sat by Pulse 98 98 98 Oximetry 07/15/19 07/15/19 07/15/19 20:00 20:05 20:10 Temperature Pulse Rate 84 87 84 Respiratory 20 13 12 Rate Blood Pressure 100/53 104/59 101/56 O2 Sat by Pulse 97 96 Oximetry 07/15/19 07/15/19 07/15/19 20:15 20:20 20:26 Temperature Pulse Rate 84 86 Respiratory 17 12 15 Rate Blood Pressure 106/57 108/61 108/61 O2 Sat by Pulse 98 98 98 Oximetry 07/15/19 07/15/19 07/15/19 20:30 20:36 20:40 Temperature Pulse Rate 33 L 32 L 45 L Respiratory 12 22 Rate Blood Pressure 101/56 108/46 108/46 O2 Sat by Pulse 99 98 100 Oximetry 07/15/19 07/15/19 07/15/19 20:45 20:50 20:55 Temperature Pulse Rate 82 82 80 Respiratory 18 14 13 Rate Blood Pressure 126/74 115/73 123/75 O2 Sat by Pulse 99 99 Oximetry 07/15/19 07/15/19 07/15/19 21:00 21:06 21:10 Temperature Pulse Rate 81 79 78 Respiratory 17 15 14 Rate Blood Pressure 115/79 112/85 133/76 O2 Sat by Pulse 99 99 100 Oximetry 07/15/19 07/15/19 07/15/19 21:15 21:20 21:25 Temperature Pulse Rate 78 78 77 Respiratory 15 14 15 Rate Blood Pressure 140/76 142/74 144/78 O2 Sat by Pulse 99 100 98 Oximetry 07/15/19 07/15/19 07/15/19 21:30 21:35 21:40 Temperature Pulse Rate 77 77 76 Respiratory 13 14 14 Rate Blood Pressure 135/77 136/91 128/81 O2 Sat by Pulse 98 100 100 Oximetry 07/15/19 07/15/19 07/15/19 21:46 21:50 21:55 Temperature Pulse Rate 77 75 74 Respiratory 15 15 16 Rate Blood Pressure 130/76 125/75 127/74 O2 Sat by Pulse 100 98 98 Oximetry 07/15/19 07/15/19 07/15/19 22:00 22:05 22:10 Temperature Pulse Rate 78 77 84 Respiratory 15 17 14 Rate Blood Pressure 127/74 129/67 122/65 O2 Sat by Pulse 97 96 95 Oximetry 07/15/19 22:16 Temperature Pulse Rate 82 Respiratory 12 Rate Blood Pressure 135/69 O2 Sat by Pulse 98 Oximetry - Reevaluation(s) Reevaluation #1: 07/15/19 21:09 Labs resulted. Potassium is normal. Cardiology paged. - Consultations Consultation #1: 07/15/19 21:31 Spoke w/ Dr Shepherd. States place pt on Dopamine @5 mcg/kg/min. Admit to hospitalist. ED Medical Decision Making - Lab Data Result diagrams: 07/15/19 20:22 07/15/19 20:22 - EKG Data -: EKG Interpreted by Ok EKG shows normal: axis, ST-T waves Rate: bradycardia (rate 27) - EKG Data Interpretation: other (pt is in complete heart block) - Radiology Data Radiology results: report reviewed, image reviewed - Medical Decision Making 79-year-old male appears to be in complete heart block. Patient with a heart rate in the 20s and 30s despite atropine. Pacer pads placed on patient. He is currently being demand paced at 50 mA, with a rate of 60, although HR has been in the 80s. BP has improved, pt initially hypotensive. Labs unremarkable except for slight troponin elevation at 0.034 and acute renal insufficiency. Potassium is normal. Spoke w/ human resources advisor, Dr Shepherd, who recommended low dose dopamine at 5 mcg/kg/min. Pt will be placed in the ICU and admitted by hospit alist Dr Clarke. - Differential Diagnosis heart block, hyperkalemia, ACS Critical Care Time: Yes Critical care time in (mins) excluding proc time.: 60 Critical care attestation.: If time is entered above; I have spent that time in minutes in the direct care of this critically ill patient, excluding procedure time. Critical Care Time: 60 minutes ED Disposition Clinical Impression: Complete heart block, Hypotension, Elevated troponin, ARF (acute renal failure) Disposition: -09 OP ADMIT IP TO THIS HOSP Is pt being admited?: Yes Condition: Critical Referrals: PRIMARY CARE, [Referring] - 3-5 Days Time of Disposition: 21:34
[2019-07-15] MEDS ORDERED: DOPamine/D5W 800 MG/250 ML 800 MG/250 ML BAG IV ONE (21:29)
[2019-07-15] MEDS ORDERED: ONDANSETRON 4 MG/2 ML INJ ONE (23:42)
[2019-07-16] MEDS ORDERED: ONDANSETRON 4 MG/2 ML INJ IV ONE
--- NOTE | 2019-07-16 06:34 | History and Physical Report ---
History of Present Illness Date of examination: 07/15/19 Date of admission: 07/15/19 23:47 Chief complaint: Shortness of breath and weakness. Since afternoon History of present illness: 79-year-old male with history of hypertension, type 2 diabetes, hyperl ipidemia depression and coronary artery disease comes in for feeling weak and short of breath and nauseous since afternoon. Patient called EMS. Patient was found to have a heart rate of 20. Patient was given atropine without any improvement. After arrival in the emergency room patient still in a heart rate of 20's. Temporary pacemaker was applied in the emergency room. Heart rate went up to 70. Past Medical History Hypertension Coronary artery disease Diabetes: Yes (pill control) GERD: Yes Arthritis: Yes (total rt hip relacement) Surgical History Open Heart Surgery: Yes Additional Surgical History: CABG 08/2016 [facility]. Bowel surgery 2016 Social History Smoking Status: Current Every Day Smoker Substance Use Type: None Family history Htn - Medications Home Medications: Home Medications Medication Instructions Recorded Confirmed Last Taken Type Aspirin [Adult Low Dose Aspirin EC] 81 mg PO DAILY 07/20/16 03/15/17 03/14/17 History FLUoxetine HCL [FLUoxetine] 40 mg PO DAILY 07/20/16 03/15/17 03/14/17 History Fenofibrate [Lofibra] 160 mg PO QDAY 07/20/16 03/15/17 03/14/17 History Lisinopril [Zestril TAB] 2.5 mg PO QDAY 07/20/16 03/15/17 03/14/17 History Nitroglycerin [Nitrostat] 0.4 mg SL Q5M PRN 07/20/16 03/15/17 09/15/16 08:00 History amLODIPine 10 mg PO DAILY 07/20/16 03/15/17 03/14/17 History carvediloL [Coreg] 25 mg PO BID 07/20/16 03/15/17 03/14/17 History glipiZIDE [glipiZIDE ER] 5 mg PO QAM 07/20/16 03/15/17 03/14/17 History Pantoprazole [Protonix TAB] 20 mg PO QDAY tablet. 10/07/16 03/15/17 03/14/17 Rx Review of Systems ROS: Stated complaint: CHEST PAIN Other details as noted in HPI Comment: All other systems reviewed and negative Constitutional: denies: chills, fever Respiratory: shortness of breath Cardiovascular: denies: chest pain Gastrointestinal: nausea. denies: abdominal pain, vomiting Medications and Allergies Allergies Allergy/AdvReac Type Severity Reaction Status Date / Time Penicillins Allergy Mild REDNESS, Verified 07/20/16 08:16 WARM FEELING,SWELLING morphine AdvReac Intermediate VERY Verified 07/20/16 08:16 JITTERY, TWITCHING, JUMPING Home Medications Medication Instructions Recorded Confirmed Last Taken Type Aspirin [Adult Low Dose Aspirin EC] 81 mg PO DAILY 07/20/16 03/15/17 03/14/17 History FLUoxetine HCL [FLUoxetine] 40 mg PO DAILY 07/20/16 03/15/17 03/14/17 History Fenofibrate [Lofibra] 160 mg PO QDAY 07/20/16 03/15/17 03/14/17 History Lisinopril [Zestril TAB] 2.5 mg PO QDAY 07/20/16 03/15/17 03/14/17 History Nitroglycerin [Nitrostat] 0.4 mg SL Q5M PRN 07/20/16 03/15/17 09/15/16 08:00 History amLODIPine 10 mg PO DAILY 07/20/16 03/15/17 03/14/17 History carvediloL [Coreg] 25 mg PO BID 07/20/16 03/15/17 03/14/17 History glipiZIDE [glipiZIDE ER] 5 mg PO QAM 07/20/16 03/15/17 03/14/17 History Pantoprazole [Protonix TAB] 20 mg PO QDAY tablet. 10/07/16 03/15/17 03/14/17 Rx Active Meds: Active Medications Dopamine HCl/Dextrose (Intropin Drip 800 Mg/D5w 250 Ml) 800 mg in 250 mls @ 8.675 mls/hr IV TITR ONE Stop: 07/17/19 02:18 Last Admin: 07/15/19 22:05 Dose: 5 mcg/kg/min, 8.675 mls/hr Documented by: Exam - Constitutional Vitals: Temp Pulse Resp BP Pulse Ox 98.2 F 101 H 21 130/68 96 07/15/19 19:30 07/16/19 02:50 07/16/19 02:50 07/16/19 02:50 07/16/19 02:50 General appearance: Present: mild distress, well-nourished - EENT Eyes: Present: PERRL ENT: hearing intact, clear oral mucosa - Neck Neck: Present: supple, normal ROM - Respiratory Respiratory effort: normal Respiratory: bilateral: CTA - Cardiovascular Heart rate: 20 Rhythm: regularly irregular Heart Sounds: Present: S1 & S2. Absent: rub, click - Extremities Extremities: no ischemia, pulses symmetrical, No edema Peripheral Pulses: within normal limits - Abdominal General gastrointestinal: Present: soft, non-tender, non-distended, normal bowel sounds Male genitourinary: Present: normal - Rectal Rectal Exam: deferred - Integumentary Integumentary: Present: clear, warm, dry - Musculoskeletal Musculoskeletal: gait normal, strength equal bilaterally - Psychiatric Psychiatric: appropriate mood/affect, intact judgment & insight - Neurologic Neurologic: CNII-XII intact, moves all extremities - Allied Health Allied health notes reviewed: nursing, case management Results - Labs CBC & Chem 7: 07/15/19 20:22 07/15/19 20:22 Labs: Laboratory Last Values WBC 6.9 K/mm3 (4.5-11.0) 07/15/19 20:22 RBC 4.18 M/mm3 (3.65-5.03) 07/15/19 20:22 Hgb 13.0 gm/dl (11.8-15.2) 07/15/19 20:22 Hct 39.4 % (35.5-45.6) 07/15/19 20:22 MCV 94 fl (84-94) 07/15/19 20:22 MCH 31 pg (28-32) 07/15/19 20:22 MCHC 33 % (32-34) 07/15/19 20:22 RDW 14.6 % (13.2-15.2) 07/15/19 20:22 Plt Count 188 K/mm3 (140-440) 07/15/19 20:22 Lymph % (Auto) 19.7 % (13.4-35.0) 07/15/19 20:22 [place] % (Auto) 11.0 % (0.0-7.3) H 07/15/19 20:22 Eos % (Auto) 1.4 % (0.0-4.3) 07/15/19 20:22 Baso % (Auto) 0.8 % (0.0-1.8) 07/15/19 20:22 Lymph # 1.4 K/mm3 (1.2-5.4) 07/15/19 20:22 [place] # 0.8 K/mm3 (0.0-0.8) 07/15/19 20: Eos # 0.1 K/mm3 (0.0-0.4) 07/15/19 20:22 Baso # 0.1 K/mm3 (0.0-0.1) 07/15/19 20:22 Seg Neutrophils % 67.1 % (40.0-70.0) 07/15/19 20: Seg Neutrophils # 4.6 K/mm3 (1.8-7.7) 07/15/19 20:22 PT 15.0 Sec. (12.2-14.9) H 07/15/19 20:22 INR 1.19 (0.87-1.13) H 07/15/19 20:22 APTT 28.6 Sec. (24.2-36.6) 07/15/19 20:22 Sodium 142 mmol/L (137-145) 07/15/19 20:22 Potassium 4.6 mmol/L (3.6-5.0) 07/15/19 20:22 Chloride 106.8 mmol/L (98-107) 07/15/19 20:22 Carbon Dioxide 25 mmol/L (22-30) 07/15/19 20:22 Anion Gap 15 mmol/L 07/15/19 20:22 BUN 31 mg/dL (9-20) H 07/15/19 20:22 Creatinine 1.7 mg/dL (0.8-1.5) H 07/15/19 20:22 Estimated GFR 39 ml/min 07/15/19 20:22 BUN/Creatinine Ratio 18 % 07/15/19 20:22 Glucose 193 mg/dL (75-100) H 07/15/19 20:22 Calcium 8.6 mg/dL (8.4-10.2) 07/15/19 20:22 Troponin T 0.039 ng/mL (0.00-0.029) H 07/15/19 23:24 Triglycerides 275 mg/dL (2-149) H 07/15/19 20:22 Cholesterol 159 mg/dL (50-199) 07/15/19 20:22 LDL Cholesterol Direct 94 mg/dL (50-130) 07/15/19 20:22 HDL Cholesterol 29 mg/dL (40-59) L 07/15/19 20:22 Cholesterol/HDL Ratio 5.48 % 07/15/19 20:22 Short CBC 07/15/19 Range/Units 20:22 WBC 6.9 (4.5-11.0) K/mm3 Hgb 13.0 (11.8-15.2) gm/dl Hct 39.4 (35.5-45.6) % Plt Count 188 (140-440) K/mm3 BMP 07/15/19 20:22 Sodium 142 Potassium 4.6 Chloride 106.8 Carbon Dioxide 25 BUN 31 H Creatinine 1.7 H Glucose 193 H Calcium 8.6 Cardiac Enzymes 07/15/19 07/15/19 Range/Units 20:22 23:24 Troponin T 0.034 H 0.039 H (0.00-0.029) ng/mL - Imaging and Cardiology EKG: report reviewed (complete heart block, heart rate of 20) Chest x-ray: report reviewed (no acute findings) Assessment and Plan Assessment and plan: Critical care time 35 minutes Advance Directives: Yes (full code) VTE prophylaxis?: Chemical Plan of care discussed with patient/family: Yes - Patient Problems (1) Complete heart block Current Visit: Yes Status: Acute Plan to address problem: Patient is on temporary pacemaker Patient will need a permanent pacemaker Cardiology and EPS consulted (2) Non-STEMI (non-ST elevated myocardial infarction) Current Visit: Yes Status: Acute Plan to address problem: Initiated on IV heparin Cardiology consult (3) Hypertension Current Visit: Yes Status: Chronic Qualifiers: Hypertension type: essential hypertension Qualified Code(s): I10 - Essential (primary) hypertension Plan to address problem: Stop the beta blockers like Coreg Continue amlodipine and lisinopril (4) Type 2 diabetes mellitus Current Visit: Yes Status: Chronic Qualifiers: Diabetes mellitus usp insulin use: without usp use Plan to address problem: continue coverage for now (5) Hyperlipidemia Current Visit: Yes Status: Chronic Qualifiers: Hyperlipidemia type: mixed hyperlipidemia Qualified Code(s): E78.2 - Mixed hyperlipidemia Plan to address problem: Continue fenofibrate (6) Depression Current Visit: Yes Status: Chronic Qualifiers: Depression Type: unspecified Qualified Code(s): F32.9 - Major depressive disorder, single episode, unspecified Plan to address problem: Continue fluoxetine 40 mg once a day (7) GERD (gastroesophageal reflux disease) Current Visit: Yes Status: Chronic Qualifiers: Esophagitis presence: without esophagitis Qualified Code(s): K21.9 - Gastro-esophageal reflux disease without esophagitis Plan to address problem: Continue Protonix (8) DVT prophylaxis Current Visit: Yes Status: Acute Plan to address problem: On IV heparin and GI prophylaxis
[2019-07-16] MEDS ORDERED: NITROGLYCERIN 0.4 MG TAB SUBL SL PRN (06:44)
[2019-07-16] MEDS ORDERED: ACETAMINOPHEN 325 MG TAB PO PRN ×2 (06:46→06:53)
[2019-07-16] MEDS ORDERED: ONDANSETRON 4 MG/2 ML INJ IV PRN ×2 (06:46→06:53)
[2019-07-16] MEDS ORDERED: HEPARIN 10,000 UNITS/10 ML VIAL IV ONE (06:47)
[2019-07-16] MEDS ORDERED: METOCLOPRAMIDE 10 MG/2 ML INJ IV PRN (06:53)
[2019-07-16] MEDS ORDERED: MORPHINE 4 MG/1 ML INJ IV PRN (06:53)
[2019-07-16] MEDS ORDERED: HEPARIN 5,000 UNIT/1 ML VIAL ONE (08:02)
[2019-07-16] MEDS: HEPARIN/ 0.45% NACL DRIP 25,000 UNIT/500 ML BAG IV SCH (08:45)
[2019-07-16 08:46] LABS: Hematocrit 42.4 % (35.5-45.6); Hemoglobin 14.2 gm/dl (11.8-15.2); Mean Corpuscular HGB Conc 34 % (32-34); Mean Corpuscular Volume 93 fl (84-94); Platelet Count 196 K/mm3 (140-440); Red Blood Count 4.57 M/mm3 (3.65-5.03); Red Cell Distribution Width 14.2 % (13.2-15.2)
[2019-07-16 08:58] LABS: INR 1.06 (0.87-1.13)
[2019-07-16 08:59] LABS: Partial Thromboplastin Time 29.8 Sec. (24.2-36.6)
[2019-07-16 09:13] LABS: BUN/Creatinine Ratio 25; Blood Urea Nitrogen 25 mg/dL (9-20); Calcium 8.7 mg/dL (8.4-10.2); Hemolysis Index 7
[2019-07-16] MEDS ORDERED: HEPARIN 10,000 UNITS/10 ML VIAL ONE (10:25)
[2019-07-16] MEDS: INSULIN LISPRO 100 UNIT/ML SUB-Q SCH ×4 (10:47→21:53)
--- NOTE | 2019-07-16 11:05 | Consultation ---
History of Present Illness Consult date: 07/16/19 Consult reason: elevated troponin History of present illness: Impression NSTEMI by enzymes Acute pre-syncopal event Transient AV dissociation, 3rd degree Av block Known CABG Pre-renal azotemia Diabetes HTN Hyperlipidemia Plan HR has corrected by IVF and withholding of Coreg IV heparin for 48hrs Plan for diagnostic cardiac cath Pacemaker decision after cath complete No chronotropes for now. CXR no pulmonary edema Past History Past Medical History: CAD, diabetes, hypertension, hyperlipidemia Past Surgical History: CABG Social history: . denies: smoking Medications and Allergies Allergies Allergy/AdvReac Type Severity Reaction Status Date / Time Penicillins Allergy Mild REDNESS, Verified 07/20/16 08:16 WARM FEELING,SWELLING morphine AdvReac Intermediate VERY Verified 07/20/16 08:16 JITTERY, TWITCHING, JUMPING Home Medications Medication Instructions Recorded Confirmed Last Taken Type Aspirin [Adult Low Dose Aspirin EC] 81 mg PO DAILY 07/20/16 03/15/17 03/14/17 History FLUoxetine HCL [FLUoxetine] 40 mg PO DAILY 07/20/16 03/15/17 03/14/17 History Fenofibrate [Lofibra] 160 mg PO QDAY 07/20/16 03/15/17 03/14/17 History Lisinopril [Zestril TAB] 2.5 mg PO QDAY 07/20/16 03/15/17 03/14/17 History Nitroglycerin [Nitrostat] 0.4 mg SL Q5M PRN 07/20/16 03/15/17 09/15/16 08:00 History amLODIPine 10 mg PO DAILY 07/20/16 03/15/17 03/14/17 History carvediloL [Coreg] 25 mg PO BID 07/20/16 03/15/17 03/14/17 History glipiZIDE [glipiZIDE ER] 5 mg PO QAM 07/20/16 03/15/17 03/14/17 History Pantoprazole [Protonix TAB] 20 mg PO QDAY tablet. 10/07/16 03/15/17 03/14/17 Rx Active Meds: Active Medications Acetaminophen (Tylenol) 650 mg PO Q4H PRN PRN Reason: Pain MILD(1-3)/Fever >100.5/WONG Amlodipine Besylate (Amlodipine) 10 mg PO DAILY ASUNCION Aspirin (Halfprin Ec) 81 mg PO DAILY COUNTS INCLUDE 234 BEDS AT THE [facility] Fenofibrate (Tricor) 145 mg PO QDAY COUNTS INCLUDE 234 BEDS AT THE [facility] Fluoxetine HCl (Prozac) 40 mg PO DAILY COUNTS INCLUDE 234 BEDS AT THE [facility] Glipizide (Glucotrol Xl) 5 mg PO QAM COUNTS INCLUDE 234 BEDS AT THE [facility] Dopamine HCl/Dextrose (Intropin Drip 800 Mg/D5w 250 Ml) 800 mg in 250 mls @ 8.675 mls/hr IV TITR ONE Stop: 07/17/19 02:18 Last Admin: 07/15/19 22:05 Dose: 5 mcg/kg/min, 8.675 mls/hr Documented by: Heparin Sodium/Sodium Chloride (Heparin/ 0.45% Nacl-25,000 Unit/500 Ml) 25,000 unit in 500 mls @ 27 mls/hr IV TITR COUNTS INCLUDE 234 BEDS AT THE [facility]; Protocol Last Admin: 07/16/19 08:45 Dose: 1,350 units/hr, 27 mls/hr Documented by: Insulin Human Lispro (Humalog) 0 unit SUB-Q ACHS COUNTS INCLUDE 234 BEDS AT THE [facility]; Protocol Last Admin: 07/16/19 10:47 Dose: Not Given Documented by: Lisinopril (Zestril) 2.5 mg PO QDAY COUNTS INCLUDE 234 BEDS AT THE [facility] Metoclopramide HCl (Reglan) 5 mg IV Q6H PRN PRN Reason: Nausea And Vomiting Morphine Sulfate (Morphine) 4 mg IV Q4H PRN PRN Reason: Pain , Severe (7-10) Nitroglycerin (Nitrostat) 0.4 mg SL Q5M PRN PRN Reason: Chest Pain Ondansetron HCl (Zofran) 4 mg IV Q8H PRN PRN Reason: Nausea And Vomiting Oxycodone/Acetaminophen (Percocet 5/325) 1 tab PO Q6H PRN PRN Reason: Pain, Moderate (4-6) Pantoprazole Sodium (Protonix) 20 mg PO QDAY COUNTS INCLUDE 234 BEDS AT THE [facility] Sodium Chloride (Sodium Chloride Flush Syringe 10 Ml) 10 ml IV BID COUNTS INCLUDE 234 BEDS AT THE [facility] Sodium Chloride (Sodium Chloride Flush Syringe 10 Ml) 10 ml IV PRN PRN PRN Reason: LINE FLUSH Review of Systems All systems: negative (stated in impression, no symptoms currently) Physical Examination Vital Signs Temp Pulse Resp BP Pulse Ox 98.2 F 28 L 22 78/38 96 07/15/19 19:30 07/15/19 19:30 07/15/19 19:30 07/15/19 19:30 07/15/19 19:30 General appearance: no acute distress HEENT: Positive: PERRL Neck: Positive: neck supple Cardiac: Positive: Reg Rate and Rhythm, S1/S2 Lungs: Positive: Normal Exam Neuro: Positive: Grossly Intact Extremities: Absent: edema Results 07/16/19 08:33 07/16/19 08:33 Coagulation 07/15/19 07/16/19 Range/Units 20:22 08:33 PT 15.0 H 13.7 (12.2-14.9) Sec. INR 1.19 H 1.06 (0.87-1.13) APTT 28.6 29.8 (24.2-36.6) Sec. Lipids 07/15/19 Range/Units 20:22 Triglycerides 275 H (2-149) mg/dL Cholesterol 159 (50-199) mg/dL HDL Cholesterol 29 L (40-59) mg/dL Cholesterol/HDL Ratio 5.48 % CBC 07/15/19 07/16/19 Range/Units 20:22 08:33 WBC 6.9 10.4 (4.5-11.0) K/mm3 RBC 4.18 4.57 (3.65-5.03) M/mm3 Hgb 13.0 14.2 (11.8-15.2) gm/dl Hct 39.4 42.4 (35.5-45.6) % Plt Count 188 196 (140-440) K/mm3 Lymph # 1.4 (1.2-5.4) K/mm3 [place] # 0.8 (0.0-0.8) K/mm3 Eos # 0.1 (0.0-0.4) K/mm3 Baso # 0.1 (0.0-0.1) K/mm3 Comprehensive Metabolic Panel 07/15/19 07/16/19 Range/Units 20:22 08:33 Sodium 142 139 (137-145) mmol/L Potassium 4.6 4.1 (3.6-5.0) mmol/L Chloride 106.8 104.1 (98-107) mmol/L Carbon Dioxide 25 20 L (22-30) mmol/L BUN 31 H 25 H (9-20) mg/dL Creatinine 1.7 H 1.0 (0.8-1.5) mg/dL Glucose 193 H 153 H (75-100) mg/dL Calcium 8.6 8.7 (8.4-10.2) mg/dL
[2019-07-16] MEDS: LISINOPRIL 5 MG TAB PO SCH ×2 (11:20→12:12)
[2019-07-16] MEDS: FENOFIBRATE 145 MG TAB PO SCH (11:21)
[2019-07-16] MEDS: ASPIRIN EC 81 MG TAB PO SCH (11:21)
[2019-07-16] MEDS: glipiZIDE XL 5 MG TAB PO SCH (11:22)
[2019-07-16] MEDS: PANTOPRAZOLE 20 MG TAB PO SCH (11:22)
[2019-07-16] MEDS: FLUoxetine 20 MG CAP PO SCH (11:22)
[2019-07-16] MEDS: amLODIPine 10 MG TAB PO SCH (11:22)
[2019-07-16] MEDS ORDERED: SODIUM CHLORIDE 0.9% 500 ML 500 ML IV SCH (12:00)
[2019-07-16] MEDS ORDERED: INSULIN REGULAR, HUMAN 100 UNITS/1 ML ONE (12:01)
--- NOTE | 2019-07-16 12:07 | Progress Note ---
Assessment and Plan Assessment and plan: Complete heart block Patient on Dopamine drip heart rate was 28 on presentation, now 80s Cardiology consulted For cardiac cath in am and then decide whether pacemaker Non-STEMI (non-ST elevated myocardial infarction) Initiated on IV heparin Cardiology consulted. following Hypertension Stopped the beta blockers like Coreg Continue amlodipine and lisinopril Type 2 diabetes mellitus continue coverage for now Hyperlipidemia Continue fenofibrate Depression Continue fluoxetine 40 mg once a day GERD (gastroesophageal reflux disease) Continue Protonix DVT prophylaxis On IV heparin and GI prophylaxis History Interval history: Shortness of breath Hospitalist Physical - Constitutional Vitals: Temp Pulse Resp BP Pulse Ox 98.2 F 83 17 161/74 95 07/15/19 19:30 07/16/19 11:20 07/16/19 10:45 07/16/19 11:20 07/16/19 10:45 General appearance: Present: no acute distress - EENT Eyes: Present: PERRL ENT: hearing intact - Neck Neck: Present: supple - Respiratory Respiratory effort: normal Respiratory: bilateral: CTA - Cardiovascular Rhythm: regular Heart Sounds: Present: S1 & S2 (S1 and S2 reg) - Extremities Extremities: no ischemia, No edema, normal color - Abdominal General gastrointestinal: soft, non-tender, non-distended, normal bowel sounds - Psychiatric Psychiatric: appropriate mood/affect - Neurologic Neurologic: moves all extremities, other (AAO x 3) Results - Labs CBC & Chem 7: 07/16/19 08:33 07/16/19 08:33 Labs: Laboratory Last Values WBC 10.4 K/mm3 (4.5-11.0) 07/16/19 08:33 RBC 4.57 M/mm3 (3.65-5.03) 07/16/19 08:33 Hgb 14.2 gm/dl (11.8-15.2) 07/16/19 08:33 Hct 42.4 % (35.5-45.6) 07/16/19 08:33 MCV 93 fl (84-94) 07/16/19 08:33 MCH 31 pg (28-32) 07/16/19 08:33 MCHC 34 % (32-34) 07/16/19 08:33 RDW 14.2 % (13.2-15.2) 07/16/19 08:33 Plt Count 196 K/mm3 (140-440) 07/16/19 08:33 Lymph % (Auto) 19.7 % (13.4-35.0) 07/15/19 20:22 [place] % (Auto) 11.0 % (0.0-7.3) H 07/15/19 20:22 Eos % (Auto) 1.4 % (0.0-4.3) 07/15/19 20:22 Baso % (Auto) 0.8 % (0.0-1.8) 07/15/19 20:22 Lymph # 1.4 K/mm3 (1.2-5.4) 07/15/19 20:22 [place] # 0.8 K/mm3 (0.0-0.8) 07/15/19 20:22 Eos # 0.1 K/mm3 (0.0-0.4) 07/15/19 20:22 Baso # 0.1 K/mm3 (0.0-0.1) 07/15/19 20:22 Seg Neutrophils % 67.1 % (40.0-70.0) 07/15/19 20:22 Seg Neutrophils # 4.6 K/mm3 (1.8-7.7) 07/15/19 20:22 PT 13.7 Sec. (12.2-14.9) 07/16/19 08:33 INR 1.06 (0.87-1.13) 07/16/19 08:33 APTT 29.8 Sec. (24.2-36.6) 07/16/19 08:33 Sodium 139 mmol/L (137-145) 07/16/19 08:33 Potassium 4.1 mmol/L (3.6-5.0) 07/16/19 08:33 Chloride 104.1 mmol/L (98-107) 07/16/19 08:33 Carbon Dioxide 20 mmol/L (22-30) L 07/16/19 08:33 Anion Gap 19 mmol/L 07/16/19 08:33 BUN 25 mg/dL (9-20) H 07/16/19 08:33 Creatinine 1.0 mg/dL (0.8-1.5) 07/16/19 08:33 Estimated GFR > 60 ml/min 07/16/19 08:33 BUN/Creatinine Ratio 25 % 07/16/19 08:33 Glucose 153 mg/dL (75-100) H 07/16/19 08:33 POC Glucose 173 (70-105) H 07/16/19 11:29 Hemoglobin A1c 6.7 % (4-6) H 07/16/19 08:33 Calcium 8.7 mg/dL (8.4-10.2) 07/16/19 08:33 Troponin T 0.044 ng/mL (0.00-0.029) H 07/16/19 08:33 Triglycerides 275 mg/dL (2-149) H 07/15/19 20:22 Cholesterol 159 mg/dL (50-199) 07/15/19 20:22 LDL Cholesterol Direct 94 mg/dL (50-130) 07/15/19 20:22 HDL Cholesterol 29 mg/dL (40-59) L 07/15/19 20:22 Cholesterol/HDL Ratio 5.48 % 07/15/19 20:22 Active Medications - Current Medications Current Medications: Generic Name Dose Route Start Last Admin Trade Name Freq PRN Reason Stop Dose Admin Acetaminophen 650 mg 07/16/19 06:53 Tylenol PO Q4H PRN Pain MILD(1-3)/Fever >100.5/WONG Amlodipine Besylate 10 mg 07/16/19 10:00 07/16/19 11:22 Amlodipine PO 10 mg DAILY ASUNCION Administration Aspirin 81 mg 07/16/19 10:00 07/16/19 11:21 Halfprin Ec PO 81 mg DAILY ASUNCION Administration Fenofibrate 145 mg 07/16/19 10:00 07/16/19 11:21 Tricor PO 145 mg QDAY ASUNCION Administration Fluoxetine HCl 40 mg 07/16/19 10:00 07/16/19 11:22 Prozac PO 40 mg DAILY ASUNCION Administration Glipizide 5 mg 07/16/19 10:00 07/16/19 11:22 Glucotrol Xl PO 5 mg QAM ASUNCION Administration Dopamine HCl/Dextrose 800 mg in 250 mls @ 8.675 mls/hr 07/15/19 21:29 07/15/19 22:05 Intropin Drip 800 Mg/D5w 250 Ml IV 07/17/19 02:18 5 mcg/kg/min TITR ONE 8.675 mls/hr Administration 5 MCG/KG/MIN Heparin Sodium/Sodium Chloride 25,000 unit in 500 mls @ 27 mls/hr 12/01/19 07:00 07/16/19 08:45 Heparin/ 0.45% Nacl-25,000 Unit/500 Ml IV 1,350 units/hr TITR ASUNCION 27 mls/hr Administration Protocol 1,350 UNITS/HR Sodium Chloride 500 mls @ 50 mls/hr 07/16/19 12:00 Nacl 0.9% 500 Ml IV 07/16/19 21:59 DIRECT ASUNCION Insulin Human Lispro 0 unit 07/16/19 07:30 07/16/19 12:06 Humalog SUB-Q 2 unit ACHS ASUNCION Administration Protocol Lisinopril 2.5 mg 07/16/19 10:00 07/16/19 11:20 Zestril PO 2.5 mg QDAY ASUNCION Administration Metoclopramide HCl 5 mg 07/16/19 06:53 Reglan IV Q6H PRN Nausea And Vomiting Morphine Sulfate 4 mg 07/16/19 06:53 Morphine IV Q4H PRN Pain , Severe (7-10) Nitroglycerin 0.4 mg 07/16/19 06:44 Nitrostat SL Q5M PRN Chest Pain Ondansetron HCl 4 mg 07/16/19 06:46 Zofran IV Q8H PRN Nausea And Vomiting Oxycodone/Acetaminophen 1 tab 07/16/19 06:53 Percocet 5/325 PO Q6H PRN Pain, Moderate (4-6) Pantoprazole Sodium 20 mg 07/16/19 10:00 07/16/19 11:22 Protonix PO 20 mg QDAY ASUNCION Administration Sodium Chloride 10 ml 07/16/19 10:00 07/16/19 11:23 Sodium Chloride Flush Syringe 10 Ml IV 10 ml BID ASUNCION Administration Sodium Chloride 10 ml 07/16/19 06:46 Sodium Chloride Flush Syringe 10 Ml IV PRN PRN LINE FLUSH
--- NOTE | 2019-07-16 12:34 | Consultation ---
History of Present Illness Consult date: 07/16/19 Requesting physician: KEVIN VASQUEZ Reason for consult: other (NSTEMI) History of present illness: PCCM CONSULT NOTE (Full dictation # [id number]) Please see dictated notes for full details Past History Past Medical History: CAD, diabetes, hypertension, hyperlipidemia Past Surgical History: CABG Social history: . denies: smoking Medications and Allergies Allergies Allergy/AdvReac Type Severity Reaction Status Date / Time Penicillins Allergy Mild REDNESS, Verified 07/20/16 08:16 WARM FEELING,SWELLING morphine AdvReac Intermediate VERY Verified 07/20/16 08:16 JITTERY, TWITCHING, JUMPING Home Medications Medication Instructions Recorded Confirmed Last Taken Type Aspirin [Adult Low Dose Aspirin EC] 81 mg PO DAILY 07/20/16 07/16/19 03/14/17 History FLUoxetine HCL [FLUoxetine] 40 mg PO DAILY 07/20/16 07/16/19 03/14/17 History Fenofibrate [Lofibra] 160 mg PO QDAY 07/20/16 07/16/19 03/14/17 History amLODIPine 10 mg PO DAILY 07/20/16 07/16/19 03/14/17 History carvediloL [Coreg] 25 mg PO BID 07/20/16 07/16/19 03/14/17 History glipiZIDE [glipiZIDE ER] 5 mg PO BID 07/20/16 07/16/19 03/14/17 History Oxybutynin [Ditropan] 5 mg PO QDAY 07/16/19 07/16/19 Unknown History Trazodone HCl 50 mg PO QHS 07/16/19 07/16/19 Unknown History clonazePAM [Klonopin] 1 mg PO QHS 07/16/19 07/16/19 Unknown History Active Meds: Active Medications Acetaminophen (Tylenol) 650 mg PO Q4H PRN PRN Reason: Pain MILD(1-3)/Fever >100.5/WONG Amlodipine Besylate (Amlodipine) 10 mg PO DAILY [facility] Last Admin: 07/16/19 11:22 Dose: 10 mg Documented by: Aspirin (Halfprin Ec) 81 mg PO DAILY [facility] Last Admin: 07/16/19 11:21 Dose: 81 mg Documented by: Fenofibrate (Tricor) 145 mg PO QDAY [facility] Last Admin: 07/16/19 11:21 Dose: 145 mg Documented by: Fluoxetine HCl (Prozac) 40 mg PO DAILY [facility] Last Admin: 07/16/19 11:22 Dose: 40 mg Documented by: Glipizide (Glucotrol Xl) 5 mg PO QAM [facility] Last Admin: 07/16/19 11:22 Dose: 5 mg Documented by: Dopamine HCl/Dextrose (Intropin Drip 800 Mg/D5w 250 Ml) 800 mg in 250 mls @ 8.675 mls/hr IV TITR ONE Stop: 07/17/19 02:18 Last Admin: 07/15/19 22:05 Dose: 5 mcg/kg/min, 8.675 mls/hr Documented by: Heparin Sodium/Sodium Chloride (Heparin/ 0.45% Nacl-25,000 Unit/500 Ml) 25,000 unit in 500 mls @ 27 mls/hr IV TITR [facility]; Protocol Last Admin: 07/16/19 08:45 Dose: 1,350 units/hr, 27 mls/hr Documented by: Sodium Chloride (Nacl 0.9% 500 Ml) 500 mls @ 50 mls/hr IV DIRECT [facility] Stop: 07/16/19 21:59 Insulin Human Lispro (Humalog) 0 unit SUB-Q ACHS [facility]; Protocol Last Admin: 07/16/19 12:06 Dose: 2 unit Documented by: Lisinopril (Zestril) 2.5 mg PO QDAY [facility] Last Admin: 07/16/19 12:12 Dose: Not Given Documented by: Metoclopramide HCl (Reglan) 5 mg IV Q6H PRN PRN Reason: Nausea And Vomiting Morphine Sulfate (Morphine) 4 mg IV Q4H PRN PRN Reason: Pain , Severe (7-10) Nitroglycerin (Nitrostat) 0.4 mg SL Q5M PRN PRN Reason: Chest Pain Ondansetron HCl (Zofran) 4 mg IV Q8H PRN PRN Reason: Nausea And Vomiting Oxycodone/Acetaminophen (Percocet 5/325) 1 tab PO Q6H PRN PRN Reason: Pain, Moderate (4-6) Pantoprazole Sodium (Protonix) 20 mg PO QDAY [facility] Last Admin: 07/16/19 11:22 Dose: 20 mg Documented by: Sodium Chloride (Sodium Chloride Flush Syringe 10 Ml) 10 ml IV BID [facility] Last Admin: 07/16/19 11:23 Dose: 10 ml Documented by: Sodium Chloride (Sodium Chloride Flush Syringe 10 Ml) 10 ml IV PRN PRN PRN Reason: LINE FLUSH Physical Examination Vital signs: Vital Signs Temp Pulse Resp BP Pulse Ox 98.2 F 28 L 22 78/38 96 07/15/19 19:30 07/15/19 19:30 07/15/19 19:30 07/15/19 19:30 07/15/19 19:30 Results - Laboratory Findings CBC and BMP: 07/17/19 04:24 07/17/19 04:24 PT/INR, D-dimer PT 13.7 Sec. (12.2-14.9) 07/16/19 08:33 INR 1.06 (0.87-1.13) 07/16/19 08:33 Abnormal lab findings: Abnormal Labs 07/15/19 07/15/19 07/15/19 20:22 20:22 20:22 [place] % (Auto) 11.0 H PT INR Carbon Dioxide BUN 31 H Creatinine 1.7 H Glucose 193 H POC Glucose Hemoglobin A1c Troponin T 0.034 H Triglycerides 275 H HDL Cholesterol 29 L 07/15/19 07/15/19 07/16/19 20:22 23:24 07:56 [place] % (Auto) PT 15.0 H INR 1.19 H Carbon Dioxide BUN Creatinine Glucose POC Glucose 146 H Hemoglobin A1c Troponin T 0.039 H Triglycerides HDL Cholesterol 07/16/19 07/16/19 07/16/19 08:33 08:33 08:33 [place] % (Auto) PT INR Carbon Dioxide 20 L BUN 25 H Creatinine Glucose 153 H POC Glucose Hemoglobin A1c 6.7 H Troponin T 0.044 H Triglycerides HDL Cholesterol 07/16/19 11:29 [place] % (Auto) PT INR Carbon Dioxide BUN Creatinine Glucose POC Glucose 173 H Hemoglobin A1c Troponin T Triglycerides HDL Cholesterol
[2019-07-17] MEDS: HEPARIN/ 0.45% NACL DRIP 25,000 UNIT/500 ML BAG IV SCH (00:04)
[2019-07-17 05:31] LABS: Basophils # (Auto) 0.1 K/mm3 (0.0-0.1); Basophils % (Auto) 0.8 % (0.0-1.8); Eosinophils # (Auto) 0.1 K/mm3 (0.0-0.4); Eosinophils % (Auto) 1.2 % (0.0-4.3); Hematocrit 39.7 % (35.5-45.6); Hemoglobin 13.5 gm/dl (11.8-15.2); Lymphocytes # (Auto) 1.5 K/mm3 (1.2-5.4); Lymphocytes % (Auto) 18.9 % (13.4-35.0); Mean Corpuscular HGB Conc 34 % (32-34); Mean Corpuscular Volume 94 fl (84-94); Monocytes # (Auto) 0.9 K/mm3 (0.0-0.8); Monocytes % (Auto) 11.7 % (0.0-7.3); Platelet Count 198 K/mm3 (140-440); Red Blood Count 4.25 M/mm3 (3.65-5.03); Red Cell Distribution Width 14.3 % (13.2-15.2)
[2019-07-17 05:48] LABS: BUN/Creatinine Ratio 19; Blood Urea Nitrogen 19 mg/dL (9-20); Calcium 8.9 mg/dL (8.4-10.2); Hemolysis Index 10
[2019-07-17] MEDS ORDERED: SODIUM CHLORIDE 0.9% 500 ML 500 ML ONE (08:25)
[2019-07-17] MEDS ORDERED: ASPIRIN EC 81 MG TAB PO ONE (08:25)
[2019-07-17] MEDS: ASPIRIN EC 81 MG TAB PO SCH ×2 (08:27→11:41)
[2019-07-17] MEDS: SODIUM CHLORIDE 0.9% 500 ML 500 ML IV SCH ×2 (09:03→09:38)
[2019-07-17] MEDS: INSULIN LISPRO 100 UNIT/ML SUB-Q SCH ×4 (09:09→22:09)
[2019-07-17] MEDS ORDERED: HEPARIN/NS 5000 UNIT/500ML 1,000 ML IR ONE (09:23)
[2019-07-17] MEDS ORDERED: HEPARIN 10,000 UNITS/10 ML VIAL ONE (09:23)
[2019-07-17] MEDS ORDERED: NITROGLYCERIN SYRINGE 0 ML ONE (09:23)
[2019-07-17] MEDS: fentaNYL 100 MCG/2 ML INJ ONE ×2 (09:36→09:57)
[2019-07-17] MEDS: MIDAZOLAM 2 MG/2 ML INJ ONE ×2 (09:37→09:57)
[2019-07-17] MEDS: LIDOCAINE (2%) 20 MG/1 ML VIAL 20 ML MDV INFILTRATI ONE ×2 (09:37→09:58)
--- NOTE | 2019-07-17 10:57 | Cardiac Catherization Report ---
REASON FOR PROCEDURE: Syncope. The patient is an 79-year-old man with history of coronary artery disease, 4-vessel coronary artery bypass four years ago, presented with near syncope and bradycardia. He was recommended to undergo a cardiac catheterization. PROCEDURES: 1. Left heart catheterization. 2. Selective left and right coronary angiography. 3. Angiography of the left internal mammary artery. 4. Angiography of the saphenous vein grafts. 5. Left ventricular angiography. 6. Sedation time, start 9:57, end 10:28. DESCRIPTION OF PROCEDURE: The patient was prepped and draped in a sterile fashion after informed consent. Right femoral artery was entered using Seldinger technique followed by placement of a 6 [place] sheath. Selective left and right coronary angiography was performed using a #4 left Jose and a #4 right Jose catheter. The right Jose catheter was used for saphenous vein graft angiography. The right Jose catheter was also used for left internal mammary artery graft angiography. We then exchanged for a pigtail catheter, which was used for left ventricle angiography. The catheters were then removed, sheath removed, and hemostasis achieved using an Angio-Seal device. The patient was returned to the postprocedure unit in stable condition. There were no complications. FINDINGS: HEMODYNAMICS: Left ventricular end-diastolic pressure was 22. Ascending aortic pressure was 188/91. There was no significant pressure gradient on pullback across the aortic valve. CORONARY ANGIOGRAPHY: The left main coronary artery was free of significant disease. The left anterior descending artery was completely occluded in its proximal segment. The left internal mammary artery graft to the LAD was patent with good anastomosis to the mid LAD and good distal runoff in a small caliber, mildly atherosclerotic mid and distal LAD. The saphenous vein graft was anastomosed to a large proximal diagonal or anterolateral obtuse marginal branch. This bypass was patent with good anastomosis and good distal runoff. The [place] circumflex artery was completely occluded in its mid segment. The saphenous vein graft to the mid obtuse marginal branch was patent with good anastomosis and good distal runoff. The right coronary artery was dominant. This vessel was also completely occluded in its mid segment. The saphenous vein graft to the distal right coronary artery was patent with good anastomosis and good distal runoff. Left ventricular systolic function was at the lower limits of normal, estimated ejection fraction 50%-55%. CONCLUSION: 1. Severe 3-vessel disease with chronic occlusions of the LAD, circumflex and right coronary arteries. 2. Patent left internal mammary artery graft to the LAD. 3. Patent saphenous vein graft to the proximal diagonal branch of the LAD. 4. Patent saphenous vein graft to the mid obtuse marginal branch of the circumflex artery. 5. Patent saphenous vein graft to the distal right coronary artery. 6. Left ventricular systolic function is well preserved, ejection fraction 50%-55%. RECOMMENDATION: Medical therapy and risk factor modification. [facility]# [id number] CA/NTS
[2019-07-17] MEDS: FLUoxetine 20 MG CAP PO SCH (11:40)
[2019-07-17] MEDS: LISINOPRIL 5 MG TAB PO SCH (11:40)
[2019-07-17] MEDS: PANTOPRAZOLE 20 MG TAB PO SCH (11:41)
[2019-07-17] MEDS: glipiZIDE XL 5 MG TAB PO SCH (11:41)
[2019-07-17] MEDS: FENOFIBRATE 145 MG TAB PO SCH (11:41)
[2019-07-17] MEDS: amLODIPine 10 MG TAB PO SCH (11:41)
--- NOTE | 2019-07-17 11:54 | Event Note ---
Date: 07/17/19 Catheterization completed via the right femoral artery. No complications. Findings: Severe three-vessel disease with chronic total occlusions of the proximal LAD, mid circumflex and mid right coronary arteries. Patent bypass grafts 4, JAMIL to the LAD, nothing grafts 3 to the ALOM, MOM and distal right coronary. Left ventricular size function of the lower limits of normal, ejection fraction 50-55%. Medical therapy and risk factor modification for coronary artery disease. Electrophysiologic evaluation of presenting bradycardia and presyncope.
[2019-07-17] MEDS ORDERED: SODIUM CHLORIDE 0.9% 1000 ML 1,000 ML IV SCH (13:00)
--- NOTE | 2019-07-17 13:00 | Progress Note ---
Assessment and Plan Non-ST elevation myocardial infarction. Acute kidney injury. Shortness of breath. Symptomatic bradycardia. Tobacco use disorder. Complete heart block. The 12-lead EKG demonstrated complete heart block. History of hypertension. Diabetes. Hyperlipidemia. Coronary artery disease. Gastroesophageal reflux disease. - continue supplemental oxygen as needed to keep O2 sat's > 90% - continue bronchodilators with pulmonary hygiene per RT - s/p heart cath (Findings: Severe three-vessel disease with chronic total occlusions of the proximal LAD, mid circumflex and mid right coronary arteries. Patent bypass grafts 4, JAMIL to the LAD, nothing grafts 3 to the ALOM, MOM and distal right coronary. Left ventricular size function of the lower limits of normal, ejection fraction 50-55%.) - continue medical therapy and risk factor modification for coronary artery disease per cardiology team - await Electrophysiologic evaluation of presenting bradycardia and presyncope. - PT/OT as tolerated - tobacco abstinence strongly counseled - mobility protocols for pressure ulcer prophylaxis - continue accuchecks with glycemic control per SSI for target BG < 180 mg/dl - GI & VTE prophylaxis - Flu & pneumovax addressed per protocol - continue other care per attending / other consultants ... re-evaluate in am & prn Subjective Date of service: 07/17/19 Principal diagnosis: NSTEMI; CHINTAN; Complete heart block; HTN; DM II; Hyperlipidemia; CAD Interval history: Patient is seen today for: NSTEMI; CHINTAN; Shortness of breath; Symptomatic bradycardia; Tobacco use disorder; Complete heart block; HTN; DM II; Hyperlipidemia; CAD; GERD Seen and examined at bedside; 24-hour events reviewed; nursing and respiratory care staff consulted; no adverse overnight events reported to me; resting peacefully in bed; remains on supplemental oxygen; feels better; no chest pains; NO N/V/F/C Objective Vital Signs - 12hr 07/17/19 07/17/19 07/17/19 01:18 02:00 03:00 Temperature Pulse Rate 71 69 Pulse Rate [ 82 From Monitor] Respiratory 18 18 Rate Blood Pressure 146/72 165/88 O2 Sat by Pulse 96 95 94 Oximetry 07/17/19 07/17/19 07/17/19 04:00 04:38 05:00 Temperature 98.5 F Pulse Rate 68 70 Pulse Rate [ 82 From Monitor] Respiratory 14 18 20 Rate Blood Pressure 152/87 158/80 O2 Sat by Pulse 94 96 95 Oximetry 07/17/19 07/17/19 07/17/19 06:00 07:00 08:00 Temperature Pulse Rate 68 75 Pulse Rate [ 69 From Monitor] Respiratory 18 13 13 Rate Blood Pressure 160/89 168/99 O2 Sat by Pulse 94 94 95 Oximetry 07/17/19 07/17/19 07/17/19 11:00 11:40 11:41 Temperature Pulse Rate 128 H 75 73 Pulse Rate [ From Monitor] Respiratory Rate Blood Pressure 167/88 167/88 O2 Sat by Pulse 94 Oximetry 07/17/19 12:00 Temperature Pulse Rate 75 Pulse Rate [ From Monitor] Respiratory 13 Rate Blood Pressure 168/94 O2 Sat by Pulse 96 Oximetry Constitutional: no acute distress, other (elderly looking CM, atraumatic with mildly increased resp effort at rest) Eyes: non-icteric ENT: oropharynx moist Neck: supple, no lymphadenopathy, no JVD Effort: mildly labored Ascultation: Bilateral: clear, diminished breath sounds Percussion: Bilateral: not dull Cardiovascular: regular rate and rhythm Gastrointestinal: normoactive bowel sounds, soft, non-tender, non-distended Integumentary: normal Extremities: no cyanosis, no edema, pulses normal, no ischemia or petechiae Neurologic: normal mental status, non-focal exam, pupils equal and round, CN II- XII normal Psychiatric: mood appropriate, affect normal CBC and BMP: 07/20/19 05:53 07/18/19 10:11 ABG, PT/INR, D-dimer: PT/INR, D-dimer PT 13.7 Sec. (12.2-14.9) 07/16/19 08:33 INR 1.06 (0.87-1.13) 07/16/19 08:33 Abnormal lab findings: Abnormal Labs 07/15/19 07/15/19 07/15/19 20:22 20:22 20:22 [place] % (Auto) 11.0 H [place] # PT INR Carbon Dioxide BUN 31 H Creatinine 1.7 H Glucose 193 H POC Glucose Hemoglobin A1c Troponin T 0.034 H Triglycerides 275 H HDL Cholesterol 29 L 07/15/19 07/15/19 07/16/19 20:22 23:24 07:56 [place] % (Auto) [place] # PT 15.0 H INR 1.19 H Carbon Dioxide BUN Creatinine Glucose POC Glucose 146 H Hemoglobin A1c Troponin T 0.039 H Triglycerides HDL Cholesterol 07/16/19 07/16/19 07/16/19 08:33 08:33 08:33 [place] % (Auto) [place] # PT INR Carbon Dioxide 20 L BUN 25 H Creatinine Glucose 153 H POC Glucose Hemoglobin A1c 6.7 H Troponin T 0.044 H Triglycerides HDL Cholesterol 07/16/19 07/16/19 07/16/19 11:29 15:08 21:52 [place] % (Auto) [place] # PT INR Carbon Dioxide BUN Creatinine Glucose POC Glucose 173 H 154 H Hemoglobin A1c Troponin T 0.040 H Triglycerides HDL Cholesterol 07/17/19 07/17/19 04:24 04:24 [place] % (Auto) 11.7 H [place] # 0.9 H PT INR Carbon Dioxide 21 L BUN Creatinine Glucose POC Glucose Hemoglobin A1c Troponin T Triglycerides HDL Cholesterol Chest x-ray: image reviewed (no focal process) Allied health notes reviewed: nursing
[2019-07-17] MEDS: LISINOPRIL 10 MG TAB PO SCH (13:28)
[2019-07-17] MEDS: NIFEdipine XL 60 MG TAB PO SCH (13:28)
--- NOTE | 2019-07-17 15:13 | Consultation ---
PULMONARY CRITICAL CARE CONSULT NOTE CONSULTING PHYSICIAN: Dr. Clarke. REASON FOR CONSULTATION: Non-ST elevation myocardial infarction. Shortness of breath. CHIEF COMPLAINT AND HISTORY OF PRESENT ILLNESS: As follows: The patient is an 79-year-old male with past medical history indeed significant for coronary artery disease, status post coronary artery bypass grafting in 2016, who presented to the Emergency Room complaining of shortness of breath, nausea that began on the day of presentation. He was found to be bradycardic with a heart rate in the 20s and they were unable to get a blood pressure. He was diaphoretic, atropine was given. There was not any significant improvement in his vital signs, he was brought to the Emergency Room. He initially denied any chest pain. Cardiology consultation was placed and the patient was required to be placed on dopamine at 5 mcg per kilogram per minute and titrated upwards and we are asked to assist with management. When I stopped by to see him, he was doing better. He had been to the geophysical laboratory chief. The patient was gone for diagnostic catheterization. His heart rate was actually better. He had apparently been on beta linda, Coreg and he received IV fluids, dopamine and the beta linda was held and the heart rate was doing a little bit better. Results of the catheterization are pending. He has a 20+ pack year tobacco smoking history, continues to smoke. This really is as much of the history of presentation as I have. He denies a history of snoring. He denies a history of obstructive sleep apnea. He denies actually a known history of COPD. PAST MEDICAL HISTORY: Diabetes type 2, hypertension, hyperlipidemia, history of depression, history of coronary artery disease and tobacco use disorder. PAST SURGICAL HISTORY: He had coronary artery bypass grafting, I believe at [facility] in 2016 he tells me, the records say 2017. He had some bowel surgery in 2017. MEDICATIONS: He was on at the time I stopped by to see him were reviewed. Pertinent medications included the following: Tylenol 650 mg p.o. q. 4 hours p.r.n. mild pain or fevers, amlodipine 10 mg p.o. daily, aspirin 81 mg p.o. daily, TriCor 145 mg p.o. daily, Prozac 40 mg p.o. daily, glipizide 5 mg p.o. q.a.m., dopamine drip had been going at 5 mcg per kilogram per minute. IV heparin drip was going at I believe 27 mL per hour. ACS protocol, insulin via sliding scale, lisinopril 2.5 mg p.o. daily, Reglan 5 mg IV q. 6 hours p.r.n. nausea and vomiting, morphine sulfate 4 mg IV q. 4 hours p.r.n. severe pain, p.r.n. sublingual nitroglycerin 0.4 mg q. 5 minutes p.r.n. chest pain, Zofran 4 mg IV q. 8 hours p.r.n. nausea and vomiting, Percocet 5/325 one tablet p.o. q. 6 hours p.r.n. moderate pain, Protonix 20 mg p.o. daily. ALLERGIES: PENICILLINS AND MORPHINE, nature of this allergy is unknown. DIET: Well-built gentleman. Denies acute weight loss or gain in the preceding few weeks to months. FAMILY AND SOCIAL HISTORY: Lives in the community. He has a 10+ pack year tobacco smoking history, smokes cigarillos now. Denies alcohol, tobacco or illicit drug use or abuse. Family history, otherwise significant for hypertension. REVIEW OF SYSTEMS: No loss of consciousness. No new onset seizures. He had the chest tightness and some chest pain. Denies gross hematochezia or melena. Denies gross hematuria or dysuria. He had nausea, no vomiting. Denies heat or cold intolerance. Denies polydipsia or polyuria. Complete 13-system review of systems obtained. Pertinent positives and/or negatives as in body of history above, otherwise noncontributory. PHYSICAL EXAMINATION: VITAL SIGNS: On examination at presentation in the Emergency Room. He was afebrile, temperature was 98.2 degrees Fahrenheit with a pulse of 28, respiratory rate of 22, blood pressure 78/38, O2 sats were 96%, inspired oxygen concentration at that time was not recorded. When I stopped by to see him, his pulse was 79 with a blood pressure of about 134/73. GENERAL: Elderly looking male, normocephalic, atraumatic, talking to me in full sentences with normal respiratory effort at rest. HEAD, EYES, EARS, NOSE, THROAT: Anicteric. No conjunctival erythema. Oropharynx was moist. Mallampati #3 oropharynx. No gross jugular venous distention, no thyromegaly. He does have a large neck circumference. Grossly, there were no palpable lymph nodes in the supraclavicular or submandibular lymph node chains. LUNGS: Auscultation of lung contreras significant only for diminished bilateral breath sounds, slightly prolonged expiratory phase, but clear. HEART: Heart sounds 1 and 2 are heard. They were regular in rate and rhythm without rubs or murmurs at the time of my evaluation. ABDOMEN: Soft, full, bowel sounds are positive, nontender, no palpable hepatosplenomegaly. EXTREMITIES: Without overt digital clubbing or cyanosis and no pedal edema. Pedal pulses are 2+ bilaterally. NEUROLOGIC: Pupils are equal, round, about 4 mm, reactive to light. Extraocular muscle movements were intact. He moved all 4 extremities spontaneously. Power was 5/5 bilaterally. SKIN: Normal turgor without overt cellulitis or rash. The post coronary artery bypass grafting scar was well healed in the anterior midline of the chest. PSYCHIATRIC: Mood was normal. Affect was appropriate. LABORATORY DATA: From my review are as follows: White cell count 6,900 at admission, hemoglobin 13.0, hematocrit 39.4, platelet count was 188. INR 1.19. Serum sodium was 142, potassium 4.6, chloride 107, bicarbonate 25, BUN 31, creatinine 1.7, glucose was 193. Troponin was 0.039. Triglycerides elevated at 275. Hemoglobin A1c 6.7. No microbiology. Chest x-ray has been reviewed. Chest x-ray does show a chronic looking changes, chronic looking increased interstitial markings, slightly rotated. There appears to be some elevation of the hemidiaphragm on the left, above normal, borderline cardiomegaly. Median sternotomy wires are in place. No gross pneumothorax, no gross bony fracture. ASSESSMENT: 1. Non-ST elevation myocardial infarction. 2. Acute kidney injury. 3. Shortness of breath. 4. Symptomatic bradycardia. 5. Tobacco use disorder. 6. Complete heart block. The 12-lead EKG demonstrated complete heart block. 7. History of hypertension. 8. Diabetes. 9. Hyperlipidemia. 10. Coronary artery disease. 11. Gastroesophageal reflux disease. PLAN: I will defer to Cardiology for further management. I will follow the report of the cardiac catheterization. He does seem to have been dehydrated at presentation and has responded to volume resuscitation, also removal of the beta blockers has helped. I have strongly counseled tobacco abstinence and I have also asked him that he should please be followed up in the Sleep Clinic to evaluate for obstructive sleep apnea. No acute indication for antibiotics. Antiplatelet therapy will be per the tool machine shop supervisor. Dopamine will be reinstituted if he does not have another significant episode of heart block. We will continue IV heparin therapy until stopped by the tool machine shop supervisor. He will be placed on GI prophylaxis. DVT prophylaxis will be introduced once he is off heparin. Pain control will be per the pain score. No acute indication for transvenous pacing. Flu and pneumonia vaccination will be addressed. Glycemic control will be via his glipizide as well as sliding scale insulin with a target blood glucose of 140-180 mg/dL while critically ill. Thank you very much for the consult Dr. Clarke. We will follow along and make further recommendations as picture progresses/becomes clearer. I should mention bilevel positive airway pressure ventilation therapy will be offered on a p.r.n. basis for increased work of breathing. At this time, I have spent about 35-40 minutes of critical care time without overlap and excluding any procedural time that may be necessary. He is critically ill on life-sustaining interventions including the dopamine and IV heparin therapy at risk of decompensation including the risk of . JOB# [id number] JONES/RAMESH PANTOJA
--- NOTE | 2019-07-17 16:01 | Progress Note ---
Assessment and Plan /Complete heart block Patient on Dopamine drip heart rate was 28 on presentation, now 80s Cardiology consulted, s/p cardiac cath in am -will follow further recommendation from cardiology / Non-STEMI (non-ST elevated myocardial infarction) Initiated on IV heparin Cardiology consulted. following / Hypertension Stopped the beta blockers like Coreg Continue amlodipine and lisinopril /Type 2 diabetes mellitus continue coverage for now /Hyperlipidemia Continue fenofibrate /Depression Continue fluoxetine 40 mg once a day /GERD (gastroesophageal reflux disease) Continue Protonix /CHINTAN, vasomotor nephropathy - resolved /DVT prophylaxis On IV heparin and GI prophylaxis The high probability of a clinically significant, sudden or life threatening deterioration of the [cvs] system(s) required my full and direct attention, intervention and personal management. The aggregate critical care time was [32] minutes. This time is in addition to time spent performing reported procedures but includes the following: [x] Data Review and interpretation [x] Patient assessment and monitoring of vital signs [x] Documentation [x] Medication orders and management Hospitalist Physical General appearance: Present: no acute distress - EENT Eyes: Present: PERRL ENT: hearing intact - Neck Neck: Present: supple - Respiratory Respiratory effort: normal Respiratory: bilateral: CTA - Cardiovascular Rhythm: regular Heart Sounds: Present: S1 & S2 (S1 and S2 reg) - Extremities Extremities: no ischemia, No edema, normal color - Abdominal General gastrointestinal: soft, non-tender, non-distended, normal bowel sounds - Psychiatric Psychiatric: appropriate mood/affect - Neurologic Neurologic: moves all extremities, other (AAO x 3) Subjective Date of service: 07/17/19 Interval history: patient seen and examined s/p cardiac cath today, denies any chest pain NSR on monitor Objective - Constitutional Vitals: Vital Signs - 12hr 07/17/19 07/17/19 07/17/19 04:38 05:00 06:00 Temperature Pulse Rate 70 68 Pulse Rate [ 82 From Monitor] Respiratory 18 20 18 Rate Blood Pressure 158/80 160/89 O2 Sat by Pulse 96 95 94 Oximetry 07/17/19 07/17/19 07/17/19 07:00 08:00 11:00 Temperature Pulse Rate 75 128 H Pulse Rate [ 69 From Monitor] Respiratory 13 13 Rate Blood Pressure 168/99 O2 Sat by Pulse 94 95 94 Oximetry 07/17/19 07/17/19 07/17/19 11:40 11:41 12:00 Temperature 97.6 F Pulse Rate 75 73 75 Pulse Rate [ 75 From Monitor] Respiratory 13 Rate Blood Pressure 167/88 167/88 168/94 O2 Sat by Pulse 96 Oximetry 07/17/19 07/17/19 07/17/19 13:00 13:28 13:29 Temperature Pulse Rate 91 H 88 87 Pulse Rate [ From Monitor] Respiratory 18 Rate Blood Pressure 168/94 153/88 153/88 O2 Sat by Pulse 96 Oximetry 07/17/19 07/17/19 14:00 15:12 Temperature Pulse Rate 87 84 Pulse Rate [ From Monitor] Respiratory 18 25 H Rate Blood Pressure 149/79 149/79 O2 Sat by Pulse 89 Oximetry - Labs CBC & Chem 7: 07/18/19 04:49 07/18/19 10:11 Labs: Abnormal lab results 07/16/19 07/16/19 07/17/19 Range/Units 15:08 21:52 04:24 [place] % (Auto) 11.7 H (0.0-7.3) % [place] # 0.9 H (0.0-0.8) K/mm3 Carbon Dioxide (22-30) mmol/L POC Glucose 154 H (70-105) Troponin T 0.040 H (0.00-0.029) ng/mL 07/17/19 Range/Units 04:24 [place] % (Auto) (0.0-7.3) % [place] # (0.0-0.8) K/mm3 Carbon Dioxide 21 L (22-30) mmol/L POC Glucose (70-105) Troponin T (0.00-0.029) ng/mL
[2019-07-18] MEDS: oxyCODONE /ACETAMINOPHEN 5-325MG TAB PO PRN ×2 (02:22→21:47)
[2019-07-18 05:18] LABS: Hematocrit 38.1 % (35.5-45.6)
[2019-07-18 10:47] LABS: BUN/Creatinine Ratio 20; Blood Urea Nitrogen 20 mg/dL (9-20); Calcium 9.1 mg/dL (8.4-10.2); Hemolysis Index 29
[2019-07-18] MEDS: NIFEdipine XL 60 MG TAB PO SCH (11:00)
[2019-07-18] MEDS: glipiZIDE XL 5 MG TAB PO SCH (12:00)
[2019-07-18] MEDS: ENOXAPARIN 40 MG/0.4 ML INJ SUB-Q SCH (12:00)
[2019-07-18] MEDS: LISINOPRIL 10 MG TAB PO SCH (12:01)
[2019-07-18] MEDS: FLUoxetine 20 MG CAP PO SCH (12:01)
[2019-07-18] MEDS: FENOFIBRATE 145 MG TAB PO SCH (12:02)
[2019-07-18] MEDS: PANTOPRAZOLE 20 MG TAB PO SCH (12:02)
[2019-07-18] MEDS: ASPIRIN EC 81 MG TAB PO SCH (12:02)
[2019-07-18] MEDS: INSULIN LISPRO 100 UNIT/ML SUB-Q SCH ×3 (12:42→21:48)
--- NOTE | 2019-07-18 13:15 | Cat Scan Report ---
CTA CHEST WITH IV CONTRAST INDICATION / CLINICAL INFORMATION: r/o aortic aneurysm. TECHNIQUE: Axial CT images were obtained through the chest after injection of 100 cc Omnipaque 350 milligrams pe rcent IV contrast. 3 plane MIP and/or 3D reconstructions were produced. All CT scans at this location are performed using CT dose reduction for ALARA by means of automated exposure control. COMPARISON: None available. FINDINGS: PULMONARY ARTERIES: No pulmonary emboli. THORACIC AORTA: Atherosclerotic changes are present involving the thoracic aorta. Dilatation of the a scending thoracic aorta is present measuring 4.7 cm in AP dimensions at the level of the niranjan and m easuring 5.3 cm seven cm above the aortic valve. No evidence of a dissection the descending thoracic aorta measures 2.9 cm at the level of the niranjan and 2.5 cm at the diaphragm HEART: No significant abnormality. CORONARY ARTERIES: Extensive coronary calcifications present. PLEURA: No pleural effusion. No pneumothorax. LYMPH NODES: No significant adenopathy. LUNGS: No acute air space or interstitial disease. ADDITIONAL FINDINGS: None. UPPER ABDOMEN: Small hiatal hernia SKELETAL STRUCTURES: Degenerative changes thoracic spine IMPRESSION: 1. No CT evidence for pulmonary embolism. 2. Ectatic thoracic aorta ascending component 3. Extensive coronary artery calcifications Signer Name: Avni Douglas MD Signed: 07/18/2019 1:11 PM Workstation Name: [id number]
--- NOTE | 2019-07-18 13:45 | Progress Note ---
Assessment and Plan Transient complete heart block with ventricular escape rhtyhm in 20s. Now improved but patient has extensive underlying conduction system disease with first degree AV block, RBBB, LAFB CAD s/p CABG LHC revealed Severe three-vessel disease with chronic total occlusions of the proximal LAD, mid circumflex and mid right coronary arteries. Patent bypass grafts 4, Left ventricular size function of the lower limits of normal, ejection fraction 50-55%. Near Syncope: Likely related to CHB Htn Ectatic Aorta. Recommend: Dual chamber PPM implant - extensively discussed with patient. He wants to proceed. Tentatively will plan for afternoon Restart beta linda after PPM. Subjective Date of service: 07/18/19 Interval history: No cardiac complaints Objective Vital Signs Temp Pulse Pulse Pulse Resp BP Pulse Ox 07/18/19 12:01 72 122/73 07/18/19 12:00 98 F 66 67 19 122/73 95 07/18/19 11:00 71 7 L 126/72 93 07/18/19 10:00 72 13 126/72 95 07/18/19 09:00 75 21 154/83 92 07/18/19 08:04 93 07/18/19 08:00 97.9 F 68 68 21 146/78 94 07/18/19 07:00 71 14 132/70 94 07/18/19 06:00 66 16 132/70 96 07/18/19 05:00 70 13 142/74 95 07/18/19 04:00 65 15 133/74 93 07/18/19 03:34 98.1 F 07/18/19 03:00 64 18 129/69 94 07/18/19 02:00 72 17 128/69 94 07/18/19 01:00 67 15 128/69 92 07/18/19 00:00 66 13 125/69 93 07/17/19 23:32 97.7 F 07/17/19 23:00 65 19 115/61 94 07/17/19 22:08 66 16 116/63 94 07/17/19 22:00 68 15 116/63 96 07/17/19 21:57 72 115/60 07/17/19 21:00 73 19 115/63 94 07/17/19 20:00 98.7 F 74 22 116/68 95 07/17/19 19:00 67 14 100/61 96 07/17/19 18:00 96/64 98 07/17/19 17:00 80 17 132/68 96 07/17/19 16:00 97.3 F L 77 77 16 132/64 97 07/17/19 15:12 84 25 H 149/79 07/17/19 14:00 87 18 149/79 89 - Physical Examination HEENT: Positive: PERRL Neck: Positive: neck supple Cardiac: Positive: Reg Rate and Rhythm Lungs: Positive: clear to auscultation Neuro: Positive: Grossly Intact Abdomen: Positive: Soft, Other (vental wall hernia) Extremities: Absent: edema - Labs and Meds CBC 07/18/19 Range/Units 04:49 Hgb 13.0 (11.8-15.2) gm/dl Hct 38.1 (35.5-45.6) % Plt Count 182 (140-440) K/mm3 Comprehensive Metabolic Panel 07/18/19 Range/Units 10:11 Sodium 133 L (137-145) mmol/L Potassium 4.2 (3.6-5.0) mmol/L Chloride 96.8 L (98-107) mmol/L Carbon Dioxide 21 L (22-30) mmol/L BUN 20 (9-20) mg/dL Creatinine 1.0 (0.8-1.5) mg/dL Glucose 94 (75-100) mg/dL Calcium 9.1 (8.4-10.2) mg/dL - Imaging and Cardiology EKG: report reviewed (complete heart block, heart rate of 20)
--- NOTE | 2019-07-18 14:27 | Progress Note ---
Assessment and Plan /Complete heart block Patient on Dopamine drip heart rate was 28 on presentation, now 80s Cardiology consulted, s/p cardiac cath showed extensive CAD - medical mx recommended Plan for PPM on / Non-STEMI (non-ST elevated myocardial infarction) Initiated on IV heparin Cardiology consulted. following / Hypertension Stopped the beta blockers like Coreg Continue amlodipine and lisinopril /Type 2 diabetes mellitus continue coverage for now /Hyperlipidemia Continue fenofibrate /Depression Continue fluoxetine 40 mg once a day /GERD (gastroesophageal reflux disease) Continue Protonix /CHINTAN, vasomotor nephropathy - resolved /DVT prophylaxis On IV heparin and GI prophylaxis Hospitalist Physical General appearance: Present: no acute distress - EENT Eyes: Present: PERRL ENT: hearing intact - Neck Neck: Present: supple - Respiratory Respiratory effort: normal Respiratory: bilateral: CTA - Cardiovascular Rhythm: regular Heart Sounds: Present: S1 & S2 (S1 and S2 reg) - Extremities Extremities: no ischemia, No edema, normal color - Abdominal General gastrointestinal: soft, non-tender, non-distended, normal bowel sounds - Psychiatric Psychiatric: appropriate mood/affect - Neurologic Neurologic: moves all extremities, other (AAO x 3) Subjective Date of service: 07/18/19 Interval history: patient seen and examined denies any chest pain NSR on monitor transfer to tele today Objective - Constitutional Vitals: Vital Signs - 12hr 07/18/19 07/18/19 07/18/19 03:00 03:34 04:00 Temperature 98.1 F Pulse Rate 64 65 Pulse Rate [ Right Dorsalis Pedis] Respiratory 18 15 Rate Blood Pressure 129/69 133/74 O2 Sat by Pulse 94 93 Oximetry 07/18/19 07/18/19 07/18/19 05:00 06:00 07:00 Temperature Pulse Rate 70 66 71 Pulse Rate [ Right Dorsalis Pedis] Respiratory 13 16 14 Rate Blood Pressure 142/74 132/70 132/70 O2 Sat by Pulse 95 96 94 Oximetry 07/18/19 07/18/19 07/18/19 08:00 08:04 09:00 Temperature 97.9 F Pulse Rate 68 75 Pulse Rate [ 68 Right Dorsalis Pedis] Respiratory 21 21 Rate Blood Pressure 146/78 154/83 O2 Sat by Pulse 94 93 92 Oximetry 07/18/19 07/18/19 07/18/19 10:00 11:00 12:00 Temperature 98 F Pulse Rate 72 71 66 Pulse Rate [ 67 Right Dorsalis Pedis] Respiratory 13 7 L 19 Rate Blood Pressure 126/72 126/72 122/73 O2 Sat by Pulse 95 93 95 Oximetry 07/18/19 12:01 Temperature Pulse Rate 72 Pulse Rate [ Right Dorsalis Pedis] Respiratory Rate Blood Pressure 122/73 O2 Sat by Pulse Oximetry - Labs CBC & Chem 7: 07/18/19 04:49 07/18/19 10:11 Labs: Abnormal lab results 07/17/19 07/17/19 07/18/19 Range/Units 16:42 21:53 10:11 Sodium 133 L (137-145) mmol/L Chloride 96.8 L (98-107) mmol/L Carbon Dioxide 21 L (22-30) mmol/L POC Glucose 143 H 121 H (70-105)
--- NOTE | 2019-07-18 17:56 | Progress Note ---
Assessment and Plan Patient alert, awake and resting on room air. O2 saturation 95%. Denies chest pain, shortness of breath or cough at this time. Patient diagnosed with non ST elevated CO, History of complete heart block and pacemaker implantation. Patient has history of hypertension and diabetes. Patient smokes cigars 4 or 5 a day for 40 years. Counselled to stop smoking.Denies alcohol or drug abuse. Worked in [employer] before retired. Patient . He has two children. Allergic to penicillin and Morphine. - Patient Problems (1) Non-STEMI (non-ST elevated myocardial infarction) Current Visit: Yes Status: Acute (2) Complete heart block Current Visit: Yes Status: Acute Plan to address problem: Pacemaker implantation. Management as per cardiology. (3) Hypotension Current Visit: Yes Status: Acute Plan to address problem: Improved. To days blood pressure 122/73 (4) GERD (gastroesophageal reflux disease) Current Visit: Yes Status: Chronic Qualifiers: Esophagitis presence: without esophagitis Qualified Code(s): K21.9 - Gastro-esophageal reflux disease without esophagitis Plan to address problem: Patient is on Protonix. (5) Hypertension Current Visit: Yes Status: Chronic Qualifiers: Hypertension type: essential hypertension Qualified Code(s): I10 - Essential (primary) hypertension Plan to address problem: Management as per primary care. (6) Type 2 diabetes mellitus Current Visit: Yes Status: Chronic Qualifiers: Diabetes mellitus supervisor intermediates insulin use: without supervisor intermediates use Plan to address problem: Management as per primary care. (7) Acute kidney injury Current Visit: No Status: Acute Plan to address problem: Management as per nephrology. (8) Tobacco use Current Visit: Yes Status: Acute Plan to address problem: Counselled to stop smoking. Recommend PFTs as out patient. Subjective Date of service: 07/18/19 Interval history: Patient alert, awake and resting on room air. O2 saturation 95%. Denies chest pain, shortness of breath or cough at this time. Patient diagnosed with non ST elevated CO, History of complete heart block and pacemaker implantation. Patient has history of hypertension and diabetes. Patient smokes cigars 4 or 5 a day for 40 years. Counselled to stop smoking.Denies alcohol or drug abuse. Worked in [employer] before retired. Patient . He has two children. Allergic to penicillin and Morphine. Objective Vital Signs - 12hr 07/18/19 07/18/19 07/18/19 06:00 07:00 08:00 Temperature 97.9 F Pulse Rate 66 71 68 Pulse Rate [ 68 Right Dorsalis Pedis] Respiratory 16 14 21 Rate Blood Pressure 132/70 132/70 146/78 O2 Sat by Pulse 96 94 94 Oximetry 07/18/19 07/18/19 07/18/19 08:04 09:00 10:00 Temperature Pulse Rate 75 72 Pulse Rate [ Right Dorsalis Pedis] Respiratory 21 13 Rate Blood Pressure 154/83 126/72 O2 Sat by Pulse 93 92 95 Oximetry 07/18/19 07/18/19 07/18/19 11:00 12:00 12:01 Temperature 98 F Pulse Rate 71 66 72 Pulse Rate [ 67 Right Dorsalis Pedis] Respiratory 7 L 19 Rate Blood Pressure 126/72 122/73 122/73 O2 Sat by Pulse 93 95 Oximetry Constitutional: no acute distress, alert Eyes: non-icteric ENT: oropharynx moist Neck: supple, no lymphadenopathy Ascultation: Bilateral: diminished breath sounds Cardiovascular: regular rate and rhythm Gastrointestinal: normoactive bowel sounds, soft, non-tender, other (Ventral hernia.) Integumentary: normal Extremities: no cyanosis, no edema Neurologic: normal mental status, non-focal exam, pupils equal and round, CN II- XII normal Psychiatric: mood appropriate, affect normal CBC and BMP: 07/18/19 04:49 07/18/19 10:11 ABG, PT/INR, D-dimer: PT/INR, D-dimer PT 13.7 Sec. (12.2-14.9) 07/16/19 08:33 INR 1.06 (0.87-1.13) 07/16/19 08:33 Abnormal lab findings: Abnormal Labs 07/15/19 07/15/19 07/15/19 20:22 20:22 20:22 [place] % (Auto) 11.0 H [place] # PT INR Sodium Chloride Carbon Dioxide BUN 31 H Creatinine 1.7 H Glucose 193 H POC Glucose Hemoglobin A1c Troponin T 0.034 H Triglycerides 275 H HDL Cholesterol 29 L 07/15/19 07/15/19 07/16/19 20:22 23:24 07:56 [place] % (Auto) [place] # PT 15.0 H INR 1.19 H Sodium Chloride Carbon Dioxide BUN Creatinine Glucose POC Glucose 146 H Hemoglobin A1c Troponin T 0.039 H Triglycerides HDL Cholesterol 07/16/19 07/16/19 07/16/19 08:33 08:33 08:33 [place] % (Auto) [place] # PT INR Sodium Chloride Carbon Dioxide 20 L BUN 25 H Creatinine Glucose 153 H POC Glucose Hemoglobin A1c 6.7 H Troponin T 0.044 H Triglycerides HDL Cholesterol 07/16/19 07/16/19 07/16/19 11:29 15:08 21:52 [place] % (Auto) [place] # PT INR Sodium Chloride Carbon Dioxide BUN Creatinine Glucose POC Glucose 173 H 154 H Hemoglobin A1c Troponin T 0.040 H Triglycerides HDL Cholesterol 07/17/19 07/17/19 07/17/19 04:24 04:24 16:42 [place] % (Auto) 11.7 H [place] # 0.9 H PT INR Sodium Chloride Carbon Dioxide 21 L BUN Creatinine Glucose POC Glucose 143 H Hemoglobin A1c Troponin T Triglycerides HDL Cholesterol 07/17/19 07/18/19 07/18/19 21:53 10:11 17:43 [place] % (Auto) [place] # PT INR Sodium 133 L Chloride 96.8 L Carbon Dioxide 21 L BUN Creatinine Glucose POC Glucose 121 H 349 H Hemoglobin A1c Troponin T Triglycerides HDL Cholesterol Chest x-ray: report reviewed (Reported no acute findings.), image reviewed CT scan - chest: report reviewed, image reviewed Additional Studies: CTA of chest 07/18/[address]: 1[address] evidence for pulmonary embolism. 2. Ectatic thoracic aorta ascending component 3. Extensive coronary artery calcifications
[2019-07-19] MEDS: ASPIRIN EC 81 MG TAB PO SCH (10:38)
[2019-07-19] MEDS: LISINOPRIL 10 MG TAB PO SCH (10:38)
[2019-07-19] MEDS: ENOXAPARIN 40 MG/0.4 ML INJ SUB-Q SCH (10:38)
[2019-07-19] MEDS: PANTOPRAZOLE 20 MG TAB PO SCH (10:38)
[2019-07-19] MEDS: FENOFIBRATE 145 MG TAB PO SCH (10:38)
[2019-07-19] MEDS: NIFEdipine XL 60 MG TAB PO SCH (10:38)
[2019-07-19] MEDS: FLUoxetine 20 MG CAP PO SCH (10:38)
[2019-07-19] MEDS: INSULIN LISPRO 100 UNIT/ML SUB-Q SCH ×4 (10:39→22:00)
[2019-07-19] MEDS: glipiZIDE XL 5 MG TAB PO SCH (10:41)
--- NOTE | 2019-07-19 12:47 | Progress Note ---
<FILI COE - Last Filed: 07/19/19 12:43> Assessment and Plan Near Syncope: Likely related to CHB Transient complete heart block with ventricular escape rhtyhm in 20s. Coreg discontinued. Now improved but patient has extensive underlying conduction system disease with first degree AV block, RBBB, LAFB CAD s/p CABG LHC revealed Severe three-vessel disease with chronic total occlusions of the proximal LAD, mid circumflex and mid right coronary arteries. Patent bypass grafts 4, Left ventricular size function of the lower limits of normal, ejection fraction 50-55%. Htn Dilated ascending thoracic aorta measuring 4.7 cm on chest CTA this admission Recommend: Awaits pacemaker implant, tentatively planned for afternoon Continue medical therapy for coronary artery disease. Beta blockers will be resumed after PPM. Subjective Date of service: 07/19/19 Interval history: Patient has no complaints. No cardiac events overnight. Awaits planned pacemaker implant on . Objective Vital Signs Temp Pulse Resp BP Pulse Ox 07/19/19 10:00 74 07/19/19 07:33 97.2 F L 75 22 152/79 92 07/19/19 03:37 97.6 F 73 18 163/82 93 07/18/19 23:10 98.1 F 78 16 137/73 90 07/18/19 22:00 95 07/18/19 19:28 98.2 F 89 18 147/71 93 07/18/19 16:40 23 104/73 89 07/18/19 16:35 122/73 78 L - Physical Examination General: No Apparent Distress HEENT: Positive: PERRL Neck: Positive: neck supple Cardiac: Positive: Reg Rate and Rhythm Lungs: Positive: Decreased Breath Sounds Neuro: Positive: Grossly Intact Abdomen: Positive: Soft, Other (vental wall hernia) Extremities: Absent: edema - Imaging and Cardiology EKG: report reviewed (complete heart block, heart rate of 20) <KEVIN MENDOZA - Last Filed: 07/19/19 15:18> Assessment and Plan I seen and evaluated the patient and agree with the assessment and plan. Patient presents with history of coronary artery disease status post bypass, dilated descending thoracic aorta, and transient complete heart block with ventricular escape rhythm in the 20s. At this time AV sissy blockers are discon tinued; however, patient does require treatment with AV sissy blockers. Therefore the patient is planned for pacemaker implant. Objective Vital Signs Temp Pulse Resp BP Pulse Ox 07/19/19 11:15 98.6 F 83 20 141/69 93 07/19/19 10:00 74 07/19/19 07:33 97.2 F L 75 22 152/79 92 07/19/19 03:37 97.6 F 73 18 163/82 93 07/18/19 23:10 98.1 F 78 16 137/73 90 07/18/19 22:00 95 07/18/19 19:28 98.2 F 89 18 147/71 93 07/18/19 16:40 23 104/73 89 07/18/19 16:35 122/73 78 L
--- NOTE | 2019-07-19 13:53 | Progress Note ---
Assessment and Plan Patient alert, awake and resting on room air. O2 saturation 93%. Denies chest pain, shortness of breath or cough at this time. Patient diagnosed with non ST elevated CA, History of complete heart block and pacemaker implantation. Patient has history of hypertension and diabetes. Patient smokes cigars 4 or 5 a day for 40 years. Counselled to stop smoking.Denies alcohol or drug abuse. Worked in [employer] before retired. Patient . He has two children. Allergic to penicillin and Morphine. - Patient Problems (1) Non-STEMI (non-ST elevated myocardial infarction) Current Visit: Yes Status: Acute Plan to address problem: Management as per cardiology. (2) Complete heart block Current Visit: Yes Status: Acute Plan to address problem: Pacemaker implantation. Management as per cardiology. (3) Hypotension Current Visit: Yes Status: Acute Plan to address problem: Improved. To days blood pressure 94138 (4) GERD (gastroesophageal reflux disease) Current Visit: Yes Status: Chronic Qualifiers: Esophagitis presence: without esophagitis Qualified Code(s): K21.9 - Gastro-esophageal reflux disease without esophagitis Plan to address problem: Patient is on Protonix. (5) Hypertension Current Visit: Yes Status: Chronic Qualifiers: Hypertension type: essential hypertension Qualified Code(s): I10 - Essential (primary) hypertension Plan to address problem: Management as per primary care. (6) Type 2 diabetes mellitus Current Visit: Yes Status: Chronic Qualifiers: Diabetes mellitus halfway insulin use: without halfway use Plan to address problem: Management as per primary care. (7) Acute kidney injury Current Visit: No Status: Acute Plan to address problem: Management as per nephrology. (8) Tobacco use Current Visit: Yes Status: Acute Plan to address problem: Counselled to stop smoking. Recommend PFTs as out patient. Subjective Date of service: 07/19/19 Interval history: Patient alert, awake and resting on room air. O2 saturation 92%. Denies chest pain, shortness of breath or cough at this time. Patient diagnosed with non ST elevated CA, History of complete heart block and pacemaker implantation. Patient has history of hypertension and diabetes. Patient smokes cigars 4 or 5 a day for 40 years. Counselled to stop smoking.Denies alcohol or drug abuse. Worked in [employer] before retired. Patient . He has two children. Allergic to penicillin and Morphine. Objective Vital Signs - 12hr 07/19/19 07/19/19 07/19/19 03:37 07:33 10:00 Temperature 97.6 F 97.2 F L Pulse Rate 73 75 74 Respiratory 18 22 Rate Blood Pressure 163/82 152/79 O2 Sat by Pulse 93 92 Oximetry 07/19/19 11:15 Temperature 98.6 F Pulse Rate 83 Respiratory 20 Rate Blood Pressure 141/69 O2 Sat by Pulse 93 Oximetry Constitutional: no acute distress, alert Eyes: non-icteric ENT: oropharynx moist Neck: supple, no lymphadenopathy Ascultation: Bilateral: diminished breath sounds Cardiovascular: regular rate and rhythm Gastrointestinal: normoactive bowel sounds, soft, non-tender, other (Ventral hernia.) Integumentary: normal Extremities: no cyanosis, no edema Neurologic: normal mental status, non-focal exam, pupils equal and round, CN II- XII normal Psychiatric: mood appropriate, affect normal CBC and BMP: 07/18/19 04:49 07/18/19 10:11 ABG, PT/INR, D-dimer: PT/INR, D-dimer PT 13.7 Sec. (12.2-14.9) 07/16/19 08:33 INR 1.06 (0.87-1.13) 07/16/19 08:33 Abnormal lab findings: Abnormal Labs 07/15/19 07/15/19 07/15/19 20:22 20:22 20:22 [place] % (Auto) 11.0 H [place] # PT INR Sodium Chloride Carbon Dioxide BUN 31 H Creatinine 1.7 H Glucose 193 H POC Glucose Hemoglobin A1c Troponin T 0.034 H Triglycerides 275 H HDL Cholesterol 29 L 07/15/19 07/15/19 07/16/19 20:22 23:24 07:56 [place] % (Auto) [place] # PT 15.0 H INR 1.19 H Sodium Chloride Carbon Dioxide BUN Creatinine Glucose POC Glucose 146 H Hemoglobin A1c Troponin T 0.039 H Triglycerides HDL Cholesterol 07/16/19 07/16/19 07/16/19 08:33 08:33 08:33 [place] % (Auto) [place] # PT INR Sodium Chloride Carbon Dioxide 20 L BUN 25 H Creatinine Glucose 153 H POC Glucose Hemoglobin A1c 6.7 H Troponin T 0.044 H Triglycerides HDL Cholesterol 07/16/19 07/16/19 07/16/19 11:29 15:08 21:52 [place] % (Auto) [place] # PT INR Sodium Chloride Carbon Dioxide BUN Creatinine Glucose POC Glucose 173 H 154 H Hemoglobin A1c Troponin T 0.040 H Triglycerides HDL Cholesterol 07/17/19 07/17/19 07/17/19 04:24 04:24 16:42 [place] % (Auto) 11.7 H [place] # 0.9 H PT INR Sodium Chloride Carbon Dioxide 21 L BUN Creatinine Glucose POC Glucose 143 H Hemoglobin A1c Troponin T Triglycerides HDL Cholesterol 07/17/19 07/18/19 07/18/19 21:53 10:11 17:43 [place] % (Auto) [place] # PT INR Sodium 133 L Chloride 96.8 L Carbon Dioxide 21 L BUN Creatinine Glucose POC Glucose 121 H 349 H Hemoglobin A1c Troponin T Triglycerides HDL Cholesterol 07/18/19 07/19/19 21:15 11:27 [place] % (Auto) [place] # PT INR Sodium Chloride Carbon Dioxide BUN Creatinine Glucose POC Glucose 123 H 137 H Hemoglobin A1c Troponin T Triglycerides HDL Cholesterol
--- NOTE | 2019-07-19 15:09 | Progress Note ---
Assessment and Plan /Complete heart block Patient on Dopamine drip heart rate was 28 on presentation, now 80s Cardiology consulted, s/p cardiac cath showed extensive CAD - medical mx recommended Plan for PPM tomorrow / Non-STEMI (non-ST elevated myocardial infarction) Cardiology consulted. s/p heparin drip and cardiac cath - medical mx for now / Hypertension Stopped the beta blockers like Coreg Continue amlodipine and lisinopril /Type 2 diabetes mellitus continue SSI coverage for now /Hyperlipidemia Continue fenofibrate /Depression Continue fluoxetine 40 mg once a day /GERD (gastroesophageal reflux disease) Continue Protonix /CHINTAN, vasomotor nephropathy - resolved /DVT prophylaxis On IV heparin and GI prophylaxis Brief History: 79-year-old male with history of hypertension, type 2 diabetes, hyperlipidemia depression and coronary artery disease comes in for feeling weak and short of breath and nauseous since afternoon. Patient called EMS. Patient was found to have a heart rate of 20. Patient was given atropine without any improvement. After arrival in the emergency room patient still in a heart rate of 20's. Temporary pacemaker was applied in the emergency room. Heart rate went up to 70. noted elevated troponin, placed on heparin drip. S/p cardiac cath. Pacemaker placement tomorrow Hospitalist Physical General appearance: Present: no acute distress - EENT Eyes: Present: PERRL ENT: hearing intact - Neck Neck: Present: supple - Respiratory Respiratory effort: normal Respiratory: bilateral: CTA - Cardiovascular Rhythm: regular Heart Sounds: Present: S1 & S2 (S1 and S2 reg) - Extremities Extremities: no ischemia, No edema, normal color - Abdominal General gastrointestinal: soft, non-tender, non-distended, normal bowel sounds - Psychiatric Psychiatric: appropriate mood/affect - Neurologic Neurologic: moves all extremities, other (AAO x 3) Subjective Date of service: 07/19/19 Interval history: patient seen and examined denies any chest pain NSR on monitor plan for pacemaker placement tomorrow Objective - Constitutional Vitals: Vital Signs - 12hr 07/19/19 07/19/19 07/19/19 03:37 07:33 10:00 Temperature 97.6 F 97.2 F L Pulse Rate 73 75 74 Respiratory 18 22 Rate Blood Pressure 163/82 152/79 O2 Sat by Pulse 93 92 Oximetry 07/19/19 11:15 Temperature 98.6 F Pulse Rate 83 Respiratory 20 Rate Blood Pressure 141/69 O2 Sat by Pulse 93 Oximetry - Labs CBC & Chem 7: 07/18/19 04:49 07/18/19 10:11 Labs: Abnormal lab results 07/18/19 07/18/19 07/19/19 Range/Units 17:43 21:15 11:27 POC Glucose 349 H 123 H 137 H (70-105)
[2019-07-20 06:43] LABS: Hematocrit 41.2 % (35.5-45.6); Hemoglobin 14.1 gm/dl (11.8-15.2)
[2019-07-20] MEDS: INSULIN LISPRO 100 UNIT/ML SUB-Q SCH ×4 (08:00→21:38)
[2019-07-20] MEDS ORDERED: SODIUM CHLORIDE IRRI 1000 ML 1,000 ML, .VANCOMYCIN VIAL 1,000 MG IR ONE (08:34)
--- NOTE | 2019-07-20 10:36 | Progress Note ---
Assessment and Plan Near syncope Acute kidney injury. Symptomatic bradycardia. Tobacco use disorder. Complete heart block. The 12-lead EKG demonstrated complete heart block. History of hypertension. Diabetes. Hyperlipidemia. Coronary artery disease. Gastroesophageal reflux disease. For PPM placement today Continue all other care as detailed below Discharge planning after PPM placement - continue supplemental oxygen as needed to keep O2 sat's > 90% - continue bronchodilators with pulmonary hygiene per RT - s/p heart cath (Findings: Severe three-vessel disease with chronic total occlusions of the proximal LAD, mid circumflex and mid right coronary arteries. Patent bypass grafts 4, JAMIL to the LAD, nothing grafts 3 to the ALOM, MOM and distal right coronary. Left ventricular size function of the lower limits of normal, ejection fraction 50-55%.) - continue medical therapy and risk factor modification for coronary artery disease per cardiology team -Smoking cessation counselling, on going - mobility protocols for pressure ulcer prophylaxis - continue accuchecks with glycemic control per SSI for target BG < 180 mg/dl - VTE prophylaxis - Influenza and pneumovax per protocol Subjective Date of service: 07/20/19 Interval history: Patient is seen today for: NSTEMI; CHINTAN; Shortness of breath; Symptomatic bradycardia; Tobacco use disorder; Complete heart block; HTN; DM II; Hyperlipidemia; CAD; GERD Seen and examined at bedside; 24-hour events reviewed; nursing and respiratory care staff consulted; no adverse overnight events reported to me; resting peacefully in bed; remains on supplemental oxygen; feels better; no chest pains; NO N/V/F/C. For PPM placement today Objective Vital Signs - 12hr 07/19/19 07/20/19 07/20/19 23:05 04:36 08:36 Temperature 98.2 F 98.1 F 98.3 F Pulse Rate 81 91 H 79 Respiratory 16 16 20 Rate Blood Pressure 131/63 125/75 129/80 O2 Sat by Pulse 98 92 94 Oximetry Constitutional: no acute distress, alert Eyes: non-icteric ENT: oropharynx moist Neck: supple, no lymphadenopathy Ascultation: Bilateral: diminished breath sounds Cardiovascular: regular rate and rhythm Gastrointestinal: normoactive bowel sounds, soft, non-tender, other (Ventral hernia.) Integumentary: normal Extremities: no cyanosis, no edema Neurologic: normal mental status, non-focal exam, pupils equal and round, CN II- XII normal Psychiatric: mood appropriate, affect normal CBC and BMP: 07/20/19 05:53 07/18/19 10:11 ABG, PT/INR, D-dimer: PT/INR, D-dimer PT 13.7 Sec. (12.2-14.9) 07/16/19 08:33 INR 1.06 (0.87-1.13) 07/16/19 08:33 Abnormal lab findings: Abnormal Labs 07/15/19 07/15/19 07/15/19 20:22 20:22 20:22 [place] % (Auto) 11.0 H [place] # PT INR Sodium Chloride Carbon Dioxide BUN 31 H Creatinine 1.7 H Glucose 193 H POC Glucose Hemoglobin A1c Troponin T 0.034 H Triglycerides 275 H HDL Cholesterol 29 L 07/15/19 07/15/19 07/16/19 20:22 23:24 07:56 [place] % (Auto) [place] # PT 15.0 H INR 1.19 H Sodium Chloride Carbon Dioxide BUN Creatinine Glucose POC Glucose 146 H Hemoglobin A1c Troponin T 0.039 H Triglycerides HDL Cholesterol 07/16/19 07/16/19 07/16/19 08:33 08:33 08:33 [place] % (Auto) [place] # PT INR Sodium Chloride Carbon Dioxide 20 L BUN 25 H Creatinine Glucose 153 H POC Glucose Hemoglobin A1c 6.7 H Troponin T 0.044 H Triglycerides HDL Cholesterol 07/16/19 07/16/19 07/16/19 11:29 15:08 21:52 [place] % (Auto) [place] # PT INR Sodium Chloride Carbon Dioxide BUN Creatinine Glucose POC Glucose 173 H 154 H Hemoglobin A1c Troponin T 0.040 H Triglycerides HDL Cholesterol 07/17/19 07/17/19 07/17/19 04:24 04:24 16:42 [place] % (Auto) 11.7 H [place] # 0.9 H PT INR Sodium Chloride Carbon Dioxide 21 L BUN Creatinine Glucose POC Glucose 143 H Hemoglobin A1c Troponin T Triglycerides HDL Cholesterol 07/17/19 07/18/19 07/18/19 21:53 10:11 17:43 [place] % (Auto) [place] # PT INR Sodium 133 L Chloride 96.8 L Carbon Dioxide 21 L BUN Creatinine Glucose POC Glucose 121 H 349 H Hemoglobin A1c Troponin T Triglycerides HDL Cholesterol 07/18/19 07/19/19 07/19/19 21:15 11:27 16:02 [place] % (Auto) [place] # PT INR Sodium Chloride Carbon Dioxide BUN Creatinine Glucose POC Glucose 123 H 137 H 117 H Hemoglobin A1c Troponin T Triglycerides HDL Cholesterol
--- NOTE | 2019-07-20 10:50 | Progress Note ---
Assessment and Plan Assessment and plan: --Complete heart block: Closely monitor heart rates, cardiology following Possible permanent pacemaker today -- Non-STEMI (non-ST elevated myocardial infarction) s/p cardiac cath showed extensive CAD - medical mx recommended medical mx for now -- Hypertension Stopped the beta blockers like Coreg Continue amlodipine and lisinopril --Type 2 diabetes mellitus continue SSI coverage for now --Hyperlipidemia Continue fenofibrate --Depression Continue fluoxetine 40 mg once a day --GERD (gastroesophageal reflux disease) Continue Protonix --CHINTAN, vasomotor nephropathy - resolved --DVT prophylaxis On IV heparin and GI prophylaxis Follow PPM procedure, possible discharge home tomorrow if stable And cleared by cardiology History Interval history: Patient seen and examined medical records reviewed Patient with complete heart block scheduled for permanent pacemaker today Patient has no new complaints Vital signs reviewed Hospitalist Physical - Constitutional Vitals: Temp Pulse Resp BP Pulse Ox 98.3 F 79 20 129/80 94 07/20/19 08:36 07/20/19 08:36 07/20/19 08:36 07/20/19 08:36 07/20/19 08:36 General appearance: Present: no acute distress, well-nourished - EENT Eyes: Present: PERRL, EOM intact - Neck Neck: Present: supple, normal ROM - Respiratory Respiratory effort: normal Respiratory: bilateral: diminished, negative: rales, rhonchi, wheezing - Cardiovascular Rhythm: regular Heart Sounds: Present: S1 & S2 - Extremities Extremities: no ischemia, No edema - Abdominal General gastrointestinal: soft, non-tender, non-distended, normal bowel sounds - Integumentary Integumentary: Present: clear, warm - Psychiatric Psychiatric: appropriate mood/affect, cooperative - Neurologic Neurologic: CNII-XII intact, moves all extremities Results - Labs CBC & Chem 7: 07/20/19 05:53 07/18/19 10:11 Labs: Laboratory Last Values WBC 8.1 K/mm3 (4.5-11.0) 07/17/19 04:24 RBC 4.25 M/mm3 (3.65-5.03) 07/17/19 04:24 Hgb 14.1 gm/dl (11.8-15.2) 07/20/19 05:53 Hct 41.2 % (35.5-45.6) 07/20/19 05:53 MCV 94 fl (84-94) 07/17/19 04:24 MCH 32 pg (28-32) 07/17/19 04:24 MCHC 34 % (32-34) 07/17/19 04:24 RDW 14.3 % (13.2-15.2) 07/17/19 04:24 Plt Count 201 K/mm3 (140-440) 07/20/19 05:53 Lymph % (Auto) 18.9 % (13.4-35.0) 07/17/19 04:24 [place] % (Auto) 11.7 % (0.0-7.3) H 07/17/19 04:24 Eos % (Auto) 1.2 % (0.0-4.3) 07/17/19 04:24 Baso % (Auto) 0.8 % (0.0-1.8) 07/17/19 04:24 Lymph # 1.5 K/mm3 (1.2-5.4) 07/17/19 04:24 [place] # 0.9 K/mm3 (0.0-0.8) H 07/17/19 04:24 Eos # 0.1 K/mm3 (0.0-0.4) 07/17/19 04:24 Baso # 0.1 K/mm3 (0.0-0.1) 07/17/19 04:24 Seg Neutrophils % 67.4 % (40.0-70.0) 07/17/19 04:24 Seg Neutrophils # 5.5 K/mm3 (1.8-7.7) 07/17/19 04:24 PT 13.7 Sec. (12.2-14.9) 07/16/19 08:33 INR 1.06 (0.87-1.13) 07/16/19 08:33 APTT 29.8 Sec. (24.2-36.6) 07/16/19 08:33 Heparin Anti-Xa Level 0.49 U.I./ml (0.3-0.7) 07/17/19 04:24 Sodium 133 mmol/L (137-145) L 07/18/19 10:11 Potassium 4.2 mmol/L (3.6-5.0) 07/18/19 10:11 Chloride 96.8 mmol/L (98-107) L 07/18/19 10:11 Carbon Dioxide 21 mmol/L (22-30) L 07/18/19 10:11 Anion Gap 19 mmol/L 07/18/19 10:11 BUN 20 mg/dL (9-20) 07/18/19 10:11 Creatinine 1.0 mg/dL (0.8-1.5) 07/18/19 10:11 Estimated GFR > 60 ml/min 07/18/19 10:11 BUN/Creatinine Ratio 20 % 07/18/19 10:11 Glucose 94 mg/dL (75-100) 07/18/19 10:11 POC Glucose 99 (70-105) 07/20/19 07:44 Hemoglobin A1c 6.7 % (4-6) H 07/16/19 08:33 Calcium 9.1 mg/dL (8.4-10.2) 07/18/19 10:11 Troponin T 0.040 ng/mL (0.00-0.029) H 07/16/19 15:08 Triglycerides 275 mg/dL (2-149) H 07/15/19 20:22 Cholesterol 159 mg/dL (50-199) 07/15/19 20:22 LDL Cholesterol Direct 94 mg/dL (50-130) 07/15/19 20:22 HDL Cholesterol 29 mg/dL (40-59) L 07/15/19 20:22 Cholesterol/HDL Ratio 5.48 % 07/15/19 20:22 Active Medications - Current Medications Current Medications: Generic Name Dose Route Start Last Admin Trade Name Freq PRN Reason Stop Dose Admin Acetaminophen 650 mg 07/16/19 06:53 Tylenol PO Q4H PRN Pain MILD(1-3)/Fever >100.5/WONG Aspirin 81 mg 07/16/19 10:00 07/19/19 10:38 Halfprin Ec PO 81 mg DAILY ASUNCION Administration Enoxaparin Sodium 40 mg 07/18/19 10:00 07/19/19 10:38 Enoxaparin SUB-Q 40 mg QDAY@1000 ASUNCION Administration Fenofibrate 145 mg 07/16/19 10:00 07/19/19 10:38 Tricor PO 145 mg QDAY ASUNCION Administration Fluoxetine HCl 40 mg 07/16/19 10:00 07/19/19 10:38 Prozac PO 40 mg DAILY ASUNCION Administration Glipizide 5 mg 07/16/19 10:00 07/19/19 10:41 Glucotrol Xl PO 5 mg QAM ASUNCION Administration Insulin Human Lispro 0 unit 07/16/19 07:30 07/19/19 22:00 Humalog SUB-Q Not Given ACHS [facility] Protocol Lisinopril 10 mg 07/17/19 13:00 07/19/19 10:38 Zestril PO 10 mg QDAY ASUNCION Administration Metoclopramide HCl 5 mg 07/16/19 06:53 Reglan IV Q6H PRN Nausea And Vomiting Nifedipine 60 mg 07/17/19 13:00 07/19/19 10:38 Procardia Xl PO 60 mg QDAY ASUNCION Administration Nitroglycerin 0.4 mg 07/16/19 06:44 Nitrostat SL Q5M PRN Chest Pain Ondansetron HCl 4 mg 07/16/19 06:46 07/16/19 21:52 Zofran IV 4 mg Q8H PRN Administration Nausea And Vomiting Oxycodone/Acetaminophen 1 tab 07/16/19 06:53 07/18/19 21:47 Percocet 5/325 PO 1 tab Q6H PRN Administration Pain, Moderate (4-6) Pantoprazole Sodium 20 mg 07/16/19 10:00 07/19/19 10:38 Protonix PO 20 mg QDAY ASUNCION Administration Sodium Chloride 10 ml 07/16/19 10:00 07/19/19 21:43 Sodium Chloride Flush Syringe 10 Ml IV 10 ml BID ASUNCION Administration Sodium Chloride 10 ml 07/16/19 06:46 Sodium Chloride Flush Syringe 10 Ml IV PRN PRN LINE FLUSH
[2019-07-20] MEDS ORDERED: SODIUM CHLORIDE 0.9% 1000 ML 1,000 ML ONE (12:24)
[2019-07-20] MEDS ORDERED: BUPIVACAINE/PF (0.5%) 5 MG/1 ML 30 ML VIAL INFILTRATI ONE (12:45)
[2019-07-20] MEDS ORDERED: LIDOCAINE (1%) 10 MG/1 ML VIAL 20 ML MDV ONE (12:45)
[2019-07-20] MEDS ORDERED: SODIUM CHLORIDE IRRI 500 ML 500 ML IR ONE (12:45)
[2019-07-20] MEDS ORDERED: CLINDAMYCIN 600 MG/50 mL 600 MG/50 ML BAG IV NR (13:00)
[2019-07-20] MEDS: fentaNYL 100 MCG/2 ML INJ ONE ×3 (13:13→13:28)
[2019-07-20] MEDS: MIDAZOLAM 2 MG/2 ML INJ ONE ×2 (13:13→13:21)
[2019-07-20] MEDS ORDERED: MIDAZOLAM 2 MG/2 ML INJ ONE (13:28)
[2019-07-20] MEDS ORDERED: .VANCOMYCIN VIAL 1,000 MG in SODIUM CHLORIDE IRRI 1000 ML 1,000 ML IRRIGATION ONE (13:57)
--- NOTE | 2019-07-20 14:27 | Event Note ---
Date: 07/20/19 PT underwent dual chamber PPM without apparent complications. OK to restart beta linda. OK to DC tomorrow from cardiac perspective after PPM i nterrogation if otherwise stable. Please prescribe short course of PRN pain medication at time of discharge. Keven Blair MD
--- NOTE | 2019-07-20 15:21 | XRay Report ---
CHEST 1 VIEW INDICATION: Pacemaker Postop. COMPARISON: 07/15/2019 FINDINGS: Support devices: A 2-lead pacemaker device has been inserted with the leads overlying the right atriu m and right ventricle. Heart: Within normal limits. Previous CABG changes are noted. Lungs/Pleura: No acute air space or interstitial disease. Additional findings: None. IMPRESSION: No acute findings. Signer Name: Stephen Gordon Jr, MD Signed: 07/20/2019 3:17 PM Workstation Name: [id number]
[2019-07-20] MEDS: FLUoxetine 20 MG CAP PO SCH (15:33)
[2019-07-20] MEDS: ASPIRIN EC 81 MG TAB PO SCH (15:33)
[2019-07-20] MEDS: ENOXAPARIN 40 MG/0.4 ML INJ SUB-Q SCH (15:33)
[2019-07-20] MEDS: FENOFIBRATE 145 MG TAB PO SCH (15:33)
[2019-07-20] MEDS: PANTOPRAZOLE 20 MG TAB PO SCH (15:33)
[2019-07-20] MEDS: LISINOPRIL 10 MG TAB PO SCH (15:35)
[2019-07-20] MEDS: NIFEdipine XL 60 MG TAB PO SCH (15:35)
[2019-07-20] MEDS: glipiZIDE XL 5 MG TAB PO SCH (15:36)
[2019-07-20] MEDS: oxyCODONE /ACETAMINOPHEN 5-325MG TAB PO PRN (18:11)
[2019-07-21] MEDS: INSULIN LISPRO 100 UNIT/ML SUB-Q SCH (07:30)
--- NOTE | 2019-07-21 09:03 | Discharge Summary ---
Providers - Providers Date of Admission: 07/15/19 23:47 Date of discharge: 07/21/19 Attending physician: SHOBHA FLOR 07/15/19 21:30 Consult to Physician [CONS] Stat Comment: Consulting Provider: DELFIN HUMPHREY Physician Instructions: Reason For Exam: bradycardia 07/16/19 06:53 Consult to Physician [CONS] Routine Comment: Consulting Provider: RICHARD WATSON Physician Instructions: Reason For Exam: NSTEMI 07/16/19 06:56 Consult to Physician [CONS] Routine Comment: Consulting Provider: CHANTALE JAUREGUI Physician Instructions: Reason For Exam: complete heart block 07/17/19 11:54 Consult to Cardiac Rehabilitation [CONS] Routine Reason For Exam: Cardiac Rehab Evaluation Primary care physician: ABBEY ROSEN Hospitalization Reason for admission: Symptomatic bradycardia/complete heart block/non-ST elevation [place] Condition: Stable Pertinent studies: Chest x-ray CTA chest Cardiac cath Procedures: Temporary pacemaker Left heart catheterization PPM placement Hospital course: 79-year-old male with history of hypertension, type 2 diabetes, hyperlipidemia depression and coronary artery disease comes in for feeling weak and short of breath and nauseous since afternoon. Patient called EMS. Patient was found to have a heart rate of 20. Patient was given atropine without any improvement. After arrival in the emergency room patient still in a heart rate of 20's. Temporary pacemaker was applied in the emergency room. Heart rate went up to 70. Patient was evaluated by ux interaction designer, underwent heart cath, revealed extensive coronary artery disease, cardiology recommended medical management. Patient also has complete heart block, evaluated by record pressman/ux interaction designer subsequently underwent permanent pacemaker placement. PPM was interrogated found to be functional, today patient is comfortable no new complaints Vital signs reviewed, hemodynamically and clinically stable at discharge Cardiology cleared advised to follow per schedule. Stable at discharge Discharge diagnosis: --Complete heart block: Cardiology evaluated,s/p PPM placement Interrogated, functional -- Non-STEMI (non-ST elevated myocardial infarction) s/p cardiac cath showed extensive CAD - medical mx recommended -- Hypertension Stopped the beta blockers like Coreg Continue labetalol, nifedipine and lisinopril --Type 2 diabetes mellitus continue SSI coverage for now --Hyperlipidemia Continue fenofibrate --Depression Continue fluoxetine 40 mg once a day --GERD (gastroesophageal reflux disease) Continue Protonix --CHINTAN, vasomotor nephropathy - resolved Patient stable at discharge Disposition: DC-[facility] TO HOME OR SELFCARE Time spent for discharge: 32 min Core Measure Documentation - Palliative Care Palliative Care/ Comfort Measures: Not Applicable - Core Measures Any of the following diagnoses?: none Exam - Constitutional Vitals: Temp Pulse Resp BP Pulse Ox 98.6 F 81 20 143/85 96 07/21/19 04:29 07/21/19 05:57 07/21/19 04:29 07/21/19 04:29 07/21/19 01:50 General appearance: Present: no acute distress, well-nourished - EENT Eyes: Present: PERRL, EOM intact - Neck Neck: Present: supple, normal ROM - Respiratory Respiratory effort: normal Respiratory: negative: rales, rhonchi, wheezing - Cardiovascular Rhythm: regular Heart Sounds: Present: S1 & S2 - Extremities Extremities: no ischemia, No edema - Abdominal General gastrointestinal: Present: soft, non-tender, non-distended, normal bowel sounds - Integumentary Integumentary: Present: clear, warm - Musculoskeletal Musculoskeletal: strength equal bilaterally - Psychiatric Psychiatric: appropriate mood/affect, cooperative - Neurologic Neurologic: CNII-XII intact, moves all extremities Plan Activity: advance as tolerated, fall precautions Diet: other (cardiac diet) Additional Instructions: Follow postoperative instructions per cardiology. follow up [facility] office for a device wound check on August 01 at 930 am. Advised to take his pain medications[ibuprofen] as needed Follow up with: CHANTALE JAUREGUI MD [Staff Physician] - 7 Days PRIMARY CAREMD [Referring] - 3-5 Days Forms: Pacemaker Exchange Prescriptions: labetaloL [Labetalol 200mg TAB] 200 mg PO BID #60 tablet NIFEdipine XL [Procardia Xl] 60 mg PO QDAY #30 tablet Pantoprazole [Protonix TAB] 20 mg PO QDAY #30 tablet. Lisinopril [Zestril TAB] 10 mg PO QDAY #30 tablet
[2019-07-21 09:36] VITALS: BP 140/85
[2019-07-21] MEDS: FLUoxetine 20 MG CAP PO SCH (09:37)
[2019-07-21] MEDS: ASPIRIN EC 81 MG TAB PO SCH (09:37)
[2019-07-21] MEDS: NIFEdipine XL 60 MG TAB PO SCH (09:37)
[2019-07-21] MEDS: PANTOPRAZOLE 20 MG TAB PO SCH (09:38)
[2019-07-21] MEDS: FENOFIBRATE 145 MG TAB PO SCH (09:38)
[2019-07-21] MEDS: LISINOPRIL 10 MG TAB PO SCH (09:38)
[2019-07-21] MEDS: ENOXAPARIN 40 MG/0.4 ML INJ SUB-Q SCH (09:39)
--- NOTE | 2019-07-21 10:51 | Progress Note ---
Assessment and Plan Near Syncope: Likely related to CHB Transient complete heart block with ventricular escape rhtyhm in 20s. s/p [employer] pacemaker implant 07/20/19. Interrogation today reports a normal functioning device. CAD s/p CABG [facility] this admission revealed severe three-vessel disease with chronic total occlusions of the proximal LAD, mid circumflex and mid right coronary arteries. Patent bypass grafts 4, Left ventricular size function of the lower limits of normal, ejection fraction 50-55%. Htn Dilated ascending thoracic aorta measuring 4.7 cm on chest CTA this admission. Initiated on labetalol Recommend: Continue medical therapy for coronary artery disease. Stable cardiac pike for discharge. Please prescribe short course of PRN pain medication at time of discharge. Patient will follow up in our office for a device wound check on August 01 at 930 am. Subjective Date of service: 07/21/19 Interval history: Patient is 1 day post PPM. Site is intact. No edema or drainage noted. Objective Vital Signs Temp Pulse Resp Resp BP BP Pulse Ox 07/21/19 09:38 84 140/85 07/21/19 09:37 84 140/85 07/21/19 08:31 98.0 F 84 18 140/85 95 07/21/19 05:57 81 07/21/19 04:29 98.6 F 20 143/85 07/21/19 01:50 98.5 F 78 17 150/87 96 07/21/19 01:32 98.5 F 50 H 167/87 07/20/19 22:00 85 17 17 95 07/20/19 21:29 99.6 F 86 17 149/74 95 07/20/19 20:10 100.8 F H 20 162/83 07/20/19 19:11 18 07/20/19 18:11 16 07/20/19 16:33 93 H 160/82 94 07/20/19 16:13 99.5 F 82 18 154/77 96 07/20/19 15:35 93 H 160/82 - Physical Examination General: No Apparent Distress HEENT: Positive: PERRL Neck: Positive: neck supple Cardiac: Positive: Other (paced) Lungs: Positive: Decreased Breath Sounds Neuro: Positive: Grossly Intact Extremities: Absent: edema
== END 2019-07-21 15:10 | disposition home health service (06) | DRG 242 ==
LOC: ED 19:30 → CC1 23:47 → 4A 07-18 12:52
PROVIDERS: ADMIT Internal Medicine; ATTEND Internal Medicine
PROC: 4A023N7 Measurement of Cardiac Sampling and Pressure, Left Heart, Percutaneous Approach (ICD-10-PCS; 2019-07-17)
PROC: B2111ZZ Fluoroscopy of Multiple Coronary Arteries using Low Osmolar Contrast (ICD-10-PCS; 2019-07-17)
PROC: B2151ZZ Fluoroscopy of Left Heart using Low Osmolar Contrast (ICD-10-PCS; 2019-07-17)
PROC: B2181ZZ Fluoroscopy of Left Internal Mammary Bypass Graft using Low Osmolar Contrast (ICD-10-PCS; 2019-07-17)
PROC: B51V1ZZ Fluoroscopy of Other Veins using Low Osmolar Contrast (ICD-10-PCS; 2019-07-17)
PROC: 0JH606Z Insertion of Pacemaker, Dual Chamber into Chest Subcutaneous Tissue and Fascia, Open Approach (ICD-10-PCS; principal; 2019-07-20)
PROC: 02H63JZ Insertion of Pacemaker Lead into Right Atrium, Percutaneous Approach (ICD-10-PCS; 2019-07-20)
PROC: 02HK3JZ Insertion of Pacemaker Lead into Right Ventricle, Percutaneous Approach (ICD-10-PCS; 2019-07-20)
PROC: 4B02XSZ Measurement of Cardiac Pacemaker, External Approach (ICD-10-PCS; 2019-07-21)
DX: I21.4 Non-ST elevation (NSTEMI) myocardial infarction (principal); N17.0 Acute kidney failure with tubular necrosis; I44.2 Atrioventricular block, complete; I10 Essential (primary) hypertension; E11.8 Type 2 diabetes mellitus with unspecified complications; F17.200 Nicotine dependence, unspecified, uncomplicated; K21.9 Gastro-esophageal reflux disease without esophagitis; M19.90 Unspecified osteoarthritis, unspecified site; F32.9 Major depressive disorder, single episode, unspecified; I95.9 Hypotension, unspecified; E78.2 Mixed hyperlipidemia; Z96.641 Presence of right artificial hip joint; Z82.49 Family history of ischemic heart disease and other diseases of the circulatory system; Z88.0 Allergy status to penicillin; Z79.899 Other long term (current) drug therapy; Z88.5 Allergy status to narcotic agent; Z95.1 Presence of aortocoronary bypass graft; Z79.82 Long term (current) use of aspirin
CPT/HCPCS: 33208; 36415; 71045; 71275; 80048; 80061; 82962; 83036; 84484; 85014; 85018; 85025; 85027; 85049; 85520; 85610; 85730; 93005; 93010; 93459; 94760; 96374; G0378; C1760; C1769; C1781; C1785; C1892; C1894; C1898; J0461; J1265; J1644; J1650; J1815; J2250; J2405; J3010; J3370; J7030; J7040; Q9967

== ENCOUNTER 2019-10-16 08:56 | Outpatient (CLI) | payer MEDICARE ==
--- NOTE | 2019-10-16 16:29 | Nuclear Medicine Report ---
NUCLEAR MEDICINE BONE SCAN, WHOLE BODY INDICATION: [id number] neoplasm of prostate. TECHNIQUE: 26 mCi of Tc-99m MDP were injected IV. Whole body images were obtained. COMPARISON: CT abdomen and pelvis from today. FINDINGS: Skeletal Structures: Fairly symmetric, likely degenerative uptake is present involving the shoulders , elbows, hands, knees, spine, and feet/ankles.. Skeletal Lesions: There is an isolated area of radiotracer uptake in the mid shaft of the right femur . No other focal uptake identified. Soft Tissues: Normal. Kidneys: Normal, symmetric activity. Additional Findings: None. IMPRESSION: 1. Primarily degenerative uptake with 1 asymmetric area of increased tracer uptake in the mid shaft o f the right femur. There is a questionable femoral deformity in this region and this could be at leas t in part posttraumatic--correlate with radiographs. Signer Name: Aguilar Kincaid MD Signed: 10/16/2019 4:25 PM Workstation Name: [id number]
--- NOTE | 2019-10-16 17:24 | Cat Scan Report ---
CT abdomen pelvis wo con INDICATION: [id number] neoplasm of prostate. TECHNIQUE: All CT scans at this location are performed using the following dose modulation technique: Automated exposure control. CONTRAST: None. COMPARISON: CT abdomen and pelvis 03/16/2017. CT ABDOMEN: Evaluation the parenchymal organs demonstrates a nonobstructing stone at the upper pole o f the left kidney measuring 1.5 cm. A few small nonobstructing right renal stones are also present. B ilateral renal scarring and a combination of simple and complex renal cysts are noted. The remaining parenchymal organs are unremarkable. Negative for abdominal mass, fluid collection or inflammation. The bowel is not dilated or thickened. A few small layering gallstones are noted. Diastases of the rectus muscles with eventration at the anterior abdominal wall is now present. CT PELVIS: Sigmoid diverticula are noninflamed. Negative for pelvic mass or inflammation. A node at t he right pelvic sidewall (series 2, image 157) measures 1 cm. A few smaller nodes are present. The pr ostate gland is moderately enlarged. Negative for new, suspicious bony lesion. IMPRESSION: 1. Indeterminate small right pelvic nodes. 2. Negative for suspicious bony lesion. 3. Nonobstructing renal stones left greater than right without significant change. A combination of s imple and complex cysts remain. 4. Calcified gallstones. 5. Noninflamed colonic diverticulosis. Signer Name: Octavio Kay MD Signed: 10/16/2019 5:20 PM Workstation Name: [id number]
== END 2019-10-16 08:57 | disposition home or self-care (01) ==
LOC: NM 08:56
PROVIDERS: ATTEND Urology
DX: N20.0 Calculus of kidney (principal); N28.1 Cyst of kidney, acquired; K80.20 Calculus of gallbladder without cholecystitis without obstruction; C61 Malignant neoplasm of prostate; K57.30 Diverticulosis of large intestine without perforation or abscess without bleeding; K44.9 Diaphragmatic hernia without obstruction or gangrene
CPT/HCPCS: 74176; 78306; A9503

== ENCOUNTER 2020-06-12 13:06 | Inpatient (IN) | payer MEDICARE ==
[2020-06-12] MEDS ORDERED: DEXTROSE 50% IN WATER (25GM) 50 ML SYRINGE IV PRN (13:21)
[2020-06-12] MEDS: INSULIN REGULAR, HUMAN 100 UNIT/ML 3ML VIAL SUB-Q SCH ×2 (16:30→23:13)
--- NOTE | 2020-06-12 19:34 | History and Physical Report ---
History of Present Illness Date of examination: 06/12/20 Date of admission: 06/12/20 15:43 Past History Past Medical History: diabetes, hypertension, hyperlipidemia, PVD Medications and Allergies Allergies Allergy/AdvReac Type Severity Reaction Status Date / Time Penicillins Allergy Mild REDNESS, Verified 07/20/16 08:16 WARM FEELING,SWELLING morphine AdvReac Intermediate VERY Verified 07/20/16 08:16 JITTERY, TWITCHING, JUMPING Home Medications Medication Instructions Recorded Confirmed Last Taken Type Aspirin [Adult Low Dose Aspirin EC] 81 mg PO DAILY 07/20/16 07/16/19 03/14/17 History FLUoxetine HCL [FLUoxetine] 40 mg PO DAILY 07/20/16 07/16/19 03/14/17 History Fenofibrate [Lofibra] 160 mg PO QDAY 07/20/16 07/16/19 03/14/17 History glipiZIDE [glipiZIDE ER] 5 mg PO BID 07/20/16 07/16/19 03/14/17 History Oxybutynin [Ditropan] 5 mg PO QDAY 07/16/19 07/16/19 Unknown History Trazodone HCl 50 mg PO QHS 07/16/19 07/16/19 Unknown History clonazePAM [Klonopin] 1 mg PO QHS 07/16/19 07/16/19 Unknown History NIFEdipine XL [Procardia Xl] 60 mg PO QDAY #30 tablet 07/21/19 Unknown Rx Pantoprazole [Protonix TAB] 20 mg PO QDAY #30 tablet. 07/21/19 Unknown Rx labetaloL [Labetalol 200mg TAB] 200 mg PO BID #60 tablet 07/21/19 Unknown Rx lisinopriL [Zestril TAB] 10 mg PO QDAY #30 tablet 07/21/19 Unknown Rx Active Meds: Active Medications Dextrose (D50w (25gm) Syringe) 50 ml IV Q30MIN PRN; Protocol PRN Reason: Hypoglycemia Insulin Human Regular (Humulin R) 0 unit SUB-Q [facility]; Protocol Sodium Chloride (Sodium Chloride Flush Syringe 10 Ml) 10 ml IV BID [facility] Sodium Chloride (Sodium Chloride Flush Syringe 10 Ml) 10 ml IV PRN PRN PRN Reason: LINE FLUSH Review of Systems All systems: negative Exam - Constitutional Vitals: Temp Pulse Resp BP Pulse Ox 98.8 F 92 H 20 149/74 96 06/12/20 16:45 06/12/20 16:45 06/12/20 16:45 06/12/20 16:45 06/12/20 16:45 General appearance: Present: no acute distress, well-nourished - EENT Eyes: Present: PERRL ENT: hearing intact, clear oral mucosa - Neck Neck: Present: supple, normal ROM - Respiratory Respiratory effort: normal Respiratory: bilateral: CTA - Cardiovascular Rhythm: regular Heart Sounds: Present: S1 & S2. Absent: rub, click - Extremities Extremities: pulses symmetrical, No edema Peripheral Pulses: within normal limits - Abdominal General gastrointestinal: Present: soft, non-tender, non-distended, normal bowel sounds Male genitourinary: Present: normal - Integumentary Integumentary: Present: clear, warm, dry - Musculoskeletal Musculoskeletal: gait normal, strength equal bilaterally - Psychiatric Psychiatric: appropriate mood/affect, intact judgment & insight - Neurologic Neurologic: CNII-XII intact, moves all extremities Results - Labs Labs: Laboratory Last Values POC Glucose 119 mg/dL (70-105) H 06/12/20 17:05 Assessment and Plan Advance Directives: Yes - Patient Problems (1) Acute kidney injury Current Visit: No Status: Acute (2) DVT prophylaxis Current Visit: No Status: Acute (3) Hyperlipidemia Current Visit: No Status: Chronic (4) Hypertension Current Visit: No Status: Chronic
[2020-06-12] MEDS ORDERED: ONDANSETRON 4 MG/2 ML INJ IV PRN (19:43)
[2020-06-12] MEDS ORDERED: HYDROmorphone 1 MG/1 ML INJ IV PRN (19:43)
[2020-06-12] MEDS ORDERED: ACETAMINOPHEN 325 MG TAB PO PRN (19:43)
[2020-06-12] MEDS ORDERED: oxyCODONE /ACETAMINOPHEN 5-325MG TAB PO PRN (19:43)
[2020-06-12] MEDS ORDERED: FENOFIBRATE 160 MG PO SCH (19:45)
[2020-06-12] MEDS ORDERED: FLUOXETINE HCL 40 MG PO SCH (19:45)
[2020-06-12] MEDS ORDERED: VANCOMYCIN PHARMACY TO DOSE IV SCH (20:00)
[2020-06-12 20:45] LABS: Basophils # (Auto) 0.1 K/mm3 (0.0-0.1); Basophils % (Auto) 1.1 % (0.0-1.8); Eosinophils # (Auto) 0.2 K/mm3 (0.0-0.4); Eosinophils % (Auto) 2.5 % (0.0-4.3); Hematocrit 33.1 % (35.5-45.6); Hemoglobin 11.5 gm/dl (11.8-15.2); Lymphocytes # (Auto) 2.1 K/mm3 (1.2-5.4); Lymphocytes % (Auto) 30.9 % (13.4-35.0); Mean Corpuscular HGB Conc 35 % (32-34); Mean Corpuscular Volume 96 fl (84-94); Monocytes # (Auto) 0.7 K/mm3 (0.0-0.8); Monocytes % (Auto) 9.9 % (0.0-7.3); Platelet Count 192 K/mm3 (140-440); Red Blood Count 3.45 M/mm3 (3.65-5.03); Red Cell Distribution Width 14.3 % (13.2-15.2)
[2020-06-12] MEDS ORDERED: VANCOMYCIN 2,000 MG in SODIUM CHLORIDE 0.9% 500 ML 500 ML IV ONE (21:00)
[2020-06-12 21:02] LABS: Albumin 3.5 g/dL (3.9-5); Calcium 8.4 mg/dL (8.4-10.2)
[2020-06-12] MEDS ORDERED: NON-FORMULARY EACH (Clonazepam [Klonopin] 1 MG) PO SCH (22:00)
[2020-06-12] MEDS: glipiZIDE XL 5 MG TAB PO SCH (23:11)
[2020-06-12] MEDS: clonazePAM 0.5 MG TAB PO SCH (23:11)
[2020-06-12] MEDS: LISINOPRIL 10 MG TAB PO SCH (23:11)
[2020-06-12] MEDS: OXYBUTYNIN 5 MG TAB PO SCH (23:12)
[2020-06-12] MEDS: FENOFIBRATE 145 MG TAB PO SCH (23:12)
[2020-06-12] MEDS: traZODone 50 MG TAB PO SCH (23:12)
[2020-06-12] MEDS: ASPIRIN EC 81 MG TAB PO SCH (23:13)
[2020-06-12] MEDS: FAMOTIDINE 20 MG TAB PO SCH (23:13)
[2020-06-12] MEDS: NIFEdipine XL 60 MG TAB PO SCH (23:14)
[2020-06-12] MEDS: PANTOPRAZOLE 20 MG TAB PO SCH (23:14)
[2020-06-12] MEDS: INSULIN LISPRO 100 UNIT/ML VIAL 3 mL SUB-Q SCH (23:14)
[2020-06-13 06:51] LABS: Chol/HDL Ratio 6.57 %
[2020-06-13] MEDS: INSULIN LISPRO 100 UNIT/ML VIAL 3 mL SUB-Q SCH ×3 (07:30→16:30)
[2020-06-13] MEDS: INSULIN REGULAR, HUMAN 100 UNIT/ML 3ML VIAL SUB-Q SCH ×4 (07:30→21:07)
[2020-06-13] MEDS: glipiZIDE XL 5 MG TAB PO SCH ×2 (08:00→17:00)
[2020-06-13] MEDS: FLUoxetine 20 MG CAP PO SCH (09:43)
[2020-06-13] MEDS: FAMOTIDINE 20 MG TAB PO SCH ×2 (09:44→21:07)
[2020-06-13] MEDS: NIFEdipine XL 60 MG TAB PO SCH (09:44)
[2020-06-13] MEDS: FENOFIBRATE 145 MG TAB PO SCH (09:44)
[2020-06-13] MEDS: OXYBUTYNIN 5 MG TAB PO SCH (09:44)
[2020-06-13] MEDS: LISINOPRIL 10 MG TAB PO SCH (09:44)
[2020-06-13] MEDS: ASPIRIN EC 81 MG TAB PO SCH (09:44)
[2020-06-13] MEDS: PANTOPRAZOLE 20 MG TAB PO SCH (09:45)
--- NOTE | 2020-06-13 11:50 | Consultation ---
History of Present Illness Consult date: 06/13/20 Chief complaint: L leg redness - History of present illness History of present illness: 80-year-old male with past medical history of diabetes who presents to the hospital as a direct admission by Dr. Clarke his PCP for cellulitis of his right leg. Patient states he has had swelling in the leg for the past several weeks and was prescribed Lasix and potassium by Dr. Clarke. He states that the lower part of his leg then became red in the last couple of days and started to drain. He states the drainage has been clear and has slightly improved with the use of Lasix. He has never had anything like this before. He denies trauma to the area. He denies pain. No fevers or chills. He was admitted for IV antibiotics. He states he did get a prescription for oral antibiotics at his last visit with Dr. Clarke 1 or 2 days ago however did not start it because he was being admitted to the hospital. Past History Past Medical History: diabetes, hypertension, hyperlipidemia, PVD Social history: no significant social history Family history: no significant family history Medications and Allergies Allergies Allergy/AdvReac Type Severity Reaction Status Date / Time Penicillins Allergy Mild REDNESS, Verified 07/20/16 08:16 WARM FEELING,SWELLING morphine AdvReac Intermediate VERY Verified 07/20/16 08:16 JITTERY, TWITCHING, JUMPING Home Medications Medication Instructions Recorded Confirmed Last Taken Type RX: Aspirin [Adult Low Dose 81 mg PO DAILY 07/20/16 06/13/20 03/14/17 History Aspirin EC] RX: FLUoxetine HCL [FLUoxetine] 40 mg PO DAILY 07/20/16 06/13/20 03/14/17 History RX: Fenofibrate [Lofibra] 160 mg PO QDAY 07/20/16 06/13/20 03/14/17 History RX: glipiZIDE [glipiZIDE ER] 5 mg PO BID 07/20/16 06/13/20 03/14/17 History RX: Oxybutynin [Ditropan] 5 mg PO QDAY 07/16/19 06/13/20 Unknown History RX: Trazodone HCl 50 mg PO QHS 07/16/19 06/13/20 Unknown History RX: clonazePAM [Klonopin] 1 mg PO QHS 07/16/19 06/13/20 Unknown History RX: NIFEdipine XL [Procardia Xl] 60 mg PO QDAY #30 tablet 07/21/19 06/13/20 Unknown Rx RX: Pantoprazole [Protonix TAB] 20 mg PO QDAY #30 tablet. 07/21/19 06/13/20 Unknown Rx RX: labetaloL [Labetalol 200mg TAB] 200 mg PO BID #60 tablet 07/21/19 06/13/20 Unknown Rx RX: lisinopriL [Zestril TAB] 10 mg PO QDAY #30 tablet 07/21/19 06/13/20 Unknown Rx Active Meds: Active Medications Acetaminophen (Tylenol) 650 mg PO Q4H PRN PRN Reason: Pain MILD(1-3)/Fever >100.5/WONG Aspirin (Halfprin Ec) 81 mg PO DAILY [facility] Last Admin: 06/13/20 09:44 Dose: 81 mg Documented by: Clonazepam (Klonopin) 1 mg PO QHS [facility] Last Admin: 06/12/20 23:11 Dose: 1 mg Documented by: Dextrose (D50w (25gm) Syringe) 50 ml IV Q30MIN PRN; Protocol PRN Reason: Hypoglycemia Famotidine (Pepcid) 20 mg PO BID [facility] Last Admin: 06/13/20 09:44 Dose: 20 mg Documented by: Fenofibrate (Tricor) 145 mg PO DAILY [facility] Last Admin: 06/13/20 09:44 Dose: 145 mg Documented by: Fluoxetine HCl (Prozac) 40 mg PO QDAY [facility] Last Admin: 06/13/20 09:43 Dose: 40 mg Documented by: Glipizide (Glucotrol Xl) 5 mg PO BIDDIAB [facility] Last Admin: 06/12/20 23:11 Dose: 5 mg Documented by: Hydromorphone HCl (Dilaudid) 0.5 mg IV Q3H PRN PRN Reason: Pain , Severe (7-10) Levofloxacin/Dextrose (Levaquin 750mg/150ml) 750 mg in 150 mls @ 100 mls/hr IV Q24HR [facility]; Protocol Last Admin: 06/13/20 09:43 Dose: 100 mls/hr Documented by: Vancomycin HCl 1,500 mg/ (Sodium Chloride) 530 mls @ 333.333 mls/hr IV Q24HR@2200 [facility] Insulin Human Lispro (Humalog) 0 unit SUB-Q [facility]; Protocol Last Admin: 06/12/20 23:14 Dose: Not Given Documented by: Insulin Human Regular (Humulin R) 0 unit SUB-Q [facility]; Protocol Last Admin: 06/13/20 07:30 Dose: Not Given Documented by: Labetalol HCl (Labetalol) 200 mg PO BID [facility] Last Admin: 06/13/20 09:44 Dose: 200 mg Documented by: Lisinopril (Zestril) 10 mg PO QDAY [facility] Last Admin: 06/13/20 09:44 Dose: 10 mg Documented by: Nifedipine (Procardia Xl) 60 mg PO QDAY [facility] Last Admin: 06/13/20 09:44 Dose: 60 mg Documented by: Ondansetron HCl (Zofran) 4 mg IV Q8H PRN PRN Reason: Nausea And Vomiting Oxybutynin Chloride (Ditropan) 5 mg PO QDAY [facility] Last Admin: 06/13/20 09:44 Dose: 5 mg Documented by: Oxycodone/Acetaminophen (Percocet 5/325) 1 tab PO Q6H PRN PRN Reason: Pain, Moderate (4-6) Pantoprazole Sodium (Protonix) 20 mg PO QDAY [facility] Last Admin: 06/13/20 09:45 Dose: 20 mg Documented by: Sodium Chloride (Sodium Chloride Flush Syringe 10 Ml) 10 ml IV BID [facility] Last Admin: 06/13/20 09:47 Dose: 10 ml Documented by: Sodium Chloride (Sodium Chloride Flush Syringe 10 Ml) 10 ml IV PRN PRN PRN Reason: LINE FLUSH Sodium Chloride (Sodium Chloride Flush Syringe 10 Ml) 10 ml IV BID [facility] Last Admin: 06/13/20 09:51 Dose: 10 ml Documented by: Sodium Chloride (Sodium Chloride Flush Syringe 10 Ml) 10 ml IV PRN PRN PRN Reason: LINE FLUSH Trazodone HCl (Desyrel) 50 mg PO QHS [facility] Last Admin: 06/12/20 23:12 Dose: 50 mg Documented by: Review of Systems All systems: negative (10 point ROS performed and negative except for that listed in HPI) Exam Vital Signs Temp Pulse Resp BP Pulse Ox 98.8 F 92 H 20 149/74 96 06/12/20 16:45 06/12/20 16:45 06/12/20 16:45 06/12/20 16:45 06/12/20 16:45 Narrative exam: Gen.: Awake, alert, oriented 3. No apparent distress ENT: Trachea midline. No lymphadenopathy. No scleral icterus or conjunctival pallor CV: S1, S2 present Respiratory: No audible wheezes Extremities: Cellulitis of the anterior right lower leg with skin sloughing on the lateral aspect and and dry skin buildup on the medial aspect. There is scant yellowish exudate which is superficial and built up under the very dry skin. No open wounds. No fluctuance. No crepitus. No tenderness to palpation. Calcium alginate applied and wrapped with Kerlix. 2+ pitting edema. Decreased sensation/neuropathy. Small callus on the ball of the foot without associated wound, cellulitis. Results - Labs 06/12/20 20:25 06/12/20 20:25 Abnormal lab results 06/12/20 06/12/20 06/12/20 Range/Units 17:05 20:25 20:25 RBC 3.45 L (3.65-5.03) M/mm3 Hgb 11.5 L (11.8-15.2) gm/dl Hct 33.1 L (35.5-45.6) % MCV 96 H (84-94) fl MCH 33 H (28-32) pg MCHC 35 H (32-34) % [place] % (Auto) 9.9 H (0.0-7.3) % BUN 26 H (9-20) mg/dL Glucose 181 H (75-100) mg/dL POC Glucose 119 H (70-105) mg/dL Total Protein 5.9 L (6.3-8.2) g/dL Albumin 3.5 L (3.9-5) g/dL Triglycerides (2-149) mg/dL HDL Cholesterol (40-59) mg/dL 06/12/20 06/13/20 Range/Units 23:07 06:11 RBC (3.65-5.03) M/mm3 Hgb (11.8-15.2) gm/dl Hct (35.5-45.6) % MCV (84-94) fl MCH (28-32) pg MCHC (32-34) % [place] % (Auto) (0.0-7.3) % BUN (9-20) mg/dL Glucose (75-100) mg/dL POC Glucose 180 H (70-105) mg/dL Total Protein (6.3-8.2) g/dL Albumin (3.9-5) g/dL Triglycerides 335 H (2-149) mg/dL HDL Cholesterol 28 L (40-59) mg/dL Diabetes panel 06/12/20 06/13/20 Range/Units 20:25 06:11 Sodium 138 (137-145) mmol/L Potassium 4.3 (3.6-5.0) mmol/L Chloride 99.9 (98-107) mmol/L Carbon Dioxide 23 (22-30) mmol/L BUN 26 H (9-20) mg/dL Creatinine 1.2 (0.8-1.3) mg/dL Glucose 181 H (75-100) mg/dL Calcium 8.4 (8.4-10.2) mg/dL AST 16 (5-40) units/L ALT 13 (7-56) units/L Alkaline Phosphatase 76 (35-129) units/L Total Protein 5.9 L (6.3-8.2) g/dL Albumin 3.5 L (3.9-5) g/dL Triglycerides 335 H (2-149) mg/dL HDL Cholesterol 28 L (40-59) mg/dL Calcium panel 06/12/20 Range/Units 20:25 Calcium 8.4 (8.4-10.2) mg/dL Albumin 3.5 L (3.9-5) g/dL Pituitary panel 06/12/20 Range/Units 20:25 Sodium 138 (137-145) mmol/L Potassium 4.3 (3.6-5.0) mmol/L Chloride 99.9 (98-107) mmol/L Carbon Dioxide 23 (22-30) mmol/L BUN 26 H (9-20) mg/dL Creatinine 1.2 (0.8-1.3) mg/dL Glucose 181 H (75-100) mg/dL Calcium 8.4 (8.4-10.2) mg/dL Adrenal panel 06/12/20 Range/Units 20:25 Sodium 138 (137-145) mmol/L Potassium 4.3 (3.6-5.0) mmol/L Chloride 99.9 (98-107) mmol/L Carbon Dioxide 23 (22-30) mmol/L BUN 26 H (9-20) mg/dL Creatinine 1.2 (0.8-1.3) mg/dL Glucose 181 H (75-100) mg/dL Calcium 8.4 (8.4-10.2) mg/dL Total Bilirubin 0.20 (0.1-1.2) mg/dL AST 16 (5-40) units/L ALT 13 (7-56) units/L Alkaline Phosphatase 76 (35-129) units/L Total Protein 5.9 L (6.3-8.2) g/dL Albumin 3.5 L (3.9-5) g/dL Assessment and Plan 80-year-old male with cellulitis of right lower leg Patient stable without obvious abscess. White blood cell count normal, afebrile. Plan: 1. Continue antibiotics 2. Change dressing every other day or more frequently as needed 3. Elevation 4. Obtain hemoglobin A1c 5. recommend podiatry consult as outpatient Thank you for this consultation. Please call with any questions or concerns. Evaluation and treatment of this patient was during the time of the national and state emergency arising from COVID19 coronavirus pandemic. Treatment and procedures performed meet the current and available best practice and guidelines for patient during the COVID pandemic.
--- NOTE | 2020-06-13 16:44 | Consultation ---
History of Present Illness - Reason for Consult Consult date: 06/13/20 cellulitis Requesting physician: ABBEY ROSEN - History of Present Illness 80 years old male with history of diabetes mellitus, hypertension, hyperlipidemia, atrial fibrillation, CAD status post CABG in 2016 complicated with colon perforation, chest tube insertion, intra-abdominal sepsis, exploratory laparotomy x2, and developed severe C. difficile infection; Admitted on 06/13/2020 secondary to 2 weeks history of worsening right leg edema associated with erythema and pain. Patient denies any fever, chills, nausea, vomiting. Patient reported that right leg skin broke down and has been oozing serous secretion. Patient report he denies cough, extremity edema. Patient has never had a previous episode of cellulitis. On arrival, temperature 99.8, 98.9, HR 92, RR 20, O2 sat 96%, BP 149/74. Initial WBC 6.7. Hemoglobin 11.5 platelets 192. Creatinine 1.2. Review of Systems: positive in bold print General: fever, chills, malaise Cutaneous: rash, pruritus Head: headaches or injury Eyes: changes in vision, eye pain, double vision Ears: ear pain, ear discharge, ringing or hearing loss Nose: nose bleeding, stuffiness Mouth & throat: bleeding gums, horseness, no dental problems, or swollen glands Neck: no pain, node enlargement/lumps, tyroid enlargement or tenderness Respiratory: SOB, cough, MORENO, wheezing, sputum, hemoptysis, pleuritic chest pain Cardiovascular: chest pain, leg edema, cyanosis, MORENO, orthopnea Musculoskeletal: Right leg edema, erythema, oozing Gastrointestinal: nausea, vomiting, hematemesis, diarrhea, constipation, melena, bright red blood in stools, fecal incontinence, jaundice Genitourinary/Reproductive: frequent urination, dysuria, hematuria, incontinence Neurogical: seizures, headaches, weakness, paresthesias, loss of speech or vision; memory loss, vertigo, tremors, numbness Psychiatric: stable mood; excessive anxiety, sadness or moodiness Past History Past Medical History: diabetes, hypertension, hyperlipidemia, PVD Social history: no significant social history Family history: no significant family history Medications and Allergies Allergies Allergy/AdvReac Type Severity Reaction Status Date / Time Penicillins Allergy Mild REDNESS, Verified 07/20/16 08:16 WARM FEELING,SWELLING morphine AdvReac Intermediate VERY Verified 07/20/16 08:16 JITTERY, TWITCHING, JUMPING Home Medications Medication Instructions Recorded Confirmed Last Taken Type Aspirin [Adult Low Dose Aspirin EC] 81 mg PO DAILY 07/20/16 06/13/20 03/14/17 History FLUoxetine HCL [FLUoxetine] 40 mg PO DAILY 07/20/16 06/13/20 03/14/17 History Fenofibrate [Lofibra] 160 mg PO QDAY 07/20/16 06/13/20 03/14/17 History glipiZIDE [glipiZIDE ER] 5 mg PO BID 07/20/16 06/13/20 03/14/17 History Oxybutynin [Ditropan] 5 mg PO QDAY 07/16/19 06/13/20 Unknown History Trazodone HCl 50 mg PO QHS 07/16/19 06/13/20 Unknown History clonazePAM [Klonopin] 1 mg PO QHS 07/16/19 06/13/20 Unknown History NIFEdipine XL [Procardia Xl] 60 mg PO QDAY #30 tablet 07/21/19 06/13/20 Unknown Rx Pantoprazole [Protonix TAB] 20 mg PO QDAY #30 tablet. 07/21/19 06/13/20 Unknown Rx labetaloL [Labetalol 200mg TAB] 200 mg PO BID #60 tablet 07/21/19 06/13/20 Unknown Rx lisinopriL [Zestril TAB] 10 mg PO QDAY #30 tablet 07/21/19 06/13/20 Unknown Rx Active Meds: Active Medications Acetaminophen (Tylenol) 650 mg PO Q4H PRN PRN Reason: Pain MILD(1-3)/Fever >100.5/WONG Aspirin (Halfprin Ec) 81 mg PO DAILY ON LICENSE OF [facility] Last Admin: 06/13/20 09:44 Dose: 81 mg Documented by: Clonazepam (Klonopin) 1 mg PO QHS ON LICENSE OF [facility] Last Admin: 06/12/20 23:11 Dose: 1 mg Documented by: Dextrose (D50w (25gm) Syringe) 50 ml IV Q30MIN PRN; Protocol PRN Reason: Hypoglycemia Famotidine (Pepcid) 20 mg PO BID ON LICENSE OF [facility] Last Admin: 06/13/20 09:44 Dose: 20 mg Documented by: Fenofibrate (Tricor) 145 mg PO DAILY ON LICENSE OF [facility] Last Admin: 06/13/20 09:44 Dose: 145 mg Documented by: Fluoxetine HCl (Prozac) 40 mg PO QDAY ON LICENSE OF [facility] Last Admin: 06/13/20 09:43 Dose: 40 mg Documented by: Glipizide (Glucotrol Xl) 5 mg PO BIDDIAB ON LICENSE OF [facility] Last Admin: 06/13/20 08:00 Dose: 5 mg Documented by: Hydromorphone HCl (Dilaudid) 0.5 mg IV Q3H PRN PRN Reason: Pain , Severe (7-10) Levofloxacin/Dextrose (Levaquin 750mg/150ml) 750 mg in 150 mls @ 100 mls/hr IV Q24HR ON LICENSE OF [facility]; Protocol Last Admin: 06/13/20 09:43 Dose: 100 mls/hr Documented by: Vancomycin HCl 1,500 mg/ (Sodium Chloride) 530 mls @ 333.333 mls/hr IV Q24 HR@2200 ON LICENSE OF [facility] Insulin Human Lispro (Humalog) 0 unit SUB-Q [facility]; Protocol Last Admin: 06/13/20 11:30 Dose: Not Given Documented by: Insulin Human Regular (Humulin R) 0 unit SUB-Q [facility]; Protocol Last Admin: 06/13/20 11:30 Dose: Not Given Documented by: Labetalol HCl (Labetalol) 200 mg PO BID ON LICENSE OF [facility] Last Admin: 06/13/20 09:44 Dose: 200 mg Documented by: Lisinopril (Zestril) 10 mg PO QDAY ON LICENSE OF [facility] Last Admin: 06/13/20 09:44 Dose: 10 mg Documented by: Nifedipine (Procardia Xl) 60 mg PO QDAY ON LICENSE OF [facility] Last Admin: 06/13/20 09:44 Dose: 60 mg Documented by: Ondansetron HCl (Zofran) 4 mg IV Q8H PRN PRN Reason: Nausea And Vomiting Oxybutynin Chloride (Ditropan) 5 mg PO QDAY ON LICENSE OF [facility] Last Admin: 06/13/20 09:44 Dose: 5 mg Documented by: Oxycodone/Acetaminophen (Percocet 5/325) 1 tab PO Q6H PRN PRN Reason: Pain, Moderate (4-6) Pantoprazole Sodium (Protonix) 20 mg PO QDAY ON LICENSE OF [facility] Last Admin: 06/13/20 09:45 Dose: 20 mg Documented by: Sodium Chloride (Sodium Chloride Flush Syringe 10 Ml) 10 ml IV BID ON LICENSE OF [facility] Last Admin: 06/13/20 09:47 Dose: 10 ml Documented by: Sodium Chloride (Sodium Chloride Flush Syringe 10 Ml) 10 ml IV PRN PRN PRN Reason: LINE FLUSH Sodium Chloride (Sodium Chloride Flush Syringe 10 Ml) 10 ml IV BID ON LICENSE OF [facility] Last Admin: 06/13/20 09:51 Dose: 10 ml Documented by: Sodium Chloride (Sodium Chloride Flush Syringe 10 Ml) 10 ml IV PRN PRN PRN Reason: LINE FLUSH Trazodone HCl (Desyrel) 50 mg PO QHS ON LICENSE OF [facility] Last Admin: 06/12/20 23:12 Dose: 50 mg Documented by: Physical Examination - Physical Exam Narrative exam: General appearance: Alert in NAD pleasant Eyes: anicteric sclerae, moist conjunctivae; no lid-lag; PERRLA HENT: Normocephalic, Atraumatic; normal external ears, nares open, oropharynx clear Neck: supple, tracheal midline, no JVD Lungs: CTA, with normal respiratory effort and no intercostal retractions CV: RRR no murmur Abdomen: Soft, non-tender; +ventral hernia Extremities: +right leg edema, erythema, bumpy skin with sloughing and minimal oozing Skin: No rash. Psych: no agitated Neuro: alert and oriented x 3. Moving all extermities - Constitutional Vitals: Vital Signs Temp Pulse Resp BP Pulse Ox 99.0 F 85 22 141/71 93 06/13/20 12:23 06/13/20 12:23 06/13/20 12:23 06/13/20 12:23 06/13/20 12:23 Temperature -Last 24 Hours Temperature 99.0 F Temperature 98.3 F Temperature 97.5 F Temperature 98.8 F Results - Labs CBC & Chem 7: 06/12/20 20:25 06/12/20 20:25 Labs: Abnormal lab results 06/12/20 06/12/20 06/12/20 Range/Units 17:05 20:25 20:25 RBC 3.45 L (3.65-5.03) M/mm3 Hgb 11.5 L (11.8-15.2) gm/dl Hct 33.1 L (35.5-45.6) % MCV 96 H (84-94) fl MCH 33 H (28-32) pg MCHC 35 H (32-34) % [place] % (Auto) 9.9 H (0.0-7.3) % BUN 26 H (9-20) mg/dL Glucose 181 H (75-100) mg/dL POC Glucose 119 H (70-105) mg/dL Total Protein 5.9 L (6.3-8.2) g/dL Albumin 3.5 L (3.9-5) g/dL Triglycerides (2-149) mg/dL HDL Cholesterol (40-59) mg/dL 06/12/20 06/13/20 06/13/20 Range/Units 23:07 06:11 12:37 RBC (3.65-5.03) M/mm3 Hgb (11.8-15.2) gm/dl Hct (35.5-45.6) % MCV (84-94) fl MCH (28-32) pg MCHC (32-34) % [place] % (Auto) (0.0-7.3) % BUN (9-20) mg/dL Glucose (75-100) mg/dL POC Glucose 180 H 128 H (70-105) mg/dL Total Protein (6.3-8.2) g/dL Albumin (3.9-5) g/dL Triglycerides 335 H (2-149) mg/dL HDL Cholesterol 28 L (40-59) mg/dL Assessment and Plan Cultures: none Assessment: 80 years old male with history of diabetes mellitus, hypertension, hyperlipidemia, atrial fibrillation, CAD status post CABG in 2016 complicated with colon perforation, chest tube insertion, intra-abdominal sepsis, exploratory laparotomy x2, and developed severe C. difficile infection; admitted on 06/13/2020 secondary to 2 weeks history of worsening right leg edema associated with erythema and pain: #Right leg cellulitis on top of chronic leg edema: first episode, associated with extensive skin sloughing. #Penicillin allergy #History of severe C diff Recommendations: -continue levaquin 750 mg po qday x 5 days - short course due to h/o severe C diff -stop vancomycin -start doxycycline 100 mg po bid -needs wound care and edema control ID clinic f/u in 1-2 weeks Will follow. Lucinda Weldon MD Infectious Diseases [employer] [facility] M [phone] O [phone]
[2020-06-13] MEDS: traZODone 50 MG TAB PO SCH (21:06)
[2020-06-13] MEDS: clonazePAM 0.5 MG TAB PO SCH (21:06)
[2020-06-13] MEDS ORDERED: VANCOMYCIN 1,500 MG in SODIUM CHLORIDE 0.9% 500 ML 500 ML IV SCH (22:00)
--- NOTE | 2020-06-14 00:34 | Progress Note ---
Assessment and Plan - Patient Problems (1) Cellulitis of right leg Current Visit: Yes Status: Acute (2) Acute kidney injury Current Visit: No Status: Acute (3) DVT prophylaxis Current Visit: No Status: Acute (4) Hyperlipidemia Current Visit: No Status: Chronic (5) Hypertension Current Visit: No Status: Chronic Subjective Date of service: 06/13/20 Objective - Constitutional Vitals: Vital Signs - 12hr 06/13/20 06/13/20 06/13/20 16:58 21:01 22:19 Temperature 98.5 F 98.7 F 98.6 F Pulse Rate 91 H 78 77 Respiratory 24 16 18 Rate Blood Pressure 136/72 125/65 Blood Pressure 105/60 [Left] O2 Sat by Pulse 94 93 Oximetry 06/13/20 06/14/20 22:22 00:08 Temperature 98.6 F Pulse Rate 88 Respiratory 18 Rate Blood Pressure 112/64 Blood Pressure [Left] O2 Sat by Pulse Oximetry General appearance: Present: no acute distress, well-nourished - EENT Eyes: PERRL, EOM intact ENT: hearing intact, clear oral mucosa Ears: bilateral: normal - Neck Neck: supple, normal ROM - Respiratory Respiratory effort: normal Respiratory: bilateral: CTA - Breasts Breasts: normal - Cardiovascular Rhythm: regular Heart Sounds: Present: S1 & S2. Absent: gallop, rub Extremities: pulses intact, No edema, normal color, Full ROM - Gastrointestinal General gastrointestinal: Present: soft, non-tender, non-distended, normal bowel sounds - Genitourinary Male genitourinary: normal - Integumentary Integumentary: clear, warm, dry - Musculoskeletal Musculoskeletal: 1, strength equal bilaterally - Neurologic Neurologic: moves all extremities - Psychiatric Psychiatric: memory intact, appropriate mood/affect, intact judgment & insight - Labs CBC & Chem 7: 06/12/20 20:25 06/12/20 20:25 Labs: Abnormal lab results 06/13/20 06/13/20 06/13/20 Range/Units 06:11 12:37 22:35 POC Glucose 128 H 130 H (70-105) mg/dL Triglycerides 335 H (2-149) mg/dL HDL Cholesterol 28 L (40-59) mg/dL
[2020-06-14] MEDS: INSULIN LISPRO 100 UNIT/ML VIAL 3 mL SUB-Q SCH ×3 (01:36→11:30)
[2020-06-14 05:21] VITALS: BP 112/60
[2020-06-14] MEDS: INSULIN REGULAR, HUMAN 100 UNIT/ML 3ML VIAL SUB-Q SCH ×2 (07:30→11:30)
[2020-06-14] MEDS: glipiZIDE XL 5 MG TAB PO SCH (08:00)
--- NOTE | 2020-06-14 08:15 | Progress Note ---
Assessment and Plan Cultures: none Assessment: 80 years old male with history of diabetes mellitus, hypertension, h yperlipidemia, atrial fibrillation, CAD status post CABG in 2016 complicated with colon perforation, chest tube insertion, intra-abdominal sepsis, exploratory laparotomy x2, and developed severe C. difficile infection; admitted on 06/13/2020 secondary to 2 weeks history of worsening right leg edema associated with erythema and pain: #Right leg cellulitis on top of chronic leg edema: first episode, associated with extensive skin sloughing. Improving #Tinea pedis/onichomycosis: extensive #Penicillin allergy #History of severe C diff Recommendations: -continue levaquin 750 mg po qday x 5 days - short course due to h/o severe C diff -stop vancomycin -Continue doxycycline 100 mg po bid -needs wound care and edema control -fluconazole 150 mg po weekly for 2 weeks -clotrimazole or miconazole cream BID toes interspaces for 2 weeks -ciclopirox lacquear toe nails qHS for 6 months OK to d/c home on levaquin 750 mg po qday and doxycycline 100 mg po bid x 5 days, repeat fluconazole 150 mg po x 1 in 1 week ID clinic f/u in 1-2 weeks Will follow. Lucinda Weldon MD Infectious Diseases [employer] [facility] M [phone] O [phone] Subjective Date of service: 06/14/20 Principal diagnosis: cellulitis Interval history: Feels better, wants to go home, no fever Objective - Exam Narrative Exam: General appearance: Alert in NAD pleasant Eyes: anicteric sclerae, moist conjunctivae; no lid-lag; PERRLA HENT: Normocephalic, Atraumatic; normal external ears, nares open, oropharynx clear Neck: supple, tracheal midline, no JVD Lungs: CTA, with normal respiratory effort and no intercostal retractions CV: RRR no murmur Abdomen: Soft, non-tender; +ventral hernia Extremities: +right leg edema, erythema, bumpy skin with sloughing and minimal oozing Skin: toe nails with hypertrophic changes Psych: no agitated Neuro: alert and oriented x 3. Moving all extermities - Constitutional Vitals: Vital Signs Temp Pulse Resp BP Pulse Ox 98.1 F 86 18 112/60 95 06/14/20 04:59 10/30/20 04:59 06/14/20 04:59 06/14/20 04:59 06/14/20 04:59 Temperature -Last 24 Hours Temperature 98.1 F Temperature 98.6 F Temperature 98.6 F Temperature 98.7 F Temperature 98.5 F Temperature 99.0 F - Labs CBC & Chem 7: 06/12/20 20:25 06/12/20 20:25 Labs: Abnormal lab results 06/13/20 06/13/20 Range/Units 12:37 22:35 POC Glucose 128 H 130 H (70-105) mg/dL
[2020-06-14] MEDS ORDERED: FLUCONAZOLE 100 MG TAB PO NR (09:00)
[2020-06-14] MEDS ORDERED: CLOTRIMAZOLE 1% CREAM 15 GM TP SCH (10:00)
[2020-06-14] MEDS ORDERED: DOXYCYCLINE 100 MG CAP PO SCH (10:00)
[2020-06-14] MEDS ORDERED: levoFLOXacin 750 MG TAB PO SCH (10:00)
[2020-06-14] MEDS: NIFEdipine XL 60 MG TAB PO SCH (10:52)
[2020-06-14] MEDS: PANTOPRAZOLE 20 MG TAB PO SCH (10:52)
[2020-06-14] MEDS: LISINOPRIL 10 MG TAB PO SCH (10:52)
[2020-06-14] MEDS: ASPIRIN EC 81 MG TAB PO SCH (10:52)
[2020-06-14] MEDS: FLUoxetine 20 MG CAP PO SCH (10:52)
[2020-06-14] MEDS: FENOFIBRATE 145 MG TAB PO SCH (10:53)
[2020-06-14] MEDS: FAMOTIDINE 20 MG TAB PO SCH (10:53)
[2020-06-14] MEDS: OXYBUTYNIN 5 MG TAB PO SCH (10:53)
--- NOTE | 2020-06-14 12:18 | Progress Note ---
Assessment and Plan 80-year-old male with cellulitis of right lower leg Patient stable without obvious abscess. White blood cell count normal, afebrile. Plan: 1. Antibiotics per ID 2. continue daily wound care as per manager background instructions 3. elevate RLE - instructed patient to continue this at home 4. Pt to follow up in [facility] on 06/24. Stable for dc from surgery standpoint. Thank you for this consultation. Please call with any questions or concerns. Evaluation and treatment of this patient was during the time of the national and state emergency arising from COVID19 coronavirus pandemic. Treatment and procedures performed meet the current and available best practice and guidelines for patient during the COVID pandemic. Subjective Date of service: 06/14/20 Narrative: Pt seen and examined. No acute complaints. Afebrile. No pain. Objective Vital Signs - 12hr 06/14/20 04:59 Temperature 98.1 F Pulse Rate 86 Respiratory 18 Rate Blood Pressure 112/60 O2 Sat by Pulse 95 Oximetry - General physical appearance Narrative Exam: Gen.: Awake, alert, oriented 3. No apparent distress CV: S1, S2 present Respiratory: No audible wheezes Extremities: Cellulitis of the anterior right lower leg with 2+ pitting edema of lower leg and foot. Dressing c/d/i - Labs 06/12/20 20:25 06/12/20 20:25
--- NOTE | 2020-06-14 18:18 | Discharge Summary ---
Providers - Providers Date of Admission: 06/12/20 15:43 Date of discharge: 06/14/20 Attending physician: ABBEY ROSEN 06/12/20 13:21 Consult to Physician [CONS] Routine Comment: Consulting Provider: CABRERA JOHNSON Physician Instructions: Reason For Exam: RT. LOWER EXTREMITY CELLULITS 06/12/20 18:58 Consult to Wound/ET Nurse [CONS] Routine Reason For Exam: wound eval 06/12/20 19:52 Consult to Wound/ET Nurse [CONS] Routine Reason For Exam: wound eval 06/12/20 19:53 Consult to Physician [CONS] Routine Comment: Consulting Provider: RENEE KEYS Physician Instructions: Reason For Exam: RLE wound /Abscess Primary care physician: ABBEY ROSEN Hospitalization Disposition: TO HOME OR SELFCARE - Discharge Diagnoses (1) Cellulitis of right leg Status: Acute (2) Acute kidney injury Status: Acute (3) DVT prophylaxis Status: Acute (4) Hyperlipidemia Status: Chronic (5) Hypertension Status: Chronic Core Measure Documentation - Palliative Care Palliative Care/ Comfort Measures: Not Applicable - Core Measures Any of the following diagnoses?: none Exam - Constitutional Vitals: Temp Pulse Resp BP Pulse Ox 98.1 F 86 18 112/60 95 06/14/20 04:59 06/14/20 04:59 06/14/20 04:59 06/14/20 04:59 06/14/20 04:59 General appearance: Present: no acute distress, well-nourished - EENT Eyes: Present: PERRL ENT: hearing intact, clear oral mucosa - Neck Neck: Present: supple, normal ROM - Respiratory Respiratory effort: normal Respiratory: bilateral: CTA - Cardiovascular Heart Sounds: Present: S1 & S2. Absent: rub, click - Extremities Extremities: pulses symmetrical, No edema Peripheral Pulses: within normal limits - Abdominal General gastrointestinal: Present: soft, non-tender, non-distended, normal bowel sounds Male genitourinary: Present: normal - Integumentary Integumentary: Present: clear, warm, dry - Musculoskeletal Musculoskeletal: gait normal, strength equal bilaterally - Psychiatric Psychiatric: appropriate mood/affect, intact judgment & insight - Neurologic Neurologic: CNII-XII intact, moves all extremities Plan Follow up with: ABBEY ROSEN MD [Primary Care Provider] - 7 Days
[2020-06-21] MEDS ORDERED: FLUCONAZOLE 100 MG TAB PO NR (09:00)
== END 2020-06-14 19:37 | disposition home or self-care (01) | DRG 603 ==
LOC: 3A 13:06 → UNDOADMIN 13:06 → 3A 15:43
PROVIDERS: ADMIT Internal Medicine; ATTEND Internal Medicine
DX: L03.115 Cellulitis of right lower limb (principal); N17.9 Acute kidney failure, unspecified; E78.5 Hyperlipidemia, unspecified; I10 Essential (primary) hypertension; I48.91 Unspecified atrial fibrillation; I25.10 Atherosclerotic heart disease of native coronary artery without angina pectoris; B35.3 Tinea pedis; E11.51 Type 2 diabetes mellitus with diabetic peripheral angiopathy without gangrene; Z88.5 Allergy status to narcotic agent; Z79.899 Other long term (current) drug therapy; Z95.1 Presence of aortocoronary bypass graft; Z88.0 Allergy status to penicillin; Z79.82 Long term (current) use of aspirin
CPT/HCPCS: 36415; 80053; 80061; 82962; 85025; 99406; G0378; J1815; J1956; J3370; J7040

== ENCOUNTER 2021-02-12 09:32 | Outpatient (CLI) | payer MEDICARE ==
[2021-02-12 10:44] LABS: Blood Urea Nitrogen 20 mg/dL (9-20)
--- NOTE | 2021-02-12 12:03 | Cat Scan Report ---
CTA CHEST WITH CONTRAST INDICATION / CLINICAL INFORMATION: THORACIC AORTIC ANEURYSM, 60ML OF OMNIPAQUE 350 GIVEN. TECHNIQUE: Axial CT images were obtained through the chest after injection of 60 cc of Omnipaque 350 IV contrast. 3 plane MIP and/or 3D reconstructions were produced. All CT scans at this location are p erformed using CT dose reduction for ALARA by means of automated exposure control. COMPARISON: 07/18/2019 FINDINGS: PULMONARY ARTERIES: Are not optimally opacified on this study performed to evaluate the aorta. Within the limits of this study no central embolus is seen. THORACIC AORTA: Thoracic aorta measures approximately 4.7 cm in AP dimension no dissection is seen. HEART: Unchanged CORONARY ARTERY CALCIFICATION: CABG. MEDIASTINUM / ELI: No significant abnormality. PLEURA: No pleural effusion. No pneumothorax. LUNGS: There is mild chronic appearing interstitial disease in the lung bases. No significant change. ADDITIONAL FINDINGS: None. UPPER ABDOMEN: No acute findings. SKELETAL STRUCTURES: No acute abnormality IMPRESSION: 1. The ascending aorta measures up to 4.7 cm in AP dimension on today's exam. There is no dissection. The appearance is essentially unchanged compared to the previous study. 2. No acute findings. Signer Name: Mario Chavarria MD Signed: 02/12/2021 11:58 AM Workstation Name: [id number]
== END 2021-02-12 09:33 | disposition home or self-care (01) ==
LOC: CT 09:32
PROVIDERS: ATTEND Internal Medicine Cardiovascular Disease
DX: I71.2 Thoracic aortic aneurysm, without rupture (principal)
CPT/HCPCS: 36415; 71275; 82565; 84520; Q9967

== ENCOUNTER 2022-05-14 22:59 | Emergency (ER) | payer MEDICARE ==
[2022-05-14 23:30] VITALS: BP 146/72
--- NOTE | 2022-05-15 02:00 | Emergency Department Report ---
HPI - General Chief Complaint: Skin Rash Time Seen by Provider: 05/15/22 01:45 - HPI HPI: Room 38 The patient is an 82-year-old male present with a chief complaint of groin pain. The patient has history incontinence and states for the past 2 to 3 weeks his groin is felt incredibly raw. When asked if there have been any skin changes the patient states he did not look. Patient denies any history of fever. ED Past Medical Hx - Past Medical History Previous Medical History?: Yes Hx Hypertension: Yes Hx Heart Attack/AMI: Yes Hx Diabetes: Yes (pill control) Hx GERD: Yes Hx Arthritis: Yes (total rt hip relacement) - Surgical History Past Surgical History?: Yes Hx Open Heart Surgery: Yes (CABG 4v) Additional Surgical History: CABG 08/2016 [facility]. Bowel surgery 2016 - Family History Family history: no significant - Social History Smoking Status: Current Some Day Smoker Substance Use Type: None - Medications Home Medications: Home Medications Medication Instructions Recorded Confirmed Last Taken Type Aspirin [Adult Low Dose Aspirin EC] 81 mg PO DAILY 07/20/16 06/13/20 03/14/17 History FLUoxetine HCL [FLUoxetine] 40 mg PO DAILY 07/20/16 06/13/20 03/14/17 History Fenofibrate [Lofibra] 160 mg PO QDAY 07/20/16 06/13/20 03/14/17 History glipiZIDE [glipiZIDE ER] 5 mg PO BID 07/20/16 06/13/20 03/14/17 History Oxybutynin [Ditropan] 5 mg PO QDAY 07/16/19 06/13/20 Unknown History Trazodone HCl 50 mg PO QHS 07/16/19 06/13/20 Unknown History clonazePAM [Klonopin] 1 mg PO QHS 07/16/19 06/13/20 Unknown History NIFEdipine XL [Procardia Xl] 60 mg PO QDAY #30 tablet 07/21/19 06/13/20 Unknown Rx Pantoprazole [Protonix TAB] 20 mg PO QDAY #30 tablet. 07/21/19 06/13/20 Unknown Rx labetaloL [Labetalol 200mg TAB] 200 mg PO BID #60 tablet 07/21/19 06/13/20 Unknown Rx lisinopriL [Zestril TAB] 10 mg PO QDAY #30 tablet 07/21/19 06/13/20 Unknown Rx Doxycycline Calcium [Vibramycin 100 mg PO BID #10 ml 06/14/20 Unknown Rx ORAL LIQ] Fluconazole (Nf) [Diflucan TAB] 150 mg PO QWEEK #4 tablet 06/14/20 Unknown Rx levoFLOXacin [Levaquin] 750 mg PO QDAY #5 tablet 06/14/20 Unknown Rx HYDROcodone/APAP 5-325 [Guion 1 - 2 each PO Q6HR PRN #10 tablet 05/15/22 Unknown Rx 5/325] Nystatin Oint [Mycostatin Oint] 1 applicatio TP BID #1 tube 05/15/22 Unknown Rx levoFLOXacin [Levaquin] 750 mg PO QDAY #10 tablet 05/15/22 Unknown Rx ED Review of Systems ROS: Stated complaint: BLEEDING FROM PENIS Other details as noted in HPI Constitutional: denies: fever Eyes: denies: eye pain ENT: denies: throat pain Respiratory: no symptoms reported Cardiovascular: denies: chest pain Endocrine: no symptoms reported Gastrointestinal: denies: abdominal pain Skin: as per HPI Physical Exam - Physical Exam Vital Signs: Vital Signs 05/14/22 23:26 Temperature 98.9 F Pulse Rate 74 Respiratory 18 Rate Blood Pressure 146/72 O2 Sat by Pulse 97 Oximetry Physical Exam: GENERAL: The patient is well-developed well-nourished male lying on stretcher not appearing to be in acute distress. [] HEENT: Normocephalic. Atraumatic. Extraocular motions are intact. Patient has moist mucous membranes. NECK: Supple. Trachea midline CHEST/LUNGS: There is no respiratory distress noted. HEART/CARDIOVASCULAR: Regular. There is no tachycardia. There is no gallop rub or murmur. ABDOMEN: Abdomen is soft, nontender. Patient has normal bowel sounds. There is no abdominal distention. SKIN: There is erythematous rash consistent with intertriginous candidiasis in the perineum and perianal region. NEURO: The patient is awake, alert, and oriented. The patient is cooperative. The patient has no focal neurologic deficits. The patient has normal speech. GCS 15 MUSCULOSKELETAL: There is no evidence of acute injury. ED Course Vital Signs 05/14/22 23:26 Temperature 98.9 F Pulse Rate 74 Respiratory 18 Rate Blood Pressure 146/72 O2 Sat by Pulse 97 Oximetry ED Medical Decision Making - Lab Data Result diagrams: 05/15/22 04:55 - Differential Diagnosis Intertriginous candidiasis, cellulitis Critical care attestation.: If time is entered above; I have spent that time in minutes in the direct care of this critically ill patient, excluding procedure time. ED Disposition Clinical Impression: Intertriginous candidiasis Disposition: HOME / SELF CARE / HOMELESS Is pt being admited?: No Does the pt Need Aspirin: No Condition: Stable Instructions: Genital Yeast Infection, Male Additional Instructions: Return to the emergency department should you develop worsening symptoms, inability to tolerate food or liquids, high fever or any other concerns Prescriptions: levoFLOXacin [Levaquin] 750 mg PO QDAY #10 tablet Nystatin Oint [Mycostatin Oint] 1 applicatio TP BID #1 tube HYDROcodone/APAP 5-325 [Guion 5/325] 1 - 2 each PO Q6HR PRN #10 tablet PRN Reason: Pain Referrals: ELVA SIBLEY MD [Primary Care Provider] - 3-5 Days Time of Disposition: 05:39
[2022-05-15] MEDS ORDERED: levoFLOXacin 750 MG TAB PO ONE (04:09)
[2022-05-15] MEDS ORDERED: HYDROcodone/ACETAMINOPHEN 5-325 MG TAB PO ONE (04:11)
[2022-05-15] MEDS ORDERED: NYSTATIN POWDER 15 GM TP ONE (04:49)
[2022-05-15 05:26] LABS: Hematocrit 22.6 % (35.5-45.6); Mean Corpuscular HGB Conc 35 % (32-34); Mean Corpuscular Volume 103 fl (84-94); Platelet Count 309 K/mm3 (140-440); Red Blood Count 2.19 M/mm3 (3.65-5.03); Red Cell Distribution Width 16.7 % (13.2-15.2)
[2022-05-15 06:12] LABS: Total Cells Counted 100
[2022-05-15 06:13] LABS: Basophils % (Manual) 0 % (0.0-1.8); Eosinophils % (Manual) 0 % (0.0-4.3)
[2022-05-15 06:14] LABS: Ovalocytes 1+
[2022-05-15 06:15] LABS: Platelet Estimate Consistent w Auto
== END 2022-05-15 06:30 | disposition home or self-care (01) ==
LOC: ED 22:59
DX: B37.0 Candidal stomatitis (principal); R21 Rash and other nonspecific skin eruption; I10 Essential (primary) hypertension; E11.9 Type 2 diabetes mellitus without complications; K21.9 Gastro-esophageal reflux disease without esophagitis; M19.90 Unspecified osteoarthritis, unspecified site; F17.200 Nicotine dependence, unspecified, uncomplicated; Z88.0 Allergy status to penicillin; Z88.5 Allergy status to narcotic agent; Z79.899 Other long term (current) drug therapy
CPT/HCPCS: 36415; 85007; 85025; 99283